=== PATIENT | female | born 1960 | race Caucasian/White ===

== ENCOUNTER 2019-04-28 14:27 | Emergency (ER) | payer BC, SELFPAY ==
--- NOTE | ~2019-04-28 | CT_ITS ---
EXAMINATION: CT lumbar spine wo [facility] EXAM DATE: 04/28/2019 17:41 INDICATION: Acute on chronic low back pain. TECHNIQUE: Spiral CT of the lumbar spine was performed without contrast. Axial, coronal and sagittal images were reviewed. The dose-length product (DLP) for this examination was 777.10 mGy-cm. The e xposure was tailored according to patient size (auto mA exposure control), and iterative reconstructi on (ASIR) was used as additional dose reduction technique. Correlation is made to MR lumbar spine 05/19. FINDINGS: There is moderate to severe disc disease L2-3 and L4-5, mild at L3-4 and L5-S1. The vertebr al bodies are aligned in the AP dimension. There are no osteoblastic or osteolytic lesions identified . Paraspinal soft tissue is unremarkable. There are no acute fractures identified. There is no spondy lolysis. Level by level evaluation: T12-L1: Disc does not extend beyond the endplate margin. Facet arthropathy: Minimal. Neural foraminal stenosis: No stenosis. Central canal stenosis: No stenosis. L1-L2: Disc does not extend beyond the endplate margin. Facet arthropathy: Mild. Neural foraminal stenosis: Mild left. Central canal stenosis: No stenosis. L2-L3: There is a moderate diffuse disc bulge. Facet arthropathy: Mild to moderate. Neural foraminal stenosis: Moderate to severe right, mild left. Central canal stenosis: Mild to moderate. L3-L4: There is a mild to moderate diffuse disc bulge. Facet arthropathy: Mild to moderate. Neural foraminal stenosis: Mild to moderate left, mild right. Central canal stenosis: Mild. L4-L5: There is a moderate diffuse disc bulge. Facet arthropathy: Moderate. Neural foraminal stenosis: Moderate bilateral. Central canal stenosis: Mild to moderate. L5-S1: There is a mild diffuse disc bulge. Facet arthropathy: Moderate. Neural foraminal stenosis: No stenosis. Central canal stenosis: No stenosis. Mild progression in the disc disease L2-3 compared to prior study. IMPRESSION: 1. L2-3 and L4-5 moderate to severe disc disease. 2. No acute lumbar findings. Reviewed, dictated and finalized at location A.
[2019-04-28 14:42] VITALS: BP 124/75; PULSE 82; RESP 20; TEMP 36.4; O2SAT 98
[2019-04-28] MEDS: ACETAMINOPHEN 500 MG TABLET 1000 MG PO (15:34)
--- NOTE | 2019-04-28 16:38 | ED.BACK ---
HPI - Back Pain/Injury General Chief Complaint: Back Pain/Injury Stated Complaint: CHRONIC LBP Time Seen by Provider: 04/28/19 14:58 Source: patient Mode of arrival: wheelchair Limitations: no limitations History of Present Illness HPI Narrative: This is a 58 year old female that presents to the ER for low back pain since yesterday. Reports history of chronic low back pain for which she sees pain management. Reports yesterday she bent over and stood back up and felt something pull in her back. Reports since she has had increasing low back pain. She has not taken anything for pain. Denies saddle anesthesia, bowel/bladder incontinence. Related Data Home Medications Medication Instructions Recorded Confirmed azathioprine 100 mg tablet 100 mg PO DAILY 03/10/19 calcium carbonate 600 mg calcium 600 mg PO DAILY 03/10/19 (1,500 mg) tablet cetirizine 10 mg capsule 10 mg PO DAILY 03/10/19 cholecalciferol (vitamin D3) 125 5,000 unit PO DAILY 03/10/19 mcg (5,000 unit) tablet eluxadoline 100 mg tablet 100 mg PO ONCE tablet 03/10/19 estradiol 1 mg tablet 1 mg PO DAILY 03/10/19 hydrochlorothiazide 25 mg tablet 25 mg PO DAILY 03/10/19 melatonin 10 mg capsule PO DAILY cap 03/10/19 tnrrvhjo-slb-utcgf acid 0.4 1 tablet PO DAILY 03/10/19 mg-lycopene 300 mcg-lutein 250 mcg tablet ondansetron HCl 4 mg tablet 4 mg PO Q8H PRN 03/10/19 oxybutynin chloride 10 mg 10 mg PO DAILY 03/10/19 tablet,extended release 24 hr ranitidine HCl 150 mg capsule 150 mg PO DAILY 03/10/19 simvastatin 10 mg tablet 10 mg PO DAILY 03/10/19 spironolactone 25 mg tablet 25 mg PO BID 03/10/19 Allergies Allergy/AdvReac Type Severity Reaction Status Date / Time pregabalin Allergy Intermediate MEMORY GAPS Verified 03/30/19 11:12 doxycycline Allergy Unknown Pt does Verified 03/30/19 11:12 not remember duloxetine Allergy Unknown catatonic Verified 03/30/19 11:12 Penicillins Allergy Unknown Skin Verified 03/30/19 11:12 Reaction Sulfa (Sulfonamide Allergy Unknown Skin Verified 03/30/19 11:12 Antibiotics) Reaction suvorexant [Belsomra] Allergy Unknown intolerance Verified 03/30/19 11:12 vancomycin Allergy Unknown Facial Verified 03/30/19 11:12 swelling Review of Systems Review of Systems: Narrative: CONSTITUTIONAL: Denies fever MUSCULOSKELETAL: Reports back pain, joint pain, and myalgia. NEUROLOGIC: Denies numbness, or weakness. All systems reviewed & are unremarkable except as noted in HPI and below PMFSH Past Medical History Medical History (Updated 04/28/19 @ 18:24 by Niharika Jaime PA-C) Crohn's disease, unspecified, with other complication Essential (primary) hypertension History of hyperlipidemia Social History Social History (Updated 04/28/19 @ 16:47 by Niharika Jaime PA-C) Smoking status: Never smoker Alcohol intake: current Substance use: never Exam Narrative: Exam Narrative: GENERAL: Well-appearing, well-nourished, and in no acute distress. HEAD: Normocephalic, atraumatic. EYES: EOMI. CHEST: Clear to auscultation. No respiratory distress. No wheezes rales or rhonchi HEART: Regular rate and rhythm. No murmur heard. Normal peripheral pulses. BACK: No midline spinal tenderness. Tender to palpation of lumbar paraspinal musculature. Strength equal in bilateral lower extremities (4/5) EXTREMITIES: Normal range of motion. No edema. SKIN: Warm, dry, no rash. NEURO: No focal deficits. Alert and oriented x3. PSYCH: Normal mood and affect Course Vital Signs Vital signs: Vital Signs Temperature 97.5 F L 04/28/19 14:42 Pulse Rate 82 04/28/19 14:42 Respiratory Rate 04/28/19 14:42 Blood Pressure 124/75 04/28/19 14:42 Pulse Oximetry 98 04/28/19 14:42 Temperature 97.5 F L 04/28/19 14:42 Pulse Rate 82 04/28/19 14:42 Respiratory Rate 20 04/28/19 14:42 Blood Pressure 124/75 04/28/19 14:42 Pulse Oximetry 98 04/28/19 14:42 MDM - Back Pain/Injury MDM Narrative
[2019-04-28] MEDS: ONDANSETRON HCL ODT 4 MG TABLET PO (16:46)
[2019-04-28] MEDS: MORPHINE SULFATE 4 MG/ML INJ IM (16:46)
== END 2019-04-28 19:14 | disposition home or self-care (01) ==
PROVIDERS: Emergency Provider Emergency Medicine; PCP Family Medicine
DX: M51.16 Intervertebral disc disorders with radiculopathy, lumbar region (principal); I10 Essential (primary) hypertension; K50.90 Crohn's disease, unspecified, without complications; E78.5 Hyperlipidemia, unspecified
CPT/HCPCS: 72131; 96372; 99284; A9270; J2270; J3360

== ENCOUNTER 2021-06-30 14:05 | Outpatient (RCR) | payer BC, SELFPAY ==
[2021-06-30 14:56] VITALS: BP 130/62; PULSE 75; RESP 18; TEMP 36.2; O2SAT 100
[2021-06-30 14:58] VITALS: BP 148/69; PULSE 71; TEMP 36.2; O2SAT 99
[2021-06-30] MEDS: FAMOTIDINE 20 MG TABLET PO (15:00)
[2021-06-30] MEDS: ACETAMINOPHEN 325 MG TABLET 650 MG PO (15:00)
[2021-06-30] MEDS: BEBTELOVIMAB 175 MG/2 ML VIAL IV PUSH (15:23)
[2021-06-30 16:12] VITALS: BP 148/62
== END 2021-06-30 16:00 ==
LOC: AMCINF 14:05
PROVIDERS: PCP Physician Assistant; Visit Provider Internal Medicine Hematology & Oncology
DX: U07.1 COVID-19 (principal); D84.9 Immunodeficiency, unspecified
CPT/HCPCS: A9270; M0222; Q0222

== ENCOUNTER → 2021-12-15 14:02 | Outpatient (CLI) | payer BC, SELFPAY ==
--- NOTE | ~2021-12-15 | XR_ITS ---
EXAMINATION: XR chest 2V 12/15/2021 14:21 INDICATION: Cough PROCEDURE: 2 view chest COMPARISON: 04/10/2017 FINDINGS: The lungs are clear. There is lingular atelectasis/scarring, unchanged. The cardiomediastin al silhouette is within normal limits. There are no pleural effusions. There is no pneumothorax shelley pected. IMPRESSION: 1: NO ACUTE CARDIOPULMONARY DISEASE. Reviewed, dictated and finalized at location B.
== END ==
PROVIDERS: PCP Family Medicine; Visit Provider Physician Assistant
DX: R05.9 Cough, unspecified (principal)
CPT/HCPCS: 71046

== ENCOUNTER 2021-12-26 12:33 | Outpatient (CLI) | payer BC, SELFPAY ==
[2021-12-26 18:29] LABS: Basophils Absolute Auto 0.1 K/mm3 (0.0-0.1); Basophils Percent Auto 1.2 % (0.2-1.2); Eosinophils Absolute Auto 0.2 K/mm3 (0-0.3); Eosinophils Percent Auto 1.8 % (0-4.4); Hematocrit 39.2 % (37.0-47.0); Hemoglobin 12.8 g/dL (12.0-15.0); Immature Granulocyte Absolute 0.03 K/mm3 (0.00-0.031); Immature Granulocyte Percent A 0.4 % (0-0.5); Immature Platelet Fraction Pct 7.7 % (0.9-11.2); Lymphocytes Absolute Auto 1.37 K/mm3 (0.9-3.2); Lymphocytes Percent Auto 16.5 % (18.3-44.2); Mean Corpuscular HGB Conc 32.7 g/dl (32-36); Mean Corpuscular Volume 91.8 fl (80-100); Mean Platelet Volume 12.4 fl (7.4-10.4); Monocytes Absolute Auto 0.3 K/mm3 (0.1-0.6); Neutrophils Absolute Auto 6.3 K/mm3 (1.3-6.7); Neutrophils Percent Auto 76.1 % (45.5-73.1); Platelet Count Result 267 k/mm3 (150-375); Red Blood Count 4.27 M/mm3 (4.2-5.4); Red Cell Distribution Width 14.1 % (11.5-14.5); White Blood Count 8.3 K/mm3 (4.5-10.0)
[2021-12-26 18:49] LABS: Anion Gap 16 mmol/L (8-16); Blood Urea Nitrogen 28 mg/dL (7-17); Calcium 9.5 mg/dL (8.4-10.2); Carbon Dioxide 24 mmol/L (22-30); Chloride 98 mmol/L (98-107); Estimated Glomerular Filt Rate 30; Glucose 172 mg/dL (65-110); Potassium 3.3 mmol/L (3.4-5.0); Sodium 138 mmol/L (137-145)
[2021-12-28 12:02] LABS: NIL 0.01 IU/mL; Quantiferon TB Plus, 1T NEGATIVE (NEGATIVE)
== END 2021-12-26 12:34 | disposition home or self-care (01) ==
LOC: ANHGOSHLAB 12:36
PROVIDERS: PCP Family Medicine; Visit Provider Family Medicine
DX: K50.918 Crohn's disease, unspecified, with other complication (principal)
CPT/HCPCS: 36415; 80048; 85025; 85055; 86480

== ENCOUNTER → 2022-02-14 11:07 | Outpatient (CLI) | payer BC, SELFPAY ==
--- NOTE | ~2022-02-14 | XR_ITS ---
EXAMINATION: XR abdomen/kub 1V INDICATION: Constipation TECHNIQUE: Supine views of the abdomen were obtained on 2 radiographs. COMPARISON: 06/07/2016 FINDINGS: There is a normal volume of colonic stool. No dilated loops of bowel are evident. The visua lized lung bases are clear. There is severe lower lumbar spondylosis. Moderate osteoarthritis is note d in the hips. IMPRESSION: 1. Unremarkable abdominal radiographs. Reviewed, dictated and finalized at location B. 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
== END ==
PROVIDERS: PCP Family Medicine
DX: R19.7 Diarrhea, unspecified (principal); K59.00 Constipation, unspecified; K58.0 Irritable bowel syndrome with diarrhea
CPT/HCPCS: 74018

== ENCOUNTER 2022-06-05 16:38 | Emergency (ER) | payer BC, SELFPAY ==
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
[2022-06-05 16:54] VITALS: BP 112/64; PULSE 75; RESP 16; TEMP 36.4; O2SAT 100
--- NOTE | 2022-06-05 19:23 | ED.GENADULT ---
HPI - General Adult General Chief complaint: Wound/Laceration Stated complaint: hand lac Time Seen by Provider: 06/05/22 19:09 History of Present Illness HPI narrative: 61F right handed presented after injury to left hand. Per patient, she was trying to cut a box open with a clean steak knife, when it slipped and it cut her. She has been unable to move her index finger, so presented to the ED for further evaluation. She denied fevers, chills, nausea, vomiting, injury elsewhere. Reports Tdap is up-to-date. Past medical history: See EMR Past surgical history: See EMR Allergies: See EMR Related Data Home Medications Medication Instructions Recorded Confirmed azathioprine 100 mg tablet 100 mg PO DAILY 03/10/19 05/04/22 cetirizine 10 mg capsule (All Day 10 mg PO DAILY 03/10/19 05/04/22 Allergy (cetirizine)) cholecalciferol (vitamin D3) 125 5,000 unit PO DAILY 03/10/19 05/04/22 mcg (5,000 unit) tablet (Vitamin D3) eluxadoline 100 mg tablet (Viberzi) 100 mg PO ONCE 03/10/19 05/04/22 ohnwjdpo-rqy-iuuwe acid 0.4 1 tablet PO DAILY 03/10/19 05/04/22 mg-lycopene 300 mcg-lutein 250 mcg tablet (Centrum Silver) mecobalamin (vitamin B12) 1,000 2,000 mcg PO 4XW 12/15/21 05/04/22 mcg lozenges omega 6-blm-fys-fish oil 1,200 mg 1 cap PO BID 01/26/22 05/04/22 (144 mg-216 mg) capsule (Fish Oil) nortriptyline 25 mg capsule 25 mg PO DAILY 04/03/22 Allergies Allergy/AdvReac Type Severity Reaction Status Date / Time pregabalin Allergy Intermediate MEMORY GAPS Verified 05/04/22 13:31 doxycycline Allergy Unknown Pt does Verified 05/04/22 13:31 not remember duloxetine Allergy Unknown catatonic Verified 05/04/22 13:31 lisinopril Allergy Unknown Diarrhea Verified 05/04/22 13:31 Penicillins Allergy Unknown Skin Verified 05/04/22 13:31 Reaction Sulfa (Sulfonamide Allergy Unknown Skin Verified 05/04/22 13:31 Antibiotics) Reaction suvorexant [Belsomra] Allergy Unknown intolerance Verified 05/04/22 13:31 vancomycin Allergy Unknown Facial Verified 05/04/22 13:31 swelling cefuroxime [From Ceftin] Allergy Diarrhea Verified 05/04/22 13:31 Review of Systems Review of Systems: See HPI [facility] Past Medical History Medical History Crohn's disease, unspecified, with other complication Essential (primary) hypertension History of hyperlipidemia Family History Family History Father Family history of cardiac disorder Family history of arthritis Family history of Parkinson's disease Malignant neoplasm of prostate Family history of hypercholesterolemia Family history of cardiovascular disease Mother Family history of hypercholesterolemia Metastatic lung cancer (metastasis from lung to other site) Grandparent Family history of hypercholesterolemia Depression Family history of Alzheimer's disease Family history of emphysema Sibling Hypertension Social History Social History Smoking status: Never smoker Alcohol intake: current Substance use: never Lack of Transportation: No Lack of Food: Never True Current Housing: I Have Housing Concerned About Future Housing: No Difficulty Paying Gas/Electric Bills: No Difficulty Paying for Meds: No Currently Unemployed: No Living arrangements: with family Gender identity (if verbalized by the patient): Female Spiritual care concerns: No Exam Narrative: APPEARANCE: Alert, calm and cooperative, no acute distress, phonating, sitting comfortably during visit HEAD: atraumatic EYES: Pupils equal round an reactive to light, extra ocular movements intact, no conjunctival injection NOSE: Normal no drainage EXTREMITIES: Left dorsum of hand with 1 cm linear laceration, no active bleeding, no foreign bodies, no step-offs, decreased extension at second finger, flexion preserved, peripheral
[2022-06-05 21:01] VITALS: BP 120/72; PULSE 72; RESP 15; O2SAT 98
== END 2022-06-05 21:02 | disposition home or self-care (01) ==
PROVIDERS: Emergency Provider Emergency Medicine; PCP Family Medicine
DX: S61.211A Laceration without foreign body of left index finger without damage to nail, initial encounter (principal); I10 Essential (primary) hypertension; E78.5 Hyperlipidemia, unspecified; K50.90 Crohn's disease, unspecified, without complications; W26.0XXA Contact with knife, initial encounter
CPT/HCPCS: 29125; 73130; 99282; 99283

== ENCOUNTER 2022-06-27 10:23 | Outpatient (CLI) | payer BC, SELFPAY | END 2022-06-27 10:24 | disposition home or self-care (01) | LOC: ANHLAB 10:25 | PROVIDERS: PCP Family Medicine | DX: K50.80 Crohn's disease of both small and large intestine without complications (principal); Z79.899 Other long term (current) drug therapy | CPT/HCPCS: 36415; 80280; 82397 ==

== ENCOUNTER 2022-08-05 10:34 | Emergency (ER) | payer BC, SELFPAY ==
--- NOTE | ~2022-08-05 | XR_ITS ---
XR chest 2V DATE: 08/05/2022 12:31 INDICATION: Cough TECHNIQUE: PA and lateral views COMPARISON: 12/15/2021 2 view chest FINDINGS: Normal heart size. No hilar or mediastinal enlargement. No pulmonary infiltrate or consolidation, pleural effusion or pulmonary vascular congestion or pneumo thorax is detected. Mild thoracic and lumbar scoliosis. IMPRESSION: No active cardiopulmonary disease Reviewed, dictated and finalized at location A.
[2022-08-05 10:50] VITALS: BP 131/58; PULSE 79; RESP 15; TEMP 36.9; O2SAT 97
[2022-08-05 11:57] VITALS: PULSE 74; RESP 17
[2022-08-05] MEDS: ALBUTEROL SULFATE NEB 2.5 MG/3 ML INH INHALATION (11:57)
[2022-08-05] MEDS: IPRATROPIUM BR 0.02% INH SOLN 0.5 MG/2.5 ML VIAL INHALATION (11:57)
[2022-08-05 12:07] VITALS: PULSE 70; RESP 14
[2022-08-05 12:26] LABS: Basophils Percent Auto 0.5 % (0.2-1.2); Eosinophils Absolute Auto 0.1 K/mm3 (0-0.3); Eosinophils Percent Auto 1.4 % (0-4.4); Hematocrit 36.8 % (37.0-47.0); Hemoglobin 11.7 g/dL (12.0-15.0); Immature Granulocyte Absolute 0.01 K/mm3 (0.00-0.031); Immature Granulocyte Percent A 0.2 % (0-0.5); Lymphocytes Absolute Auto 0.77 K/mm3 (0.9-3.2); Lymphocytes Percent Auto 13.1 % (18.3-44.2); Mean Corpuscular HGB Conc 31.8 g/dl (32-36); Mean Corpuscular Hemoglobin 28.8 pg (26-34); Mean Corpuscular Volume 90.6 fl (80-100); Mean Platelet Volume 10.9 fl (7.4-10.4); Monocytes Absolute Auto 0.6 K/mm3 (0.1-0.6); Monocytes Percent Auto 10.9 % (2.6-8.5); Neutrophils Absolute Auto 4.4 K/mm3 (1.3-6.7); Neutrophils Percent Auto 73.9 % (45.5-73.1); Platelet Count Result 229 k/mm3 (150-375); Red Blood Count 4.06 M/mm3 (4.2-5.4); Red Cell Distribution Width 12.8 % (11.5-14.5); White Blood Count 5.9 K/mm3 (4.5-10.0)
[2022-08-05 12:46] LABS: Alanine Aminotransferase 18 U/L (6-35); Albumin Level 4.3 g/dL (3.5-5.1); Alkaline Phosphatase 78 U/L (38-126); Anion Gap 10 mmol/L (8-16); Aspartate Amino Transferase 29 U/L (14-36); Bilirubin,Total 0.4 mg/dL (0.2-1.3); Blood Urea Nitrogen 16 mg/dL (7-17); Calcium 9.1 mg/dL (8.4-10.2); Carbon Dioxide 22 mmol/L (22-30); Chloride 105 mmol/L (98-107); Estimated CRCL calculation 35 ml/min; Estimated Glomerular Filt Rate 42; Glucose 93 mg/dL (65-110); Potassium 4.1 mmol/L (3.4-5.0); Sodium 137 mmol/L (137-145)
[2022-08-05 13:08] VITALS: BP 126/53; PULSE 79; RESP 20; O2SAT 96
[2022-08-05] MEDS: BELLADONNA ALK/PHENOB ELIX 10 ML, MAG HYDROX/ALUMINUM HYD/SIMETH 30 ML, LIDOCAINE HCL 2... PO (13:25)
--- NOTE | 2022-08-05 14:05 | ED.GENADULT ---
HPI - General Adult General Chief complaint: Upper Respiratory Infection Stated complaint: diff breathing/cough/fever Time Seen by Provider: 08/05/22 10:46 History of Present Illness HPI narrative: Patient is a 61-year-old female who presents ER with sinus congestion. Ongoing over the last week. Associated with postnasal drip and cough. Cough does not have pain in her chest. Has had some subjective fever. Concerned that she needs a Z-Marcelino for sinus infection. She reports usually she has to take 2 to take care of her infection. No exertional chest pain. No abdominal discomfort. She does report chronic esophagitis history of ulceration and is scheduled to have endoscopies. Related Data Home Medications Medication Instructions Recorded Confirmed cetirizine 10 mg capsule (All Day 10 mg PO DAILY 03/10/19 06/29/22 Allergy (cetirizine)) cholecalciferol (vitamin D3) 125 5,000 unit PO DAILY 03/10/19 06/29/22 mcg (5,000 unit) tablet (Vitamin D3) eluxadoline 100 mg tablet (Viberzi) 100 mg PO ONCE 03/10/19 06/29/22 cfifgees-hya-bluqh acid 0.4 1 tablet PO DAILY 03/10/19 06/29/22 mg-lycopene 300 mcg-lutein 250 mcg tablet (Centrum Silver) mecobalamin (vitamin B12) 1,000 2,000 mcg PO 4XW 12/15/21 06/29/22 mcg lozenges omega 2-inp-gmr-fish oil 1,200 mg 1 cap PO BID 01/26/22 06/29/22 (144 mg-216 mg) capsule (Fish Oil) oxybutynin chloride 10 mg 20 mg PO DAILY 06/29/22 06/29/22 tablet,extended release 24 hr Allergies Allergy/AdvReac Type Severity Reaction Status Date / Time pregabalin Allergy Intermediate MEMORY GAPS Verified 06/29/22 10:12 doxycycline Allergy Unknown Pt does Verified 06/29/22 10:12 not remember duloxetine Allergy Unknown catatonic Verified 06/29/22 10:12 lisinopril Allergy Unknown Diarrhea Verified 06/29/22 10:12 Penicillins Allergy Unknown Skin Verified 06/29/22 10:12 Reaction Sulfa (Sulfonamide Allergy Unknown Skin Verified 06/29/22 10:12 Antibiotics) Reaction suvorexant [Belsomra] Allergy Unknown intolerance Verified 06/29/22 10:12 vancomycin Allergy Unknown Facial Verified 06/29/22 10:12 swelling cefuroxime [From Ceftin] Allergy Diarrhea Verified 06/29/22 10:12 Review of Systems Review of Systems: All systems reviewed & are unremarkable except as noted in HPI and below Constitutional: Constitutional: Denies chills, Reports fatigue and Reports fever(s) ENT: Reports nasal congestion and Reports sore throat Cardiovascular: Cardiovascular: Denies chest pain, Denies rapid heart rate and Denies radiating jaw, neck or arm pain Respiratory: Respiratory: Reports cough, Denies dyspnea and Denies wheezing Gastrointestinal: Gastrointestinal: Denies abdominal pain, Denies nausea and Denies vomiting [facility] Past Medical History Medical History (Updated 08/05/22 @ 14:06 by Enrique Higgins MD) Cat bite Cough COVID-19 Crohn's disease, unspecified, with other complication when pre infusion lab reviewed, infusion center needs to be called to give verbal order to proceed with infusion. Essential (primary) hypertension History of hyperlipidemia Nausea Trigger finger, acquired Surgical History Surgical History (Updated 06/13/22 @ 10:59 by Srikanth Waller MA) History of hysterectomy ~2013, OA -Dr. Yovani Kruger Family History Family History Father Family history of cardiac disorder Family history of arthritis Family history of Parkinson's disease Malignant neoplasm of prostate Family history of hypercholesterolemia Family history of cardiovascular disease Mother Family history of hypercholesterolemia Metastatic lung cancer (metastasis from lung to other site) Grandparent Family history of hypercholesterolemia Depression Family history of Alzheimer's disease Family history of emphysema Sibling Hypertension Social History Social History (Reviewed 06/13/22 @ 10:52 by Srikanth Waller
[2022-08-05 14:27] VITALS: BP 146/77; PULSE 100; RESP 18; O2SAT 95
[2022-08-05 14:33] VITALS: BP 148/71; PULSE 104; RESP 20; O2SAT 92
== END 2022-08-05 14:37 | disposition home or self-care (01) ==
PROVIDERS: Emergency Provider Emergency Medicine; PCP Family Medicine
DX: J06.9 Acute upper respiratory infection, unspecified (principal); R05.9 Cough, unspecified; I10 Essential (primary) hypertension; E78.5 Hyperlipidemia, unspecified; K50.90 Crohn's disease, unspecified, without complications
CPT/HCPCS: 36415; 71046; 80053; 85025; 94640; 99283; A9270

== ENCOUNTER → 2022-09-13 14:11 | Outpatient (CLI) | payer BC, SELFPAY ==
--- NOTE | ~2022-09-13 | CT_ITS ---
EXAMINATION: CT sinus wo con DATE: 09/13/2022 14:25 INDICATION: Chronic sinusitis TECHNIQUE: Computed tomography (CT) of the paranasal sinuses was performed without contrast. Iterativ e reconstruction technique was employed. Exam dose: 253.47 mGy-cm total exam DLP. COMPARISON: 09/13/2015 CT sinuses FINDINGS: There is mucosal thickening of the left maxillary, sphenoid and ethmoid sinuses. No signifi cant mucoperiosteal reaction. No significant nasal septal deviation. Mastoids are pneumatized. No dep ressed skull fractures. Right ostiomeatal unit is patent. Left ostiomeatal unit is occluded by soft t issue. IMPRESSION: Moderate sinusitis. Reviewed, dictated and finalized at location A. IMPRESSION: Moderate sinusitis.
== END ==
PROVIDERS: PCP Family Medicine; Visit Provider Family Medicine
DX: J32.9 Chronic sinusitis, unspecified (principal)
CPT/HCPCS: 70486

== ENCOUNTER 2022-12-26 13:19 | Outpatient (CLI) | payer BC, SELFPAY ==
--- NOTE | 2022-12-26 13:32 | ECG_ITS ---
Measurements Intervals [place] Rate: 64 P: 56 TX: 120 QRS: 65 QRSD: 81 T: 56 QT: 397 QTc: 411 Interpretive Statements SINUS RHYTHM BASELINE WANDER- V3 NORMAL ECG NO PREVIOUS ECG AVAILABLE FOR COMPARISON Electronically Signed On 12-26-2022 14:23:28 HR ASSOCIATE by Jose Real D.O.
[2022-12-26 14:04] LABS: Anion Gap 10 mmol/L (8-16); Blood Urea Nitrogen 18 mg/dL (7-17); Calcium 9.4 mg/dL (8.4-10.2); Carbon Dioxide 22 mmol/L (22-30); Chloride 105 mmol/L (98-107); Estimated Glomerular Filt Rate 33; Glucose 86 mg/dL (65-110); Potassium 4.3 mmol/L (3.4-5.0); Sodium 137 mmol/L (137-145)
[2022-12-26 14:08] LABS: Prothrombin Time 13.5 Seconds (11.1-14.7)
[2022-12-26 14:09] LABS: Partial Thromboplastin Time 32.3 SECONDS (22.3-36.8)
== END 2022-12-26 13:20 | disposition home or self-care (01) ==
LOC: ANHSURGERY 13:24
PROVIDERS: Anesthesiology; PCP Family Medicine; Visit Provider Otolaryngology
DX: Z01.812 Encounter for preprocedural laboratory examination (principal); Z01.810 Encounter for preprocedural cardiovascular examination; E11.22 Type 2 diabetes mellitus with diabetic chronic kidney disease; N18.32 Chronic kidney disease, stage 3b
CPT/HCPCS: 36415; 80048; 85610; 85730; 93005

== ENCOUNTER 2022-12-28 02:56 | Day surgery (SDC) | payer BC, SELFPAY ==
[2022-12-25 11:25] VITALS: BMI 24.9
--- NOTE | 2022-12-25 11:49 | PC.NURSE ---
Report to the Outpatient Waiting Room, entrance under the green pavilion located off [facility], at time 6:30 on date 12/28/22. Planned Procedure Time: 8:30. Time changes happen often and if your time is changed the preop area will call you the afternoon before. - You and your visitor will be asked to self-screen and do not enter if you have any COVID symptoms. - A mask is optional within the hospital at this time. Patients may have clear liquids (water, carbonated beverages, clear teas, apple juice) until 3 hours prior to surgery (5:30) with a maximum of 20 ounces. - No food from midnight until time of surgery Take the following medications with a SIP of water the morning of surgery: ALPRAZOLAM, AZITHROMYCIN DO NOT STOP ANY OF YOUR OTHER PRESCRIPTION MEDICATIONS PRIOR TO SURGERY ?EXCEPT THE FOLLOWING Medications to discontinue per physician: VITAMINS/SUPPLEMENTS Date to take last dose: NO MORE UNTIL AFTER SURGERY Please no make-up, nail albanian, hairspray, perfume, deodorant, or body powder the day of surgery. No jewelry (including any body piercings) or valuables the day of surgery, leave them at home. Please take a shower or bath the night before, or the morning of, surgery with an antibacterial soap. Wear comfortable, loose fitting clothing. - Jewelry must be removed prior to entering the operating room. Rings and piercings that are not removed may be cut off. - The hospital will not accept responsibility for valuables. - Please leave all valuables, including medications, at home the day of surgery. If you are going home after surgery, a licensed class a regional drivers must drive you home. - NO public transportation without another adult if you receive anesthesia. - We recommend that an adult stay with you for 24 hours following discharge. - We also recommend that you do not drive, make important decision, drink alcoholic beverages, or take any drugs that were not prescribed by your health care provider for at least 24 hours after your discharge time. Follow any additional instructions given to you from your surgeon. If you or anyone in your household have experienced Covid symptoms in the past week, please notify your surgeon or the nurse liaison at the phone number below for possible testing. Telephone instructions given to PT - CHRISTOPHER LYLE and asked if any additional questions and then verbalized understanding. Patient advised to call surgeon office or pre surgery nurse liaison [phone] if any additional questions.
--- NOTE | 2022-12-27 17:19 | PM.IMHP ---
H&P: HPI History of Present Illness Date/Time: 12/27/22 17:19 Chief Complaint: chronic sinusitis septal deviation Narrative: planned procedure Review of Systems Review of Systems: All systems reviewed & are unremarkable except as noted in HPI and below PMFSH Past Medical History Medical History Cat bite Cough COVID-19 Crohn's disease, unspecified, with other complication when pre infusion lab reviewed, infusion center needs to be called to give verbal order to proceed with infusion. Essential (primary) hypertension History of hyperlipidemia Nausea Trigger finger, acquired Surgical History Surgical History History of hysterectomy ~2013, OA -Dr. Yovani Kruger Family History Family History Father Family history of cardiac disorder Family history of arthritis Family history of Parkinson's disease Malignant neoplasm of prostate Family history of hypercholesterolemia Family history of cardiovascular disease Mother Family history of hypercholesterolemia Metastatic lung cancer (metastasis from lung to other site) Grandparent Family history of hypercholesterolemia Depression Family history of Alzheimer's disease Family history of emphysema Sibling Hypertension Social History Social History Smoking status: Never smoker Alcohol intake: current Alcohol use details: VERY RARE Substance use: never Substance use type: does not use Lack of Transportation: No Lack of Food: Never True Current Housing: I Have Housing Concerned About Future Housing: No Difficulty Paying Gas/Electric Bills: No Difficulty Paying for Meds: No Currently Unemployed: No Education: High School Diploma/GED Living arrangements: with family Gender identity (if verbalized by the patient): Female Spiritual care concerns: No Meds Home Medications and Allergies Home Medications Medication Instructions Recorded Confirmed Type cetirizine 10 mg capsule (All Day 10 mg PO DAILY 03/10/19 12/25/22 History Allergy (cetirizine)) cholecalciferol (vitamin D3) 125 5,000 unit PO DAILY 03/10/19 12/25/22 History mcg (5,000 unit) tablet (Vitamin D3) eluxadoline 100 mg tablet (Viberzi) 100 mg PO ONCE 03/10/19 12/25/22 History xsnvniie-xcv-yvqty acid 0.4 1 tablet PO DAILY 03/10/19 12/25/22 History mg-lycopene 300 mcg-lutein 250 mcg tablet (Centrum Silver) blood-glucose meter (Blood Glucose #1 ea 05/04/21 12/14/22 Rx Monitoring kit) lancets 28 gauge (1st Tier Unilet #100 ea 05/05/21 12/14/22 Rx ComforTouch Lancet) mecobalamin (vitamin B12) 1,000 2,000 mcg PO 4XW 12/15/21 12/25/22 History mcg lozenges omega 7-vhb-uus-fish oil 1,200 mg 1 cap PO BID 01/26/22 12/25/22 History (144 mg-216 mg) capsule (Fish Oil) blood sugar diagnostic (OneTouch #100 strips 01/29/22 12/14/22 Rx Verio test strips) lancets 33 gauge (OneTouch Delica #100 ea 01/29/22 12/14/22 Rx Plus Lancet) ondansetron HCl 4 mg tablet 4 mg PO Q8H PRN Nausea #30 tabs 01/30/22 12/25/22 Rx fenofibrate micronized 134 mg 134 mg PO DAILY #90 caps 05/28/22 12/25/22 Rx capsule simvastatin 10 mg tablet 10 mg PO DAILY #100 tabs 05/28/22 12/25/22 Rx potassium chloride 10 mEq 10 meq PO DAILY #90 tabs 07/16/22 12/25/22 Rx tablet,extended release (Klor-Con) estradiol 1 mg tablet See Rx Instructions .Route 08/28/22 12/25/22 Rx .COMPLEX #90 tabs dapagliflozin propanediol 5 mg 5 mg PO DAILY #30 tabs 09/24/22 12/25/22 Rx tablet (Farxiga) vedolizumab 300 mg intravenous 300 mg IV .every 8 weeks 09/24/22 12/25/22 History solution (Entyvio) oxybutynin chloride 10 mg 20 mg PO DAILY #180 tabs 10/09/22 12/25/22 Rx tablet,extended release 24 hr trazodone 50 mg tablet 50 mg PO QHS #90 tabs 09
[2022-12-28] VITALS (14 sets, daily range): BP systolic 97–135; BP diastolic 52–77; PULSE 80–106; RESP 10–20; TEMP 37.1; O2SAT 92–100; BMI 25.5
--- NOTE | 2022-12-28 07:19 | WPDHPUPDATE1 ---
History and Physical Update Update Date/Time: 12/28/22 07:19 History and Physical has been reviewed, including an updated exam of the patient. There are NO changes in the patient's condition. Risks, benefits, and alternatives have been discussed and questions answered. Patient agrees to proceed with procedure.
[2022-12-28] MEDS: LACTATED RINGERS 1,000 ML 30 ML IV CONT ×2 (07:30→12:00)
[2022-12-28] MEDS: ACETAMINOPHEN 500 MG TABLET 1000 MG PO ×2 (07:35→14:33)
[2022-12-28 07:50] LABS: Glucose Point of Care 79 mg/dl (65-105)
--- NOTE | 2022-12-28 08:14 | WPDANESEPPF ---
Anes - Initial Pre Proc Eval Procedure: Operation Date: 12/28/22 08:30 Proposed Procedures p Endoscopic Septoplasty - Ulices Brown MD s Image Guided Left Frontal Sinusotomy, Left Sphenoidotomy Without Tissue Removal, Left Total Ethmoidectomy, Left Maxillary Antrostomy Without Tissue Removal - Ulices Brown MD Date/Time: 12/28/22 08:14 Surgeon: Ulices Brown MD Pre Op Diagnosis: Chr Sinusitis Patient Data Age: 62 Gender: F Height: 1.63 m Weight: 67.5 kg Allergies Allergy/AdvReac Type Severity Reaction Status Date / Time pregabalin Allergy Intermediate MEMORY GAPS Verified 12/28/22 07:55 doxycycline Allergy Unknown Pt does Verified 12/28/22 07:55 not remember duloxetine Allergy Unknown catatonic Verified 12/28/22 07:55 lisinopril Allergy Unknown Diarrhea Verified 12/28/22 07:55 Penicillins Allergy Unknown Skin Verified 12/28/22 07:55 Reaction Sulfa (Sulfonamide Allergy Unknown Skin Verified 12/28/22 07:55 Antibiotics) Reaction suvorexant [Belsomra] Allergy Unknown intolerance Verified 12/28/22 07:55 vancomycin Allergy Unknown Facial Verified 12/28/22 07:55 swelling cefuroxime [From Ceftin] Allergy Diarrhea Verified 12/28/22 07:55 tizanidine Allergy Hallucinati Verified 12/28/22 07:55 ng Home Medications Medication Instructions Recorded Confirmed Type cetirizine 10 mg capsule (All Day 10 mg PO DAILY 03/10/19 12/28/22 History Allergy (cetirizine)) cholecalciferol (vitamin D3) 125 5,000 unit PO DAILY 03/10/19 12/28/22 History mcg (5,000 unit) tablet (Vitamin D3) eluxadoline 100 mg tablet (Viberzi) 100 mg PO ONCE 03/10/19 12/28/22 History xmsywysa-vnh-acjgf acid 0.4 1 tablet PO DAILY 03/10/19 12/28/22 History mg-lycopene 300 mcg-lutein 250 mcg tablet (Centrum Silver) blood-glucose meter (Blood Glucose #1 ea 05/04/21 12/28/22 Rx Monitoring kit) lancets 28 gauge (1st Tier Unilet #100 ea 05/05/21 12/28/22 Rx ComforTouch Lancet) mecobalamin (vitamin B12) 1,000 2,000 mcg PO 4XW 12/15/21 12/28/22 History mcg lozenges omega 3-lex-twk-fish oil 1,200 mg 1 cap PO BID 01/26/22 12/28/22 History (144 mg-216 mg) capsule (Fish Oil) blood sugar diagnostic (TriumfantTouch #100 strips 01/29/22 12/28/22 Rx Verio test strips) lancets 33 gauge (OneTouch Delica #100 ea 01/29/22 12/28/22 Rx Plus Lancet) ondansetron HCl 4 mg tablet 4 mg PO Q8H PRN Nausea #30 tabs 01/30/22 12/28/22 Rx fenofibrate micronized 134 mg 134 mg PO DAILY #90 caps 05/28/22 12/28/22 Rx capsule simvastatin 10 mg tablet 10 mg PO DAILY #100 tabs 05/28/22 12/28/22 Rx potassium chloride 10 mEq 10 meq PO DAILY #90 tabs 07/16/22 12/28/22 Rx tablet,extended release (Klor-Con) estradiol 1 mg tablet See Rx Instructions .Route 08/28/22 12/28/22 Rx .COMPLEX #90 tabs dapagliflozin propanediol 5 mg 5 mg PO DAILY #30 tabs 09/24/22 12/28/22 Rx tablet (Farxiga) vedolizumab 300 mg intravenous 300 mg IV .every 8 weeks 09/24/22 12/28/22 History solution (Entyvio) oxybutynin chloride 10 mg 20 mg PO DAILY #180 tabs 10/09/22 12/28/22 Rx tablet,extended release 24 hr trazodone 50 mg tablet 50 mg PO QHS #90 tabs 11/06/22 12/28/22 Rx semaglutide 7 mg tablet (Rybelsus) 7 mg PO DAILY #90 tabs 11/07/22 12/28/22 Rx alprazolam 0.5 mg tablet 0.5 mg PO BID PRN anxiety #180 tabs 11/13/22 12/28/22 Rx losartan 25 mg tablet 25 mg PO DAILY #90 tabs 12/03/22 12/28/22 Rx azithromycin 250 mg tablet 250 mg PO DAILY 10 days #10 tabs 12/24/22 12/28/22 Rx Laboratory Tests 12/28/22 07:25 POC Capillary Glucose 79 mg/dl (65-105) Patient hx anesthesia problems: none Family hx anesthesia problems: none Results Review: All pre-operative results and documents have been reviewed as part of the pre-operative evaluation. [facility] Past Medical History Medical History Cat bite Cough COVID-19 Crohn's disease, unspecified, with other complication when p
[2022-12-28] MEDS: MIDAZOLAM HCL (*CRX) 2 MG/2 ML VIAL IV PUSH (08:42)
[2022-12-28] MEDS: SCOPOLAMINE 1.5 MG PATCH TRANSDERM (08:42)
[2022-12-28] MEDS: ceFAZolin 2 GM/D5W 50 ML 2 GM/50 ML BAG IVPB (09:19)
[2022-12-28] MEDS: OXYMETAZOLINE HCL 0.05% NAS 15 ML BTL (*BKC) 1 SPRAY NASAL (09:43)
[2022-12-28] MEDS: LIDO 1%/EPINEPHRINE 1:100,000 50 ML VIAL INFILTRATE (09:44)
[2022-12-28 12:24] LABS: Glucose Point of Care 117 mg/dl (65-105)
--- NOTE | 2022-12-28 12:25 | P.OP_ITS ---
Procedure Note - Detailed Date of Procedure 12/28/22 Pre-op Diagnosis Chr Sinusitis deviation Post-op Diagnosis Same Procedure Performed Left-sided total ethmoidectomy maxillary antrostomy frontal sinusotomy sphenoidotomy, endoscopic assisted septoplasty, turbinate outfracture bilaterally Surgeon Ulices Brown MD Anesthesia General Indications See above Findings Polypoid edema in all the aforementioned sinuses a fairly severe left-sided septal deviation necessitating septoplasty. Description of Procedure Patient identified consent verified in the preoperative holding area. Patient brought to the operating room. Time-out performed. General anesthesia induced endotracheal tube secured. Patient prepped draped position procedure confirmed 2nd time-out performed. Image guidance initiated confirmed. Afrin-soaked pledgets placed for 5 minutes then removed. 0 degree scope utilized nasal passages viewed septal deviation septum was in the way. Total 13 cc 1% lidocaine 1 100,000 parts epinephrine injected in the bilateral nasal passages nasal septum inferior turbinates SUV nasal septum. [place] incision made left side left nasal septal flap elevated 7 [place] suction. Osteotome utilized to cross over the septum no perforations on the right side right nasal septal flap elevated 7 [place] suction. Deviated septum removed combination Patti forceps Jean Paul [place] forceps osteotome. Moderately high septoplasty did not necessitate quilting. [place] incision closed 3 interrupted 5 0 fast gut sutures. Small tear on the left side. Turbinates outfractured. Left middle turbinate medialized. Maxillary antrostomy performed with image guidance double ball tip probe back biter down-biting stopper straight through cut microdebrider per 8. No damage to orbit. Total ethmoidectomy performed with [place] image guidance and microdebrider. No damage to orbit no damage to skull base no damage to septum. Sphenoidotomy performed image guidance [place] sphenoid punch microdebrider. No damage to carotid artery no damage topic nerve. Posterior septal artery was intact. Frontal sinusotomy performed with 70 degree scope image guided instruments [id number] and front to back draft Beatrice Tovar and frontal sinus seeker. Patient tolerated the procedure well blood loss about 50 cc. Nova pack placed on the left side after the wounds were copiously irrigated. Huerta splints placed a left was ensured to be lateral to the middle turbinate. Patient tolerated the procedure well [place] splints were sutured anteriorly with a 3-0 mattressed nylon suture. The patient back to his abdominal patient taken to PACU Estimated Blood Loss -50.0 Drains No Packing Yes (Nova packs) Pathology None sent Complications No immediate complications Condition Stable Disposition PACU [facility] Billing Surgery - Charge Forward: Surgery Billing
[2022-12-28] MEDS: fentaNYL CITRATE INJ (*CRX) 100 MCG/2 ML VIAL 25 MCG IV PUSH ×2 (13:11→13:26)
[2022-12-28] MEDS: MUPIROCIN 2% OINT 22 GM TUBE 1 APPLIC EACH NARE (13:12)
== END 2022-12-28 15:02 | disposition home or self-care (01) ==
PROVIDERS: PCP Family Medicine; Visit Provider Otolaryngology
PROC: (CPT 30520; principal; 2022-12-28 08:30)
PROC: (CPT 31256; 2022-12-28 08:30)
DX: J32.4 Chronic pansinusitis (principal); J33.8 Other polyp of sinus; J34.2 Deviated nasal septum; K50.90 Crohn's disease, unspecified, without complications; E78.5 Hyperlipidemia, unspecified; I10 Essential (primary) hypertension; Z79.84 Long term (current) use of oral hypoglycemic drugs; Z79.620 Long term (current) use of immunosuppressive biologic
CPT/HCPCS: 31256; 31257; 31276; 61782; 30930; 30520; 82948; A9270; J0690; J1100; J1170; J2250; J2405; J2704; J2710; J3010; J7030; J7120

== ENCOUNTER 2023-05-08 11:29 | Outpatient (CLI) | payer BC, SELFPAY ==
[2023-05-08 12:58] LABS: Alanine Aminotransferase 15 U/L (6-35); Albumin Level 4.1 g/dL (3.5-5.1); Alkaline Phosphatase 66 U/L (38-126); Anion Gap 5 mmol/L (8-16); Aspartate Amino Transferase 30 U/L (14-36); Bilirubin,Total 0.5 mg/dL (0.2-1.3); Blood Urea Nitrogen 17 mg/dL (7-17); Calcium 9.2 mg/dL (8.4-10.2); Carbon Dioxide 28 mmol/L (22-30); Chloride 106 mmol/L (98-107); Cholesterol 134 mg/dL (0-200); Estimated Glomerular Filt Rate 45; Glucose 113 mg/dL (65-110); HDL Direct 62 mg/dL; Potassium 3.9 mmol/L (3.4-5.0); Sodium 139 mmol/L (137-145); Triglycerides 126 mg/dL (<150)
[2023-05-08 13:08] LABS: LDL Cholesterol Direct 54 mg/dL
[2023-05-08 13:17] LABS: Creatinine Urine 78.6 mg/dL
[2023-05-08 13:21] LABS: MALB Creatinine Ratio 115.5 mg/g (0-30); Microalbumin Urine Random 90.8 mg/L (0-16.7)
[2023-05-10 14:18] LABS: Hemoglobin A1C 5.7 % (<5.7)
== END 2023-05-08 11:30 | disposition home or self-care (01) ==
LOC: ANHLAB 11:30
PROVIDERS: PCP Family Medicine; Visit Provider Family Medicine
DX: E11.22 Type 2 diabetes mellitus with diabetic chronic kidney disease (principal); N18.32 Chronic kidney disease, stage 3b
CPT/HCPCS: 36415; 36591; 80053; 80061; 82043; 83036; 99202; G0463

== ENCOUNTER 2023-06-19 10:39 | Outpatient (CLI) | payer BC, SELFPAY ==
[2023-06-19 11:15] LABS: Albumin Level 4.5 g/dL (3.5-5.1); Anion Gap 6 mmol/L (4-12); Blood Urea Nitrogen 17 mg/dL (7-17); Calcium 9.4 mg/dL (8.4-10.2); Carbon Dioxide 27 mmol/L (22-30); Chloride 107 mmol/L (98-107); Estimated Glomerular Filt Rate 45; Glucose 100 mg/dL (65-110); Phosphorus 3.9 mg/dL (2.5-4.5); Potassium 3.7 mmol/L (3.4-5.0); Sodium 140 mmol/L (137-145)
== END 2023-06-19 10:40 | disposition home or self-care (01) ==
LOC: ANHLAB 10:41
PROVIDERS: PCP Family Medicine; Visit Provider Internal Medicine Nephrology
DX: N18.32 Chronic kidney disease, stage 3b (principal)
CPT/HCPCS: 36415; 36591; 80069; 99212; G0463

== ENCOUNTER 2023-07-08 14:24 | Outpatient (CLI) | payer BC, SELFPAY ==
--- NOTE | ~2023-07-08 | US_ITS ---
US venous doppler LE RT DATE: 07/08/2023 14:54 INDICATION: Pain, ecchymosis TECHNIQUE: Real-time and color flow imaging and Doppler analysis of the veins of the right lower extr emity COMPARISON: None FINDINGS: The greater saphenous vein is patent. There is spontaneous and phasic flow and normal augme ntation and color flow signal and normal compression of the deep veins of the right lower extremity. IMPRESSION: No evidence of deep venous thrombosis of right lower extremity Reviewed, dictated and finalized at Location [facility]. Reviewed, dictated and finalized at location B.
== END 2023-07-08 14:25 | disposition home or self-care (01) ==
LOC: ANHIMG 14:24
PROVIDERS: PCP Family Medicine; Visit Provider Nurse Practitioner Family
DX: R23.3 Spontaneous ecchymoses (principal)
CPT/HCPCS: 93971

== ENCOUNTER 2023-07-26 09:38 | Outpatient (CLI) | payer BC, SELFPAY ==
--- NOTE | ~2023-07-26 | MR_ITS ---
MR brain/brain stem wo/w con Ordering provider: Cedric Hidalgo MD History: 62 years Female with . G35 - Multiple sclerosis . Comparison: MRI done on March 24, 2010 Technique: MRI brain was performed with and without contrast. FINDINGS: BONES: Normal. CRANIOCERVICAL JUNCTION: normal. PITUITARY: Normal. MAJOR INTRACRANIAL VESSELS: Normal flow void. OPTIC NERVES AND CRANIAL NERVES VII AND VIII COMPLEXES: Grossly normal. BRAIN PARENCHYMA AND CSF SPACES: On spot all T2 and T11 hyperintense signal area is seen in the righ t frontal lobe. Otherwise, no significant white matter changes seen. The brainstem and cerebellum are normal. No acute or chronic intracranial hemorrhage. No extra axial fluid collections. Diffusion kishan ghted and ADC mapping images reveal no recent ischemia. No midline shift or mass effect. No enhancing lesions seen. PARANASAL SINUSES: Minimal ethmoid sinus disease otherwise normal. MASTOIDS: Normal SUPERFICIAL/SURROUNDING SOFT TISSUES: Normal. IMPRESSION: 1. 1 subcortical T2 and FLAIR hyperintense signal area in the right frontal lobe which is most likel y nonspecific. Follow-up advised. 2. No acute brain abnormality seen. Nonenhancing lesion seen. Reviewed, dictated and finalized at location A. IMPRESSION: 1. 1 subcortical T2 and FLAIR hyperintense signal area in the right frontal lo be which is most likely nonspecific. Follow-up advised. 2. No acute brain abnormality seen. Nonenhancing lesion seen.
== END 2023-07-26 09:39 | disposition home or self-care (01) ==
LOC: ANHIMG 09:40
PROVIDERS: PCP Family Medicine; Visit Provider Psychiatry & Neurology Neurology
DX: G35 Multiple sclerosis (principal)
CPT/HCPCS: 70553; 99212; A9577; G0463

== ENCOUNTER 2023-08-06 09:44 | Outpatient (CLI) | payer BC, SELFPAY ==
--- NOTE | ~2023-08-06 | XR_ITS ---
XR hand BI arthritis min 3V Ordering provider: Tiffany Roca MD History: . M18.9 - Osteoarthritis of first carpometacarpal joint, un... . Comparison: June 05, 2022 FINDINGS: BONES: No acute fracture or dislocation. JOINT SPACES: Narrowing of the distal interphalangeal joints with osteoarthritic changes of the first carpometacarpal joint suggestive of osteoarthritis. SOFT TISSUES: Normal. IMPRESSION: No acute osseous abnormality right hand. Osteoarthritic changes of the distal interphalangeal joints and in the first carpometacarpal joint. Reviewed, dictated and finalized at location A. IMPRESSION: No acute osseous abnormality right hand. Osteoarthritic changes of the distal interphalangeal joints and in the first ca rpometacarpal joint.
== END 2023-08-06 09:45 | disposition home or self-care (01) ==
LOC: ANHIMG 09:47
PROVIDERS: PCP Family Medicine; Visit Provider Plastic Surgery
DX: M18.12 Unilateral primary osteoarthritis of first carpometacarpal joint, left hand (principal)
CPT/HCPCS: 73130

== ENCOUNTER 2023-09-04 10:30 | Outpatient (CLI) | payer BC, SELFPAY ==
[2023-09-04 10:56] LABS: Hematocrit 38.1 % (37.0-47.0); Hemoglobin 11.9 g/dL (12.0-15.0); Mean Corpuscular HGB Conc 31.2 g/dl (32-36); Mean Corpuscular Hemoglobin 27.7 pg (26-34); Mean Corpuscular Volume 88.8 fl (80-100); Mean Platelet Volume 11.7 fl (7.4-10.4); Platelet Count Result 200 k/mm3 (150-375); Red Blood Count 4.29 M/mm3 (4.2-5.4); Red Cell Distribution Width 14.3 % (11.5-14.5)
[2023-09-04 11:02] LABS: Albumin Level 2.8 g/dL (3.5-5.1); Anion Gap 8 mmol/L (4-12); Blood Urea Nitrogen 11 mg/dL (7-17); Calcium 6.6 mg/dL (8.4-10.2); Carbon Dioxide 22 mmol/L (22-30); Chloride 112 mmol/L (98-107); Estimated Glomerular Filt Rate > 60; Glucose 66 mg/dL (65-110); Phosphorus 2.7 mg/dL (2.5-4.5); Potassium 2.9 mmol/L (3.4-5.0); Sodium 142 mmol/L (137-145)
[2023-09-04 11:47] LABS: Creatinine Urine 138.5 mg/dL; Total Protein Urine Random 41 mg/dL
== END 2023-09-04 10:31 | disposition home or self-care (01) ==
LOC: ANHLAB 10:31
PROVIDERS: PCP Family Medicine; Visit Provider Internal Medicine Nephrology
DX: N18.32 Chronic kidney disease, stage 3b (principal)
CPT/HCPCS: 36415; 36591; 80069; 82570; 83970; 84156; 85027

== ENCOUNTER 2023-09-13 09:11 | Outpatient (CLI) | payer BC, SELFPAY ==
[2023-09-13 09:49] LABS: Albumin Level 4.1 g/dL (3.5-5.1); Anion Gap 9 mmol/L (4-12); Blood Urea Nitrogen 17 mg/dL (7-17); Carbon Dioxide 28 mmol/L (22-30); Chloride 103 mmol/L (98-107); Estimated Glomerular Filt Rate 41; Glucose 102 mg/dL (65-110); Phosphorus 3.7 mg/dL (2.5-4.5); Sodium 140 mmol/L (137-145)
== END 2023-09-13 09:12 | disposition home or self-care (01) ==
PROVIDERS: PCP Family Medicine; Visit Provider Internal Medicine Nephrology
DX: N18.32 Chronic kidney disease, stage 3b (principal)
CPT/HCPCS: 36415; 36591; 80069

== ENCOUNTER 2023-10-24 11:08 | Outpatient (CLI) | payer BC, SELFPAY ==
[2023-10-24 12:11] LABS: Anion Gap 8 mmol/L (4-12); Blood Urea Nitrogen 17 mg/dL (7-17); Calcium 9.3 mg/dL (8.4-10.2); Carbon Dioxide 28 mmol/L (22-30); Chloride 102 mmol/L (98-107); Estimated Glomerular Filt Rate 41; Glucose 93 mg/dL (65-110); Potassium 3.8 mmol/L (3.4-5.0); Sodium 138 mmol/L (137-145)
[2023-10-24 12:21] LABS: Creatinine Urine 66.6 mg/dL
[2023-10-24 12:23] LABS: Potassium Urine Random 14.1 meq/L
[2023-10-30 12:48] LABS: Osmolality, Urine 427 mOsm/kg (50-1200)
== END 2023-10-24 11:09 | disposition home or self-care (01) ==
LOC: ANHLAB 11:10
PROVIDERS: PCP Family Medicine; Visit Provider Internal Medicine Nephrology
DX: N18.32 Chronic kidney disease, stage 3b (principal); E87.6 Hypokalemia
CPT/HCPCS: 36415; 36591; 80048; 82570; 83935; 84133

== ENCOUNTER 2023-11-21 13:24 | Outpatient (CLI) | payer BC, SELFPAY ==
[2023-11-21 14:15] LABS: INR 1.1; Prothrombin Time 14.1 Seconds (11.1-14.7)
[2023-11-21 14:16] LABS: Partial Thromboplastin Time 39.1 Seconds (22.3-36.8)
== END 2023-11-21 13:25 | disposition home or self-care (01) ==
PROVIDERS: Anesthesiology; PCP Family Medicine; Visit Provider Plastic Surgery
DX: Z01.818 Encounter for other preprocedural examination (principal); N18.32 Chronic kidney disease, stage 3b
CPT/HCPCS: 36415; 85610; 85730

== ENCOUNTER 2023-11-27 01:23 | Day surgery (SDC) | payer BC, SELFPAY ==
[2023-11-20 13:07] VITALS: BMI 20.9
--- NOTE | 2023-11-20 13:16 | PC.NURSE ---
Report to the Outpatient Waiting Room, entrance under the green pavilion located off [facility], at time _0945_ on date _[id number]_. Planned Procedure Time: _1145_.? Time changes happen often and if your time is changed the preop area will call you the afternoon before. - You and your visitor will be asked to self-screen and do not enter if you have any COVID symptoms. Please call surgeon if you need to reschedule. - A mask is optional within the hospital at this time. - No food or drink from midnight until time of surgery and no smoking Take only the following medications with a SIP of water on the morning of surgery: __If needed Acetaminophen or zofran. DO NOT STOP ANY OF YOUR OTHER PRESCRIPTION MEDICATIONS PRIOR TO SURGERY EXCEPT THE FOLLOWING Medications to discontinue per physician ___All vitamins and supplements Date to take last bxvy___[id number] Please no make-up, nail pashto, hairspray, perfume, deodorant, or body powder the day of surgery.? No jewelry (including any body piercings) or valuables the day of surgery, leave them at home.? Please take a shower or bath the night before, or the morning of, surgery with an antibacterial soap.? Wear comfortable, loose fitting clothing.? - Jewelry must be removed prior to entering the operating room.? Rings and piercings that are not removed may be cut off. - The hospital will not accept responsibility for valuables.? - Please leave all valuables, including medications, at home the day of surgery. If you are going home after surgery, a licensed pharmacy delivery driver must drive you home.? - NO public transportation without another adult if you receive anesthesia. - We recommend that an adult stay with you for 24 hours following discharge. - We also recommend that you do not drive, make important decision, drink alcoholic beverages, or take any drugs that were not prescribed by your health care provider for at least 24 hours after your discharge time. Follow any additional instructions given to you from your surgeon. Telephone instructions given to Aida___and asked if any additional questions and then verbalized understanding. Patient advised to call surgeon office or pre surgery nurse liaison [phone] if any additional questions.
[2023-11-27] VITALS (14 sets, daily range): BP systolic 135–171; BP diastolic 53–75; PULSE 58–70; RESP 11–17; TEMP 36.3–36.4; O2SAT 96–100; BMI 21.2
--- NOTE | ~2023-11-27 | XR_ITS ---
INTRAOPERATIVE FLUOROSCOPY: CLINICAL HISTORY: 63 years old Female; LEFT JOINT ARTHROPLASTY PROCEDURE COMMENTS: Limited intraoperative fluoroscopy of the left hand was performed. CUMULATIVE DOSE: 0.6 mGy FLUOROSCOPY TIME: 38 seconds 32 images were acquired. FINDINGS/IMPRESSION: Please refer to operative note for further details. Reviewed, dictated and finalized at location A.
[2023-11-27 10:43] LABS: Glucose Point of Care 97 mg/dl (65-105)
--- NOTE | 2023-11-27 10:48 | WPDANESEPPF ---
Anes - Initial Pre Proc Eval Procedure: Operation Date: 11/27/23 12:45 Proposed Procedures p Left Basal Joint Arthroplasty - Tiffany Roca MD Date/Time: 11/27/23 10:48 Surgeon: Tiffany Roca MD Pre Op Diagnosis: OA left 1st carpometacarpal joint Patient Data Age: 63 Gender: F Height: 1.63 m Weight: 55.5 kg Allergies Allergy/AdvReac Type Severity Reaction Status Date / Time pregabalin Allergy Intermediate MEMORY GAPS Verified 11/27/23 10:49 cefuroxime [From Ceftin] Allergy Mild Diarrhea Verified 11/27/23 10:49 doxycycline Allergy Unknown Pt does Verified 11/27/23 10:49 not remember duloxetine Allergy Unknown catatonic Verified 11/27/23 10:49 lisinopril Allergy Unknown Diarrhea Verified 11/27/23 10:49 Penicillins Allergy Unknown Skin Verified 11/27/23 10:49 Reaction Sulfa (Sulfonamide Allergy Unknown Skin Verified 11/27/23 10:49 Antibiotics) Reaction suvorexant [Belsomra] Allergy Unknown intolerance Verified 11/27/23 10:49 vancomycin Allergy Unknown Facial Verified 11/27/23 10:49 swelling tizanidine Allergy Hallucinati Verified 11/27/23 10:49 ng losartan AdvReac Severe Hypotension Verified 11/27/23 10:49 Home Medications Medication Instructions Recorded Confirmed Type cetirizine 10 mg capsule (All Day 10 mg PO DAILY 03/10/19 11/20/23 History Allergy (cetirizine)) cholecalciferol (vitamin D3) 125 5,000 unit PO DAILY 03/10/19 11/20/23 History mcg (5,000 unit) tablet (Vitamin D3) eluxadoline 100 mg tablet (Viberzi) 100 mg PO DAILY 03/10/19 11/20/23 History blood-glucose meter (Blood Glucose #1 ea 05/04/21 11/20/23 Rx Monitoring kit) lancets 28 gauge (1st Tier Unilet #100 ea 05/05/21 11/20/23 Rx ComforTouch Lancet) omega 9-nna-fsx-fish oil 1,200 mg 1 cap PO BID 01/26/22 11/20/23 History (144 mg-216 mg) capsule (Fish Oil) blood sugar diagnostic (OneTouch #100 strips 01/29/22 11/20/23 Rx Verio test strips) lancets 33 gauge (OneTouch Delica #100 ea 01/29/22 11/20/23 Rx Plus Lancet) ondansetron HCl 4 mg tablet 4 mg PO Q8H PRN Nausea #30 tabs 01/30/22 11/20/23 Rx vedolizumab 300 mg intravenous 300 mg IV .every 8 weeks 09/24/22 11/20/23 History solution (Entyvio) oxybutynin chloride 10 mg 20 mg PO DAILY #180 tabs 10/09/22 11/20/23 Rx tablet,extended release 24 hr mecobalamin (vitamin B12) 1,000 2,000 mcg PO .4 TIMES WEEKLY 03/26/23 11/20/23 History mcg chewable tablet ngdesoip-edv-uyhgb acid 0.4 2 tablet PO DAILY 03/26/23 11/20/23 History mg-lycopene 300 mcg-lutein 250 mcg tablet (Centrum Silver) trazodone 100 mg tablet 100 mg PO QHS #90 tabs 06/06/23 11/20/23 Rx estradiol 1 mg tablet See Rx Instructions .Route 06/27/23 11/20/23 Rx .COMPLEX #90 tabs fenofibrate micronized 134 mg 134 mg PO DAILY #90 caps 08/14/23 11/20/23 Rx capsule biotin 1,000 mcg chewable tablet 5,000 mcg PO .AM 08/19/23 11/20/23 History dapagliflozin propanediol 5 mg 5 mg PO DAILY #30 tabs 09/09/23 11/20/23 Rx tablet (Farxiga) simvastatin 10 mg tablet 10 mg PO DAILY #100 tabs 09/16/23 11/20/23 Rx semaglutide 7 mg tablet (Rybelsus) 7 mg PO DAILY #90 tabs 11/04/23 11/20/23 Rx scopolamine base 1 mg over 3 days 1 patch transdermal Q3D PRN motion 11/05/23 11/20/23 Rx transdermal patch sickness #4 ea finerenone 10 mg tablet (Kerendia) 10 mg PO DAILY #30 tabs 11/06/23 11/20/23 Rx acetaminophen 500 mg tablet 1,000 mg PO HS PRN Pain 11/21/23 History Laboratory Tests 11/27/23 10:40 POC Capillary Glucose 97 mg/dl (65-105) Patient hx anesthesia problems: none Family hx anesthesia problems: none Results Review: All pre-operative results and documents have been reviewed as part of the pre-operative evaluation. [facility] Past Medical History Medical History Bilateral hearing loss Cat bite Chronic headache Cough COVID-19 Crohn's disease, unspecified, with other complication wh
[2023-11-27] MEDS: LACTATED RINGERS 1,000 ML 30 ML IV CONT ×2 (10:50→13:28)
--- NOTE | 2023-11-27 11:01 | P.OP_ITS ---
Procedure Note - Detailed Date of Procedure 11/27/23 Pre-op Diagnosis left basal joint arthritis Post-op Diagnosis Same Procedure Performed left basal joint arthroplasty with mini-tightrope Surgeon Tiffany Roca MD [employer]p Developer bo jerez pa-c Anesthesia General Description of Procedure INFORMED CONSENT: The patient was seen and examined and marked in the pre-op area.? The patient signed the consent form. PROCEDURE IN DETAIL:The patient taken back to OR on the stretcher in supine position. Time out performed with anesthesia, surgeon and staff agreeing on patient's name site and surgery to be performed SCDs were placed on the lower extremities and inflated. A tourniquet was placed on {left} upper extremity and antibiotics given IV After anesthesia administered sedation I injected {6}cc 1%lido with epi and 0.5% marcaine plain at the operative site The?{left upper extremity}?was prepped and draped in sterile fashion the??{left upper extremity} was? exsanguinated with Esmarch bandage and tourniquet inflated to 250mmHg I proceeded with making a longitudinal incision over the left thumb trapezium between the 1st and 3rd extensor compartments through skin and dermis with a 15 blade scalpel. Littler scissors were used to spread down to the joint capsule. The extensor tendons and dorsal branch of the radial sensory nerve were reflected and protected throughout the procedure. I identified the dorsal branch of the radial artery which was also protected at the proximal aspect of the incision throughout the procedure. I proceeded with using 15 blade scalpel elevated capsular flaps and then proceeded with dissection around the trapezium. Mini C-arm was used to verify the position of the trapezium and confirm proper resection. I completed the trapeziectomy using mcglamery elevator and roberto clamp. Multiple views of fluoroscopy were taken noting resection of the trapezium. The FCR appeared intact after resection. I Irrigated with normal saline. I proceeded with making an incision over the proximal aspect of the 2nd metacarpal base on the dorsum of the hand with a 15 blade scalpel. Littler scissors were used to spread through subcutaneous tissue down to periosteum. Periosteal elevator was used to reflect the periosteum on the ulnar aspect. Next using the Arthrex mini C ring guided proceeded with placing the double gauged looped K-wire in a radial to ulnar direction from the base of the thumb metacarpal out of the 2nd metacarpal base. This was verified on multiple views of fluoroscopy. The thumb was maintained in good position. I proceeded with then placing the mini tight rope in standard fashion utilizing the k-wire and initially secured it with the button on the 2nd metacarpal. Live fluoroscopy noted there was no impingement in range of motion there was no subsidence. The button was sewn down in this position. I irrigated with normal saline. I covered the 2nd metacarpal suture and button with periosteum using 3-0 Vicryl suture. The thumb capsule was closed with 3-0 Vicryl suture. Skin was closed with 3-0 Vicryl for dermis and 4-0 Monocryl for subcuticular closure. A dressing of Dermabond followed by 4 x 4, Jan, thumb spica splint and Kevin bandage was then applied after the tourniquet was let down noting that the fingers were warm and well perfused. Complications: None Estimated blood loss: 3 cc Disposition: Patient tolerated the procedure well and will be going home later today Bo Jerez PA-C was essential for positioning, retraction, fluoro, closure and dressing placement [facility] Billing Surgery - Charge Forward: Surgery Billing ([id number] same for bo adding modifier )
--- NOTE | 2023-11-27 11:01 | PM.HPGS ---
History of Present Illness History of Present Illness Chief complaint: OA left 1st carpometacarpal joint Narrative: Patient seen and examined in pre-operative holding area. No interval change in medical history or symptoms. Patient recalls previous discussion of benefits and alternatives to procedure. Continues to desire to proceed with left basal joint artrhoplasty with mini-tightrope . Reviewed procedure, post-op expectations and risks including but not limited to bleeding, infection, injury to tendon/nerve/vessel, decreased hand function, stiffness, RSD, no change or worsening of symptoms. hardware complications, failure of repair. I discussed the possible use of assistants and their participation in the case. Patient stated understanding and signed the consent form wishing to proceed. Review of Systems Review of Systems: All systems reviewed & are unremarkable except as noted in HPI and below PMFSH Past Medical History Medical History Bilateral hearing loss Cat bite Chronic headache Cough COVID-19 Crohn's disease, unspecified, with other complication when pre infusion lab reviewed, infusion center needs to be called to give verbal order to proceed with infusion. Essential (primary) hypertension History of hyperlipidemia Nausea Trigger finger, acquired Surgical History Surgical History History of hysterectomy ~2013, OA -Dr. Yovani Kruger Family History Family History Father Family history of cardiac disorder Family history of arthritis Family history of Parkinson's disease Malignant neoplasm of prostate Family history of hypercholesterolemia Family history of cardiovascular disease Mother Family history of hypercholesterolemia Metastatic lung cancer (metastasis from lung to other site) Grandparent Family history of hypercholesterolemia Depression Family history of Alzheimer's disease Family history of emphysema Sibling Hypertension Social History Social History Social History: Caffeine- Jamin tea/sweet tea Smoking status: Never smoker Alcohol intake: current Alcohol use details: VERY RARE Substance use: never Substance use type: does not use Do You Feel Safe in your Home?: Yes Lack of Transportation: No Lack of Food: Never True Current Housing: I Have Housing Concerned About Future Housing: No Difficulty Paying Gas/Electric Bills: No Difficulty Paying for Meds: No Currently Unemployed: No Education: High School Diploma/GED Living arrangements: with family Gender identity (if verbalized by the patient): Female Spiritual care concerns: No Meds Home Medications and Allergies Home Medications Medication Instructions Recorded Confirmed Type cetirizine 10 mg capsule (All Day 10 mg PO DAILY 03/10/19 11/20/23 History Allergy (cetirizine)) cholecalciferol (vitamin D3) 125 5,000 unit PO DAILY 03/10/19 11/20/23 History mcg (5,000 unit) tablet (Vitamin D3) eluxadoline 100 mg tablet (Viberzi) 100 mg PO DAILY 03/10/19 11/20/23 History blood-glucose meter (Blood Glucose #1 ea 05/04/21 11/20/23 Rx Monitoring kit) lancets 28 gauge (1st Tier Unilet #100 ea 05/05/21 11/20/23 Rx ComforTouch Lancet) omega 9-phi-mfj-fish oil 1,200 mg 1 cap PO BID 01/26/22 11/20/23 History (144 mg-216 mg) capsule (Fish Oil) blood sugar diagnostic (OneTouch #100 strips 01/29/22 11/20/23 Rx Verio test strips) lancets 33 gauge (OneTouch Delica #100 ea 01/29/22 11/20/23 Rx Plus Lancet) ondansetron HCl 4 mg tablet 4 mg PO Q8H PRN Nausea #30 tabs 01/30/22 11/20/23 Rx vedolizumab 300 mg intravenous 300 mg IV .every 8 weeks 09/24/22 11/20/23 History solution (Entyvio) oxybutynin chloride 10 mg 20 mg PO DAILY #180 tabs 10/09/22 11/20/23 Rx tablet,extended
[2023-11-27] MEDS: ceFAZolin 2 GM/D5W 50 ML 2 GM/50 ML BAG IVPB (11:08)
[2023-11-27] MEDS: LIDO 1%/EPINEPHRINE 1:100,000 50 ML VIAL 8 ML INFILTRATE (11:24)
[2023-11-27] MEDS: fentaNYL CITRATE INJ (*CRX) 100 MCG/2 ML VIAL 25 MCG IV PUSH ×7 (13:13→14:35)
[2023-11-27 14:11] LABS: Glucose Point of Care 115 mg/dl (65-105)
[2023-11-27] MEDS: CENTRAL LINE FLUSH 10 ML IV PUSH (15:02)
[2023-11-27] MEDS: HEPARIN SODIUM LOCK FLUSH 500 UNITS/5 ML SYRINGE IV PUSH (15:02)
== END 2023-11-27 15:31 | disposition home or self-care (01) ==
PROVIDERS: PCP Family Medicine; Visit Provider Plastic Surgery
PROC: (CPT 25447; principal; 2023-11-27 12:45)
DX: M18.12 Unilateral primary osteoarthritis of first carpometacarpal joint, left hand (principal); K50.90 Crohn's disease, unspecified, without complications; I10 Essential (primary) hypertension; E78.5 Hyperlipidemia, unspecified; Z79.84 Long term (current) use of oral hypoglycemic drugs; Z79.620 Long term (current) use of immunosuppressive biologic
CPT/HCPCS: 25447; 82948; 88309; 88311; 99199; C1713; J0690; J1100; J2004; J2405; J2704; J3010; J7120

== ENCOUNTER 2023-12-10 12:03 | Outpatient (CLI) | payer BC, SELFPAY ==
--- NOTE | ~2023-12-10 | XR_ITS ---
XR hand LT 2V Ordering provider: Kristy Germain PA-C History: . M19.049 - Primary osteoarthritis, unspecified hand, POST OP . Comparison: August 06, 2023 FINDINGS: BONES: No acute fracture or dislocation. Cast is seen around the left thumb. Postoperative changes se en at the base of the first and second metacarpal bones. Status post trapezium removal. Cystic area s een in the scaphoid. JOINT SPACES: Narrowing of the proximal and distal interphalangeal joints. SOFT TISSUES: Unremarkable. IMPRESSION: Status post removal of the trapezium. Postoperative changes at the base of the first and second no metacarpal bones. Surrounding cast is se en. Polyarticular osteoarthritic changes. Reviewed, dictated and finalized at location A. IMPRESSION: Status post removal of the trapezium. Postoperative changes at the base of the first and second no metacarpal bones. Surrounding cast is seen. Polyarticular osteoarthritic changes.
== END 2023-12-10 12:04 | disposition home or self-care (01) ==
LOC: ANHIMG 12:04
PROVIDERS: PCP Family Medicine; Referring Provider Plastic Surgery; Visit Provider Physician Assistant Surgical
DX: M19.042 Primary osteoarthritis, left hand (principal)
CPT/HCPCS: 73120

== ENCOUNTER 2024-05-11 10:25 | Outpatient (CLI) | payer BC, SELFPAY ==
--- NOTE | 2024-05-11 11:00 | NEURO_ITS ---
Impression: # Complains of left hand numbness. ? # No Carpal Tunnel Syndrome. ? 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 ? # Needle/EMG exam mildly abnormal In left abductor digiti minimi and was dorsal intraosseous Muscles. Nerve Conduction Studies Anti Sensory Summary Table ?Stim Site NR Peak (ms) P-T Amp (?V) Site1 Site2 Delta-P (ms) Dist (cm) Michael (m/s) Left Median Anti Sensory (2-3nd Digit) Wrist ? 2.8 93.7 Wrist 2-3nd Digit 2.8 14.0 50 Wrist ? 2.6 98.0 Wrist 2-3nd Digit 2.8 14.0 50 Left Radial Anti Sensory (Base 1st Digit) Wrist ? 1.8 49.5 Wrist Base 1st Digit 1.8 0.0 Left Ulnar Anti Sensory (5th Digit) Wrist ? 2.4 77.8 Wrist 5th Digit 2.4 14.0 58 Motor Summary Table ?Stim Site NR Onset (ms) O-P Amp (mV) Site1 Site2 Delta-0 (ms) Dist (cm) Michael (m/s) Left Median Motor (Abd Poll Brev) Wrist ? 2.8 5.0 Elbow Wrist 5.4 31.0 57 Elbow ? 8.2 5.9 Left Ulnar Motor (Abd Dig Minimi) Wrist ? 2.3 5.5 A Elbow Wrist 5.0 26.0 52 A Elbow ? 7.3 5.2 B Elbow Wrist 4.0 21.0 53 B Elbow ? 6.3 5.1 F Wave Studies ?NR F-Lat (ms) L-R F-Lat (ms) Left Median (Mrkrs) (Abd Poll Brev) ? 28.71 Left Ulnar (Mrkrs) (Abd Dig Min) ? 27.02 EMG ?Side Muscle Nerve Root Ins Act Fibs Amp Dur Recrt Comment Left 1stDorInt Ulnar C8-T1 Nml Nml Nml >12ms +1 Left Ext Indicis Radial (Post Int) C7-8 Nml Nml Nml Nml Nml Left Ext Digitorum Radial (Post Int) C7-8 Nml Nml Nml Nml Nml Left BrachioRad Radial C5-6 Nml Nml Nml Nml Nml Left PronatorTeres Median C6-7 Nml Nml Nml Nml Nml Left Abd Poll Brev Median C8-T1 Nml Nml Nml Nml Nml Left ABD Dig Min Ulnar C8-T1 Nml Nml Nml >12ms +1 Left FlexPolLong Median (Ant Int) C7-8 Nml Nml Nml Nml Nml Left Abd Poll Long Radial (Post Int) C7-8 Nml Nml Nml Nml Nml MTDD
--- OUTSIDE RECORDS SUMMARY | 2024-05-11 12:10 | XMS_ITS | Patient Health Record ---
Author Organization [facility] Address [address] [place], [place] [address] Support Name Relationship Address Phone CHRISTOPHER KNIGHT Guarantor Unknown REASON FOR REFERRAL No Information MEDICATIONS Medication SIG (Take, Route, Fr equency, Duration) Notes Start Date End Date Status azaTHIOprine 50 mg 1 tab(s) orally TWIC E DAILY once a day 12/23/2006 Active PLAN OF TREATMENT No Information Insurance Providers Payer Name Payer Address Payer Phone Subscriber Number Group Number Insured Name Patient Relationship to Insured Coverage Start Date Coverage End Date [facility] PPO - NR [address] [address] [place] [address] [id number] CHRISTOPHER JASON Self - patient is the insured 6
--- OUTSIDE RECORDS SUMMARY | 2024-05-11 12:10 | XMS_ITS | Encounter Summary ---
Author Organization [facility] Address [address] [place] [address] Phone Care Team Providers Care Applications Support Specialist Name Role Phone Gabbie Wilde MD Primary Care Provider + Sonny Galindo MD Unavailable [phone] Encounter Details Date Type Department Care Team (Late st Contact Info) Description 01/10/2024 Orders Only [facility] Scanning, Provider Social History Tobacco Use Types Packs/Day Years Used Date Smoking Tobacco: Never Smokeless Tobacco: Never Alcohol Use Standard Drinks/Week Comments Yes 0 (1 standard drink = 0.6 oz pure alcohol) 1 glass wine maybe once a month OASIS D0700: Social Isolation Answer Da te Recorded Frequency of experiencing loneliness or isolatio n Never 10/03/2023 AUDIT-C Answer Date Recorded Q1: How often do you have a drink containing alc ohol? Never 12/11/2022 Average Number of Drinks Not on file 023 Frequency of Binge Drinking Not on file 11/19 Personal Safety Answer Date Recorded Have you ever been in or are you currently in a harmful physical or emotional relationship or is someone making you feel afraid or unsafe? 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 Gender Identity Female 10/03/2020 3:00 PM CDT Sexual Orientation Not on file documented as of this encounter Plan of Treatment Not on file documented as of this encounter Procedures Procedure Name Priority Date/Time Associated Diagnosis Comments GI - RESULT 01/10/2024 3:47 PM FOREST FIRE FIGHTER documented in this encounter Results * GI - RESULT (01/10/2024 3:47 PM FOREST FIRE FIGHTER) Anatomical Region Laterality Modality Other us Provider Scanning Final Result documented in this encounter Visit Diagnoses Not on filedocumented in this encounter Additional Health Concerns Infection Onset Date Last Indicated Resolved Time C. difficile Comment:Chronic diarrhea from IBS. Last CDI test 01/01/22 is neg. 04/14/2015 04/14/2015 8:58 AM FOREST FIRE FIGHTER documented as of this encounter Care Teams Applications Support Specialist Relationship Specialty Start Date End Date Gabbie Wilde MD PCP - General Family Medicine 03/27/22 Sonny Galindo MD Nephrology 05/21/22 documented as of this encounter
--- OUTSIDE RECORDS SUMMARY | 2024-05-11 12:10 | XMS_ITS | Encounter Summary ---
Author Organization [facility] Address [address] [place] [address] Care Team Providers Care Vascular Ultrasound Technician Name Role Phone Lois Amato MD Primary Care Provider [phone] Toney Benítez Primary Care Provider + Gabbie Wilde MD Primary Care Provider + Sonny Galindo MD Unavailable Encounter Details Date Type Department Care Team (Late st Contact Info) Description 09/02/2019 Telephone [facility] [address] [place] [address] Valeri Farnsworth MD [address] [facility] [address] [place] [address] Social History Tobacco Use Types Packs/Day Years Used Date Smoking Tobacco: Never Smokeless Tobacco: Never Alcohol Use Standard Drinks/Week Comments Yes 0 (1 standard drink = 0.6 oz pure alcohol) 1 glass wine maybe once a month Comments No Sex and Gender Information Value Date Recorded Sex Assigned at Not on file Legal Sex Female 11: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 difficile Comment:Chronic diarrhea from IBS. Last CDI test 01/01/22 is neg. 04/14/2015 04/14/2015 4 8:58 AM CONSTRUCTION FLAGGER documented as of this encounter Care Teams Vascular Ultrasound Technician Relationship Specialty Start Date End Date Lois Amato MD [address] [place] [address] PCP - General 03/12/12 09/28/21 Toney Benítez PA [address] [place] [address] PCP - General Physician Grades 1 Thru 5 Teacher 09/29/21 03/26/22 Gabbie Wilde MD [address] [place] [address] PCP - General Family Medicine 03/27/22 Sonny Galindo MD [address] [place] [address] Nephrology 05/21/22 documented as of this encounter
--- OUTSIDE RECORDS SUMMARY | 2024-05-11 12:11 | XMS_ITS | Encounter Summary ---
Author Organization [facility] Address [address] [place] [address] Phone Care Team Providers Care Finish Mill Operator Name Role Phone Gabbie Wilde MD Primary Care Provider + Sonny Galindo MD Unavailable [phone] Encounter Details Date Type Department Care Team (Late st Contact Info) Description 05/07/2024 Results Follow-Up [facility] Gastroenterology [address] [facility] 12th [place] [address] [place] [address] James Sandoval MD PhD [address] [place] [address] Social History Tobacco Use Types Packs/Day Years Used Date Smoking Tobacco: Never Smokeless Tobacco: Never Alcohol Use Standard Drinks/Week Comments Yes 0 (1 standard drink = 0.6 oz pure alcohol) 1 glass wine maybe once a month OASIS D0700: Social Isolation Answer Da te Recorded Frequency of experiencing loneliness or isolatio n Never 03/31/2024 AUDIT-C Answer Date Recorded Q1: How often do you have a drink containing alc ohol? Monthly or less 05/01/2024 Q2: How many drinks containi ng alcohol do you have on a typical day when you are drinking? 1 or 2 05/01/2024 Q3: How often do you have si x or more drinks on one occasion? Never 05/01/2024 Personal Safety Answer Date Recorded Have you ever been in or are you currently in a harmful physical or emotional relationship or is someone making you feel afraid or unsafe? 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
--- OUTSIDE RECORDS SUMMARY | 2024-05-11 12:11 | XMS_ITS | Encounter Summary ---
Author Organization [facility] Address [address] [place] [address] Phone Care Team Providers Care Bank Messenger Name Role Phone Toney Benítez Primary Care Provider [phone] Encounter Details Date Type Department Care Team (Late st Contact Info) Description 09/30/2018 [facility] Nephrology and Hypertension [address] [facility], [address] [address] Sonny Galindo MD [address] [facility] [place] [address] Social History Tobacco Use Types Packs/Day Years Used Date Smoking Tobacco: Never Smokeless Tobacco: Never Alcohol Use Standard Drinks/Week Comments Yes 0 (1 standard drink = 0.6 oz pur e alcohol) rare Sex and Gender Information Value Date Recorded Sex Assigned at Not on file Gender Identity Not on file Sexual Orientation Not on file documented as of this encounter Plan of Treatment Not on file documented as of this encounter Visit Diagnoses Not on filedocumented in this encounter Care Teams Bank Messenger Relationship Specialty Start Date End Date Toney Benítez [address] [place] [address] PCP - General 09/20/21 documented as of this encounter
--- OUTSIDE RECORDS SUMMARY | 2024-05-11 12:11 | XMS_ITS | Encounter Summary ---
Author Organization [facility] Address [address] [facility] [address] [place] [address] Phone Care Team Providers Care Cable Engineer Outside Plant Name Role Phone Gabbie Wilde MD Primary Care Provider + Sonny Galindo MD Unavailable [phone] Encounter Details Date Type Department Care Team (Late st Contact Info) Description 04/16/2024 Results Follow-Up [facility] Surgery [address] [facility] [address] [place] [address] Jada Moore NP [address] [facility] [id number] [place] [address] Social History Tobacco Use Types Packs/Day Years [...] drink containing alc ohol? Monthly or less 02/27/2024 Q2: How many drinks containi ng alcohol do you have on a typical day when you are drinking? 1 or 2 02/27/2024 Q3: How often do you have si x or more drinks on one occasion? Never 02/27/2024 Personal Safety Answer Date Recorded Have you ever been in or are you currently in a harmful physical or emotional relationship or is someone making you feel afraid or unsafe? 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
--- OUTSIDE RECORDS SUMMARY | 2024-05-11 12:11 | XMS_ITS | Referral Summary ---
Author Organization [facility] Medical [facility] 2 Address [address] [place] [address] Care Team Providers Care Rice Drier Operator Name Role Phone Gabbie Wilde MD Primary Care Provider + Sonny Galindo MD Unavailable [phone] Encounters Date Type Department Care Team Description 5 Results Follow-Up [facility] Gastroenterolog y [address] [facility] 12th [place] [address] [place] [phone] James Sandoval MD PhD 5 11:30 AM CDT - 5 11:59 PM CDT Hospital Encounter [facility] [address] [place] [address] Discharge Disposition: Discharge to home or self care 5 11:00 AM CDT Home Care Visit [facility] [address] [address] [address] [place] [address] Tea Stone RN SN INFUSION TREATMENT ROOM 5 Orders Only [facility] Surgery [address] [facility] Floor 8 [place] [address] Jada Moore NP Heterogeneously dense tissue of both breasts on mammography (Primary Dx) 5 Telephone [facility] with [facility] [address] [place] [address] Tigre Torres MD 5 Orders Only [facility] with [facility] [address] [place] [address] Tigre Torres MD Persistent headaches (Primary Dx); Abnormal brain MRI 5 8:20 AM CDT Office Visit [facility] with [facility] [address] [place] [address] Tigre Torres MD Trigeminal neuralgia 5 Results Follow-Up [facility] Surgery [address] [place] [address] 8 [place] [phone] Jada Moore NP 5 11:30 AM MATHEMATICIAN RESEARCH - 5 11:59 PM MATHEMATICIAN RESEARCH Hospital Encounter [facility] - Breast Imaging [address] [place] [address] 8 [place] [address] Fibrocystic breast changes o f both breasts Discharge Disposition: Discharge to home or self care 5 11:30 AM MATHEMATICIAN RESEARCH Office Visit [facility] Surgery [address] [place] [address] 8 [place] [phone] Jada Moore NP Fibrocystic breast changes of both breasts (Primary Dx); Encounter for screening mammogram for malignant neoplasm of breast 5 Telephone [facility] with [facility] [address] [place] [address] Sarah Urban PA 5 Orders Only [facility] Surgery [address] [place] [address] 8 [place] [phone] Jada Moore NP Fibrocystic breast changes of both breasts (Primary Dx) 5 Plan of Care Documentation [address] [address] [address] [place] [address] 5 7:30 AM MATHEMATICIAN RESEARCH Home Care Visit [address] [place] [address] Tushar Vidal RN SN NON OASIS RECERTIFICATION 5 Telephone [facility] [address] [place] [address] [place] [phone] Anne-Marie Richardson MA 5 11:09 AM MATHEMATICIAN RESEARCH - 5 11:59 PM MATHEMATICIAN RESEARCH Hospital Encounter [facility] ([facility]) [address] [place] [address] Trigeminal neuralgia Discharge Disposition: Discharge to home or self care 5 Telephone [facility] [address] [place] [address] [place] [phone] Keith Farnsworth MD 5 9:00 AM MATHEMATICIAN RESEARCH Office Visit [facility] [address] [place] [address] [place] [phone] Keith Farnsworth MD Trigeminal neuralgia (Primary Dx) 5 10:10 AM MATHEMATICIAN RESEARCH - 5 11:59 PM MATHEMATICIAN RESEARCH Hospital Encounter [facility] [address] [place] [address] Discharge Disposition: Discharge to home or self care 5 9:30 AM MATHEMATICIAN RESEARCH Home Care Visit [address] [place] [address] Caroline Banerjee RN SN INFUSION TREATMENT ROOM 5 10:45 AM MATHEMATICIAN RESEARCH - 5 11:15 AM MATHEMATICIAN RESEARCH Surgery [facility] [address] [place] [address] Hernandez Burleson MD ESOPHAGOGASTRODUODENOSCOPY ESOPHAGEAL GUIDE WIRE 5 11:04 AM MATHEMATICIAN RESEARCH Anesthesia Event [facility] [address] [address] Demarcus Guerrero MD 5 9:18 AM MATHEMATICIAN RESEARCH - 5 12:31 PM MATHEMATICIAN RESEARCH Hospital Encounter [facility] [address] [address] Hernandez Burleson MD Discharge Disposition: Discharge to home or self care from Last 3 Months Allergies Active Allergy Reactions Criticality Noted Date Comments Cefuroxime Stomach upset High 12/29/2021 Doxycycline Flushing (skin),Diarrhea,Dizziness, Stomach upset Low 12/07/2022 dizziness Duloxetine Fatigue,Hives,Itching Medium 12/07/2008 Lisinopril Nausea only Low 05/11/2022 Losartan Hypotension High 09/25/2023 Penicillins Unknown,Hives,Rash,Itching Medium 12/08/19 09 Prednisone Agitation,Anxiety,Ch ills,F atigue,Flushing (skin),Headache,Other (See comments),Tinnitus Low 03/15/2024 Pregabalin Fatigue Low Sulfa (Sulfonamide Antibiotics) Hives,Rash,Itching Medium 12/07/2008 Suvorexant Unknown 06/18/2023 Tizanidine Hallucinations Medium 09/26/2018 Vancomycin Swelling,Hives,Itching Medium 12/07/2008 Medications cetirizine (ZyrTEC) 10 mg tabletIndications :Allergic Rhinitis daily Active fenofibrate micronized (LOFIBRA) 134 mg capsuleIndication s:hypercholestero lemia daily before breakfast Active multivitamin tabletIndications :Vitamin Deficiency Prevention daily. 12/13/19 10 Active simvastatin (ZOCOR) 10 mg tabletIndications :hyperlipidemia daily Acti ve cholecalciferol (VITAMIN D-3) 5,000 unit capsuleIndication s:Vitamin D Deficiency Take by mouth 10/11/19 17 Active estradioL (ESTRACE) 1 mg tabletIndications :hormone replacement daily 12/17/19 20 Active blood pressure test kit-large kitIndications:hy pertension 02/25/19 21 Active OneTouch Verio test strips stripIndications: Diabetes Mellitus 07/30/19 22 Active cyanocobalamin (Vitamin B-12) 2,000 mcg tabletIndications :Prevention of Vitamin B12 Deficiency 1 tablet (2,000 mcg total) as directed Takes 4 times weekly Active OneTouch Delica Plus Lancet 33 gauge miscIndications:D iabetes Mellitus 07/30/19 22 Active kdjys-4-qpi-epa-d pa-fish oil 1,050-1,200 mg capsuleIndication s:hypertriglyceri demia 1 capsule Active oxybutynin XL (DITROPAN-XL) 10 mg 24 hr tabletIndications :Bladder Hyperactivity 20mg qd 03/15/19 23 Active vedolizumab (ENTYVIO IV)Indications:Cr ohn's Disease Infuse 300 mg into a venous catheter every 8 (eight) weeks Infuse 300mg of Entyvio (Vedolizumab ) in 250mL Normal Saline over at least 30 minutes at a rate of up to 500ml/hr per pump or RFT every 8 weeks. 02/26/19 24 Active semaglutide (Rybelsus) 7 mg tabletIndications :type 2 diabetes mellitus Take 1 tablet (7 mg total) by mouth daily Active sodium chloride 0.9% injectionIndicati ons:line care Infuse 10 mL into a venous catheter as needed for line care Active heparin sod,porcine/0.9 % NaCl (HEPARIN FLUSH IV)Indications:li ne care Infuse 5 mL into a venous catheter as needed (line care ). Indications: line care Active finerenone (Kerendia) 10 mg tabletIndications :chronic kidney disease associated with type 2 diabetes Take 10 mg by mouth daily Active lidocaine-priloca ine (EMLA) creamIndications: Administration of Local Anesthesia Apply a quarter size amount of cream to the port area 45-60 minutes before infusions and labs draws as directed. 30 g 3 06/07/19 24 Active ondansetron ODT (ZOFRAN-ODT) 4 mg disintegrating tabletIndications :Nausea Take 1 tablet (4 mg total) by mouth every 6 (six) hours as needed for nausea or vomiting 20 tablet 5 08/15/19 24 Active dapagliflozin propanediol (FARXIGA) 5 mg tabletIndications :Chronic Kidney Disease Take 1 tablet (5 mg total) by mouth daily Active traZODone (DESYREL) 100 mg tabletIndications :Insomnia Take 1 tablet (100 mg total) by mouth nightly at bedtime 08/31/19 24 Active PreviDent 5000 Dry Mouth 1.1 % paste 11/02/19 24 Active eluxadoline (Viberzi) 100 mg tabletIndications :Diarrhea Predominant Irritable Bowel Syndrome Take 1 tablet (100 mg total) by mouth daily 90 tablet 1 02/07/20 24 Active imipramine (TOFRANIL-PM) 100 mg capsuleIndication s:Trigeminal neuralgia Take 1 capsule (100 mg total) by mouth nightly 30 capsule 3 03/24/19 25 026 Active acetaminophen (Tylenol Extra Strength) 500 mg tabletIndications :Pain every 4 (four) hours as needed 025 Discontinued Active Problems Problem Noted Date Diagnosed Date Trigeminal neuralgia 03/11/2024 Assessment & Plan (03/11/2024 3:13 PM MATHEMATICIAN RESEARCH): She complains of residual pain in the left V2 distribution of the trigeminal nerve. This appears to have been brought on by a sinus infection about a year and a half ago. I am going to obtain a brain MRI with and without contrast with particular attention to the trigeminal nerve root. I am also going to switch her trazodone to amitriptyline. This should, in addition to help her sleep, reduce her discomfort. I will contact her with the MRI results as soon as they are available. I will see her back in a couple months. My total encounter time on 03/11/2024 was 60 minutes which was spent in the activities documented in the note. This includes time spent prior to the visit and after the visit in direct care of the patient. This time does not include time spent in any separately reportable services. 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/2022 Gastroesophageal reflux disease 05/11/2022 Fibrocystic breast changes of both breasts 03/27 DM w/o complication type II 08/15/2021 Mixed hyperlipidemia 08/15/2021 Stage 3b chronic kidney disease 08/15/2021 History of abnormal mammogram 03/22/2021 Breast cancer screening by mammogram 03/16/2020 Nutrition disorder 09/25/2019 High risk medications (not anticoagulants) long- term use 09/26/2018 Irritable bowel syndrome with diarrhea 9 Crohn's disease of both smal l and large intestine without complication 04/15/2018 Overview (04/15/2018): Added automatically from request for surgery [id number] Abnormal mammogram 02/10/2018 Resolved Problems Problem Noted Date Diagnosed Date Resolved Date Crohn's disease of both smal l and large intestine 09/30/2014 09/26/2018 Regional enteritis of small intestine with large intestine 09/30/2014 04/12/2023 Overview (08/05/2022): Added automatically from request for surgery [id number] Immunizations Immunization Administration Dates Next Due Influenza LAIV (Nasal) 10/29/2018 Influenza, Quadrivalent, Rec ombinant, Egg Free, Preservative Free, Intramuscular 10/29/2018 Influenza, Quadrivalent, Spl it, Preservative Free, Intramuscular 11/27/2017 Influenza, Trivalent, IM (MDV) 11/18/2020,2019,10/20/2018 Pfizer SARS-CoV-2 Monovalent Vaccination (12+ Yrs) PURPLE 11/25/2020,05/08/2020,04/17/2020 Pneumococcal Conjugate 7-Valent 08/19/2015 Pneumococcal Conjugate PCV 13 11/18/2016 Tdap 01/07/2018 ZOSTER Recombinant 03/06/2019,01/01/2019 Social History Tobacco Use Types Packs/Day Years Used Date Smoking Tobacco: Never Smokeless Tobacco: Never Tobacco Cessation:Counseling Given: Not Answered Alcohol Use Standard Drinks/Week Comments Yes 0 [...] on file Legal Sex Female 11:00 AM MATHEMATICIAN RESEARCH Gender Identity Female 10/03/2020 3:00 PM CDT Sexual Orientation Not on file Last Filed Vital Signs Vital Sign Reading Time Taken Comments Blood Pressure 130/76 05/05/2024 11:15 AM CDT Pulse 85 05/05/2024 11:15 AM CDT Temperature 37 C (98.6 F) 05/05/2024 11:15 AM CDT Respiratory Rate 16 05/05/2024 11:15 AM CDT Oxygen Saturation 99% 05/05/2024 11:15 AM CDT Inhaled Oxygen Concentration - - Weight 53.5 kg (118 lb) 05/05/2024 11:15 AM CDT Height 162.6 cm (5' 4 ) 05/01/2024 8:10 AM CDT Body Mass Index 20.25 05/01/2024 8:10 AM CDT Plan of Treatment Not on file Medical Devices Implanted Type Area Photo Finish Photographer Device Identifier Shelf Expiration Date Model / Serial / Lot [employer] Xcela Power Port 8fr [id number] - [id number] Implanted:Qty: 1 on 03/05/2023 by Quang Cid MD at [facility] [employer] 10/22/2027 [id number] / / [id number] Procedures Procedure Name Priority Date/Time Associated Diagnosis Comments EGFR Routine 05/05/2024 11:30 AM CDT DIFFERENTIAL AUTO Routine 05/05/2024 11:30 AM CDT CRP (ACUTE PHASE) Routine 05/05/2024 11:30 AM CDT CBC WITH AUTO DIFFERENTIAL Routine 05/05 11:30 AM CDT GLUCOSE, RANDOM (OUTREACH) Routine 05/05 11:30 AM CDT COMPREHENSIVE METABOLIC PANE L WITHOUT GLUCOSE (OUTREACH) Routine 05/05/2024 11:30 AM CDT SCREENING MAMMOGRAM BILATERA L W SHAHZAD Schedule Routine, Read Routine (OP Routine) 04/15/2024 12:09 PM MATHEMATICIAN RESEARCH Fibrocystic breast changes of both breasts MRI BRAIN W WO CONTRAST Schedule Routine, Read Routine (OP Routine) 03/29/2024 12:45 PM MATHEMATICIAN RESEARCH Trigeminal neuralgia ALBUMIN CREATININE RATIO, URINE Routine 03/10/2024 10:10 AM MATHEMATICIAN RESEARCH PROTEIN / CREATININE RATIO, URINE, RANDOM Routine 03/10/2024 10:10 AM MATHEMATICIAN RESEARCH EGFR Routine 03/10/2024 10:10 AM MATHEMATICIAN RESEARCH PHOSPHORUS Routine 03/10/2024 10:10 AM MATHEMATICIAN RESEARCH DIFFERENTIAL AUTO Routine 03/10/2024 10:10 AM MATHEMATICIAN RESEARCH PTH Routine 03/10/2024 10:10 AM MATHEMATICIAN RESEARCH HEMOGLOBIN A1C Routine 03/10/2024 10:10 AM MATHEMATICIAN RESEARCH CBC WITH AUTO DIFFERENTIAL Routine 03/10 10:10 AM MATHEMATICIAN RESEARCH GLUCOSE, RANDOM (OUTREACH) Routine 03/10 10:10 AM MATHEMATICIAN RESEARCH COMPREHENSIVE METABOLIC PANE L WITHOUT GLUCOSE (OUTREACH) Routine 03/10/2024 10:10 AM MATHEMATICIAN RESEARCH POCT GLUCOSE DEVICE Routine 02/27/2024 11:32 AM MATHEMATICIAN RESEARCH ESOPHAGOGASTRODUODENOSCOPY ESOPHAGEAL GUIDE WIRE 02/27/2024 11:04 AM MATHEMATICIAN RESEARCH Esophageal dysphagia EGD 02/27/2024 10:59 AM MATHEMATICIAN RESEARCH COLONOSCOPY 12/11/2022 12:11 PM CDT HEPATITIS C ANTIBODY Routine 11/28/2022 4:12 PM CDT from Last 3 Months or Most Recently Relevant to Health Maintenance Results * Glucose, random (Outreach) (05/05/2024 11:30 AM CDT) Glucose 111 70 - 199 mg/dL Comment: Interpretive Data Fasting glucose >/= 126 mg/dl is diagnostic for diabetes. Fasting is defined as no caloric intake for at least 8 hours. Fasting glucose between 100 mg/dl to 125 mg/dl is diagnostic of prediabetes. In a patient with classic symptoms of hyperglycemia or hyperglycemic crisis, a random glucose >/= 200 mg/dl is diagnostic for diabetes. In the absence of unequivocal hyperglycemia, results should be confirmed by repeat testing. The classification and Diagnosis of Diabetes Diabetes Care 2021; 46: S19-S40. Current interpretive data was last revised 2022. Blood 05/05/2024 11:3 0 AM CDT 05/05/2024 5:16 PM CDT us James Sandoval MD PhD LAB BLOOD ORDERABLES Sylvia l Result [facility] [place] [address] * (ABNORMAL) eGFR (05/05/2024 11:30 AM CDT) eGFR 45(L) >=60 mL/min/1. 73 m2 Comment: Interpretive Data Reference Interval Normal >/= 90 mL/min/1.73m2 Mildly decreased* 60 - 89 mL/min/1.73m2 Mildly to moderately decreased 45 - 59 mL/min/1.73m2 Moderately to severely decreased 30 - 44 mL/min/1.73m2 Severely decreased 15 - 29 mL/min/1.73m2 Kidney Failure < 15 mL/min/1.73m2 *Relative to young adult level Estimated glomerular filtration rate is determined by the 2020 CKD-EPI equation recommended by the National Kidney Foundation (A Unifying Approach to GFR Estimation: Recommendations of the NKF-ASK Task Force on Reassessing the Inclusion of Race in Diagnosing Kidney Disease, JASN 202). The CKD-EPI equation should not be used for patients with unstable renal function and has not been validated in children and those over 70. Current interpretive data was last reviewed 2020. Blood 05/05/2024 11:3 0 AM CDT 05/05/2024 5:31 PM CDT us James Sandoval MD PhD LAB BLOOD ORDERABLES Sylvia brown Result [facility] Department [place] [address] * Differential, auto (05/05/2024 11:30 AM CDT) Pathologist [facility] Neutrophil abs 4.7 1.5 - 6.5 K/cumm Imm gran abs 0.0 0.0 - 0.1 K/cumm [facility] Lymphocyte abs 1.0 0.8 - 3.3 K/cumm [facility] Monocyte abs 0.3 0.2 - 0.8 K/cumm [facility] Eosinophil abs 0.2 0.0 - 0.5 K/cumm [facility] Basophil abs 0.0 0.0 - 0.1 K/cumm [facility] Neutrophil pct 76.9 % [facility] Comment: Interpretive Data Percent cell count reference ranges are not reported, since discordance with absolute values may lead to misinterpretation of CBC data. Current Interpretive Data was last revised on 2017. Imm gran pct 0.2 % [facility] Comment: Interpretive Data Percent cell count reference ranges are not reported, since discordance with absolute values may lead to misinterpretation of CBC data. Current Interpretive Data was last revised on 2017. Lymphocyte pct 15.7 % [facility] Comment: Interpretive Data Percent cell count reference ranges are not reported, since discordance with absolute values may lead to misinterpretation of CBC data. Current Interpretive Data was last revised on 2017. Monocyte pct 4.1 % [facility] Comment: Interpretive Data Percent cell count reference ranges are not reported, since discordance with absolute values may lead to misinterpretation of CBC data. Current Interpretive Data was last revised on 2017. Eosinophil pct 2.6 % [facility] Comment: Interpretive Data Percent cell count reference ranges are not reported, since discordance with absolute values may lead to misinterpretation of CBC data. Current Interpretive Data was last revised on 2017. Basophil pct 0.5 % [facility] Comment: Interpretive Data Percent cell count reference ranges are not reported, since discordance with absolute values may lead to misinterpretation of CBC data. Current Interpretive Data was last revised on 2017. Blood 05/05/2024 11:3 0 AM CDT 05/05/2024 5:16 PM CDT us James Sandoval MD PhD LAB BLOOD ORDERABLES Sylvia l Result [facility] Department [place] [address] * (ABNORMAL) Comprehensive metabolic panel, without glucose (Outreach) (05/05/2024 11:30 AM CDT) Sodium 143 135 - 145 mmol/L Potassium, pl 3.4 3.3 - 4.9 mmol/L [facility] Chloride 100 97 - 110 mmol/L [facility] CO2 30 22 - 32 mmol/L [facility] Anion gap 13 2 - 15 mmol/L [facility] BUN 16 6 - 25 mg/dL [facility] Creatinine 1.32(H) 0.60 - 1.10 mg/dL [facility] Calcium 9.2 8.5 - 10.3 mg/dL [facility] Protein, pl 7.4 6.5 - 8.5 g/dL [facility] Albumin 4.0 3.5 - 5.0 g/dL [facility] Bilirubin, total 0.3 0.1 - 1.2 mg/dL [facility] Alk phos 86 40 - 130 Units/L [facility] AST 22 10 - 45 Units/L [facility] ALT 11 7 - 45 Units/L [facility] Blood 05/05/2024 11:3 0 AM CDT 05/05/2024 5:16 PM CDT James Sandoval MD PhD LAB BLOOD ORDERABLES Sylvia l Result [facility] Department [place] [address] * CBC with auto differential (05/05/2024 11:30 AM CDT) [facility] Signature WBC 6.1 3.8 - 9.9 K/cumm Hgb 12.8 11.9 - 15.5 g/dL [facility] Hct 39.3 35.6 - 45.5 % [facility] Plt 252 150 - 400 K/cumm [facility] MPV 11.8 9.1 - 12.3 fL [facility] RBC 4.58 3.90 - 5.20 M/cumm [facility] MCV 85.8 81.3 - 96.4 fL [facility] MCH 27.9 27.1 - 33.3 pg [facility] MCHC 32.6 32.3 - 35.7 g/dL [facility] RDW CV 13.4 11.1 - 14.9 % [facility] RDW SD 41.7 35.7 - 48.1 fL [facility] NRBC abs 0.00 0.00 - 0.01 K/cumm [facility] Blood 05/05/2024 11:3 0 AM CDT 05/05/2024 5:16 PM CDT James Sandoval MD PhD LAB BLOOD ORDERABLES Sylvia l Result [facility] Department [place] [address] * (ABNORMAL) CRP (acute phase) (05/05/2024 11:30 AM CDT) CRP 27.8(H) <=10.0 mg/L Blood 05/05/2024 11:3 0 AM CDT 05/05/2024 5:16 PM CDT us James Sandoval MD PhD LAB BLOOD ORDERABLES Sylvia l Result [facility] Department [place] [address] * Screening Mammogram Bilateral W Shahzad (04/15/2024 12:09 PM MATHEMATICIAN RESEARCH) Anatomical Region Laterality Modality Breast Bilateral Mammography Narrative 04/16/2024 10:39 AM MATHEMATICIAN RESEARCH Mammogram Technique: Bilateral Digital Breast Tomosynthesis, Bilateral C-view 2D Screening mammogram. Views obtained: bilateral craniocaudal and bilateral mediolateral oblique. Computer Aided Detection was performed. Mammogram Findings: The present examination has been compared to prior imaging studies performed at [facility] on 03/22/2021, 03/27/2022 and 04/09/2023. The breasts are heterogeneously dense, which may obscure small masses. There is no suspicious abnormality in either breast. Impression: There is no mammographic evidence of malignancy. Annual screening mammography is recommended. If supplemental screening is desired, breast MRI would be recommended in this patient with heterogeneously dense breasts. OVERALL FINAL ASSESSMENT: BI-RADS CATEGORY 1: Negative. Procedure Note Cris Mitchell MD - 04/16/2024 Mammogram Technique: Bilateral Digital Breast Tomosynthesis, Bilateral C-view 2D Screening mammogram. Views obtained: bilateral craniocaudal and bilateral mediolateral oblique. Computer Aided Detection was performed. Mammogram Findings: The present examination has been compared to prior imaging studies performed at [facility] on 03/22/2021, 03/27/2022 and 04/09/2023. The breasts are heterogeneously dense, which may obscure small masses. There is no suspicious abnormality in either breast. Impression: There is no mammographic evidence of malignancy. Annual screening mammography is recommended. If supplemental screeningis desired, breast MRI would be recommended in this patient with heterogeneously dense breasts. OVERALL FINAL ASSESSMENT: BI-RADS CATEGORY 1: Negative. us Jada Moore NP IMG MAMMO PROCEDURES Final Result * MRI Brain W WO Contrast (03/29/2024 12:45 PM MATHEMATICIAN RESEARCH) Anatomical Region Laterality Modality Head and Neck N/A Magnetic Resonan ce 03/30/2024 10:4 5 AM MATHEMATICIAN RESEARCH Impressions 03/30/2024 10:47 AM MATHEMATICIAN RESEARCH Vascular loop extending along the inferior margin of the mid cisternal portion of the left trigeminal nerve, of unclear clinical significance. Otherwise, no abnormal signal or enhancement along the visualized course of the trigeminal nerves. Dictated by: Tiesah Moise MD PHD The radiology attending physician has personally reviewed this study, and had reviewed and/or edited this written report and agrees with it. Electronically signed by: Thomas Guidry M.D. Narrative 03/30/2024 10:47 AM MATHEMATICIAN RESEARCH EXAMINATION: Magnetic resonance imaging (MRI) of the brain and brainstem without and with contrast HISTORY: Left trigeminal neuralgia. TECHNIQUE: Multiplanar multi-weighted MRI of the brain and brainstem was performed without and with intravenous contrast using the general brain protocol. Additionally sequences detailing the internal auditory canals and posterior fossa were acquired as a part of the internal auditory canal protocol. Contrast information: 10 mL Gadoterate Meglumine COMPARISON: None Available. FINDINGS: A vascular branch extends along the inferior margin of the mid cisternal portion of the left trigeminal nerve, series 23 image 22. Otherwise, no abnormal signal or enhancement along the visualized course of the trigeminal nerves. The cerebellopontine angles are normal. The VII/VIII nerve complexes appear normal. The upper cervical spinal cord and spine are normal. There is no abnormal contrast enhancement. The scalp and calvarium are normal. The superior sagittal sinus demonstrates normal venous flow. The corpus callosum is normal in shape and signal intensity. The posterior fossa is unremarkable. The pituitary and sella are normal. The brainstem and craniocervical junction are unremarkable. Minimal T2 FLAIR hyperintensities in the periventricular and subcortical white matter may represent sequela of chronic small vessel ischemic disease. Diffusion weighted images reveal no hyperintensities to suggest acute cerebral infarction. The susceptibility weighted sequences reveal no evidence of acute or chronic hemorrhage. The ventricles are normal in size and position without evidence of hydrocephalus. The paranasal sinuses are normal. The visualized portions of the mastoids are unremarkable. The orbits appear normal. Normal flow voids are demonstrated in the carotid arteries and basilar artery. Procedure Note Thomas Guidry MD - 03/30/2024 EXAMINATION: Magnetic resonance imaging (MRI) of the brain and brainstem without and with contrast HISTORY: Left trigeminal neuralgia. TECHNIQUE: Multiplanar multi-weighted MRI of the brain and brainstem was performed without and with intravenous contrast using the general brain protocol. Additionally sequences detailing the internal auditory canals and posterior fossa were acquired as a part of the internal auditory canal protocol. Contrast information: 10 mL Gadoterate Meglumine COMPARISON: None Available. FINDINGS: A vascular branch extends along the inferior margin of the mid cisternal portion of the left trigeminal nerve, series 23 image 22. Otherwise, no abnormal signal or enhancement along the visualized course of the trigeminal nerves. The cerebellopontine angles are normal. The VII/VIII nerve complexes appear normal. The upper cervical spinal cord and spine are normal. There is no abnormal contrast enhancement. The scalp and calvarium are normal. The superior sagittal sinus demonstrates normal venous flow. The corpus callosum is normal in shape and signal intensity. The posterior fossa is unremarkable. The pituitary and sella are normal. The brainstem and craniocervical junction are unremarkable. Minimal T2 FLAIR hyperintensities in the periventricular and subcortical white matter may represent sequela of chronic small vessel ischemic disease. Diffusion weighted images reveal no hyperintensities to suggest acute cerebral infarction. The susceptibility weighted sequences reveal no evidence of acute or chronic hemorrhage. The ventricles are normal in size and position without evidence of hydrocephalus. The paranasal sinuses are normal. The visualized portions of the mastoids are unremarkable. The orbits appear normal. Normal flow voids are demonstrated in the carotid arteries and basilar artery. 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 Otherwise, no abnormal signal or enhancement along the visualized course of the trigeminal nerves. Dictated by: Tiesha Moise MD PHD The radiology attending physician has personally reviewed this study, and had reviewed and/or edited this written report and agrees with it. Electronically signed by: Thomas Guidry M.D. us Keith Farnsworth MD IMG MRI PROCEDURES Final R esult * Glucose, random (Outreach) (03/10/2024 10:10 AM MATHEMATICIAN RESEARCH) Glucose 104 70 - 199 mg/dL Comment: Interpretive Data Fasting glucose >/= 126 mg/dl is diagnostic for diabetes. Fasting is defined as no caloric intake for at least 8 hours. Fasting glucose between 100 mg/dl to 125 mg/dl is diagnostic of prediabetes. In a patient with classic symptoms of hyperglycemia or hyperglycemic crisis, a random glucose >/= 200 mg/dl is diagnostic for diabetes. In the absence of unequivocal hyperglycemia, results should be confirmed by repeat testing. The classification and Diagnosis of Diabetes Diabetes Care 2021; 46: S19-S40. Current interpretive data was last revised 2022. Blood 03/10/2024 10:1 0 AM MATHEMATICIAN RESEARCH 03/10/2024 2:38 PM MATHEMATICIAN RESEARCH us Sonny Galindo MD LAB BLOOD ORDERABLES Final R esult [facility] Department [place] [address] * (ABNORMAL) eGFR (03/10/2024 10:10 AM MATHEMATICIAN RESEARCH) eGFR 46(L) >=60 mL/min/1. 73 m2 Comment: Interpretive Data Reference Interval Normal >/= 90 mL/min/1.73m2 Mildly decreased* 60 - 89 mL/min/1.73m2 Mildly to moderately decreased 45 - 59 mL/min/1.73m2 Moderately to severely decreased 30 - 44 mL/min/1.73m2 Severely decreased 15 - 29 mL/min/1.73m2 Kidney Failure < 15 mL/min/1.73m2 *Relative to young adult level Estimated glomerular filtration rate is determined by the 2020 CKD-EPI equation recommended by the National Kidney Foundation (A Unifying Approach to GFR Estimation: Recommendations of the NKF-ASK Task Force on Reassessing the Inclusion of Race in Diagnosing Kidney Disease, JASN 2020). The CKD-EPI equation should not be used for patients with unstable renal function and has not been validated in children and those over 70. Current interpretive data was last reviewed 2020. Blood 03/10/2024 10:1 0 AM MATHEMATICIAN RESEARCH 03/10/2024 2:57 PM MATHEMATICIAN RESEARCH Sonny Galindo MD LAB BLOOD ORDERABLES Final R esult [facility] Department [place] [address] * Differential, auto (03/10/2024 10:10 AM MATHEMATICIAN RESEARCH) Pathologist [facility] Neutrophil abs 2.4 1.5 - 6.5 K/cumm Imm gran abs 0.0 0.0 - 0.1 K/cumm [facility] Lymphocyte abs 1.5 0.8 - 3.3 K/cumm [facility] Monocyte abs 0.3 0.2 - 0.8 K/cumm [facility] Eosinophil abs 0.1 0.0 - 0.5 K/cumm [facility] Basophil abs 0.0 0.0 - 0.1 K/cumm [facility] Neutrophil pct 56.8 % [facility] Comment: Interpretive Data Percent cell count reference ranges are not reported, since discordance with absolute values may lead to misinterpretation of CBC data. Current Interpretive Data was last revised on 2017. Imm gran pct 0.2 % [facility] Comment: Interpretive Data Percent cell count reference ranges are not reported, since discordance with absolute values may lead to misinterpretation of CBC data. Current Interpretive Data was last revised on 2017. Lymphocyte pct 33.7 % [facility] Comment: Interpretive Data Percent cell count reference ranges are not reported, since discordance with absolute values may lead to misinterpretation of CBC data. Current Interpretive Data was last revised on 2017. Monocyte pct 5.8 % [facility] Comment: Interpretive Data Percent cell count reference ranges are not reported, since discordance with absolute values may lead to misinterpretation of CBC data. Current Interpretive Data was last revised on 2017. Eosinophil pct 2.8 % [facility] Comment: Interpretive Data Percent cell count reference ranges are not reported, since discordance with absolute values may lead to misinterpretation of CBC data. Current Interpretive Data was last revised on 2017. Basophil pct 0.7 % [facility] Comment: Interpretive Data Percent cell count reference ranges are not reported, since discordance with absolute values may lead to misinterpretation of CBC data. Current Interpretive Data was last revised on 2017. Blood 03/10/2024 10:1 0 AM MATHEMATICIAN RESEARCH 03/10/2024 2:38 PM MATHEMATICIAN RESEARCH Sonny Galindo MD LAB BLOOD ORDERABLES Final R esult [facility] Department [place] [address] * (ABNORMAL) Comprehensive metabolic panel, without glucose (Outreach) (03/10/2024 10:10 AM MATHEMATICIAN RESEARCH) Sodium 142 135 - 145 mmol/L Potassium, pl 3.8 3.3 - 4.9 mmol/L [facility] Chloride 104 97 - 110 mmol/L [facility] CO2 29 22 - 32 mmol/L [facility] Anion gap 9 2 - 15 mmol/L [facility] BUN 16 6 - 25 mg/dL [facility] Creatinine 1.31(H) 0.60 - 1.10 mg/dL [facility] Calcium 9.1 8.5 - 10.3 mg/dL [facility] Protein, pl 6.8 6.5 - 8.5 g/dL [facility] Albumin 3.9 3.5 - 5.0 g/dL [facility] Bilirubin, total 0.3 0.1 - 1.2 mg/dL [facility] Alk phos 62 40 - 130 Units/L [facility] AST 17 10 - 45 Units/L [facility] ALT 10 7 - 45 Units/L [facility] Blood 03/10/2024 10:1 0 AM MATHEMATICIAN RESEARCH 03/10/2024 2:38 PM MATHEMATICIAN RESEARCH Sonny Galindo MD LAB BLOOD ORDERABLES Final R esult Performing Organization Address City/[facility]/ZIP Co de Phone Number [facility] Department [place] [address] * (ABNORMAL) CBC with auto differential (03/10/2024 10:10 AM MATHEMATICIAN RESEARCH) [facility] WBC 4.3 3.8 - 9.9 K/cumm Hgb 11.9 11.9 - 15.5 g/dL [facility] Hct 37.6 35.6 - 45.5 % [facility] Plt 192 150 - 400 K/cumm [facility] MPV 12.4(H) 9.1 - 12.3 fL [facility] RBC 4.34 3.90 - 5.20 M/cumm [facility] MCV 86.6 81.3 - 96.4 fL [facility] MCH 27.4 27.1 - 33.3 pg [facility] MCHC 31.6(L) 32.3 - 35.7 g/dL [facility] RDW CV 13.4 11.1 - 14.9 % [facility] RDW SD 42.1 35.7 - 48.1 fL [facility] NRBC abs 0.00 0.00 - 0.01 K/cumm [facility] Blood 03/10/2024 10:1 0 AM MATHEMATICIAN RESEARCH 03/10/2024 2:38 PM MATHEMATICIAN RESEARCH Sonny Galindo MD LAB BLOOD ORDERABLES Final R esult Performing Organization Address City/[facility]/ZIP Co de Phone Number [facility] Department [place] [address] * Protein / creatinine ratio, urine, random (03/10/2024 10:10 AM MATHEMATICIAN RESEARCH) Protein, ur, quant 8.0 mg/dL Comment: Interpretive Data No reference range established. Current interpretive data was last revised 2018. Creatinine Ur 51.5 mg/dL [facility] Comment: Interpretive Data No reference range established. Current interpretive data was last revised 2018. Protein/creatinin e ratio 155.3 0.0 - 180.0 mg/g CR [facility] Urine 03/10/2024 10:1 0 AM MATHEMATICIAN RESEARCH 03/10/2024 3:23 PM MATHEMATICIAN RESEARCH Sonny Galindo MD LAB URINE ORDERABLES Final R esult Performing Organization Address [facility] de Phone Number [facility] [place] [address] * (ABNORMAL) Albumin Creatinine Ratio, Urine (03/10/2024 10:10 AM MATHEMATICIAN RESEARCH) [facility] Albumin Ur 17.5 mg/L Comment: Interpretive Data No reference range established. Current interpretive data was last revised 2018. Creatinine Ur 51.5 mg/dL [facility] Comment: Interpretive Data No reference range established. Current interpretive data was last revised 2018. Albumin Creatinine Ratio, Ur 35(H) 1 - 29 mg/g [facility] Urine 03/10/2024 10:1 0 AM MATHEMATICIAN RESEARCH 03/10/2024 3:25 PM MATHEMATICIAN RESEARCH Sonny Galindo MD LAB URINE ORDERABLES Final R esult Performing Organization Address [facility] de Phone Number [facility] [place] [address] * Phosphorus (03/10/2024 10:10 AM MATHEMATICIAN RESEARCH) Pathologist [facility] Phosphorus, pl 2.6 2.3 - 4.5 mg/dL Blood 03/10/2024 10:1 0 AM MATHEMATICIAN RESEARCH 03/10/2024 2:38 PM MATHEMATICIAN RESEARCH Result [facility] Sonny Galindo MD LAB BLOOD ORDERABLES Final R esult Performing Organization Address [facility] de Phone Number [facility] [place] [address] * PTH (03/10/2024 10:10 AM MATHEMATICIAN RESEARCH) Pathologist [facility] PTH 61 15 - 65 pg/mL Blood 03/10/2024 10:1 0 AM MATHEMATICIAN RESEARCH 03/10/2024 2:39 PM MATHEMATICIAN RESEARCH Result [facility] Sonny Galindo MD LAB BLOOD ORDERABLES Final R [facility] Performing Organization Address [facility] [place] [address] * Hemoglobin A1c (03/10/2024 10:10 AM MATHEMATICIAN RESEARCH) [facility] Hgb A1C 5.3 4.0 - 5.6 % Estimated Average Glucose 105 mg/dL [facility] Comment: The ADA recommends reporting an estimated Average Glucose (eAG) with all Hemoglobin A1c results using the equation derived from a study of 507 normal and diabetic adults. Minority populations were underrepresented and children were not included. (Diabetes Care 2020; 43(S1): S66-S76). The eAG is not equivalent to a fasting glucose. Blood 03/10/2024 10:1 0 AM MATHEMATICIAN RESEARCH 03/10/2024 2:39 PM MATHEMATICIAN RESEARCH Result [facility] Sonny Galindo MD LAB BLOOD ORDERABLES Final R [facility] Performing Organization Address [facility] de Phone Number [facility] [place] [address] * POCT glucose (02/27/2024 11:32 AM MATHEMATICIAN RESEARCH) Pathologist [facility] Glucose, POC 81 70 - 199 mg/dL Comment: Interpretive Data Glucose is assumed to be non-fasting. Fasting Glucose reference ranges are: 0 - 150 years: 70 mg/dL - 99 mg/dL Current interpretive data was last revised on 2013. POC Performer [id number] [facility] POC Device Number [id number] [facility] Blood 02/27/2024 11:3 2 AM MATHEMATICIAN RESEARCH 02/27/2024 11:32 AM MATHEMATICIAN RESEARCH us Hernandez Burleson MD LAB POCT ORDERABLES - DEVICE Final Result [facility] [id number] [facility]. [place] [address] * EGD (02/27/2024 10:59 AM MATHEMATICIAN RESEARCH) Anatomical Region Laterality Modality Other Narrative Procedure Note Hernandez Burleson MD - 02/27/2024 10:59 AM CST ENDOSCOPY LAB Patient Name: Carmen Page Ashlee Procedure Date: 02/27/2024 10:59 AM Date of : 1960 Admit Type: Outpatient Age: 63 Gender: Female Attending MD: Brii Burleson M.D. Room: [facility] ENDOSCOPY ROOM 03 Note Status: Finalized Procedure: Upper GI endoscopy Indications: Dysphagia, dysphonia, Manometry with normal motor function but brief pressurization with viscousswallows Providers: Brii Burleson M.D. Referring MD: James Sandoval MD, PHD, Gabbie Wilde M.D. Medicines: Monitored Anesthesia Care Complications: No immediate complications. Estimated Blood Loss: Estimated blood loss was minimal. Procedure: Pre-Anesthesia Assessment: - Immediately prior to administration ofmedications, the patient was re-assessed for adequacy to receive sedatives. After obtaining informed consent, the endoscope was passed under direct vision. Throughout theprocedure, the patient's blood pressure, pulse, and oxygen saturations were monitored continuously. The [id number] was introduced through the mouth,and advanced to the second part of duodenum. The upperGI endoscopy was accomplished without difficulty. The patient tolerated the procedure well. Findings: The examined esophagus was normal. An endo FLIP catheter was placed.The distensibility index was 3.0, the narrowest lumen diameter at the EGJ was 16 mm, and the intraballoon pressure was 62 mmHg with 60 mL volumetric distension. At 70 mL distension, diameter was 19 mm. Rare anterograde sustained contractions were seen, which is a reactive pattern that might associate with esophageal hypersensitivity. Inview of dysphagia localized to the retrosternum, a guidewire was placedand the scope was withdrawn. Empiric dilation was performed with a Savary dilator with moderate resistance at 60 Fr in the proximalesophagus. A small amount of food (residue) was found in the gastric body. The stomach was otherwise normal. The examined duodenum was normal. Impression: - Normal esophagus. FLIP shows no motor orstructural obstruction, and a reactive pattern. Empirically dilated. - A small amount of food (residue) in thestomach. - Otherwise normal stomach. - Normal examined duodenum. Recommendation: - Observe patient's clinical course followingtoday's procedure with dilation. It is quite possible that some of her esophageal symptoms are related to increased visceral perception. Consider use of neuromodulators, particularly SSRIs or buspirone.Also consider cognitive therapy if symptoms persist. Electronically signed by Brii Burleson MD Brii Burleson M.D. 02/27/2024 11:28:47 AM Number of Addenda: 0 Note Initiated On: 02/27/2024 10:59 AM us Hernandez Burleson MD ENDOSCOPY PROCEDURES Final Result * COLONOSCOPY (12/11/2022 12:11 PM CDT) Anatomical Region Laterality Modality Other Narrative Procedure Note James Sandoval MD PhD - 12/11/2022 12:11 PM CDT ENDOSCOPY LAB [facility] Procedure Date: 12/11/2022 12:11PM Date of : 1960 Admit Type: Outpatient Age: 62 Gender: Female Attending MD: James Sandoval MD,PHD Room: [facility] ENDOSCOPY ROOM 05 Note Status: Finalized Procedure: Colonoscopy Indications: High risk colon cancer surveillance: Crohn'scolitis of 8 (or more) years duration with one-third (ormore) of the colon involved, Last colonoscopy: December2019 Providers: James Sandoval MD, PHD Referring MD: Gabbie Wilde M.D. Medicines: Monitored Anesthesia Care Complications: No immediate complications. Estimated Blood Loss: Estimated blood loss: none. Procedure: Pre-Anesthesia Assessment: - Immediately prior to administration ofmedications, the patient was re-assessed for adequacy to receive sedatives. The benefits, risks and alternatives of theprocedure and sedation were discussed and informed consentwas obtained. All questions were answered. Please referto the signed informed consent document in the medical record. The scope was passed under direct vision.The [id number] was introduced through the anusand advanced to the terminal ileum. The colonoscopy was performed without difficulty. The patient tolerated the procedure well. The quality of the bowel preparation was excellent. The quality of the bowel preparation was evaluated using the BBPS (BostonBowel Preparation Scale) with scores of: Right Colon = 3, Transverse Colon = 3 and Left Colon = 3 (entiremucosa seen well with no residual staining, smallfragments of stool or opaque liquid). The total BBPS score equals 9. The bowel preparation used was SUTAB via split dose instruction. Bowel prep was administered using a split dose. Findings: The perianal and digital rectal examinations were normal. The terminal ileum appeared normal. Normal mucosa was found in the entire colon. Biopsies were taken witha cold forceps for histology. Scattered small and large-mouthed diverticula were found fromtransverse colon to sigmoid colon. The exam was otherwise without abnormality on direct and retroflexion views. Impression: - The examined portion of the ileum was normal. - Normal mucosa in the entire colon. Biopsied. - Diverticulosis from transverse colon to sigmoid colon. - The examination was otherwise normal on directand retroflexion views. Recommendation: - Await pathology results. - Continue present medications. - High fiber diet. - Return to GI clinic as previously scheduled. Attending Participation: I personally performed the entire procedure. Electronically signed by James Sandoval MD. James Sandoval MD, PHD 12/11/2022 12:35:08 PM Number of Addenda: 0 Note Initiated On: 12/11/2022 12:11 PM us James Sandoval MD PhD ENDOSCOPY PROCEDURES Sylvia l Result * Hepatitis C antibody Blood (11/28/2022 4:12 PM CDT) Hep C Ab Nonreactive Nonreactive Comment: Interpretive Data Nonreactive: Antibodies to HCV not detected. Does NOT exclude the possibility of recent exposure to HCV. Equivocal: Equivocal for HCV antibodies. Supplemental molecular testing will be automatically performed to determine infection status in accordance with current CDC screening recommendations. Reactive: Positive for HCV antibodies. This may represent current or past HCV infection. Supplemental molecular testing will be automatically performed to determine current infection status in accordance with current CDC screening recommendations. Interpretive data was last revised on 2019. Blood 11/28/2022 4:12 PM CDT 11/28/2022 4:12 PM CDT us Chelsi Cervantes MD LAB MICROBIOLOGY - GENERAL ORDER REJI Final Result [facility] [address] Department [place] [address] from Last 3 Months or Most Recently Relevant to Health Maintenance Insurance [facility] FEDERAL MEDICARE [facility] MEDICARE [facility] FEDERAL Advance Directives For more information, please contact: [phone] * Full Code (Latest Code Status on File) Date Activated Date Inactivated Comments 02/27/2024 10:08 AM 02/27/2024 4:31 PM * Full Code Date Activated Date Inactivated Comments 03/05/2023 9:10 AM 03/06/2023 4:39 AM * Full Code Date Activated Date Inactivated Comments 12/11/2022 11:19 AM 12/11/2022 5:17 PM * Full Code Date Activated Date Inactivated Comments 01/05/2020 7:24 AM 01/05/2020 2:31 PM * Full Code Date Activated Date Inactivated Comments 05/27/2018 9:50 AM 05/27/2018 4:39 PM Care Teams Rice Drier Operator Relationship Specialty Start Date End Date Gabbie Wilde MD PCP - General Family Medicine 03/27/22 Sonny Galindo MD Nephrology 05/21/22
--- OUTSIDE RECORDS SUMMARY | 2024-05-11 12:11 | XMS_ITS | Encounter Summary ---
Author Organization [facility] Address [address] [place] [address] Phone Care Team Providers Care Automobile Racer Name Role Phone Gabbie Wilde MD Primary Care Provider + Sonny Galindo MD Unavailable [phone] Encounter Details Date Type Department Care Team (Late st Contact Info) Description 02/27/2023 Orders Only [facility] Scanning, Provider Social History Tobacco Use Types Packs/Day Years Used Date Smoking Tobacco: Never Smokeless Tobacco: Never Alcohol Use Standard Drinks/Week Comments Yes 0 (1 standard drink = 0.6 oz pure alcohol) 1 glass wine maybe once a month AUDIT-C Answer Date Recorded Q1: How often do you have a drink containing alc ohol? Never 12/11/2022 Average Number of Drinks Not on file 023 Frequency of Binge Drinking Not on file 11/19 Personal Safety Answer Date Recorded Getting School Help Needed Denies 02/05 Comments No Sex and Gender Information Value Date Recorded Sex Assigned at Not on file Legal Sex Female 11:00 AM [facility] [employer] Gender Identity Female 10/03/2020 3:00 PM CDT Sexual Orientation Not on file documented as of this encounter Plan of Treatment Not on file documented as of this encounter Procedures Procedure Name Priority Date/Time Associated Diagnosis Comments SCAN - LABS 02/27/2023 documented in this encounter Results * SCAN - LABS (02/27/2023) us Provider Scanning Final Result documented in this encounter Visit Diagnoses Not on filedocumented in this encounter Additional Health Concerns Infection Onset Date Last Indicated Resolved Time C. difficile Comment:Chronic diarrhea from IBS. Last CDI test 01/01/22 is neg. 04/14/2015 04/14/2015 4 8:58 AM [facility] documented as of this encounter Care Teams Automobile Racer Relationship Specialty Start Date End Date Gabbie Wilde MD PCP - General Family Medicine 03/27/22 Sonny Galindo MD Nephrology 05/21/22 documented as of this encounter
--- OUTSIDE RECORDS SUMMARY | 2024-05-11 12:11 | XMS_ITS | Clinical Summary ---
Author Organization [facility] 2 Address [address] [place] [address] Care Team Providers Care Dope Sprayer Name Role Phone Gabbie Wilde MD Primary Care Provider + Sonny Galindo MD Unavailable Allergies Active Allergy Reactions Criticality Noted Date [...] gauge miscIndications:D iabetes Mellitus 07/30/19 22 Active [id number] pa-fish oil 1,050-1,200 mg capsuleIndication s:hypertriglyceri demia [...] 03/11/2024 Assessment & Plan (03/11/2024 3:13 PM INVASIVE CARDIOVASCULAR TECHNOLOGIST): She complains of residual pain in the [...] (04/15/2018): Added automatically from request for surgery [id number] Abnormal mammogram 02/10/2018 Resolved Problems Problem Noted Date Diagnosed Date Resolved Date Crohn's disease of both smal l and large intestine 09/30/2014 09/26/2018 Regional enteritis of small intestine with large intestine 09/30/2014 04/12/2023 Overview (08/05/2022): Added automatically from request for surgery [id number] Encounters Date Type Department Care Team Description 5 Results Follow-Up [facility] Gastroenterolog y [address] [facility] 12th [place] [address] [place] [address] James Sandoval MD PhD 5 11:30 AM CDT - 5 11:59 PM CDT Hospital Encounter [facility] [address] [place] [address] Discharge Disposition: Discharge to home or self care 5 11:00 AM CDT Home Care Visit [address] [place] [address] [address] [place] [address] Tea Stone RN SN INFUSION TREATMENT ROOM 5 8:20 AM CDT Office Visit [facility] with [facility] [address] [place] [address] Tigre Torres MD Trigeminal neuralgia 5 Orders Only [facility] Surgery [address] [place] [address] 8 [place] [phone] Jada Moore NP Heterogeneously dense tissue of both breasts on mammography (Primary Dx) 5 Telephone [facility] with [facility] [address] [place] [address] Tigre Torres MD 5 Orders Only [facility] with [facility] [address] [place] [address] Tigre Torres MD Persistent headaches (Primary Dx); Abnormal brain MRI 5 Results Follow-Up [facility] Surgery [address] [place] [phone] Jada Moore NP 5 11:30 AM INVASIVE CARDIOVASCULAR TECHNOLOGIST - 5 11:59 PM INVASIVE CARDIOVASCULAR TECHNOLOGIST Hospital Encounter [facility] - Breast Imaging [address] [place] [address] Floor 8 [place] [address] Fibrocystic breast changes o f both breasts Discharge Disposition: Discharge to home or self care 5 11:30 AM INVASIVE CARDIOVASCULAR TECHNOLOGIST Office Visit [facility] Surgery [address] [place] [phone] Jada Moore NP Fibrocystic breast changes of both breasts (Primary Dx); Encounter for screening mammogram for malignant neoplasm of breast 5 Telephone [facility] with [facility] [address] [place] [address] Sarah Urban PA 5 Orders Only [facility] Surgery [address] [facility] Floor 8 [place] [phone] Jada Moore NP Fibrocystic breast changes of both breasts (Primary Dx) 5 7:30 AM INVASIVE CARDIOVASCULAR TECHNOLOGIST Home Care Visit [address] [place] [address] Tushar Vidal RN SN NON OASIS RECERTIFICATION 5 Plan of Care Documentation [address] [place] [address] 5 Telephone [facility] [address] [facility] [address] [place] [phone] Anne-Marie Richardson MA 5 11:09 AM INVASIVE CARDIOVASCULAR TECHNOLOGIST - 5 11:59 PM INVASIVE CARDIOVASCULAR TECHNOLOGIST Hospital Encounter [facility] [address] [place] [phone] Trigeminal neuralgia Discharge Disposition: Discharge to home or self care 5 Telephone [facility] [address] [place] [address] [place] [phone] Keith Farnsworth MD 5 9:00 AM INVASIVE CARDIOVASCULAR TECHNOLOGIST Office Visit [facility] [address] [place] [address] [place] [phone] Keith Farnsworth MD Trigeminal neuralgia (Primary Dx) 5 10:10 AM INVASIVE CARDIOVASCULAR TECHNOLOGIST - 5 11:59 PM INVASIVE CARDIOVASCULAR TECHNOLOGIST Hospital Encounter [facility] [address] [place] [address] Discharge Disposition: Discharge to home or self care 5 9:30 AM INVASIVE CARDIOVASCULAR TECHNOLOGIST Home Care Visit [address] [place] [phone] Caroline Banerjee RN SN INFUSION TREATMENT ROOM 5 11:04 AM INVASIVE CARDIOVASCULAR TECHNOLOGIST Anesthesia Event [facility] [address] [place] [address] Demarcus Guerrero MD 5 10:45 AM INVASIVE CARDIOVASCULAR TECHNOLOGIST - 5 11:15 AM INVASIVE CARDIOVASCULAR TECHNOLOGIST Surgery [facility] [address] [place], [place] [address] Hernandez Burleson MD ESOPHAGOGASTRODUODENOSCOPY ESOPHAGEAL GUIDE WIRE 5 9:18 AM INVASIVE CARDIOVASCULAR TECHNOLOGIST - 5 12:31 PM INVASIVE CARDIOVASCULAR TECHNOLOGIST Hospital Encounter [facility] [address] [place], [place] [address] Hernandez Burleson MD Discharge Disposition: Discharge to home or self care from Last 3 Months Immunizations Immunization Administration Dates Next Due Influenza LAIV (Nasal) 10/29/2018 Influenza, Quadrivalent, Rec ombinant, Egg Free, Preservative Free, Intramuscular 10/29/2018 Influenza, Quadrivalent, Spl it, Preservative Free, Intramuscular 11/27/2017 Influenza, Trivalent, IM (MDV) 11/18/2020,2019,10/20/2018 Pfizer SARS-CoV-2 Monovalent Vaccination (12+ Yrs) PURPLE 11/25/2020,05/08/2020,04/17/2020 Pneumococcal Conjugate 7-Valent 08/19/2015 Pneumococcal Conjugate PCV 13 11/18/2016 Tdap 01/07/2018 ZOSTER Recombinant 03/06/2019,01/01/2019 Surgical History Surgery Date Site/Laterality Comments OTHER SURGICAL HISTORY 02/18/1979 - 02/18/1980 bladder opening enlarged OTHER SURGICAL HISTORY 02/19/1980 - 02/17/1981 tumor removed - right breast OTHER SURGICAL HISTORY scar revision OTHER SURGICAL HISTORY right thumb joint rebuilt OTHER SURGICAL HISTORY nerve surgery OTHER SURGICAL HISTORY ulnar nerve release KNEE ARTHROPLASTY Knee replacement BLADDER SURGERY Bladder Surgery - (Added by TW Conv) KS EXC CYST/ABERRANT BREAST TISSUE OPEN 1/> LESION Breast Surgery Lumpectomy - (Added by TW Conv) KS NEUROPLASTY &/TRANSPOS MEDIAN NRV CARPAL TUNNE Neuroplasty Decompression Median Nerve At Carpal Tunnel - (Added by TW Conv) ANAL FISSURECTOMY Anal Fissurectomy - (Added by TW Conv) KNEE SURGERY Knee Surgery - (Added by TW Conv) KS NEURP MAJOR PRPH NRV ARM/LEG OPN OTH/THN SPEC Neuroplasty Ulnar Nerve - (Added by TW Conv) CENTRAL VENOUS CATHETER INSERTION Central IV Line Type Port-A-Cath - (Added by TW Conv) SPINAL CORD STIMULATOR IMPLANT Spinal Surgery Neurostimulator Implants - (Added by TW Conv) KS TOTAL ABDOMINAL HYSTERECT W/WO RMVL TUBE OVARY Hysterectomy - (Added by TW Conv) COLONOSCOPY POLYPECTOMY PORT PLACEMENT CHEST >5 YEARS 03/05/2023 N/A THUMB SURGERY Left CATARACT EXTRACTION W/ INTRAOCULAR LENS IMPLANT, BILATERAL UPPER GASTROINTESTINAL ENDOSCOPY CATARACT EXTRACTION 02/18/2023 - 02/18/2024 HAND ARTHROPLASTY Left Medical History Medical History Date Comments Hx Other Medical inflammatory maryellen int disease Hx Other Medical CRPS Hypothyroidism hypothyroidism Hx Other Medical Crohns disease Anemia Anemia Hyperlipidemia Hyperlipidemia Irritable bowel syndrome Irritab le bowel disease Personal history of other di seases of the musculoskeletal system and connective tissue History of arthritis - (Adde d by TW Conv) Personal history of other sp ecified conditions History of fatigue - (Added by TW Conv) Anorexia Poor appetite - (Added by TW Conv) Presence of spectacles and contact lenses Wears glasses - (Added by TW Conv) Nasal congestion Nose congestion - (Added by TW Conv) Jaw pain Jaw pain - (Adde d by TW Conv) Acute pharyngitis Sore throat - (Added by TW Conv) Personal history of other di seases of the circulatory system History of hypertension - (A dded by TW Conv) Personal history of other sp ecified conditions History of shortness of moe th - (Added by TW Conv) Personal history of other sp ecified conditions History of abdominal pain - (Added by TW Conv) Personal history of other in fectious and parasitic diseases History of sexually transmit delroy disease - (Added by TW Conv) Personal history of other sp ecified conditions History of headache - (Added by TW Conv) Personal history of other me ntal and behavioral disorders History of depression - (Add ed by TW Conv) Hypertension Chronic kidney disease GERD (gastroesophageal reflux disease) Arthritis Avascular necrosis (HCC) 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 Vertigo due to BP issues Diabetes mellitus (HCC) pre diab etic PONV (postoperative nausea and vomiting) Chronic diarrhea Crohn's disease (HCC) Type 2 diabetes mellitus (HCC) Cancer (HCC) Dysphagia Depression Port-A-Cath in place Family History Medical History Relation Name Comments Hypertension Brother Cancer Father Prostate cancer Father Breast cancer Father's Sister Cancer Mother Hypertension Mother Lung cancer Mother's Brother Relation Name Status Comments Brother Alive Father Father's Sister Mother Alive Mother's Brother Social History Tobacco Use Types Packs/Day Years [...] on file Legal Sex Female 11:00 AM INVASIVE CARDIOVASCULAR TECHNOLOGIST Gender Identity Female 10/03/2020 3:00 PM CDT Sexual Orientation Not on file Obstetrics History Last Filed Vital Signs Vital Sign Reading [...] 05/01/2024 8:10 AM CDT Plan of Treatment Health Maintenance Due Date Last Done Comments Depression Screening 1959 Dilated Eye Exam 1959 Foot Exam 1959 Lipid Panel 1959 Regular Well Visit/Exam 18-64 08/17/1977 Pneumococcal vaccine <65 (2 of 2 - PPSV23) 01/13/2017 11/18/2016, 08/19/2015 Covid-19 Vaccine (4 - 2023-2 5 season) 2023 11/25/2020, 05/08/2020, 04/17/2020 Influenza Vaccine (#1) 2023 , 11/19/2019, 10/29/2018, Additional history exists Hemoglobin A1C 09/07/2024 03/10/2024, 11/20, 08/15/2021 Albumin Creatinine Ratio, Urine 03/10/2025 Breast Cancer Screening-Mammogram 04/15/2025 04/15/2024, 04/09/2023, 03/27/2022, Additional history exists eGFR 05/05/2025 05/05/2024, 02/19, 11/20/2023, Additional history exists DTaP/Tdap/Td Vaccine (2 - Td or Tdap) 01/08/2028 01/07/2018 Colon Cancer Screening-Colonoscopy 12/11/2032 12/11/2022, 01/05/2020, 05/27/2018, Additional history exists Zoster Vaccine Completed 03/06/2019, 01/01/2019 Hepatitis B Screening Completed 11/28/2022 Hepatitis C Screening Completed 11/28/2022 Colon Cancer Screening-CT Colonography Discontinued 12/11/2022, 01/05/2020, 05/27/2018, Additional history exists Colon Cancer Screening-DNA Stool Discontinued 12/11/2022, 01/05/2020, 05/27/2018, Additional history exists Colon Cancer Screening-FIT Discontinued 12/11, 01/05/2020, 05/27/2018, Additional history exists Colon Cancer Screening-Sigmoidoscopy Discontinued 12/11/2022, 01/05/2020, 05/27/2018, Additional history exists Medical Devices Implanted Type Area Lye Machine Operator Device Identifier Shelf Expiration Date Model / Serial / Lot [employer] Xcela Power Port 8fr [id number] - [id number] Implanted:Qty: 1 on 03/05/2023 by Quang Cid MD at [facility] [employer] 10/22/2027 [id number] / / [id number] Procedures Procedure Name Priority Date/Time Associated Diagnosis [...] Read Routine (OP Routine) 04/15/2024 12:09 PM INVASIVE CARDIOVASCULAR TECHNOLOGIST Fibrocystic breast changes of both breasts MRI BRAIN W WO CONTRAST Schedule Routine, Read Routine (OP Routine) 03/29/2024 12:45 PM INVASIVE CARDIOVASCULAR TECHNOLOGIST Trigeminal neuralgia ALBUMIN CREATININE RATIO, URINE Routine 03/10/2024 10:10 AM INVASIVE CARDIOVASCULAR TECHNOLOGIST PROTEIN / CREATININE RATIO, URINE, RANDOM Routine 03/10/2024 10:10 AM INVASIVE CARDIOVASCULAR TECHNOLOGIST EGFR Routine 03/10/2024 10:10 AM INVASIVE CARDIOVASCULAR TECHNOLOGIST PHOSPHORUS Routine 03/10/2024 10:10 AM INVASIVE CARDIOVASCULAR TECHNOLOGIST DIFFERENTIAL AUTO Routine 03/10/2024 10:10 AM INVASIVE CARDIOVASCULAR TECHNOLOGIST PTH Routine 03/10/2024 10:10 AM INVASIVE CARDIOVASCULAR TECHNOLOGIST HEMOGLOBIN A1C Routine 03/10/2024 10:10 AM INVASIVE CARDIOVASCULAR TECHNOLOGIST CBC WITH AUTO DIFFERENTIAL Routine 03/10 10:10 AM INVASIVE CARDIOVASCULAR TECHNOLOGIST GLUCOSE, RANDOM (OUTREACH) Routine 03/10 10:10 AM INVASIVE CARDIOVASCULAR TECHNOLOGIST COMPREHENSIVE METABOLIC PANE L WITHOUT GLUCOSE (OUTREACH) Routine 03/10/2024 10:10 AM INVASIVE CARDIOVASCULAR TECHNOLOGIST POCT GLUCOSE DEVICE Routine 02/27/2024 11:32 AM INVASIVE CARDIOVASCULAR TECHNOLOGIST ESOPHAGOGASTRODUODENOSCOPY ESOPHAGEAL GUIDE WIRE 02/27/2024 11:04 AM INVASIVE CARDIOVASCULAR TECHNOLOGIST Esophageal dysphagia EGD 02/27/2024 10:59 AM INVASIVE CARDIOVASCULAR TECHNOLOGIST COLONOSCOPY 12/11/2022 12:11 PM CDT HEPATITIS C [...] classification and Diagnosis of Diabetes Diabetes Care 202; 46: S19-S40. Current interpretive data was last revised 2022. Blood 05/05/2024 11:3 0 AM CDT 05/05/2024 5:16 PM CDT James Sandoval MD PhD LAB BLOOD ORDERABLES Sylvia l Result Performing Organization Address City/[facility]/ZIP Co de Phone Number [facility] Department [place] [address] * (ABNORMAL) eGFR (05/05/2024 11:30 AM CDT) [...] 0 AM CDT 05/05/2024 5:31 PM CDT James Sadnoval MD PhD LAB BLOOD ORDERABLES Sylvia l Result Performing Organization Address City/[facility]/ZIP Co de Phone Number [facility] Department [place] [address] * Differential, auto (05/05/2024 11:30 AM CDT) Pathologist [facility] Neutrophil abs 4.7 1.5 - 6.5 K/cumm Imm gran abs 0.0 0.0 - 0.1 K/cumm [facility] Lymphocyte abs 1.0 0.8 - 3.3 K/cumm [facility] Monocyte abs 0.3 0.2 - 0.8 K/cumm [facility] Eosinophil abs 0.2 0.0 - 0.5 K/cumm [facility] Basophil abs 0.0 0.0 - 0.1 K/cumm [facility] Neutrophil pct 76.9 % [facility] Comment: Interpretive Data Percent cell count reference ranges are not reported, since discordance with absolute values may lead to misinterpretation of CBC data. Current Interpretive Data was last revised on 2017. Imm gran pct 0.2 % [facility] Comment: Interpretive Data Percent cell count reference ranges are not reported, since discordance with absolute values may lead to misinterpretation of CBC data. Current Interpretive Data was last revised on 2017. Lymphocyte pct 15.7 % [facility] Comment: Interpretive Data Percent cell count reference ranges are not reported, since discordance with absolute values may lead to misinterpretation of CBC data. Current Interpretive Data was last revised on 2017. Monocyte pct 4.1 % [facility] Comment: Interpretive Data Percent cell count reference ranges are not reported, since discordance with absolute values may lead to misinterpretation of CBC data. Current Interpretive Data was last revised on 2017. Eosinophil pct 2.6 % [facility] Comment: Interpretive Data Percent cell count reference ranges are not reported, since discordance with absolute values may lead to misinterpretation of CBC data. Current Interpretive Data was last revised on 2017. Basophil pct 0.5 % [facility] Comment: Interpretive Data Percent cell count reference ranges are not reported, since discordance with absolute values may lead to misinterpretation of CBC data. Current Interpretive Data was last revised on 2017. Blood 05/05/2024 11:3 0 AM CDT 05/05/2024 5:16 PM CDT us James Sandoval MD PhD LAB BLOOD ORDERABLES Sylvia brown Result [facility] [place] [address] * (ABNORMAL) Comprehensive metabolic panel, without glucose (Outreach) (05/05/2024 11:30 AM CDT) [facility] Sodium 143 135 - 145 mmol/L Potassium, pl 3.4 3.3 - 4.9 mmol/L [facility] Chloride 100 97 - 110 mmol/L [facility] CO2 30 22 - 32 mmol/L [facility] Anion gap 13 2 - 15 mmol/L [facility] BUN 16 6 - 25 mg/dL [facility] Creatinine 1.32(H) 0.60 - 1.10 mg/dL [facility] Calcium 9.2 8.5 - 10.3 mg/dL [facility] Protein, pl 7.4 6.5 - 8.5 g/dL [facility] Albumin 4.0 3.5 - 5.0 g/dL [facility] Bilirubin, total 0.3 0.1 - 1.2 mg/dL [facility] Alk phos 86 40 - 130 Units/L [facility] AST 22 10 - 45 Units/L [facility] ALT 11 7 - 45 Units/L [facility] Blood 05/05/2024 11:3 0 AM CDT 05/05/2024 5:16 PM CDT us James Sandoval MD PhD LAB BLOOD ORDERABLES Sylvia l Result [facility] [place] [address] * CBC with auto differential (05/05/2024 11:30 AM CDT) [facility] WBC 6.1 3.8 - 9.9 K/cumm Hgb 12.8 11.9 - 15.5 g/dL [facility] Hct 39.3 35.6 - 45.5 % [facility] Plt 252 150 - 400 K/cumm [facility] MPV 11.8 9.1 - 12.3 fL [facility] RBC 4.58 3.90 - 5.20 M/cumm [facility] MCV 85.8 81.3 - 96.4 fL [facility] MCH 27.9 27.1 - 33.3 pg [facility] MCHC 32.6 32.3 - 35.7 g/dL [facility] RDW CV 13.4 11.1 - 14.9 % [facility] RDW SD 41.7 35.7 - 48.1 fL [facility] NRBC abs 0.00 0.00 - 0.01 K/cumm [facility] Blood 05/05/2024 11:3 0 AM CDT 05/05/2024 5:16 PM CDT James Sandoval MD PhD LAB BLOOD ORDERABLES Sylvia l Result Performing Organization Address City/[facility] Co de Phone Number [facility] [place] [address] * (ABNORMAL) CRP (acute phase) (05/05/2024 11:30 AM CDT) CRP 27.8(H) <=10.0 mg/L Blood 05/05/2024 11:3 0 AM CDT 05/05/2024 5:16 PM CDT James Sandoval MD PhD LAB BLOOD ORDERABLES Sylvia l Result Performing Organization Address City/[facility] Co de Phone Number [facility] [place] [address] * Screening Mammogram Bilateral W Shahzad (04/15/2024 12:09 PM INVASIVE CARDIOVASCULAR TECHNOLOGIST) Anatomical Region Laterality Modality Breast Bilateral Mammography Narrative 04/16/2024 10:39 AM INVASIVE CARDIOVASCULAR TECHNOLOGIST Mammogram Technique: Bilateral Digital Breast Tomosynthesis, Bilateral C-view 2D Screening mammogram. Views obtained: bilateral craniocaudal and bilateral mediolateral oblique. Computer Aided Detection was performed. Mammogram Findings: The present examination has been compared to prior imaging studies performed at [facility] on 03/22/2021, 03/27/2022 and 04/09/2023. [...] compared to prior imaging studies performed at [facility] on 03/22/2021, 03/27/2022 and 04/09/2023. The breasts are heterogeneously dense, which may obscure small masses. There is no suspicious abnormality in either breast. Impression: There is no mammographic evidence of malignancy. Annual screening mammography is recommended. If supplemental screeningis desired, breast MRI would be recommended in this patient with heterogeneously dense breasts. OVERALL FINAL ASSESSMENT: BI-RADS CATEGORY 1: Negative. Jada Moore NP IMG MAMMO PROCEDURES Final Result * MRI Brain W WO Contrast (03/29/2024 12:45 PM INVASIVE CARDIOVASCULAR TECHNOLOGIST) Anatomical Region Laterality Modality Head and Neck N/A Magnetic Resonan ce 03/30/2024 10:4 5 AM INVASIVE CARDIOVASCULAR TECHNOLOGIST Impressions 03/30/2024 10:47 AM INVASIVE CARDIOVASCULAR TECHNOLOGIST Vascular loop extending along the inferior margin [...] Thomas Guidry M.D. Narrative 03/30/2024 10:47 AM INVASIVE CARDIOVASCULAR TECHNOLOGIST EXAMINATION: Magnetic resonance imaging (MRI) of the [...] it. Electronically signed by: Thomas Guidry M.D. Keith Farnsworth MD [facility] MRI PROCEDURES Final R esult * Glucose, random (Outreach) (03/10/2024 10:10 AM INVASIVE CARDIOVASCULAR TECHNOLOGIST) Glucose 104 70 - 199 mg/dL Comment: [...] revised 2022. Blood 03/10/2024 10:1 0 AM INVASIVE CARDIOVASCULAR TECHNOLOGIST 03/10/2024 2:38 PM INVASIVE CARDIOVASCULAR TECHNOLOGIST Sonny Galindo MD LAB BLOOD ORDERABLES [facility] [place] [address] * (ABNORMAL) eGFR (03/10/2024 10:10 AM INVASIVE CARDIOVASCULAR TECHNOLOGIST) Pathologist [facility] eGFR 46(L) >=60 mL/min/1. 73 m2 Comment: [...] reviewed 2020. Blood 03/10/2024 10:1 0 AM INVASIVE CARDIOVASCULAR TECHNOLOGIST 03/10/2024 2:57 PM INVASIVE CARDIOVASCULAR TECHNOLOGIST Sonny Galindo MD LAB BLOOD ORDERABLES Final R esult [facility] [place] [address] * Differential, auto (03/10/2024 10:10 AM INVASIVE CARDIOVASCULAR TECHNOLOGIST) Pathologist [facility] Neutrophil abs 2.4 1.5 - 6.5 K/cumm Imm gran abs 0.0 0.0 - 0.1 K/cumm [facility] Lymphocyte abs 1.5 0.8 - 3.3 K/cumm [facility] Monocyte abs 0.3 0.2 - 0.8 K/cumm [facility] Eosinophil abs 0.1 0.0 - 0.5 K/cumm [facility] Basophil abs 0.0 0.0 - 0.1 K/cumm [facility] Neutrophil pct 56.8 % [facility] Comment: Interpretive Data Percent cell count reference ranges are not reported, since discordance with absolute values may lead to misinterpretation of CBC data. Current Interpretive Data was last revised on 2017. Imm gran pct 0.2 % [facility] Comment: Interpretive Data Percent cell count reference ranges are not reported, since discordance with absolute values may lead to misinterpretation of CBC data. Current Interpretive Data was last revised on 2017. Lymphocyte pct 33.7 % [facility] Comment: Interpretive Data Percent cell count reference ranges are not reported, since discordance with absolute values may lead to misinterpretation of CBC data. Current Interpretive Data was last revised on 2017. Monocyte pct 5.8 % [facility] Comment: Interpretive Data Percent cell count reference ranges are not reported, since discordance with absolute values may lead to misinterpretation of CBC data. Current Interpretive Data was last revised on 2017. Eosinophil pct 2.8 % [facility] Comment: Interpretive Data Percent cell count reference ranges are not reported, since discordance with absolute values may lead to misinterpretation of CBC data. Current Interpretive Data was last revised on 2017. Basophil pct 0.7 % [facility] Comment: Interpretive Data Percent cell count reference ranges are not reported, since discordance with absolute values may lead to misinterpretation of CBC data. Current Interpretive Data was last revised on 2017. Blood 03/10/2024 10:1 0 AM INVASIVE CARDIOVASCULAR TECHNOLOGIST 03/10/2024 2:38 PM INVASIVE CARDIOVASCULAR TECHNOLOGIST us Sonny Galindo MD LAB BLOOD ORDERABLES Final R esult [facility] [place] [address] * (ABNORMAL) Comprehensive metabolic panel, without glucose (Outreach) (03/10/2024 10:10 AM INVASIVE CARDIOVASCULAR TECHNOLOGIST) [facility] Sodium 142 135 - 145 mmol/L Potassium, pl 3.8 3.3 - 4.9 mmol/L [facility] Chloride 104 97 - 110 mmol/L [facility] CO2 29 22 - 32 mmol/L [facility] Anion gap 9 2 - 15 mmol/L [facility] BUN 16 6 - 25 mg/dL [facility] Creatinine 1.31(H) 0.60 - 1.10 mg/dL [facility] Calcium 9.1 8.5 - 10.3 mg/dL [facility] Protein, pl 6.8 6.5 - 8.5 g/dL [facility] Albumin 3.9 3.5 - 5.0 g/dL [facility] Bilirubin, total 0.3 0.1 - 1.2 mg/dL [facility] Alk phos 62 40 - 130 Units/L [facility] AST 17 10 - 45 Units/L [facility] ALT 10 7 - 45 Units/L [facility] Blood 03/10/2024 10:1 0 AM INVASIVE CARDIOVASCULAR TECHNOLOGIST 03/10/2024 2:38 PM INVASIVE CARDIOVASCULAR TECHNOLOGIST Sonny Galindo MD LAB BLOOD ORDERABLES Final R esult [facility] Department [place] [address] * (ABNORMAL) CBC with auto differential (03/10/2024 10:10 AM INVASIVE CARDIOVASCULAR TECHNOLOGIST) [facility] WBC 4.3 3.8 - 9.9 K/cumm Hgb 11.9 11.9 - 15.5 g/dL [facility] Hct 37.6 35.6 - 45.5 % [facility] Plt 192 150 - 400 K/cumm [facility] MPV 12.4(H) 9.1 - 12.3 fL [facility] RBC 4.34 3.90 - 5.20 M/cumm [facility] MCV 86.6 81.3 - 96.4 fL [facility] MCH 27.4 27.1 - 33.3 pg [facility] MCHC 31.6(L) 32.3 - 35.7 g/dL [facility] RDW CV 13.4 11.1 - 14.9 % [facility] RDW SD 42.1 35.7 - 48.1 fL [facility] NRBC abs 0.00 0.00 - 0.01 K/cumm [facility] Blood 03/10/2024 10:1 0 AM INVASIVE CARDIOVASCULAR TECHNOLOGIST 03/10/2024 2:38 PM INVASIVE CARDIOVASCULAR TECHNOLOGIST Sonny Galindo MD LAB BLOOD ORDERABLES Final [facility] Performing Organization Address [facility] Co de Phone Number [facility] Department [place] [address] * Protein / creatinine ratio, urine, random (03/10/2024 10:10 AM INVASIVE CARDIOVASCULAR TECHNOLOGIST) Protein, ur, quant 8.0 mg/dL Comment: Interpretive Data No reference range established. Current interpretive data was last revised 2018. Creatinine Ur 51.5 mg/dL [facility] Comment: Interpretive Data No reference range established. Current interpretive data was last revised 2018. Protein/creatinin e ratio 155.3 0.0 - 180.0 mg/g CR [facility] Urine 03/10/2024 10:1 0 AM INVASIVE CARDIOVASCULAR TECHNOLOGIST 03/10/2024 3:23 PM INVASIVE CARDIOVASCULAR TECHNOLOGIST Sonny Galindo MD LAB URINE ORDERABLES Final [facility] Performing Organization Address City/[facility] Co de Phone Number [facility] [place] [address] * (ABNORMAL) Albumin Creatinine Ratio, Urine (03/10/2024 10:10 AM INVASIVE CARDIOVASCULAR TECHNOLOGIST) Albumin Ur 17.5 mg/L Comment: Interpretive Data No reference range established. Current interpretive data was last revised 2018. Creatinine Ur 51.5 mg/dL [facility] Comment: Interpretive Data No reference range established. Current interpretive data was last revised 2018. Albumin Creatinine Ratio, Ur 35(H) 1 - 29 mg/g [facility] Urine 03/10/2024 10:1 0 AM INVASIVE CARDIOVASCULAR TECHNOLOGIST 03/10/2024 3:25 PM INVASIVE CARDIOVASCULAR TECHNOLOGIST Sonny Galindo MD LAB URINE ORDERABLES Final [facility] Performing Organization Address [facility] de Phone Number [facility] [place] [address] * Phosphorus (03/10/2024 10:10 AM INVASIVE CARDIOVASCULAR TECHNOLOGIST) Pathologist [facility] Phosphorus, pl 2.6 2.3 - 4.5 mg/dL Blood 03/10/2024 10:1 0 AM INVASIVE CARDIOVASCULAR TECHNOLOGIST 03/10/2024 2:38 PM INVASIVE CARDIOVASCULAR TECHNOLOGIST Sonny Galindo MD LAB BLOOD ORDERABLES Final [facility] Performing Organization Address [facility] de Phone Number [facility] [place] [address] * PTH (03/10/2024 10:10 AM INVASIVE CARDIOVASCULAR TECHNOLOGIST) Pathologist [facility] PTH 61 15 - 65 pg/mL Blood 03/10/2024 10:1 0 AM INVASIVE CARDIOVASCULAR TECHNOLOGIST 03/10/2024 2:39 PM INVASIVE CARDIOVASCULAR TECHNOLOGIST Sonny Galindo MD LAB BLOOD ORDERABLES Final R esult Performing Organization Address [facility] [place] [address] * Hemoglobin A1c (03/10/2024 10:10 AM INVASIVE CARDIOVASCULAR TECHNOLOGIST) Hgb A1C 5.3 4.0 - 5.6 % Estimated Average Glucose 105 mg/dL [facility] Comment: The ADA recommends reporting an estimated Average Glucose (eAG) with all Hemoglobin A1c results using the equation derived from a study of 507 normal and diabetic adults. Minority populations were underrepresented and children were not included. (Diabetes Care 2020; 43(S1): S66-S76). The eAG is not equivalent to a fasting glucose. Blood 03/10/2024 10:1 0 AM INVASIVE CARDIOVASCULAR TECHNOLOGIST 03/10/2024 2:39 PM INVASIVE CARDIOVASCULAR TECHNOLOGIST us Sonny Galindo MD LAB BLOOD ORDERABLES Final R esult Performing Organization Address City/[facility] Co de Phone Number [facility] Department [place] [address] * POCT glucose (02/27/2024 11:32 AM INVASIVE CARDIOVASCULAR TECHNOLOGIST) [facility] Glucose, POC 81 70 - 199 mg/dL Comment: Interpretive Data Glucose is assumed to be non-fasting. Fasting Glucose reference ranges are: 0 - 150 years: 70 mg/dL - 99 mg/dL Current interpretive data was last revised on 2013. POC Performer [id number] [facility] POC Device Number [id number] [facility] Blood 02/27/2024 11:3 2 AM INVASIVE CARDIOVASCULAR TECHNOLOGIST 02/27/2024 11:32 AM INVASIVE CARDIOVASCULAR TECHNOLOGIST us Hernandez Burleson MD LAB POCT ORDERABLES - DEVICE Final Result Performing Organization Address [facility] Co de Phone Number [facility] [address] [facility] Department [place] [address] * EGD (02/27/2024 10:59 AM INVASIVE CARDIOVASCULAR TECHNOLOGIST) Anatomical Region Laterality Modality Other Narrative Procedure Note Hernandez Burleson MD - 02/27/2024 10:59 AM CST ENDOSCOPY LAB Patient Name: Carmen Rosado Procedure Date: 02/27/2024 10:59 AM Date of : 1960 Admit Type: Outpatient Age: 63 Gender: Female Attending MD: Brii Burleson M.D. Room: [facility] ENDOSCOPY ROOM 03 Note Status: Finalized Procedure: [...] and oxygen saturations were monitored continuously. The [id number] was introduced through the mouth,and advanced to [...] 0 Note Initiated On: 02/27/2024 10:59 AM Hernandez Burleson MD ENDOSCOPY PROCEDURES Final Result * COLONOSCOPY (12/11/2022 12:11 PM CDT) Anatomical Region Laterality Modality Other Narrative Procedure Note James Sandoval MD PhD - 12/11/2022 12:11 PM CDT ENDOSCOPY LAB Patient Name: Carmen Rosado Procedure Date: 12/11/2022 12:11PM Date of : 1960 Admit Type: Outpatient Age: 62 Gender: Female Attending MD: James Sandoval MD,PHD Room: [facility] ENDOSCOPY ROOM 05 Note Status: Finalized Procedure: [...] The scope was passed under direct vision.The [id number] was introduced through the anusand advanced to [...] 0 Note Initiated On: 12/11/2022 12:11 PM James Sandoval MD PhD ENDOSCOPY PROCEDURES Sylvia [...] 4:12 PM CDT 11/28/2022 4:12 PM CDT Chelsi Cervantes MD LAB MICROBIOLOGY - GENERAL ORDER REJI Final Result [facility] [address] [place] Department [place] [address] from Last 3 Months or Most Recently Relevant to Health Maintenance Insurance [facility] [address] [facility] MEDICARE [facility] FEDERAL Advance Directives For more information, please contact: [phone] * Full Code (Latest Code Status on [...] 9:50 AM 05/27/2018 4:39 PM Care Teams Dope Sprayer Relationship Specialty Start Date End Date Gabbie Wilde MD PCP - General Family Medicine 03/27/22 Sonny Galindo MD Nephrology 05/21/22
--- OUTSIDE RECORDS SUMMARY | 2024-05-11 12:11 | XMS_ITS | Patient Health Record ---
Author Organization [facility] Address [address] [place], [place] [address] Care Team Providers Care Numerical Tool Programmer Name Role Phone LOC CREWS MD Primary Care Provider Aydin Gallegos, Enrique Unavailable REASON FOR REFERRAL No Information MEDICATIONS Medication SIG (Take, Route, Frequency, Duration) Notes Start Date End Date Status Humira 40 mg/0.8 mL 0.8 mL subcutaneousl y every 2 weeks for 30 day(s) 02/19/2024 02/19/2024 Active Lutera 1 tab(s) orally once a day for 28 day(s) 02/19/2024 02/19/2024 Active atenolol 50 mg 1 tab(s) orally once a day for 30 day(s) 02/19/2024 02/19/2024 Active hydrochlorothiazide-tri amterene 25 mg-37.5 mg 1 tab(s) orally once a day for 30 day(s) 02/19/2024 02/19/2024 Active zolpidem 10 mg 1 tab(s) orally once a day (at bedtime) for 30 day(s) 02/19/2024 02/19/2024 Activ e atropine-diphenoxylate orally 1-2 daily( prn) for 3 day(s) 02/19/2024 02/19/2024 Active Asacol 400 mg 3 tab(s) orally bid for 30 day(s) 02/19/2024 02/19/2024 Active SOCIAL HISTORY Sex Assigned At : Social History Observation Description Sex Assigned At Unknown PROBLEMS Problem Type ICD Code Onset Dates Problem Status W/U Status Risk SNOMED Code Notes Problem Osteoarthrosis (715.09) Active confirmed Osteoarthrosis (289101371) Problem Crohn's disease (555.9) Active confirmed Crohn's disease (24597484) PLAN OF TREATMENT No Information Insurance Providers Payer Name Payer Address Payer Phone Subscriber Number Group Number Insured Name Patient Relationship to Insured Coverage Start Date Coverage End Date [facility] PPO - NR [address] [address] [place] [address] [id number] ESVIN LYLE Spouse - patient is the spouse of the insured 8 MEDICAL (GENERAL) HISTORY Medical History History ICD Code Bruises easily Changes in moles Migraine and tension headaches Blurred vision Ringing in ears Sinus problems Dizziness Anemia HBP Mitral valve prolapse IBS, bowel changes
--- OUTSIDE RECORDS SUMMARY | 2024-05-11 12:11 | XMS_ITS | Clinical Summary ---
Author Organization [facility] Address [address] [place] [address] Phone Care Team Providers Care Sweat Box Attendant Name Role Phone Toney Benítez Primary Care Provider [phone] Allergies Active Allergy Reactions Criticality Noted Date Comments Duloxetine Hcl Other (see comments) 09/24/2018 Other: zombie Penicillins Hives,Itching,Rash,U nknown Medium 12/07/2008 Pregabalin Low 09/24/2018 Other reaction(s): Fatigue Sulfa Antibiotics Rash Medium 09/24/2018 Tizanidine Medium 09/26/2018 Other reaction(s): Hallucinations Vancomycin Hives,Itching,Other (see comments),Swelling Medium 12/07/2008 Other: red face Medications Medication Sig Dispensed Refills Start Date End Date Status ondansetron (ZOFRAN) 4 MG tablet 1 tablet (4 mg) orally every 12 hours as needed 0 10/10/2016 Active Multiple Vitamin (MULTIVITAMIN) capsule 09/02/2011 Active ferrous sulfate 325 (65 Fe) MG tablet 1 bid 0 09/28/2015 Active oxybutynin XL (DITROPAN-XL) 10 MG 24 hr tablet 1 tablet (10 mg) orally daily 0 10/10/2016 Active calcium carbonate-vitamin D (OSCAL 500/200 D-3) 500-200 MG-UNIT per tablet bid 09/02/2011 Active fenofibrate micronized (LOFIBRA) 134 MG capsule 09/29/2014 Active azaTHIOprine (IMURAN) 50 MG tablet 09/02/2011 Active estradiol (ESTRACE) 1 MG tablet 04/14/2014 Active Cholecalciferol (VITAMIN D3) 5000 units capsule 1 capsule (5,000 units) orally daily 0 10/10/2016 Active Eluxadoline (VIBERZI) 100 MG tablet 1 daily 0 03/26/2018 Active fluticasone (FLONASE ALLERGY RELIEF) 50 MCG/ACT nasal spray 1 spray (50 mcg) intranasally daily in each nostril 0 10/10/2016 Active Melatonin ER 10 MG tablet controlled-release 1 nightly 0 10/10/2016 Active ALPRAZolam (XANAX) 0.5 MG tablet 07/21/2018 Active cetirizine (ZyrTEC) 10 MG tablet daily. Active diphenoxylate-atro pine (LOMOTIL) 2.5-0.025 MG per tablet Take 1 tablet by mouth Active estradiol (VAGIFEM) 10 MCG tablet vaginal tablet Insert into the vagina Active cyanocobalamin (VITAMIN B-12) 1000 MCG tablet Take 2,000 mcg by mouth 1 (one) time each day Active escitalopram (LEXAPRO) 10 MG tablet 09/03/2019 Active hydroCHLOROthiazid e (HYDRODIURIL) 25 MG tablet TAKE 1 TABLET BY MOUTH EVERY DAY 90 tablet 3 07/05/2021 Active simvastatin (ZOCOR) 10 MG tablet TAKE 1 TABLET BY MOUTH EVERY NIGHT 90 tablet 3 07/10/2021 Active gabapentin (NEURONTIN) 600 MG tablet 5 pills spread through the day 07/11/2021 Active [place]-3 Fatty Acids (Fish Oil) 1200 MG capsule delayed-release Take by mouth bid Ac tive lisinopril (PRINIVIL) 10 MG tablet Take 1 tablet (10 mg total) by mouth 1 (one) time each day 30 tablet 11 11/14/2021 Active Active Problems Problem Noted Date Diagnosed Date Crohn's disease without complication 03/27/2017 Irritable bowel syndrome with diarrhea 8 Hyperlipidemia 03/27/2017 Gastro-esophageal reflux disease without esophag itis 03/27/2017 Regional enteritis of small intestine with large intestine 09/30/2014 Overview (09/24/2018): Added automatically from request for surgery [id number] Stage 3b chronic kidney disease 08/15/2011 Hypertensive chronic kidney disease with stage 1 through stage 4 chronic kidney disease, or unspecified chronic kidney disease 08/15/2011 Immunizations Name Administration Dates Next Due Influenza TIV (IM) 11/18/2020,11/19/2019, 019 Influenza, Injectable, Quadr ivalent, Preservative Free 11/27/2017 Influenza, Quadrivalent 10/29/2018 Pfizer Sars-cov-2 Vaccination 11/25/2020, 021,04/17/2020 Pneumococcal Conjugate 08/19/2015 Pneumococcal Conjugate 13-Valent 11/18/2016 Tdap 01/07/2018 Zoster Recombinant 03/06/2019,01/01/2019 Family History Medical History Relation Comments Kidney disease Neg Hx Social History Tobacco Use Types Packs/Day Years Used Date Smoking Tobacco: Never Smokeless Tobacco: Never Alcohol Use Standard Drinks/Week Comments Yes 0 (1 standard drink = 0.6 oz pur e alcohol) rare Sex and Gender Information Value Date Recorded Sex Assigned at Not on file Gender Identity Not on file Sexual Orientation Not on file Last Filed Vital Signs Vital Sign Reading Time Taken Comments Blood Pressure 118/68 09/20/2021 10:28 AM CDT Pulse 60 09/20/2021 10:28 AM CDT Temperature 35.8 C (96.5 F) 09/20/2021 10:28 AM CDT Respiratory Rate - - Oxygen Saturation - - Inhaled Oxygen Concentration - - Weight 74.8 kg (165 lb) 09/20/2021 10:28 AM CDT Height 162.6 cm (5' 4 ) 09/20/2021 10:28 AM CDT Body Mass Index 28.32 09/20/2021 10:28 AM CDT Plan of Treatment Health Maintenance Due Date Last Done Comments Pneumococcal PPSV23 Highest Risk Adult (2 of 3 - PPSV23) 01/13/2017 11/18/2016 COVID-19 Vaccine (4 - 2023-2 5 season) 2023 11/25/2020, 05/08/2020, 04/17/2020 Influenza Vaccine (#1) 2023 , 11/19/2019, 10/20/2018, Additional history exists Care Teams Sweat Box Attendant Relationship Specialty Start Date End Date Toney Benítez [address] [place] [address] PCP - General 09/20/21
--- OUTSIDE RECORDS SUMMARY | 2024-05-11 12:11 | XMS_ITS | Patient Health Record ---
Author Organization [facility] Address [address] [facility] [address] [place] [address] Care Team Providers Care Miter Cutter Name Role Phone Chelsi Cervantes Unavailable [phone] Reason For Referral No Information Medications Medication SIG (Take, Route, Frequency, Duration) Notes Start Date End Date Status Entyvio 300 mg infuse 300 mg over 30 minute(s) by intravenous route every 8 weeks Intravenous 1.08996896260373L- 02 Active Multi-Vitamin take 1 tablet by oral route once Oral 1 Active Simvastatin 10 MG take 1 tablet (10 mg) by oral route once daily in the evening Oral 1 Active Estradiol 1 MG take 1 tablet (1 mg) by oral route once daily Oral 1 Active Ondansetron 4 MG prn Oral Act shaunna Viberzi 100 mg take 1 tablet (100 mg) by oral route every other day Oral 2 Active oxybutynin er 20 mg take 1 tablet in the morning - *Reorder from [employer] for eRx and Interaction Alerts* Active Cetirizine HCl 10 MG take 1 tablet (10 mg) by oral route once daily Oral 1 Active Peppermint Oil 50 mg take 1 capsule by oral route once ORAL 1 *Pick strength-form from [employer] for eRX* Active Farxiga 5 MG take 1 tablet (5 mg) by oral route once daily in the morning Oral 1 Active Potassium Chloride ER 10 MEQ take 1 tablet (10 meq) by oral route once daily with food Oral 1 Active ALPRAZolam 0.5 MG take 1 tablet 2 times a day Oral Active Vitamin B12 2000 mcg 4 times a week - *Pick strength-form from [employer] for eRX* Active Losartan Potassium 25 MG take 1 tablet (25 mg) by oral route once daily Oral 1 Active Rybelsus 7 mg take 1 tablet (7 mg) by oral route once daily in the morning 30 min before any food, drink or medication with no more than 4 oz plain water oral 1 Active Cholecalciferol 1.25 MG (47180 UT) take 1 tablet by oral route once Oral 1 Active traZODone HCl 50 MG take 1 tablet (50 mg) by oral route once daily at bedtime Oral 1 Active Biotin 1,000 mcg chew 1 tablet by oral route once Oral 1 *Pick strength-form from [employer] for eRX* Active Fenofibrate 134 mg take 1 tablet in the evening oral *Pick strength-form from [employer] for eRX* Active Fish Oil Burp-Less 1200 MG take 1 capsule by oral route twice Oral 2 Active Plan Of Treatment No Information Insurance Providers Payer Name Payer Address Payer Phone Subscriber Number Group Number Insured Name Patient Relationship to Insured Coverage Start Date Coverage End Date [place] [address] [place] [address] [id number] Carmen Mortensen Self - patient is the insured Medical (General) History Surgical History Surgery Date(Month/Year) Hysterectomy; 2022-11-22 Arthroplasty of carpometacarpal (CMC) maryellen int of hand; 2022-11-28 sympathectomy; 2022-11-28
--- OUTSIDE RECORDS SUMMARY | 2024-05-11 12:11 | XMS_ITS | Encounter Summary ---
Author Organization [facility] Address [address] [place] [address] Phone Care Team Providers Care Principal System Software Engineer Name Role Phone Gabbie Wilde MD Primary Care Provider + Sonny Galindo MD Unavailable [phone] Encounter Details Date Type Department Care Team (Late st Contact Info) Description 06/27/2022 Orders Only [facility] Scanning, Provider Social History Tobacco Use Types Packs/Day Years Used Date Smoking Tobacco: Never Smokeless Tobacco: Never Alcohol Use Standard Drinks/Week Comments Yes 0 (1 standard drink = 0.6 oz pure alcohol) 1 glass wine maybe once a month AUDIT-C Answer Date Recorded Q1: How often do you have a drink containing alc ohol? Monthly or less 03/22/2021 Average Number of Drinks Not on file 022 Frequency of Binge Drinking Not on file 03/2021 Comments No Sex and Gender Information Value Date Recorded Sex Assigned at Not on file Legal Sex Female 11:00 AM LIFE UNDERWRITER Gender Identity Female 10/03/2020 3:00 PM CDT Sexual Orientation Not on file documented as of this encounter Plan of Treatment Not on file documented as of this encounter Procedures Procedure Name Priority Date/Time Associated Diagnosis Comments SCAN - LABS 06/27/2022 documented in this encounter Results * SCAN - LABS (06/27/2022) us Provider Scanning Final Result documented in this encounter Visit Diagnoses Not on filedocumented in this encounter Additional Health Concerns Infection Onset Date Last Indicated Resolved Time C. difficile Comment:Chronic diarrhea from IBS. Last CDI test 01/01/22 is neg. 04/14/2015 04/14/2015 4 8:58 AM LIFE UNDERWRITER documented as of this encounter Care Teams Principal System Software Engineer Relationship Specialty Start Date End Date Gabbie Wilde MD PCP - General Family Medicine 03/27/22 Sonny Galindo MD Nephrology 05/21/22 documented as of this encounter
--- OUTSIDE RECORDS SUMMARY | 2024-05-11 12:11 | XMS_ITS ---
Author Organization [facility]a Address [address] [facility] [address] [place] [address] Care Team Providers Care Photogrammetry Airplane Pilot Name Role Phone Billy Chelsi Meryl [phone] REASON FOR VISIT yd/lab results/flc Encounters Encounter Location Date Provider Diagnosis [facility] [address] [facility] [address] [place] [address] 12/12/2022 Chelsi Scheafer Plan Of Treatment No Information Progress Notes * Timothy MORTENSENaDOB: (63 yo F)Acc No.[id number]:12/12/2022 Patient: Carmen GLEZ Provider: Hernan SCHAEFER MD :1960 A ge:62 Y S ex:Female Date:12/12/2022 Address:[address] [place], [place] [id number] Subjective: * Chief Complaints: * 1 . Yd/lab results/flc. * Medical History: Objective: * Vitals: Assessment: Plan: * Treatment: * Billing Information: * Visit Code: * Procedure Codes: * Electronic signature of Chelsi Schaefer MD on 05/11/2024 at 12:11 PM CDT Sign off status: Pending * Provider: Hernan SCHAEFER MD Date: 1 Generated for Diana ngo/Lonnie/eTgillessmitting on: 0 05/11/2024 12:11 PM CDT
--- OUTSIDE RECORDS SUMMARY | 2024-05-11 12:12 | XMS_ITS ---
Author Organization [facility] Address [address] [facility] [address] [place] [address] Care Team Providers Care Escalator Service Mechanic Name Role Phone Chelsi Cervantes Unavailable [phone] zzzzMigration, zzzzProvider Unavailable Unav ailable REASON FOR VISIT EMR-Mickey Encounters Encounter Location Date Provider Diagnosis [facility] [address] [facility] [address] [place] [address] 12/08/2022 zzzzProvider zzzzMigration Plan Of Treatment No Information Progress Notes * Allie MORTENSENB: (63 yo F)Acc No.[id number]:12/08/2022 Patient: Lois RODRIGUEZ Carmen LYLE :1960 A ge:62 Y S ex:Female Address:[address] [place] [address], [address] Subjective: * Chief Complaints: * E MR-Mickey * Medical History: * Surgical History: * Hospitalization/Major Diagno stic Procedure: * Medications: Objective: * Vitals: * Physical Examination: Assessment: Plan: * Treatment: * Procedure Codes: * true * Date: Generated for Printi ng/Faxing/eTransmitting on: 0 05/11/2024 12:11 PM CDT
--- OUTSIDE RECORDS SUMMARY | 2024-05-11 12:12 | XMS_ITS ---
Author Organization [facility] Address [address] [place] [address] Care Team Providers Care Compliance Engineer Name Role Phone Chelsi Cevrantes Unavailable [phone] zzzzMigration, zzzzProvider Unavailable Unav ailable Allergies Allergen (clinical drug ingredient) Drug/Non Drug Allergy documented on EMR Reaction Allergy Type Onset Date Status cefuroxime Cefuroxime Axetil Unknown Drug Allergy 11/23/19 23 Active lisinopril Lisinopril Unknown Drug Allergy 11/22/2022 Acti ve pregabalin Lyrica Unknown Drug Allergy 11/22/2022 Activ e doxycycline Doxycycline Unknown Drug Allergy 11/22/2022 Ac tive Substance with penicillin structure and antibacterial mechanism of action (substance) Penicillins Unknown Drug Allergy 11/22/2022 Active Substance with sulfonamide structure and antibacterial mechanism of action (substance) Sulfa Antibiotics Unknown Drug Allergy 11/22/2022 Active vancomycin Vancomycin Unknown Drug Allergy 11/22/2022 Acti ve REASON FOR VISIT EMR-Mickey Medications Medication SIG (Take, Route, Frequency, Duration) Notes Start Date End Date Status Estradiol 1 MG take 1 tablet (1 mg) by oral route once daily Oral 1 Active Ondansetron 4 MG prn Oral Act shaunna Viberzi 100 mg take 1 tablet (100 mg) by oral route every other day Oral 2 Active oxybutynin er 20 mg take 1 tablet in the morning - *Reorder from [facility] for eRx and Interaction Alerts* Active Fenofibrate 134 mg take 1 tablet in the evening oral *[facility]* Active Entyvio 300 mg infuse 300 mg over 30 minute(s) by intravenous route every 8 weeks Intravenous [id number] Active Potassium Chloride ER 10 MEQ take 1 tablet (10 meq) by oral route once daily with food Oral 1 Active Cetirizine HCl 10 MG take 1 tablet (10 mg) by oral route once daily Oral 1 Active Fish Oil Burp-Less 1200 MG take 1 capsule by oral route twice Oral 2 Active Peppermint Oil 50 mg take 1 capsule by oral route once ORAL 1 *Pick strength-form from [employer] for eRX* Active Farxiga 5 MG take 1 tablet (5 mg) by oral route once daily in the morning Oral 1 Active Losartan Potassium 25 MG take 1 tablet (25 mg) by oral route once daily Oral 1 Active Multi-Vitamin take 1 tablet by oral route once Oral 1 Active Simvastatin 10 MG take 1 tablet (10 mg) by oral route once daily in the evening Oral 1 Active Rybelsus 7 mg take 1 tablet (7 mg) by oral route once daily in the morning 30 min before any food, drink or medication with no more than 4 oz plain water oral 1 Active ALPRAZolam 0.5 MG take 1 tablet 2 times a day Oral Active Vitamin B12 2000 mcg 4 times a week - *Pick strength-form from [employer] for eRX* Active Cholecalciferol 1.25 MG (30780 UT) take 1 tablet by oral route once Oral 1 Active traZODone HCl 50 MG take 1 tablet (50 mg) by oral route once daily at bedtime Oral 1 Active Biotin 1,000 mcg chew 1 tablet by oral route once Oral 1 *Pick strength-form from [employer] for eRX* Active Encounters Encounter Location Date Provider Diagnosis [facility] [address] [place] [address] 12/09/2022 zzzzProvider zzzzMigration Plan Of Treatment No Information Progress Notes * Allie MORTENSENB: (63 yo F)Acc No.[id number]:12/09/2022 Patient: Lois RODRIGUEZ Carmen LYLE :1960 A ge:62 Y S ex:Female Address:[address] [place], [place] [address] Subjective: * Chief Complaints: * E MR-Mickey * Medical History: * Surgical History: H ysterectomy; [id number]; [id number] of carpometacarpal (CMC) joint of hand; 2022-11-28 * Hospitalization/Major Diagno stic Procedure: * Family History: M igrated Family History: Arthritis , Heart Disease , Parkinson's Disease, Primary , Prostate Cancer . * Social History: M igrated Social History: M igrated Social History: :: 2 Children , Exercise :: Does not exercise regularly , Marital Status :: , Substance Use :: Alcohol-Does not give any significant history , Substance Use :: Tobacco :: Never. * Medications: T akingoxybutynin er 20 mg take 1 tablet in the morning - , Notes to Pharmacist: *[facility]*Fish Oil Burp-Less 1200 MG Capsule take 1 capsule by oral route twice Oral 2 Biotin 1,000 mcg Tablet Chewable chew 1 tablet by oral route once Oral 1 , Notes to Pharmacist: *Pick strength- form from [facility] for eRX*traZODone HCl 50 MG Tablet take 1 tablet (50 mg) by oral route once daily at bedtime Oral 1 Estradiol 1 MG Tablet take 1 tablet (1 mg) by oral route once daily Oral 1 Cholecalciferol 1.25 MG (73665 UT) Tablet take 1 tablet by oral route once Oral 1 Potassium Chloride ER 10 MEQ Tablet Extended Release take 1 tablet (10 meq) by oral route once daily with food Oral 1 ALPRAZolam 0.5 MG Tablet take 1 tablet 2 times a day Oral Cetirizine HCl 10 MG Tablet take 1 tablet (10 mg) by oral route once daily Oral 1 Peppermint Oil 50 mg CAPSULE,DELAYED RELEASE (ENTERIC COATED) take 1 capsule by oral route once ORAL 1 , Notes to Pharmacist: *Pick strength- form from [facility] for eRX*Ondansetron 4 MG Tablet Disintegrating prn Oral Entyvio 300 mg Solution Reconstituted infuse 300 mg over 30 minute(s) by intravenous route every 8 weeks Intravenous [id number] Vitamin B12 2000 mcg 4 times a week - , Notes to Pharmacist: *Pick strength-form from [facility] for eRX*Multi-Vitamin Tablet take 1 tablet by oral route once Oral 1 Viberzi 100 mg Tablet take 1 tablet (100 mg) by oral route every other day Oral 2 Fenofibrate 134 mg take 1 tablet in the evening oral , Notes to Pharmacist: *Pick strength-form from [facility] for eRX*Losartan Potassium 25 MG Tablet take 1 tablet (25 mg) by oral route once daily Oral 1 Farxiga 5 MG Tablet take 1 tablet (5 mg) by oral route once daily in the morning Oral 1 Simvastatin 10 MG Tablet take 1 tablet (10 mg) by oral route once daily in the evening Oral 1 Rybelsus 7 mg tablet take 1 tablet (7 mg) by oral route once daily in the morning 30 min before any food, drink or medication with no more than 4 oz plain water oral 1 Taking oxybutynin er 20 mg take 1 tablet in the morning - , Notes to Pharmacist: *Reorder from [facility] for eRx and Interaction Alerts*Taking Fish Oil Burp-Less 1200 MG Capsule take 1 capsule by oral route twice Oral 2 Taking Biotin 1,000 mcg Tablet Chewable chew 1 tablet by oral route once Oral 1 , Notes to Pharmacist: *Pick strength-form from [facility] for eRX*Taking traZODone HCl 50 MG Tablet take 1 tablet (50 mg) by oral route once daily at bedtime Oral 1 Taking Estradiol 1 MG Tablet take 1 tablet (1 mg) by oral route once daily Oral 1 Taking Cholecalciferol 1.25 MG (94912 UT) Tablet take 1 tablet by oral route once Oral 1 Taking Potassium Chloride ER 10 MEQ Tablet Extended Release take 1 tablet (10 meq) by oral route once daily with food Oral 1 Taking ALPRAZolam 0.5 MG Tablet take 1 tablet 2 times a day Oral Taking Cetirizine HCl 10 MG Tablet take 1 tablet (10 mg) by oral route once daily Oral 1 Taking Peppermint Oil 50 mg CAPSULE,DELAYED RELEASE (ENTERIC COATED) take 1 capsule by oral route once ORAL 1 , Notes to Pharmacist: *Pick strength-form from [facility] for eRX*Taking Ondansetron 4 MG Tablet Disintegrating prn Oral Taking Entyvio 300 mg Solution Reconstituted infuse 300 mg over 30 minute(s) by intravenous route every 8 weeks Intravenous [id number] Taking Vitamin B12 2000 mcg 4 times a week - , Notes to Pharmacist: *Pick strength-form from [facility] for eRX*Taking Multi- Vitamin Tablet take 1 tablet by oral route once Oral 1 Taking Viberzi 100 mg Tablet take 1 tablet (100 mg) by oral route every other day Oral 2 Taking Fenofibrate 134 mg take 1 tablet in the evening oral , Notes to Pharmacist: *Pick strength-form from [facility] for eRX*Taking Losartan Potassium 25 MG Tablet take 1 tablet (25 mg) by oral route once daily Oral 1 Taking Farxiga 5 MG Tablet take 1 tablet (5 mg) by oral route once daily in the morning Oral 1 Taking Simvastatin 10 MG Tablet take 1 tablet (10 mg) by oral route once daily in the evening Oral 1 Taking Rybelsus 7 mg tablet take 1 tablet (7 mg) by oral route once daily in the morning 30 min before any food, drink or medication with no more than 4 oz plain water oral 1 * Allergies: C efuroxime Axetil: Allergy - Onset Date 11/22/2022Lisinopril: Allergy - Onset Date 11/22/2022Lyrica: Allergy - Onset Date 11/22/2022oxycycline: Allergy - Onset Date 11/22/2022enicillins: Allergy - Onset Date 11/22/2022Sulfa Antibiotics: Allergy - Onset Date 11/22/2022Vancomycin: Allergy - Onset Date 11/22/2022 Objective: * Vitals: * Physical Examination: Assessment: Plan: * Treatment: * Procedure Codes: * true * Date: Generated for Diana Castillo/Felton on: 0 05/11/2024 12:11 PM CDT
== END 2024-05-11 10:26 | disposition home or self-care (01) ==
LOC: ANHNEURO 10:27
PROVIDERS: PCP Family Medicine; Visit Provider Physician Assistant Surgical
DX: G56.22 Lesion of ulnar nerve, left upper limb (principal); R94.131 Abnormal electromyogram [EMG]
CPT/HCPCS: 95886; 95909

== ENCOUNTER 2024-06-18 12:27 | Outpatient (CLI) | payer BC, SELFPAY ==
[2024-06-20 03:48] LABS: Rubella IgG Antibody 9.01 Index
== END 2024-06-18 12:28 | disposition home or self-care (01) ==
PROVIDERS: Student in an Organized Health Care Education/Training Program; PCP Family Medicine; Visit Provider Family Medicine
DX: Z01.84 Encounter for antibody response examination (principal); R20.0 Anesthesia of skin; R20.2 Paresthesia of skin
CPT/HCPCS: 36415; 36591; 82607; 86735; 86762; 86765; 99212; G0463

== ENCOUNTER 2024-08-26 08:00 | Outpatient (CLI) | payer BC, MEDICARE, SELFPAY ==
--- OUTSIDE RECORDS SUMMARY | 2024-08-26 08:08 | XMS_ITS | Encounter Summary ---
Author Organization [facility] Healthcare Address [address] [place] [address] Care Team Providers Care Inventory Associate And Driver Name Role Phone Gabbie Wilde MD Primary Care Provider + Sonny Galindo MD Unavailable James Sandoval MD PhD Unavailable [phone] Caroline Banerjee RN Unavailable Unavailable Wyatt Thayer [facility] Unavailable Unavaila ble Encounter Details Date Type Department Care Team (Latest Contact Info) Description 08/25/2024 11:40 AM CDT - 08/25/2024 11:59 PM CDT Hospital Encounter [address] [address] Discharge Disposition: Discharge to home or self care Social History Tobacco Use Types Packs/Day Years [...] on file 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 Infuse with non-filtered tubing via pole mounted pump over at least 30 minutes at up to 500mL/hr. START INFUSION WITHIN 4 HOURS OF MIXING 1000 mL 08/20/2024 11:15 AM CDT 5 02/26/19 26 acetaminophen (TYLENOL) 325 mg tabletIndications:C rohn's disease of both small and large intestine without complication (HCC) Take 2 tablets (650 mg total) by mouth every 8 (eight) weeks Pre-medication for vedolizumab (Entyvio) 8 tablet 5 02/26/19 26 blood pressure test kit-large kitIndications:hype rtension 1 cetirizine (ZyrTEC) 10 mg tabletIndications:A llergic Rhinitis daily cholecalciferol (VITAMIN D-3) 5,000 unit capsuleIndications: Vitamin D Deficiency Take by mouth 7 cyanocobalamin (Vitamin B-12) 2,000 mcg tabletIndications:P revention of Vitamin B12 Deficiency 1 tablet (2,000 mcg total) as directed Takes 4 times weekly dapagliflozin propanediol (FARXIGA) 5 mg tabletIndications:C hronic Kidney Disease Take 1 tablet (5 mg total) by mouth daily diphenhydrAMINE (BENADRYL) 25 mg capsuleIndications: Crohn's disease of both small and large intestine without complication (HCC) Take 1 tablet/capsule (25 mg total) by mouth every 8 (eight) weeks Pre-medication for vedolizumab (Entyvio) 6 tablet/capsul e 5 02/26/19 26 eluxadoline (Viberzi) 100 mg tabletIndications:D iarrhea Predominant Irritable Bowel Syndrome Take 1 tablet (100 mg total) by mouth daily 90 tablet 1 5 estradioL (ESTRACE) 1 mg tabletIndications:h ormone replacement daily 0 fenofibrate micronized (LOFIBRA) 134 mg capsuleIndications: hypercholesterolemi a daily before breakfast finerenone (Kerendia) 10 mg tabletIndications:c hronic kidney disease associated with type 2 diabetes Take 10 mg by mouth daily heparin sod,porcine/0.9 % NaCl (HEPARIN FLUSH IV)Indications:line care Infuse 5 mL into a venous catheter as needed (line care ). Indications: line care imipramine (TOFRANIL-PM) 100 mg capsuleIndications: Trigeminal neuralgia TAKE 1 CAPSULE(100 MG) BY MOUTH EVERY NIGHT 30 capsule 2 5 lidocaine-prilocain e (EMLA) creamIndications:Ad ministration of Local Anesthesia Apply a quarter size amount of cream to the port area 45-60 minutes before infusions and labs draws as directed. 30 g 3 4 multivitamin tabletIndications:V itamin Deficiency Prevention daily. 0 [id number]-[id number] -fish oil 1,050-1,200 mg capsuleIndications: hypertriglyceridemi a 1 capsule ondansetron ODT (ZOFRAN-ODT) 4 mg disintegrating tabletIndications:N ausea Take 1 tablet (4 mg total) by mouth every 6 (six) hours as needed for nausea or vomiting 20 tablet 5 4 OneTouch Delica Plus Lancet 33 gauge miscIndications:Vivian betes Mellitus 2 OneTouch Verio test strips stripIndications:Di abetes Mellitus 2 oxybutynin XL (DITROPAN-XL) 10 mg 24 hr tabletIndications:B ladder Hyperactivity Take 3 tablets (30 mg total) by mouth daily Changed to 30mg q day 3 PreviDent 5000 Dry Mouth 1.1 % paste 4 rimegepant (Nurtec ODT) tablet,disintegrati ng Take 1 tablet (75 mg total) by mouth once as needed (Take 1 tablet once with onset of acute headache pain. No more than 1 dose in 24 hours. 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 Swirl gently for 15 seconds; do not shake. Allow solution to stand for up to 20 minutes. Withdraw 5 mL of reconstituted solution from vial & add to 250 mL NS bag. 1 each 3 08/20/2024 11:15 AM CDT 5 02/26/19 26 documented as of this encounter Discharge Disposition Disposition Code Departure Means Destination Discharge to home or self care documented in this encounter Plan of Treatment Pending Results Name Type Priority Associated Diagnoses Date /Time T-SPOT.TB Blood Microbiology Routine 025 11:40 AM CDT Scheduled Orders Name Type Priority Associated Diagnoses Orde r Schedule T-SPOT.TB Microbiology Routine Once for 1 O ccurrences starting 08/25/2024 until 08/25/2024 documented as of this encounter Procedures Procedure Name Priority Date/Time Associated Diagnosis Comments GLUCOSE, RANDOM (OUTREACH) Routine 08/25/2024 11:40 AM CDT EGFR Routine 08/25/2024 11:40 AM CDT DIFFERENTIAL AUTO Routine 08/25/2024 11: 40 AM CDT COMPREHENSIVE METABOLIC PANEL WITHOUT GLUCOSE (OUTREACH) Routine 08/25/2024 11:40 AM CDT CBC WITH AUTO DIFFERENTIAL Routine 08/25/2024 11:40 AM CDT HEPATITIS B SURFACE ANTIGEN Routine 08/25/2024 11:40 AM CDT CRP (ACUTE PHASE) Routine 08/25/2024 11: 40 AM CDT documented in this encounter Results * (ABNORMAL) eGFR (08/25/2024 11:40 AM CDT) eGFR 39(L) >=60 mL/min/1. 73 m2 Comment: Interpretive Data [...] interpretive data was last reviewed 2020. Blood 08/25/2024 11:4 0 AM CDT 08/25/2024 3:13 PM CDT us James Sandoval MD PhD LAB BLOOD ORDERABLES Sylvia brown Result [facility] [place] [address] * Differential, auto (08/25/2024 11:40 AM CDT) Neutrophil abs 5.29 1.50 - 6.50 K/cumm Imm gran abs 0.02 0.00 - 0.10 K/cumm [facility] Lymphocyte abs 1.26 0.80 - 3.30 K/cumm [facility] Monocyte abs 0.35 0.20 - 0.80 K/cumm [facility] Eosinophil abs 0.11 0.00 - 0.50 K/cumm [facility] Basophil abs 0.03 0.00 - 0.10 K/cumm [facility] Neutrophil pct 74.9 % [facility] Comment: Interpretive Data Percent cell count reference ranges are not reported, since discordance with absolute values may lead to misinterpretation of CBC data. Current Interpretive Data was last revised on 2017. Imm gran pct 0.3 % [facility] Comment: Interpretive Data Percent cell count reference ranges are not reported, since discordance with absolute values may lead to misinterpretation of CBC data. Current Interpretive Data was last revised on 2017. Lymphocyte pct 17.8 % [facility] Comment: Interpretive Data Percent cell count reference ranges are not reported, since discordance with absolute values may lead to misinterpretation of CBC data. Current Interpretive Data was last revised on 2017. Monocyte pct 5.0 % [facility] Comment: Interpretive Data Percent cell count reference ranges are not reported, since discordance with absolute values may lead to misinterpretation of CBC data. Current Interpretive Data was last revised on 2017. Eosinophil pct 1.6 % [facility] Comment: Interpretive Data Percent cell count reference ranges are not reported, since discordance with absolute values may lead to misinterpretation of CBC data. Current Interpretive Data was last revised on 2017. Basophil pct 0.4 % [facility] Comment: Interpretive Data Percent cell count reference ranges are not reported, since discordance with absolute values may lead to misinterpretation of CBC data. Current Interpretive Data was last revised on 2017. Blood 08/25/2024 11:4 0 AM CDT 08/25/2024 2:52 PM CDT Result [facility] James Sandoval MD PhD LAB BLOOD ORDERABLES Sylvia l Result Performing Organization Address [facility] Co de Phone Number [facility] [email or web address] [address] * CRP (acute phase) (08/25/2024 11:40 AM CDT) Pathologist [facility] CRP 8.8 <=10.0 mg/L Blood 08/25/2024 11:4 0 AM CDT 08/25/2024 2:52 PM CDT James Sandoval MD PhD LAB BLOOD ORDERABLES Sylvia l Result Performing Organization Address [facility] de Phone Number [facility] [email or web address] [address] * Hepatitis B Surface Antigen Blood (08/25/2024 11:40 AM CDT) Pathologist [facility] HepBsAg Nonreactive Nonreactive Blood 08/25/2024 11:4 0 AM CDT 08/25/2024 2:52 PM CDT Result [facility] James Sandoval MD PhD LAB MICROBIOLOGY - GENERA L ORDERABLES Final Result Performing Organization Address [facility] de Phone Number [facility] [email or web address] [address] * (ABNORMAL) CBC with auto differential (08/25/2024 11:40 AM CDT) Pathologist [facility] WBC 7.06 3.80 - 9.90 K/cumm Hgb 12.3 11.9 - 15.5 g/dL [facility] Hct 38.8 35.6 - 45.5 % [facility] Plt 225 150 - 400 K/cumm [facility] MPV 11.7 9.1 - 12.3 fL [facility] RBC 4.50 3.90 - 5.20 M/cumm [facility] MCV 86.2 81.3 - 96.4 fL [facility] MCH 27.3 27.1 - 33.3 pg [facility] MCHC 31.7(L) 32.3 - 35.7 g/dL [facility] RDW CV 14.6 11.1 - 14.9 % [facility] RDW SD 45.6 35.7 - 48.1 fL [facility] NRBC abs 0.00 0.00 - 0.01 K/cumm [facility] Blood 08/25/2024 11:4 0 AM CDT 08/25/2024 2:52 PM CDT James Sandoval MD PhD LAB BLOOD ORDERABLES Sylvia l Result [facility] Department [place] [address] * Glucose, random (Outreach) (08/25/2024 11:40 AM CDT) [facility] Signature Glucose 112 70 - 199 mg/dL Comment: Interpretive Data [...] interpretive data was last revised 2022. Blood 08/25/2024 11:4 0 AM CDT 08/25/2024 2:52 PM CDT James Sandoval MD PhD LAB BLOOD ORDERABLES Sylvia l Result Performing Organization Address [facility] de Phone Number [facility] Department [place] [address] * (ABNORMAL) Comprehensive metabolic panel, without glucose (Outreach) (08/25/2024 11:40 AM CDT) Sodium 140 135 - 145 mmol/L Potassium, pl 4.0 3.3 - 4.9 mmol/L [facility] Chloride 101 97 - 110 mmol/L [facility] CO2 29 22 - 32 mmol/L [facility] Anion gap 10 2 - 15 mmol/L [facility] BUN 22 6 - 25 mg/dL [facility] Creatinine 1.47(H) 0.60 - 1.10 mg/dL [facility] Calcium 9.1 8.5 - 10.3 mg/dL [facility] Protein, pl 7.6 6.5 - 8.5 g/dL [facility] Albumin 4.1 3.5 - 5.0 g/dL [facility] Bilirubin, total 0.2 0.1 - 1.2 mg/dL [facility] Alk phos 68 40 - 130 Units/L [facility] AST 19 10 - 45 Units/L [facility] ALT 10 7 - 45 Units/L [facility] Blood 08/25/2024 11:4 0 AM CDT 08/25/2024 2:52 PM CDT James Sandoval MD PhD LAB BLOOD ORDERABLES Sylvia l Result Performing Organization Address [facility] Co de Phone Number [facility] Department [place] [address] documented in this encounter Visit Diagnoses Not on filedocumented in this encounter Care Teams Inventory Associate And Driver Relationship Specialty Start Date End Date Gabbie Wilde MD PCP - General Family Medicine 03/27/22 James Sandoval MD PhD [address] DIV IM GASTROENTEROLOGY, [address] [address] PCP - Home Infusion Attending Gastroenterology 07/12/24 Sonny Galindo MD Nephrology 05/21/22 Caroline Banerjee, RN Home Infusion Nursing 07/21/24 Wyatt Thayer, [facility] Pharmacist Pharmacy 08/02/24 documented as of this encounter
--- OUTSIDE RECORDS SUMMARY | 2024-08-26 08:08 | XMS_ITS | Encounter Summary ---
Author Organization [facility] Healthcare Address [address] [place] [address] Care Team Providers Care Medicine Aide Name Role Phone Lois Amato MD Primary Care Provider [phone] Toney Benítez Primary Care Provider + Gabbie Wilde MD Primary Care Provider + Sonny Galindo MD Unavailable [phone] James Sandoval MD PhD Unavailable [phone] Caroline Banerjee RN Unavailable Unavailable Wyatt Thayer [facility] Unavailable Unavaila ble Encounter Details Date Type Department Care Team (Late st Contact Info) Description 09/02/2019 Telephone [facility] [address] [place] [address] Valeri Farnsworth MD [address] [facility] [address] [place] [address] Social History Tobacco Use Types Packs/Day Years Used Date Smoking Tobacco: Never Smokeless Tobacco: Never Alcohol Use Standard Drinks/Week Comments Yes 0 (1 standard drink = 0.6 oz pure alcohol) 1 glass wine maybe once a month Comments No Sex and Gender Information Value Date Recorded Sex Assigned at Not on file Legal Sex Female 11:00 AM CARPET INSPECTOR FINISHED Gender Identity Female 10/03/2020 3:00 PM CDT Sexual Orientation Not on file documented as of this encounter Plan of Treatment Not on file documented as of this encounter Visit Diagnoses Not on filedocumented in this encounter Additional Health Concerns Infection Onset Date Last Indicated Resolved Time C. difficile Comment:Chronic diarrhea from IBS. Last CDI test 01/01/22 is neg. 04/14/2015 04/14/2015 4 8:58 AM CARPET INSPECTOR FINISHED documented as of this encounter Care Teams Medicine Aide Relationship Specialty Start Date End Date Lois Amato MD [address] [place] [address] PCP - General 03/12/12 09/28/21 Toney Benítez PA [address] [place] [address] PCP - General Physician Optical Instrument Inspector 09/29/21 03/26/22 Gabbie iWlde MD [address] [place] [address] PCP - General Family Medicine 03/27/22 James Sandoval MD PhD [address] [facility], [address] [address] PCP - Home Infusion Attending Gastroenterology 07/12/24 Sonny Galindo MD [address] [place] [address] Nephrology 05/21/22 Caroline Banerjee, MARIA A Home Infusion Nursing 07/21/24 Wyatt Thayer, [facility] Pharmacist Pharmacy 08/02/24 documented as of this encounter
--- OUTSIDE RECORDS SUMMARY | 2024-08-26 08:08 | XMS_ITS | Encounter Summary ---
Author Organization [facility] Address [address] [place] [address] Phone Care Team Providers Care Bookstore Clerk Name Role Phone Gabbie Wilde MD Primary Care Provider + Sonny Galindo MD Unavailable [phone] James Sandoval MD PhD Unavailable [phone] Caroline Banerjee RN Unavailable Unavailable Wyatt Thayer [facility] Unavailable Unavaila ble Encounter Details Date Type Department Care Team (Late st Contact Info) Description 01/10/2024 Orders Only [facility] Scanning, Provider Social History Tobacco Use [...] on file Legal Sex Female 11:00 AM IP COUNSEL Gender Identity Female 10/03/2020 3:00 PM CDT Sexual Orientation Not on file documented as of this encounter Plan of Treatment Not on file documented as of this encounter Procedures Procedure Name Priority Date/Time Associated Diagnosis Comments GI - RESULT 01/10/2024 3:47 PM IP COUNSEL documented in this encounter Results * GI - RESULT (01/10/2024 3:47 PM IP COUNSEL) Anatomical Region Laterality Modality Other us Provider Scanning Final Result documented in this encounter Visit Diagnoses Not on filedocumented in this encounter Additional Health Concerns Infection Onset Date Last Indicated Resolved Time C. difficile Comment:Chronic diarrhea from IBS. Last CDI test 01/01/22 is neg. 04/14/2015 04/14/2015 8:58 AM IP COUNSEL documented as of this encounter Care Teams Bookstore Clerk Relationship Specialty Start Date End Date Gabbie Wilde MD PCP - General Family Medicine 03/27/22 James Sandoval MD PhD [address] [facility] GASTROENTEROLOGY, [address] [address] PCP - Home Infusion Attending Gastroenterology 07/12/24 Sonny Galindo MD Nephrology 05/21/22 Caroline Banerjee, MARIA A Home Infusion Nursing 07/21/24 Wyatt Thayer, [facility] Pharmacist Pharmacy 08/02/24 documented as of this encounter
--- OUTSIDE RECORDS SUMMARY | 2024-08-26 08:08 | XMS_ITS | Patient Health Record ---
Author Organization [facility] Address [address] [place], [place] [id number] Support Name Relationship Address Phone CHRISTOPHER KNIGHT [...] Insured Coverage Start Date Coverage End Date [facility] PPO - NR [address] [address] [place] [address] [id number] CHRISTOPHER JASON Self - patient is the insured 6
--- OUTSIDE RECORDS SUMMARY | 2024-08-26 08:08 | XMS_ITS | Encounter Summary ---
Author Organization [facility] Healthcare Address [address] [place] [address] Care Team Providers Care Bisque Cleaner Name Role Phone Gabbie Wilde MD Primary Care Provider + Sonny Galindo MD Unavailable [phone] James Sandoval MD PhD Unavailable [phone] Caroline Banerjee RN Unavailable Unavailable Wyatt Thayer [facility] Unavailable Unavaila ble Encounter Details Date Type Department Care Team (Late st Contact Info) Description 08/25/2024 11:00 AM CDT Home Infusion [facility] Home Infusion Therapy [address] [place] [address] Caroline Banerjee, MARIA A Social History Tobacco Use Types Packs/Day Years [...] on file Legal Sex Female 11:00 AM RECEPTIONIST CLERK Gender Identity Female 10/03/2020 3:00 PM CDT Sexual Orientation Not on file documented as of this encounter Last Filed Vital Signs Vital Sign Reading Time Taken Comments Blood Pressure 114/57 08/25/2024 12:45 PM CDT Pulse 70 08/25/2024 12:45 PM CDT Temperature 36.5 C (97.7 F) 08/25/2024 12:45 PM CDT Respiratory Rate 16 08/25/2024 12:45 PM CDT Oxygen Saturation 100% 08/25/2024 12:45 PM CDT Inhaled Oxygen Concentration - - Weight 54.4 kg (120 lb) 08/25/2024 11:09 AM CDT Height 162.6 cm (5' 4) 08/25/2024 11:09 AM CDT Body Mass Index 20.6 08/25/2024 11:09 AM CDT documented in this encounter Miscellaneous Notes * Home Infusion - Nursing - Caroline Banerjee RN - 08/25/2024 12:34 PM CDT Patient seen for Entyvio infusion. Denies any illness since last infusion.Pt has a Port to R chest.Accessed with 20g x 0.75 jaime needle x 1 attempt. Tolerated well. Good blood return. Flushed with NS without any resistance noted. Labs collected. Dressing applied. No pre meds given. Entyvio infusion administrated without any reaction noted. Port flushed with NS and heparin after infusion complete.and d/c' ed afterwards. Band-Aid applied. Next infusion schedule. Left ambulatory per self. No complaints voiced. * Plan of Care - Caroline Banerjee RN - 08/25/2024 12:31 PM CDT Problem: IV Therapy Management, Education, and Maintenance Description: IV Management, education, and maintenance for IV therapy. Goal: Safely perform IV administration and a class lineman Description: Patient will be able to verbalize the importance of safe administration of IV medication throughout the episode of care. Outcome: Ongoing Problem: Specialty Medication - General Description: Skilled Nurse to provide safe assessment of patient prior to use of general specialty medication Goal: Safe specialty drug handling Description: Patient will verbalize understanding of safe administration of specialty drugs by end of episode of care. Outcome: Ongoing Problem: Patient Care Goal: Patient and/or caregiver, prescriber and [facility] staff collaborate to create the plan of care Outcome: Ongoing Goal: Therapy will be administered safely and will appropriately manage adverse effects throughout therapy Outcome: Ongoing Goal: Patient and/or caregiver is knowledgable of disease process, administration and management ofordered therapy Outcome: Ongoing Goal: Patient and/or caregiver will demonstrate/verbalize safe administration, storage, maintenance, and disposal of soutions, supplies, and equipment Outcome: Ongoing Goal: Patient and/or caregiver report changes in medications to [facility] clinicians or prescriber Outcome: Ongoing Goal: Patient and/or caregiver report new or worsening symptoms and/or medication side effects to [facility] clinicians or prescriber Outcome: Ongoing Goal: Patient and/or caregiver will adhere to plan of care Outcome: Ongoing Problem: Labs Goal: CBC w/ diff Outcome: Ongoing Goal: CMP Outcome: Ongoing Goal: CRP Outcome: Ongoing Problem: Annual Labs Goal: T-SPOT.TB Outcome: Ongoing documented in this encounter Plan of Treatment Not on file documented as of this encounter Visit Diagnoses Not on filedocumented in this encounter Care Teams Bisque Cleaner Relationship Specialty Start Date End Date Gabbie Wilde MD PCP - General Family Medicine 03/27/22 James Sandoval MD PhD [address] [facility] GASTR[facility]OLOGY, [address] [address] PCP - Home Infusion Attending Gastroenterology 07/12/24 Sonny Galindo MD Nephrology 05/21/22 Caroline Banerjee, MARIA A Home Infusion Nursing 07/21/24 Wyatt Thayer [facility] Pharmacist Pharmacy 08/02/24 documented as of this encounter
--- OUTSIDE RECORDS SUMMARY | 2024-08-26 08:09 | XMS_ITS | Encounter Summary ---
Author Organization [facility] Healthcare Address [address] [place] [address] Care Team Providers Care Rug Hooker Hand Name Role Phone Gabbie Wilde MD Primary Care Provider + Sonny Galindo MD Unavailable James Sandoval MD PhD Unavailable [phone] Caroline Banerjee RN Unavailable Unavailable Wyatt Thayer [facility] Unavailable Unavaila ble Encounter Details Date Type Department Care Team (Late st Contact Info) Description 08/12/2024 Home Infusion [facility] Home Infusion Therapy [address] [place] [address] Cadence [place]en[place]ro Crohn's disease of both small and large intestine without complication (HCC) (Primary Dx) Social History Tobacco Use Types Packs/Day Years [...] on file Legal Sex Female 11:00 AM DISTRICT ASSOCIATE JUDGE Gender Identity Female 10/03/2020 3:00 PM CDT Sexual Orientation Not on file documented as of this encounter Ordered Prescriptions Prescription Sig Dispense Quantity Refills Last Filled Start Date End Date sodium chloride 0.9% flush syringeIndication s:Crohn's disease of both small and large intestine without complication (HCC) Infuse 10 mL IV as needed for line care 11264 mL 02/28/2024 02/26/19 26 diphenhydrAMINE (BENADRYL) 25 mg capsuleIndication s:Crohn's disease of both small and large intestine without complication (HCC) Take 1 tablet/capsule (25 mg total) by mouth every 8 (eight) weeks Pre-medication for vedolizumab (Entyvio) 6 tablet/capsul e 02/28/2024 02/26/19 26 acetaminophen (TYLENOL) 325 mg tabletIndications :Crohn's disease of both small and large intestine without complication (HCC) Take 2 tablets (650 mg total) by mouth every 8 (eight) weeks Pre-medication for vedolizumab (Entyvio) 8 tablet 02/28/2024 02/26/19 26 0.9 % sodium chloride (sodium chloride 0.9%) 0.9% infusionIndicatio ns:Crohn's disease of both small and large intestine without complication (HCC) Infuse 250 mL IV as directed Add Vedolizumab 5mL (300mg) to 250mL NS bag. Infuse with non-filtered tubing via pole mounted pump over at least 30 minutes at up to 500mL/hr. START INFUSION WITHIN 4 HOURS OF MIXING 1000 mL 08/20/2024 11:15 AM CDT 02/28/2024 02/26/19 26 vedolizumab (ENTYVIO) 300 mg recon solnIndications:C rohn's disease of both small and large [...] 1 each 3 08/20/2024 11:15 AM CDT 02/28/2024 02/26/19 documented in this encounter Plan of Treatment Not on file documented as of this encounter Visit Diagnoses Diagnosis Crohn's disease of both small and large intestine without complication (HCC)- Primary documented in this encounter Discontinued Medications Medication Sig Discontinue Reason Start Date End Da te vedolizumab (ENTYVIO IV)Indications:Crohn's Disease Infuse 300 mg into a venous catheter every 8 (eight) weeks Infuse 300mg of Entyvio (Vedolizumab) in 250mL Normal Saline over at least 30 minutes at a rate of up to 500ml/hr per pump or RFT every 8 weeks. Duplicate order 02/26/2023 08/13/2024 sodium chloride 0.9% injectionIndications:[facility] Infuse 10 mL IV as needed for line care Duplicate order 08/13/2024 documented as of this encounter Care Teams Rug Hooker Hand Relationship Specialty Start Date End Date Gabbie Wilde MD PCP - General Family Medicine 03/27/22 James Sandoval MD PhD [address] [facility], [address] [address] PCP - Home Infusion Attending Gastroenterology 07/12/24 Sonny Galindo MD Nephrology 05/21/22 Caroline Banerjee, MARIA A Home Infusion Nursing 07/21/24 Wyatt Thayer, [facility] Pharmacist Pharmacy 08/02/24 documented as of this encounter
--- OUTSIDE RECORDS SUMMARY | 2024-08-26 08:09 | XMS_ITS | Patient Health Record ---
Author Organization [facility] [facility] Address [address] [place], [place] [address] Care Team Providers Care Production Control Manager Name Role Phone LOC CREWS MD Primary Care Provider Aydin Gallegos, Enrique Unavailable REASON FOR REFERRAL No Information MEDICATIONS Medication SIG (Take, Route, Frequency, Duration) Notes Start Date End Date Status Humira 40 mg/0.8 mL 0.8 mL subcutaneousl y every 2 weeks for 30 day(s) 02/19/2024 02/19/2024 Active Lutera (28 Day) 1 tab(s) orally once a day for [...] bid for 30 day(s) 02/19/2024 02/19/2024 Active PROBLEMS Problem Type ICD Code Onset Dates Problem Status W/U Status Risk SNOMED Code Notes Problem Osteoarthrosis (715.09) Active confirmed Osteoarthrosis (455871493) Problem Crohn's disease (555.9) Active confirmed PLAN OF TREATMENT No Information Insurance Providers Payer Name Payer Address Payer Phone Subscriber Number Group Number Insured Name Patient Relationship to Insured Coverage Start Date Coverage End Date [facility] P[facility] - NR [address] [address] [place] [address] [id number] ESVIN LYLE Spouse - patient is the spouse of the insured 8 MEDICAL (GENERAL) HISTORY Medical History History ICD Code Bruises easily Changes in moles Migraine and tension headaches Blurred vision Ringing in ears Sinus problems Dizziness Anemia HBP Mitral valve prolapse IBS, bowel changes
--- OUTSIDE RECORDS SUMMARY | 2024-08-26 08:09 | XMS_ITS | Encounter Summary ---
Author Organization [facility] Address [address] [place] [address] Phone Care Team Providers Care Head Field Hockey Coach Name Role Phone Gabbie Wilde MD Primary Care Provider + Sonny Galindo MD Unavailable [phone] James Sandoval MD PhD Unavailable [phone] Caroline Banerjee RN Unavailable Unavailable Wyatt Thayer [facility] Unavailable Unavaila ble Encounter Details Date Type Department Care Team (Late st Contact Info) Description 02/27/2023 Orders Only [facility] Scanning, Provider Social History Tobacco Use [...] on file Legal Sex Female 11:00 AM ORACLE DATABASE DEVELOPER Gender Identity Female 10/03/2020 3:00 PM CDT [...] 01/01/22 is neg. 04/14/2015 04/14/2015 8:58 AM ORACLE DATABASE DEVELOPER documented as of this encounter Care Teams Head Field Hockey Coach Relationship Specialty Start Date End Date Gabbie Wilde MD PCP - General Family Medicine 03/27/22 James Sandoval MD PhD [address] [facility], [address] [address] PCP - Home Infusion Attending Gastroenterology 07/12/24 Sonny Galindo MD Nephrology 05/21/22 Caroline Banereje, MARIA A Home Infusion Nursing 07/21/24 Wyatt Thayer, [facility] Pharmacist Pharmacy 08/02/24 documented as of this encounter
--- OUTSIDE RECORDS SUMMARY | 2024-08-26 08:09 | XMS_ITS | Encounter Summary ---
Author Organization [facility] Address [address] [place] [address] Phone Care Team Providers Care Lamp Cleaner Street Light Name Role Phone Gabbie Wilde MD Primary Care Provider + Sonny Galindo MD Unavailable [phone] James Sandoval MD PhD Unavailable [phone] Caroline Banerjee RN Unavailable Unavailable Wyatt Thayer [facility] Unavailable Unavaila ble Encounter Details Date Type Department Care Team (Late st Contact Info) Description 06/27/2022 Orders Only [facility] Scanning, Provider Social [...] on file Legal Sex Female 11:00 AM FLANGING OPERATOR Gender Identity Female 10/03/2020 3:00 PM CDT [...] 01/01/22 is neg. 04/14/2015 04/14/2015 8:58 AM FLANGING OPERATOR documented as of this encounter Care Teams Lamp Cleaner Street Light Relationship Specialty Start Date End Date Gabbie Wilde MD PCP - General Family Medicine 03/27/22 James Sandoval MD PhD [address] [facility], [address] [address] PCP - Home Infusion Attending Gastroenterology 07/12/24 Sonny Galindo MD Nephrology 05/21/22 Caroline Banerjee, MARIA A Home Infusion Nursing 07/21/24 Wyatt Thayer, [facility] Pharmacist Pharmacy 08/02/24 documented as of this encounter
--- OUTSIDE RECORDS SUMMARY | 2024-08-26 08:09 | XMS_ITS | Clinical Summary ---
Author Organization [facility] Address [address] [place] [address] Phone Care Team Providers Care Hoisting Pile Driving Engineer Name Role Phone Toney Benítez Primary Care Provider [phone] Allergies Active Allergy Reactions Criticality Noted Date Comments Duloxetine Hcl Other (see comments) 09/24/2018 Other: zombie Penicillins Hives,Itching,Rash,U nknown Medium 12/07/2008 Pregabalin Low 09/24/2018 Other reaction(s): Fatigue Sulfa Antibiotics Rash Medium 09/24/2018 Tizanidine Medium 09/26/2018 Other reaction(s): Hallucinations Vancomycin Hives,Itching,Other (see comments),Swelling Medium 12/07/2008 Other: red face Medications ondansetron (ZOFRAN) 4 MG tablet 1 tablet (4 mg) orally every 12 hours as needed 0 7 Active Multiple Vitamin (MULTIVITAMIN) capsule 2 Active ferrous sulfate 325 (65 Fe) MG tablet 1 bid 0 6 Active oxybutynin XL (DITROPAN-XL) 10 MG 24 hr tablet 1 tablet (10 mg) orally daily 0 7 Active calcium carbonate-vitam in D (OSCAL 500/200 D-3) 500-200 MG-UNIT per tablet bid 2 Active fenofibrate micronized (LOFIBRA) 134 MG capsule 5 Active azaTHIOprine (IMURAN) 50 MG tablet 2 Active estradiol (ESTRACE) 1 MG tablet 5 Active Cholecalciferol (VITAMIN D3) 5000 units capsule 1 capsule (5,000 units) orally daily 0 7 Active Eluxadoline (VIBERZI) 100 MG tablet 1 daily 0 9 Active fluticasone (FLONASE ALLERGY RELIEF) 50 MCG/ACT nasal spray 1 spray (50 mcg) intranasally daily in each nostril 0 7 Active Melatonin ER 10 MG tablet controlled-rele ase 1 nightly 0 7 Active ALPRAZolam (XANAX) 0.5 MG tablet 9 Active cetirizine (ZyrTEC) 10 MG tablet daily. Active diphenoxylate-a tropine (LOMOTIL) 2.5-0.025 MG per tablet Take 1 tablet by mouth Active estradiol (VAGIFEM) 10 MCG tablet vaginal tablet Insert into the vagina Active cyanocobalamin (VITAMIN B-12) 1000 MCG tablet Take 2,000 mcg by mouth 1 (one) time each day Active escitalopram (LEXAPRO) 10 MG tablet 0 Active hydroCHLOROthia zide (HYDRODIURIL) 25 MG tablet TAKE 1 TABLET BY MOUTH EVERY DAY 90 tablet 3 2 Active simvastatin (ZOCOR) 10 MG tablet TAKE 1 TABLET BY MOUTH EVERY NIGHT 90 tablet 3 2 Active gabapentin (NEURONTIN) 600 MG tablet 5 pills spread through the day 2 Active [place]-3 Fatty Acids (Fish Oil) 1200 MG capsule delayed-release Take by mouth bid Active lisinopril (PRINIVIL) 10 MG tablet Take 1 tablet (10 mg total) by mouth 1 (one) time each day 30 tablet 11 2 Active Active Problems Problem Noted Date Diagnosed Date Crohn's disease without complication 03/27/2017 Irritable bowel syndrome with diarrhea 8 Hyperlipidemia 03/27/2017 Gastro-esophageal reflux disease without esophag itis 03/27/2017 Regional enteritis of small intestine with large intestine 09/30/2014 Overview (09/24/2018): Added automatically from request for surgery [id number] Stage 3b chronic kidney disease 08/15/2011 Hypertensive chronic kidney disease with stage 1 through stage 4 chronic kidney disease, or unspecified chronic kidney disease 08/15/2011 Immunizations Immunization Administration Dates Next Due Influenza TIV (IM) [...] = 0.6 oz pur e alcohol) rare Comments Unknown Sex and Gender Information Value Date Recorded Sex Assigned at Not on file Legal Sex Female 8:54 AM [facility] Gender Identity Not on file Sexual Orientation [...] 10:28 AM CDT Height 162.6 cm (5' 4) 09/20/2021 10:28 AM CDT Body Mass Index 28.32 09/20/2021 10:28 AM CDT Plan of Treatment Health Maintenance Due Date Last Done Comments Pneumococcal PPSV23/PCV13 65 + Years / Low and Medium Risk (2 of 3 - PCV20 or PCV21) 11/18/2017 11/18/2016 COVID-19 Vaccine (4 - 2023-2 5 season) 2023 11/25/2020, 05/08/2020, 04/17/2020 Influenza Vaccine (#1) 2024 , 11/19/2019, 10/20/2018, Additional history exists Insurance [facility] Care Teams Hoisting Pile Driving Engineer Relationship Specialty Start Date End Date Toney Benítez [address] [place] [address] PCP - General 09/20/21
--- OUTSIDE RECORDS SUMMARY | 2024-08-26 08:09 | XMS_ITS | Encounter Summary ---
Author Organization [facility] Address [address] [place] [address] Phone Care Team Providers Care Floor Coverings Salesperson Name Role Phone Toney Benítez Primary Care Provider [phone] Encounter Details Date Type Department Care Team (Late st Contact Info) Description 09/30/2018 [facility] Nephrology and Hypertension [address] [facility], [address] [address] Sonny Galindo MD [address] [facility], [address] [place] [address] Social History Tobacco Use Types Packs/Day Years Used Date Smoking Tobacco: Never Smokeless Tobacco: Never Alcohol Use Standard Drinks/Week Comments Yes 0 (1 standard drink = 0.6 oz pur e alcohol) rare Comments Unknown Sex and Gender Information Value Date Recorded Sex Assigned at Not on file Legal Sex Female 8:54 AM [facility] Gender Identity Not on file Sexual Orientation Not on file documented as of this encounter Plan of Treatment Not on file documented as of this encounter Visit Diagnoses Not on filedocumented in this encounter Care Teams Floor Coverings Salesperson Relationship Specialty Start Date End Date Toney Benítez [address] [place] [address] PCP - General 09/20/21 documented as of this encounter
--- OUTSIDE RECORDS SUMMARY | 2024-08-26 08:09 | XMS_ITS | Clinical Summary ---
Author Organization [facility] [address] [place] [address] Care Team Providers Care Lumber Sorter Machine Name Role Phone Gabbie Wilde MD Primary Care Provider + Sonny Galindo MD Unavailable [phone] James Sandoval MD PhD Unavailable [phone] Caroline Banerjee RN Unavailable Unavailable Wyatt Thayer [facility] Unavailable Unavaila ble Allergies Active Allergy Reactions Criticality Noted Date [...] gauge miscIndications:D iabetes Mellitus 07/30/19 22 Active hvopa-0-igy-epa-d pa-fish oil 1,050-1,200 mg capsuleIndication s:hypertriglyceri demia 1 capsule Active oxybutynin XL (DITROPAN-XL) 10 mg 24 hr tabletIndications :Bladder Hyperactivity Take 3 tablets (30 mg total) by mouth daily Changed to 30mg q day 03/15/19 23 Active semaglutide (Rybelsus) 7 mg tabletIndications :type 2 diabetes mellitus Take 1 tablet (7 mg total) by mouth daily Active heparin sod,porcine/0.9 % NaCl (HEPARIN FLUSH [...] (5 mg total) by mouth daily Active PreviDent 5000 Dry Mouth 1.1 % paste 11/02/19 24 Active rimegepant (Nurtec ODT) tablet,disintegra ting Take 1 tablet (75 mg total) by mouth once as needed (Take 1 tablet once with onset of acute headache pain. No more than 1 dose in 24 hours. No more than 18 per month.) 8 tablet 3 07/03/19 25 026 Active traZODone (DESYREL) 100 mg tablet Take 1 tablet (100 mg total) by mouth nightly Active imipramine (TOFRANIL-PM) 100 mg capsuleIndication s:Trigeminal neuralgia TAKE 1 CAPSULE(100 MG) BY MOUTH EVERY NIGHT 30 capsule 2 07/18/19 25 Active vedolizumab (ENTYVIO) 300 mg recon solnIndications:C rohn's [...] 250 mL NS bag. 1 each 3 5 11:15 AM CDT 02/27/19 25 026 Active 0.9 % sodium chloride (sodium chloride 0.9%) 0.9% infusionIndicatio ns:Crohn's disease of both small and large intestine without complication (HCC) Infuse 250 mL IV as directed Add Vedolizumab 5mL (300mg) to 250mL NS bag. Infuse with non-filtered tubing via pole mounted pump over at least 30 minutes at up to 500mL/hr. START INFUSION WITHIN 4 HOURS OF MIXING 1000 mL 5 11:15 AM CDT 02/27/19 25 026 Active acetaminophen (TYLENOL) 325 mg tabletIndications :Crohn's disease of both small and large intestine without complication (HCC) Take 2 tablets (650 mg total) by mouth every 8 (eight) weeks Pre-medication for vedolizumab (Entyvio) 8 tablet 02/27/19 25 026 Active diphenhydrAMINE (BENADRYL) 25 mg capsuleIndication s:Crohn's disease of both small and large intestine without complication (HCC) Take 1 tablet/capsule (25 mg total) by mouth every 8 (eight) weeks Pre-medication for vedolizumab (Entyvio) 6 tablet/caps ule 02/27/19 25 026 Active sodium chloride 0.9% flush syringeIndication s:Crohn's disease of both small and large intestine without complication (HCC) Infuse 10 mL IV as needed for line care [id number] mL 02/27/19 25 026 Active eluxadoline (Viberzi) 100 mg tabletIndications :Diarrhea Predominant Irritable Bowel Syndrome Take 1 tablet (100 mg total) by mouth daily 90 tablet 1 08/18/19 25 Active vedolizumab (ENTYVIO IV)Indications:Cr ohn's Disease Infuse 300 mg into a venous catheter every 8 (eight) weeks Infuse 300mg of Entyvio (Vedolizumab) in 250mL Normal Saline over at least 30 minutes at a rate of up to 500ml/hr per pump or RFT every 8 weeks. 02/26/19 24 025 Discontin ued(Dupli tyra order) sodium chloride 0.9% injectionIndicati ons:line care Infuse 10 mL IV as needed for line care 025 Discontin ued(Dupli tyra order) eluxadoline (Viberzi) 100 mg tabletIndications :Diarrhea Predominant Irritable Bowel Syndrome Take 1 tablet (100 mg total) by mouth daily 90 tablet 1 02/07/20 24 025 Discontin ued(Reord er) Active Problems Problem Noted Date Diagnosed Date Intractable migraine without aura and without status migrainosus 07/01/2024 Assessment & Plan (07/01/2024 4:19 PM CDT): Carmen complains of headaches 1-2 times per week associated with increased facial pressure and throbbing head pain located in the bifrontal and vertex regions. Headaches and increased facial pain is triggered by stress and associated tinnitus. The patient is sleeping quality has worsened since discontinued trazodone. She is tolerating Imipramine 100 mg which can be used as preventive. She needs to schedule audiology evaluation. She has previously been evaluated by ENT. Preventative treatment: Imipramine 100 mg, She has failed Cymbalta, lyrica, and gabapentin due to side effects. Plan: Headache diary Start Nurtec 75 mg ODT for acute headache pain Continue Imipramine 100 mg nightly Encouraged to eat well-balanced diet and stay physically Stay adequately hydrated Follow up in 6 months Atypical facial pain 07/01/2024 Assessment & Plan (07/01/2024 4:39 PM CDT): Carmen has a history of COVID infection preceded by left facial pressure complicated by sinusitis and treated with multiple antibiotics and stents with ENT and symptoms partially improved. She has chronic daily facial pressure at the V2 distribution describes as a mild 2/10 intensity but persistent. Additionally she has increased facial pain accompanied by headaches 1 to 2 times a week. She is tolerating imipramine 100 mg and getting some relief. MRI of brain on 05/23/2024 demonstrated no acute or significant intracranial abnormalities in minimal hyperintensity in the periventricular and subcortical white matter nonspecific effect related to age. Paranasal sinuses were normal. There was no abnormal signal or enhancement along the trigeminal nerve. Cervical spine MRI indicated mild degenerative changes. She has failed amitriptyline,Cymbalta, Lyrica and gabapentin due to side effects. Differentials include migraine with sinus/facial pain features, central sensitization/ chronic post viral pain syndrome, less likely trigeminal neuralgia or intracranial process. Risk factors autoimmune Plan: Continue Imipramine 100 mg nightly Monitor symptoms Follow up in 6 months Weight loss 06/05/2024 Anxiety and depression 06/05/2024 Esophageal dysphagia 12/19/2023 Social anxiety disorder 04/24/2023 [...] (04/15/2018): Added automatically from request for surgery [id number] Abnormal mammogram 02/10/2018 Resolved Problems Problem Noted Date Diagnosed Date Resolved Date Trigeminal neuralgia 03/11/2024 025 Assessment & Plan (03/11/2024 3:13 PM MANAGEMENT PLANNER): She complains of residual pain in the [...] time spent in any separately reportable services. Crohn's disease of both smal l and large intestine 09/30/2014 09/26/2018 Regional enteritis of small intestine with large intestine 09/30/2014 04/12/2023 Overview (08/05/2022): Added automatically from request for surgery [id number] Encounters Date Type Department Care Team Description 08/25/2024 11:40 AM CDT - 08/25/2024 11:59 PM CDT Hospital Encounter [facility] [address] [place] [address] Discharge Disposition: Discharge to home or self care 08/25/2024 11:00 AM CDT Home Infusion [facility] Home Infusion Therapy [address] [place] [address] Caroline Banerjee, MARIA A 08/17/2024 Orders Only [facility] Gastroenterology [address] [place] [address] [address] [place] [address] [place] [address] Angelique Cabral, Elizabeth 08/17/2024 Orders Only [facility] Gastroenterology [address] [place] [address] 12th [place] [address] [place] [address] Michelle Gutierrez, MARIA A Crohn's disease of both small and large intestine without complication (HCC) (Primary Dx); High risk medications (not anticoagulants) long-term use; Routine health maintenance 08/12/2024 Home Infusion [facility] Home Infusion Therapy [address] [place] [address] Cadence Montenegro Crohn's disease of both small and large intestine without complication (HCC) (Primary Dx) 07/25/2024 Home Care Visit [facility] - [address] [place] [address] Miladys Mcneil RN SN DISCIPLINE DISCHARGE 07/09/2024 Home Infusion [facility] Home Infusion Therapy [address] [place] [address] Miladys Londono RN 07/08/2024 11:20 AM CDT Office Visit [facility] Rheumatology [address] [place] [address] 5th [place] [address] [place] [address] Billie Noyola MD Crohn's disease of both small and large intestine without complication (HCC) (Primary Dx); Sicca, unspecified type 07/03/2024 [facility]phone [facility] [address] [facility] [place] [address] Anne-Marie Richardson MA 07/02/2024 Telephone [facility] ENT [address] [address] 11th [place] [address] [place] [phone] Deepika Arthur CMA 07/01/2024 1:30 PM CDT Office Visit [facility] [address] [place] [phone] Radha Tompkins NP Atypical facial pain (Primary Dx); Intractable migraine without aura and without status migrainosus 06/30/2024 11:00 AM CDT Home Care Visit [address] [place] [address] Caroline Banerjee RN SN INFUSION TREATMENT ROOM 06/05/2024 10:45 AM CDT Office Visit [facility] Gastroenterology [address] [facility] 12th [place] [address] [place] [id number] James Sandoval MD PhD Crohn's disease of both small and large intestine without complication (HCC) (Primary Dx); Irritable bowel syndrome with diarrhea; Esophageal dysphagia; Weight loss; Anxiety and depression from Last 3 Months Immunizations Immunization Administration [...] Bladder Surgery - (Added by TW Conv) AK EXC CYST/ABERRANT BREAST TISSUE OPEN / LESION Breast Surgery Lumpectomy - (Added by TW Conv) AK NEUROPLASTY &/TRANSPOS MEDIAN NRV CARPAL TUNNE Neuroplasty Decompression Median Nerve At Carpal Tunnel - (Added by TW Conv) ANAL FISSURECTOMY Anal Fissurectomy - (Added by TW Conv) KNEE SURGERY Knee Surgery - (Added by TW Conv) AK NEURP MAJOR PRPH NRV ARM/LEG OPN OTH/THN SPEC Neuroplasty Ulnar Nerve - (Added by TW Conv) CENTRAL VENOUS CATHETER INSERTION Central IV Line Type Port-A-Cath - (Added by TW Conv) SPINAL CORD STIMULATOR IMPLANT Spinal Surgery Neurostimulator Implants - (Added by TW Conv) AK TOTAL ABDOMINAL HYSTERECT W/WO RMVL TUBE OVARY Hysterectomy - (Added by TW Conv) COLONOSCOPY POLYPECTOMY PORT PLACEMENT CHEST >5 YEARS 03/05/2023 N/A THUMB SURGERY Left CATARACT EXTRACTION W/ INTRAOCULAR LENS IMPLANT, BILATERAL UPPER GASTROINTESTINAL ENDOSCOPY CATARACT EXTRACTION 02/18/2023 - 02/18/2024 HAND ARTHROPLASTY Left SINUS SURGERY 2022 LASIK ?? HYSTERECTOMY 2014 CARPAL TUNNEL RELEASE 1992 Medical History Medical History Date Comments Hx [...] by TW Conv) Presence of spectacles and c ontact lenses Wears glasses - (Added by TW [...] Conv) Hypertension Chronic kidney disease GERD (gastroesophageal reflu x disease) Arthritis Avascular necrosis (HCC) 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 Vertigo due to BP issues Diabetes mellitus (HCC) pre diab etic PONV (postoperative nausea a nd vomiting) Chronic diarrhea Crohn's disease (HCC) Type 2 diabetes mellitus (HCC) Cancer (HCC) Dysphagia Depression Port-A-Cath in place Osteoarthritis Sinusitis 2022 Plantar fasciitis Trigger finger Cataract 2017 Pneumonia 1995 Fatigue 2006 Allergic rhinitis Tinnitus HL (hearing loss) Recurrent upper respiratory infection (URI) Menstrual problem 1970 Low back pain 2008 Frozen shoulder Anxiety Autoimmune disease Crohns and CKD Heart murmur 1985 Migraines 1992 Sleep difficulties Family History Medical History Relation Name Comments Hypertension Brother Lev Page Hypertension Daughter Genesis Arroyo Arthritis Father Freeman Page Cancer Father Freeman Page Hearing loss Father Freeman Page Hyperlipidemia Father Freeman Page Memory loss Father Freeman Page Prostate cancer Father Freeman Page Snoring Father Freeman Page Alcohol abuse Father's Brother Ki Page Breast cancer Father's Sister 1 Jesica Slover Cancer Father's Sister 1 Jesica Slover Vision loss Father's Sister 1 Jesica Slover Vision loss Father's Sister 2 Bianka Rojas COPD Maternal Grandfather Tato Helmich Alzheimer's disease Maternal Grandmother Durga Burtonmi ch Memory loss Maternal Grandmother Durga Isha Arthritis Mother Dotgracy Page Cancer Mother Dotgracy Page Hypertension Mother Dotgracy Page Alcohol abuse Mother's Brother Eduardo Helmich Lung cancer Mother's Brother Eduardo Helmich Alcohol abuse Paternal Grandfather Jaylan Page Mental illness Paternal Grandmother Jocy Page Relation Name Status Comments Brother Lev Page Alive Daughter Genesis Arroyo Alive Father Freeman Page Father's Brother Ki Page Alive Father's Sister 1 Jesica Slover Father's Sister 2 Bianka Rojas Alive Maternal Grandfather Tato Helmich Alive Maternal Grandmother Durga Vieira Alive Mother Rahel Page Mother's Brother Eduardo Vieira Paternal Grandfather Jaylan Page Alive Paternal Grandmother Jocy Page Alive Social History Tobacco Use Types Packs/Day Years [...] on file Legal Sex Female 11:00 AM MANAGEMENT PLANNER Gender Identity Female 10/03/2020 3:00 PM CDT [...] Mass Index 20.6 08/25/2024 11:09 AM CDT Plan of Treatment Health Maintenance Due Date Last Done Comments Depression Screening 1959 Dilated Eye Exam 1959 Foot Exam 1959 Lipid Panel 1959 Pneumococcal vaccine 65+ (2 of 2 - PPSV23) 01/13/2017 11/18/2016, 08/19/2015 Osteoporosis Screening-Bone Density Scan 06/19/2017 06/20/2015 Covid-19 Vaccine (4 - 2023-2 5 season) 2023 11/25/2020, 05/08/2020, 04/17/2020 Well Visit 65+ 08/17/2024 Hemoglobin A1C 09/07/2024 03/10/2024, 11/20, 08/15/2021 Influenza Vaccine (#1) 2024 , 11/19/2019, 10/29/2018, Additional history exists Fall Risk Assessment 02/26/2025 02/27/2024 Albumin Creatinine Ratio, Urine 03/10/2025 Breast Cancer Screening-Mammogram 04/15/2025 04/15/2024, 04/09/2023, 03/27/2022, Additional history exists eGFR 08/25/2025 08/25/2024, 04/18, 03/10/2024, Additional history exists DTaP/Tdap/Td Vaccine (2 - Td or Tdap) 01/08/2028 01/07/2018 Colon Cancer Screening-Colonoscopy 12/11/2032 12/11/2022, 01/05/2020, 05/27/2018, Additional history exists Zoster Vaccine Completed 03/06/2019, 01/01/2019 Hepatitis C Screening Completed 11/28/2022 Colon Cancer Screening-CT Colonography Discontinued 12/11/2022, 01/05/2020, 05/27/2018, Additional history exists Colon Cancer Screening-DNA Stool Discontinued 12/11/2022, 01/05/2020, 05/27/2018, Additional history exists Colon Cancer Screening-FIT Discontinued 12/11, 01/05/2020, 05/27/2018, Additional history exists Colon Cancer Screening-Sigmoidoscopy Discontinued 12/11/2022, 01/05/2020, 05/27/2018, Additional history exists Hepatitis B Screening Completed 08/25/2024 Medical Devices Implanted Type Area Shear Grinder Operator Device Identifier Shelf Expiration Date Model / Serial / Lot [employer] Xcela Power Port 8fr [id number] - [id number] Implanted:Qty: 1 on 03/05/2023 by Quang Cid MD at [facility] [employer] 10/22/2027 [id number] / / [id number] Procedures Procedure Name Priority Date/Time Associated Diagnosis Comments EGFR Routine 08/25/2024 11:40 AM CDT DIFFERENTIAL AUTO Routine 08/25/2024 11: 40 AM CDT CRP (ACUTE PHASE) Routine 08/25/2024 11: 40 AM CDT CBC WITH AUTO DIFFERENTIAL Routine 08/25/2024 11:40 AM CDT GLUCOSE, RANDOM (OUTREACH) Routine 08/25/2024 11:40 AM CDT COMPREHENSIVE METABOLIC PANEL WITHOUT GLUCOSE (OUTREACH) Routine 08/25/2024 11:40 AM CDT HEPATITIS B SURFACE ANTIGEN Routine 08/25/2024 11:40 AM CDT SCREENING MAMMOGRAM BILATERAL W SHAHZAD Schedule Routine, Read Routine (OP Routine) 04/15/2024 12:09 PM MANAGEMENT PLANNER Fibrocystic breast changes of both breasts HEMOGLOBIN A1C Routine 03/10/2024 10:10 AM MANAGEMENT PLANNER ALBUMIN CREATININE RATIO, URINE Routine 03/10/2024 10:10 AM MANAGEMENT PLANNER COLONOSCOPY 12/11/2022 12:11 PM CDT HEPATITIS C ANTIBODY Routine 11/28/2022 4:12 PM CDT BONE MINERAL DENSITY 06/20/2015 from Last 3 Months or Most Recently Relevant to Health Maintenance Results * Glucose, random (Outreach) (08/25/2024 11:40 AM CDT) Glucose 112 70 - 199 mg/dL Comment: [...] 0 AM CDT 08/25/2024 2:52 PM CDT us James Sandoval MD PhD LAB BLOOD ORDERABLES Sylvia l Result [facility] Department [place] [address] * (ABNORMAL) eGFR (08/25/2024 11:40 AM CDT) [...] PhD LAB BLOOD ORDERABLES Sylvia brown Result [facility] Department [place] [address] * Differential, auto (08/25/2024 11:40 AM CDT) Neutrophil abs 5.29 1.50 - 6.50 K/cumm Imm gran abs 0.02 0.00 - 0.10 K/cumm [facility] Lymphocyte abs 1.26 0.80 - 3.30 K/cumm [facility] Monocyte abs 0.35 0.20 - 0.80 K/cumm [facility] Eosinophil abs 0.11 0.00 - 0.50 K/cumm [facility] Basophil abs 0.03 0.00 - 0.10 K/cumm [facility] Neutrophil pct 74.9 % [facility] Comment: Interpretive Data Percent cell count reference ranges are not reported, since discordance with absolute values may lead to misinterpretation of CBC data. Current Interpretive Data was last revised on 2017. Imm gran pct 0.3 % [facility] Comment: Interpretive Data Percent cell count reference ranges are not reported, since discordance with absolute values may lead to misinterpretation of CBC data. Current Interpretive Data was last revised on 2017. Lymphocyte pct 17.8 % [facility] Comment: Interpretive Data Percent cell count reference ranges are not reported, since discordance with absolute values may lead to misinterpretation of CBC data. Current Interpretive Data was last revised on 2017. Monocyte pct 5.0 % [facility] Comment: Interpretive Data Percent cell count reference ranges are not reported, since discordance with absolute values may lead to misinterpretation of CBC data. Current Interpretive Data was last revised on 2017. Eosinophil pct 1.6 % [facility] Comment: Interpretive Data Percent cell count reference ranges are not reported, since discordance with absolute values may lead to misinterpretation of CBC data. Current Interpretive Data was last revised on 2017. Basophil pct 0.4 % [facility] Comment: Interpretive Data Percent cell count reference ranges are not reported, since discordance with absolute values may lead to misinterpretation of CBC data. Current Interpretive Data was last revised on 2017. Blood 08/25/2024 11:4 0 AM CDT 08/25/2024 2:52 PM CDT James Sandoval MD PhD LAB BLOOD ORDERABLES Sylvia l Result Performing Organization Address [facility] Co de Phone Number [facility] Department [place] [address] * (ABNORMAL) Comprehensive metabolic panel, without glucose (Outreach) (08/25/2024 11:40 AM CDT) Sodium 140 135 - 145 mmol/L Potassium, pl 4.0 3.3 - 4.9 mmol/L [facility] Chloride 101 97 - 110 mmol/L [facility] CO2 29 22 - 32 mmol/L [facility] Anion gap 10 2 - 15 mmol/L [facility] BUN 22 6 - 25 mg/dL [facility] Creatinine 1.47(H) 0.60 - 1.10 mg/dL [facility] Calcium 9.1 8.5 - 10.3 mg/dL [facility] Protein, pl 7.6 6.5 - 8.5 g/dL [facility] Albumin 4.1 3.5 - 5.0 g/dL [facility] Bilirubin, total 0.2 0.1 - 1.2 mg/dL [facility] Alk phos 68 40 - 130 Units/L [facility] AST 19 10 - 45 Units/L [facility] ALT 10 7 - 45 Units/L [facility] Blood 08/25/2024 11:4 0 AM CDT 08/25/2024 2:52 PM CDT James Sandoval MD PhD LAB BLOOD ORDERABLES Sylvia l Result Performing Organization Address [facility]/ZIP Co de Phone Number [facility] Department [place] [address] * (ABNORMAL) CBC with auto differential (08/25/2024 11:40 AM CDT) [facility] WBC 7.06 3.80 - 9.90 K/cumm Hgb 12.3 11.9 - 15.5 g/dL [facility] Hct 38.8 35.6 - 45.5 % [facility] Plt 225 150 - 400 K/cumm [facility] MPV 11.7 9.1 - 12.3 fL [facility] RBC 4.50 3.90 - 5.20 M/cumm [facility] MCV 86.2 81.3 - 96.4 fL [facility] MCH 27.3 27.1 - 33.3 pg [facility] MCHC 31.7(L) 32.3 - 35.7 g/dL [facility] RDW CV 14.6 11.1 - 14.9 % [facility] RDW SD 45.6 35.7 - 48.1 fL [facility] NRBC abs 0.00 0.00 - 0.01 K/cumm [facility] Blood 08/25/2024 11:4 0 AM CDT 08/25/2024 2:52 PM CDT James Sandoval MD PhD LAB BLOOD ORDERABLES Sylvia l Result Performing Organization Address City/[facility]/ZIP Co de Phone Number [facility] Department [place] [address] * Hepatitis B Surface Antigen Blood (08/25/2024 11:40 AM CDT) [facility] HepBsAg Nonreactive Nonreactive Blood 08/25/2024 11:4 0 AM CDT 08/25/2024 2:52 PM CDT James Sandoval MD PhD LAB MICROBIOLOGY - GENERA L ORDERABLES Final Result Performing Organization Address City/[facility]/ZIP Co de Phone Number [facility] Department [place] [address] * CRP (acute phase) (08/25/2024 11:40 AM CDT) CRP 8.8 <=10.0 mg/L Blood 08/25/2024 11:4 0 AM CDT 08/25/2024 2:52 PM CDT us James Sandoval MD PhD LAB BLOOD ORDERABLES Sylvia brown Result [facility] Department [place] [address] * Screening Mammogram Bilateral W Shahzad (04/15/2024 12:09 PM MANAGEMENT PLANNER) Anatomical Region Laterality Modality Breast Bilateral Mammography Narrative 04/16/2024 10:39 AM MANAGEMENT PLANNER Mammogram Technique: Bilateral Digital Breast Tomosynthesis, Bilateral C-view 2D Screening mammogram. Views obtained: bilateral craniocaudal and bilateral mediolateral oblique. Computer Aided Detection was performed. Mammogram Findings: The present examination has been compared to prior imaging studies performed at [facility] on 03/22/2021, 03/27/2022 and 04/09/2023. The breasts [...] compared to prior imaging studies performed at [facility] on 03/22/2021, 03/27/2022 and 04/09/2023. The breasts [...] NP IMG MAMMO PROCEDURES Final Result * (ABNORMAL) Albumin Creatinine Ratio, Urine (03/10/2024 10:10 AM MANAGEMENT PLANNER) Albumin Ur 17.5 mg/L Comment: Interpretive Data No reference range established. Current interpretive data was last revised 2018. Creatinine Ur 51.5 mg/dL [facility] Comment: Interpretive Data No reference range established. Current interpretive data was last revised 2018. Albumin Creatinine Ratio, Ur 35(H) 1 - 29 mg/g [facility] Urine 03/10/2024 10:1 0 AM MANAGEMENT PLANNER 03/10/2024 3:25 PM MANAGEMENT PLANNER us Sonny Galindo MD LAB URINE ORDERABLES Final R esult [facility] Department [place] [address] * Hemoglobin A1c (03/10/2024 10:10 AM MANAGEMENT PLANNER) Hgb A1C 5.3 4.0 - 5.6 % Estimated Average Glucose 105 mg/dL [facility] Comment: The ADA recommends reporting an estimated Average Glucose (eAG) with all Hemoglobin A1c results using the equation derived from a study of 507 normal and diabetic adults. Minority populations were underrepresented and children were not included. (Diabetes Care 2020; 43(S1): S66-S76). The eAG is not equivalent to a fasting glucose. Blood 03/10/2024 10:1 0 AM MANAGEMENT PLANNER 03/10/2024 2:39 PM MANAGEMENT PLANNER us Sonny Galindo MD LAB BLOOD ORDERABLES Final R esult [facility] Department of Laboratories [place], [place] [id number] * COLONOSCOPY (12/11/2022 12:11 PM CDT) Anatomical Region Laterality Modality Other Narrative Procedure Note James Sandoval MD PhD - 12/11/2022 12:11 PM CDT ENDOSCOPY LAB Patient Name: Carmen Page Ashlee Procedure Date: 12/11/2022 12:11PM Date of : 1960 Admit Type: Outpatient Age: 62 Gender: Female Attending MD: James Sandoval MD,PHD Room: [facility] ENDOSCOPY ROOM 05 Note Status: Finalized [...] The scope was passed under direct vision.The [id number] was introduced through the anusand advanced to [...] - GENERAL ORDER REJI Final Result [facility] [address] Department [place] [address] * BONE MINERAL DENSITY (06/20/2015) Anatomical Region Laterality Modality Radiographic Suzette ging Narrative 06/20/2015 Ordered by an unspecified provider. Historical Provider IMG DXA PROCEDURES Final Result from Last 3 Months or Most Recently Relevant to [place] [address] [facility] FEDERAL MEDICARE FORMERLY [facility] [place] [address] [facility] ENTYVIO CONNECT [employer] ASSIST MEDICAL MEDICARE Advance Directives For more information, please contact: [phone] * Full Code (Latest Code Status on [...] 9:50 AM 05/27/2018 4:39 PM Care Teams Lumber Sorter Machine Relationship Specialty Start Date End Date Gabbie Wilde MD PCP - General Family Medicine 03/27/22 James Sandoval MD PhD [address] [facility] GASTR[address]ENTEROLOG[address] [address] PCP - Home Infusion Attending Gastroenterology 07/12/24 Sonny Galindo MD Nephrology 05/21/22 Caroline Banerjee, MARIA A Home Infusion Nursing 07/21/24 Wyatt Thayer, [facility] Pharmacist Pharmacy 08/02/24
--- OUTSIDE RECORDS SUMMARY | 2024-08-26 08:09 | XMS_ITS | Referral Summary ---
Author Organization [facility] Medical [facility] 2 Address [address] [place] [address] Care Team Providers Care Golf Club Weigher Name Role Phone Gabbie Wilde MD Primary Care Provider + Sonny Galindo MD Unavailable [phone] James Sandoval MD PhD Unavailable Caroline Banerjee RN Unavailable Unavailable Wyatt Thayer [facility] Unavailable Unavaila ble Encounters Date Type Department Care Team Description 08/25/2024 11:40 AM CDT - 08/25/2024 11:59 PM CDT Hospital Encounter [address] [address] Discharge Disposition: Discharge to home or self care 08/25/2024 11:00 AM CDT Home Infusion [facility] Home Infusion Therapy [address] [place] [address] Caroline Banerjee, MARIA A 08/17/2024 Orders Only [facility] Gastroenterology [address] [place] [address] Advanced Medicine 12th [place] [address] [place] [address] Angelique Cabral CPhT 08/17/2024 Orders Only [facility] Gastroenterology [address] [place] [address] Advanced Medicine 12th Floor [address] [place] [phone] Michelle Gutierrez, MARIA A Crohn's disease of both small and large intestine without complication (HCC) (Primary Dx); High risk medications (not anticoagulants) long-term use; Routine health maintenance 08/12/2024 Home Infusion [facility] Home Infusion Therapy [address] [place] [address] Cadence Montenegro Crohn's disease of both small and large intestine without complication (HCC) (Primary Dx) 07/25/2024 Home Care Visit [address] [place] [address] Miladys Mcneil RN SN DISCIPLINE DISCHARGE 07/09/2024 Home Infusion [facility] Home Infusion Therapy [address] [place] [address] Miladys Londono RN 07/08/2024 11:20 AM CDT Office Visit [facility] Rheumatology [address] [facility] Advanced Medicine 5th Floor [address] [place] [phone] Billie Noyola MD Crohn's disease of both small and large intestine without complication (HCC) (Primary Dx); Sicca, unspecified type 07/03/2024 [facility] [address] [place] [address] [place] [phone] Anne-Marie Richardson MA 07/02/2024 Telephone [place] [facility] ([facility] ENT [address] [facility] 11th Floor [address] [place] [phone] Deepika Arthur CMA 07/01/2024 1:30 PM CDT Office Visit [facility] [address] [facility] [address] [place] [phone] Radha Tompkins NP Atypical facial pain (Primary Dx); Intractable migraine without aura and without status migrainosus 06/30/2024 11:00 AM CDT Home Care Visit [address] [place] [address] Caroline Banerjee, MARIA A SN INFUSION TREATMENT ROOM 06/05/2024 10:45 AM CDT Office Visit [facility] Gastroenterology [address] [facility] 12th [place] [address] [place] [phone] James Sandoval MD PhD Crohn's disease of both small and large intestine without complication (HCC) (Primary Dx); Irritable bowel syndrome with diarrhea; Esophageal dysphagia; Weight loss; Anxiety and depression from Last 3 Months Allergies Active Allergy [...] gauge miscIndications:D iabetes Mellitus 07/30/19 22 Active kgbpe-6-oby-epa-d pa-fish oil 1,050-1,200 mg capsuleIndication s:hypertriglyceri demia [...] each 3 5 11:15 AM CDT 02/27/19 026 Active 0.9 % sodium chloride (sodium [...] mL IV as needed for line care 96122 mL 01/12/07 24 026 Active eluxadoline (Viberzi) 100 mg tabletIndications [...] pump or RFT every 8 weeks. 02/26/19 025 Discontin ued(Dupli tyra order) sodium chloride 0.9% injectionIndicati ons:line care Infuse 10 mL IV as needed for line care 025 Discontin ued(Dupli tyra order) eluxadoline (Viberzi) 100 mg tabletIndications :Diarrhea Predominant Irritable Bowel Syndrome Take 1 tablet (100 mg total) by mouth daily 90 tablet 1 02/07/20 025 Discontin ued(Reord er) Active Problems Problem [...] (04/15/2018): Added automatically from request for surgery [id number] Abnormal mammogram 02/10/2018 Resolved Problems Problem Noted Date Diagnosed Date Resolved Date Trigeminal neuralgia 03/11/2024 025 Assessment & Plan (03/11/2024 3:13 PM LEAD BUSINESS ANALYST): She complains of residual pain in the [...] (08/05/2022): Added automatically from request for surgery [id number] Immunizations Immunization Administration Dates Next Due Influenza [...] on file Legal Sex Female 11:00 AM LEAD BUSINESS ANALYST Gender Identity Female 10/03/2020 3:00 PM CDT [...] 08/25/2024 11:09 AM CDT Plan of Treatment Not on file Medical Devices Implanted Type Area Spinal Surgeon Device Identifier Shelf Expiration Date Model / Serial / Lot [employer] Xcela Power Port 8fr [id number] - [id number] Implanted:Qty: 1 on 03/05/2023 by Quang Cid MD at [facility] [employer] 10/22/2027 [id number] / / [id number] Procedures Procedure Name Priority Date/Time Associated Diagnosis [...] Read Routine (OP Routine) 04/15/2024 12:09 PM LEAD BUSINESS ANALYST Fibrocystic breast changes of both breasts HEMOGLOBIN A1C Routine 03/10/2024 10:10 AM LEAD BUSINESS ANALYST ALBUMIN CREATININE RATIO, URINE Routine 03/10/2024 10:10 AM LEAD BUSINESS ANALYST COLONOSCOPY 12/11/2022 12:11 PM CDT HEPATITIS C [...] Sylvia l Result Performing Organization Address [facility] Co de Phone Number [facility] Department [place] [address] * (ABNORMAL) eGFR (08/25/2024 11:40 AM CDT) [...] 0 AM CDT 08/25/2024 3:13 PM CDT James Sandoval MD PhD LAB BLOOD ORDERABLES Sylvia l Result Performing Organization Address City/[facility]/ZIP Co de Phone Number [facility] [place] [address] * Differential, auto (08/25/2024 11:40 AM CDT) Neutrophil abs 5.29 1.50 - 6.50 K/cumm Imm gran abs 0.02 0.00 - 0.10 K/cumm [facility] Lymphocyte abs 1.26 0.80 - 3.30 K/cumm [facility] Monocyte abs 0.35 0.20 - 0.80 K/cumm [facility] Eosinophil abs 0.11 0.00 - 0.50 K/cumm [facility] Basophil abs 0.03 0.00 - 0.10 K/cumm [facility] Neutrophil pct 74.9 % [facility] Comment: Interpretive Data Percent cell count reference ranges are not reported, since discordance with absolute values may lead to misinterpretation of CBC data. Current Interpretive Data was last revised on 2017. Imm gran pct 0.3 % [facility] Comment: Interpretive Data Percent cell count reference ranges are not reported, since discordance with absolute values may lead to misinterpretation of CBC data. Current Interpretive Data was last revised on 2017. Lymphocyte pct 17.8 % [facility] Comment: Interpretive Data Percent cell count reference ranges are not reported, since discordance with absolute values may lead to misinterpretation of CBC data. Current Interpretive Data was last revised on 2017. Monocyte pct 5.0 % [facility] Comment: Interpretive Data Percent cell count reference ranges are not reported, since discordance with absolute values may lead to misinterpretation of CBC data. Current Interpretive Data was last revised on 2017. Eosinophil pct 1.6 % [facility] Comment: Interpretive Data Percent cell count reference ranges are not reported, since discordance with absolute values may lead to misinterpretation of CBC data. Current Interpretive Data was last revised on 2017. Basophil pct 0.4 % [facility] Comment: Interpretive Data Percent cell count reference ranges are not reported, since discordance with absolute values may lead to misinterpretation of CBC data. Current Interpretive Data was last revised on 2017. Blood 08/25/2024 11:4 0 AM CDT 08/25/2024 2:52 PM CDT James Sandoval MD PhD LAB BLOOD ORDERABLES Sylvia l Result Performing Organization Address [facility] Co de Phone Number [facility] [place] [address] * (ABNORMAL) Comprehensive metabolic panel, without glucose (Outreach) (08/25/2024 11:40 AM CDT) Sodium 140 135 - 145 mmol/L Potassium, pl 4.0 3.3 - 4.9 mmol/L [facility] Chloride 101 97 - 110 mmol/L [facility] CO2 29 22 - 32 mmol/L [facility] Anion gap 10 2 - 15 mmol/L [facility] BUN 22 6 - 25 mg/dL [facility] Creatinine 1.47(H) 0.60 - 1.10 mg/dL [facility] Calcium 9.1 8.5 - 10.3 mg/dL [facility] Protein, pl 7.6 6.5 - 8.5 g/dL [facility] Albumin 4.1 3.5 - 5.0 g/dL [facility] Bilirubin, total 0.2 0.1 - 1.2 mg/dL [facility] Alk phos 68 40 - 130 Units/L [facility] AST 19 10 - 45 Units/L [facility] ALT 10 7 - 45 Units/L [facility] Blood 08/25/2024 11:4 0 AM CDT 08/25/2024 2:52 PM CDT James Sandoval MD PhD LAB BLOOD ORDERABLES Sylvia l Result Performing Organization Address City/[facility]/ZIP Co de Phone Number [facility] Department [place] [address] * (ABNORMAL) CBC with auto differential (08/25/2024 11:40 AM CDT) WBC 7.06 3.80 - 9.90 K/cumm Hgb 12.3 11.9 - 15.5 g/dL [facility] Hct 38.8 35.6 - 45.5 % [facility] Plt 225 150 - 400 K/cumm [facility] MPV 11.7 9.1 - 12.3 fL [facility] RBC 4.50 3.90 - 5.20 M/cumm [facility] MCV 86.2 81.3 - 96.4 fL [facility] MCH 27.3 27.1 - 33.3 pg [facility] MCHC 31.7(L) 32.3 - 35.7 g/dL [facility] RDW CV 14.6 11.1 - 14.9 % [facility] RDW SD 45.6 35.7 - 48.1 fL [facility] NRBC abs 0.00 0.00 - 0.01 K/cumm [facility] Blood 08/25/2024 11:4 0 AM CDT 08/25/2024 2:52 PM CDT us James Sandoval MD PhD LAB BLOOD ORDERABLES Sylvia l Result Performing Organization Address City/[facility] Co de Phone Number [facility] [place] [place] [address] * Hepatitis B Surface Antigen Blood (08/25/2024 11:40 AM CDT) Pathologist [facility] HepBsAg Nonreactive Nonreactive Blood 08/25/2024 11:4 0 AM CDT 08/25/2024 2:52 PM CDT James Sandoval MD PhD LAB MICROBIOLOGY - GENERA L ORDERABLES Final Result [facility] [place] [address] * CRP (acute phase) (08/25/2024 11:40 AM CDT) Pathologist [facility] CRP 8.8 <=10.0 mg/L Blood 08/25/2024 11:4 0 AM CDT 08/25/2024 2:52 PM CDT us James Sandoval MD PhD LAB BLOOD ORDERABLES Sylvia stephanie Result [facility] [place] [address] * Screening Mammogram Bilateral W Shahzad (04/15/2024 12:09 PM LEAD BUSINESS ANALYST) Anatomical Region Laterality Modality Breast Bilateral Mammography Narrative 04/16/2024 10:39 AM LEAD BUSINESS ANALYST Mammogram Technique: Bilateral Digital Breast Tomosynthesis, Bilateral C-view 2D Screening mammogram. Views obtained: bilateral craniocaudal and bilateral mediolateral oblique. Computer Aided Detection was performed. Mammogram Findings: The present examination has been compared to prior imaging studies performed at [facility] on 03/22/2021, 03/27/2022 and 04/09/2023. [...] compared to prior imaging studies performed at [facility] on 03/22/2021, 03/27/2022 and 04/09/2023. [...] Albumin Creatinine Ratio, Urine (03/10/2024 10:10 AM LEAD BUSINESS ANALYST) [facility] Albumin Ur 17.5 mg/L Comment: Interpretive Data No reference range established. Current interpretive data was last revised 2018. Creatinine Ur 51.5 mg/dL [facility] Comment: Interpretive Data No reference range established. Current interpretive data was last revised 2018. Albumin Creatinine Ratio, Ur 35(H) 1 - 29 mg/g [facility] Urine 03/10/2024 10:1 0 AM LEAD BUSINESS ANALYST 03/10/2024 3:25 PM LEAD BUSINESS ANALYST Sonny Galindo MD LAB URINE ORDERABLES Final R esult Performing Organization Address [facility] de Phone Number [facility] [email or web address] [address] * Hemoglobin A1c (03/10/2024 10:10 AM LEAD BUSINESS ANALYST) Pathologist [facility] Hgb A1C 5.3 4.0 - 5.6 % Estimated Average Glucose 105 mg/dL [facility] Comment: The ADA recommends reporting an estimated Average Glucose (eAG) with all Hemoglobin A1c results using the equation derived from a study of 507 normal and diabetic adults. Minority populations were underrepresented and children were not included. (Diabetes Care 2020; 43(S1): S66-S76). The eAG is not equivalent to a fasting glucose. Blood 03/10/2024 10:1 0 AM LEAD BUSINESS ANALYST 03/10/2024 2:39 PM LEAD BUSINESS ANALYST Result [facility] Sonny Galindo MD LAB BLOOD ORDERABLES Final R esult Performing Organization Address [facility] de Phone Number [facility] [place] [place] [address] * COLONOSCOPY (12/11/2022 12:11 PM CDT) Anatomical Region Laterality Modality Other Narrative Procedure Note James Sandoval MD PhD - 12/11/2022 12:11 PM CDT ENDOSCOPY LAB Patient Name: Carmen Rosado Procedure Date: 12/11/2022 12:11PM Date of : 1960 Admit Type: Outpatient Age: 62 Gender: Female Attending MD: James Sandoval MD,PHD Room: [facility] END[facility]COPY [facility]OM 05 Note Status: Finalized [...] The scope was passed under direct vision.The [id number] was introduced through the anusand advanced to [...] - GENERAL ORDER REJI Final Result [facility] [address] Department [place] [address] * BONE MINERAL DENSITY (06/20/2015) Anatomical Region Laterality Modality Radiographic Suzette ging Narrative 06/20/2015 Ordered by an unspecified provider. us Historical Provider MD JOY DXA PROCEDURES Final Result from Last 3 Months or Most Recently Relevant to [place] [address] [facility] FEDERAL MEDICARE [facility] ENTYVIO CONNECT COP[employer] ASSIST MEDICAL MEDICARE [facility] Address: [address] [address] [place] [address] Advance Directives For more information, please contact: [phone] * Full Code (Latest Code Status on [...] 9:50 AM 05/27/2018 4:39 PM Care Teams Golf Club Weigher Relationship Specialty Start Date End Date Gabbie Wilde MD PCP - General Family Medicine 03/27/22 James Sandoval MD PhD [address] [facility] GASTROENTEROLOGY[address] [address] PCP - Home Infusion Attending Gastroenterology 07/12/24 Sonny Galindo MD Nephrology 05/21/22 Caroline Banerjee, MARIA A Home Infusion Nursing 07/21/24 Wyatt Thayer, [facility] Pharmacist Pharmacy 08/02/24
--- OUTSIDE RECORDS SUMMARY | 2024-08-26 08:09 | XMS_ITS | Patient Health Record ---
Author Organization [facility] Address [address] [facility] [address] [place] [address] Care Team Providers Care Paver Name Role Phone Chelsi Cervantes Unavailable [phone] Reason For Referral No Information Medications Medication SIG (Take, Route, Frequency, Duration) Notes Start Date End Date Status Entyvio 300 mg infuse 300 mg over 30 minute(s) by intravenous route every 8 weeks Intravenous 1.79100716038346H- 02 Active Multi-Vitamin take 1 tablet by [...] tablet in the morning - *Reorder from Zinio for eRx and Interaction Alerts* Active Cetirizine HCl 10 MG take 1 tablet (10 mg) by oral route once daily Oral 1 Active Peppermint Oil 50 mg take 1 capsule by oral route once ORAL 1 *Pick strength-form from Zinio for eRX* Active Farxiga 5 MG take [...] times a week - *Pick strength-form from Zinio for eRX* Active Losartan Potassium 25 MG take 1 tablet (25 mg) by oral route once daily Oral 1 Active Rybelsus 7 mg take 1 tablet (7 mg) by oral route once daily in the morning 30 min before any food, drink or medication with no more than 4 oz plain water oral 1 Active Cholecalciferol 1.25 MG (96519 UT) take 1 tablet by oral route once Oral 1 Active traZODone HCl 50 MG take 1 tablet (50 mg) by oral route once daily at bedtime Oral 1 Active Biotin 1,000 mcg chew 1 tablet by oral route once Oral 1 *Pick strength-form from [employer] for eRX* Active Fenofibrate 134 mg take 1 tablet in the evening oral *Pick strength-form from Evrispan for eRX* Active Fish Oil Burp-Less 1200 MG take 1 capsule by oral route twice Oral 2 Active Plan Of Treatment No Information Insurance Providers Payer Name Payer Address Payer Phone Subscriber Number Group Number Insured Name Patient Relationship to Insured Coverage Start Date Coverage End Date [place] [address] [place] [address] [id number] Carmen Mortensen Self - patient is the insured Medical (General) History Surgical History Surgery Date(Month/Year) Hysterectomy; 2022-11-22 Arthroplasty of carpometacarpal (CMC) maryellen int of hand; 2022-11-28 sympathectomy; 2022-11-28
--- OUTSIDE RECORDS SUMMARY | 2024-08-26 08:09 | XMS_ITS ---
Author Organization [facility] Medical [facility] 2 Address [address] [place] [address] Care Team Providers Care Batch And Furnace Operator Name Role Phone Gabbie Wilde MD Primary Care Provider + Sonny Galindo MD Unavailable [phone] James Sandoval MD PhD Unavailable [phone] Caroline Banerjee RN Unavailable Unavailable Wyatt Thayer [facility] Unavailable Unavaila ble [facility] The[facility]ies - ENTYVIO 300 mg IV EVERY 8 WEEKS Status:Enrolled (Active) Start date:06/26/2024 Enrollment date:06/26/2024 Linked medications:vedolizumab (Active) Related program episode:Home Infusion (Active) Overview Cutover complete Case Team Name Relationship Phone Caroline Banerjee RN Home Infusion Nursing Wyatt Thayer [facility](Responsible Staff) Pharma cist Continued Care and Services Coordination This section includes services coordinated for [facility] Specialty Therapies - ENTYVIO 300 mg IV EVERY 8WEEKS. Home Medical Care Name Services Phone [facility] Home Infusion Therapy Home Infusion and Inje ction
--- OUTSIDE RECORDS SUMMARY | 2024-08-26 08:09 | XMS_ITS ---
Author Organization [facility] Medical [facility] 2 Address [address] [place] [address] Care Team Providers Care Training Development Director Name Role Phone Gabbie Wilde MD Primary Care Provider + Sonny Galindo MD Unavailable [phone] James Sandoval MD PhD Unavailable [phone] Caroline Banerjee RN Unavailable Unavailable Wyatt Thayer [facility] Unavailable Unavaila ble Home Infusion Status:Enrolled (Active) Start date:06/26/2024 Enrollment date:06/26/2024 Related service episodes:[facility] Specialty Therapies - ENTYVIO 300 mg IV EVERY 8 WEEKS (Active) Overview Cutover complete. Alicia Torres, MARIA A 07/12/2024 1:09 PM Case Team Name Relationship Phone Caroline Banerjee RN(Responsible Staff) Home Infu fabricio Nursing Continued Care and Services Coordination
[2024-08-26 08:31] LABS: Anion Gap 7 mmol/L (4-12); Blood Urea Nitrogen 22 mg/dL (7-17); Calcium 9.1 mg/dL (8.4-10.2); Carbon Dioxide 28 mmol/L (22-30); Chloride 103 mmol/L (98-107); Estimated Glomerular Filt Rate 40; Glucose 87 mg/dL (65-110); Potassium 4.2 mmol/L (3.4-5.0); Sodium 138 mmol/L (137-145)
[2024-08-26 08:56] LABS: INR 1.1; Prothrombin Time 13.8 Seconds (11.1-14.7)
[2024-08-26 09:17] LABS: Partial Thromboplastin Time > 200.0 Seconds (22.3-36.8)
== END 2024-08-26 08:01 | disposition home or self-care (01) ==
LOC: ANHSURGERY 08:05
PROVIDERS: Anesthesiology; PCP Family Medicine; Visit Provider Plastic Surgery
DX: E11.22 Type 2 diabetes mellitus with diabetic chronic kidney disease (principal); Z01.818 Encounter for other preprocedural examination
CPT/HCPCS: 36415; 36591; 80048; 85610; 85730; 99212; G0463

== ENCOUNTER 2024-08-28 14:57 | Outpatient (CLI) | payer BC, MEDICARE, SELFPAY ==
--- OUTSIDE RECORDS SUMMARY | 2024-08-28 15:00 | XMS_ITS | Referral Summary ---
Author Organization [facility] Medical [facility] 2 Address [address] [place] [address] Care Team Providers Care Pecan Picker Name Role Phone Gabbie Wilde MD Primary Care Provider + Sonny Galindo MD Unavailable James Sandoval MD PhD Unavailable Caroline Banerjee RN Unavailable Unavailable Wyatt Thayer [facility] Unavailable Unavaila ble Encounters Date Type Department Care Team Description 08/25/2024 11:40 AM CDT - 08/25/2024 11:59 PM CDT Hospital Encounter [address] [address] Discharge Disposition: Discharge to home or self care 08/25/2024 11:00 AM CDT Home Infusion [facility] Home Infusion Therapy [address] [place] [address] Caroline Banerjee, MARIA A 08/17/2024 Orders Only [facility] Gastroenterology [address] [place] [address] Advanced Medicine 12th [place] [address] [place] [address] Angelique Cabral CPhT 08/17/2024 Orders Only [facility] Gastroenterology [address] [place] [address] Advanced Medicine 12th Floor [address] [place] [id number] Michelle Gutierrez, MARIA A Crohn's disease of both small and large intestine without complication (HCC) (Primary Dx); High risk medications (not anticoagulants) long-term use; Routine health maintenance 08/12/2024 Home Infusion [facility] Home Infusion Therapy [address] [place] [address] Cadence Montenegro Crohn's disease of both small and large intestine without complication (HCC) (Primary Dx) 07/25/2024 Home Care Visit [address] [place] [address] Miladys Mcneil RN SN DISCIPLINE DISCHARGE 07/09/2024 Home Infusion [facility] Home Infusion Therapy [address] [place] [address] Miladys Londono RN 07/08/2024 11:20 AM CDT Office Visit [facility] Rheumatology [address] [facility] Advanced Medicine 5th Floor [address] [place] [id number] Billie Noyola MD Crohn's disease of both small and large intestine without complication (HCC) (Primary Dx); Sicca, unspecified type 07/03/2024 [facility] [address] [place] [address] [place] [phone] Anne-Marie Richardson MA 07/02/2024 Telephone [place] [facility] ([facility] ENT [address] [facility] 11th Floor [address] [place] [id number] Deepika Arthur CMA 07/01/2024 1:30 PM CDT Office Visit [facility] [address] [facility] [address] [place] [phone] Radha Tompkins NP Atypical facial pain (Primary Dx); Intractable migraine without aura and without status migrainosus 06/30/2024 11:00 AM CDT Home Care Visit [address] [place] [address] Caroline Banerjee, MARIA A SN INFUSION TREATMENT ROOM 06/05/2024 10:45 AM CDT Office Visit [facility] Gastroenterology [address] [facility] 12th [place] [address] [place] [phone] James Sandoval MD PhD Crohn's disease of [...] gauge miscIndications:D iabetes Mellitus 07/30/19 22 Active gccsv-1-bcd-epa-d pa-fish oil 1,050-1,200 mg capsuleIndication s:hypertriglyceri demia [...] mL IV as needed for line care 26210 mL 01/12/07 24 026 Active eluxadoline (Viberzi) [...] (04/15/2018): Added automatically from request for surgery [id number] Abnormal mammogram 02/10/2018 Resolved Problems Problem Noted Date Diagnosed Date Resolved Date Trigeminal neuralgia 03/11/2024 025 Assessment & Plan (03/11/2024 3:13 PM METAL FURNITURE ASSEMBLER): She complains of residual pain in the [...] (08/05/2022): Added automatically from request for surgery [id number] Immunizations Immunization Administration Dates Next Due Influenza [...] on file Legal Sex Female 11:00 AM METAL FURNITURE ASSEMBLER Gender Identity Female 10/03/2020 3:00 PM CDT [...] on file Medical Devices Implanted Type Area Lyft Driver Device Identifier Shelf Expiration Date Model / Serial / Lot [employer] Xcela Power Port 8fr [id number] - [id number] Implanted:Qty: 1 on 03/05/2023 by Quang Cid MD at [facility] [employer] 10/22/2027 [id number] / / [id number] Procedures Procedure Name Priority Date/Time Associated Diagnosis Comments EGFR Routine 08/25/2024 11:40 AM CDT DIFFERENTIAL AUTO Routine 08/25/2024 11: 40 AM CDT CRP (ACUTE PHASE) Routine 08/25/2024 11: 40 AM CDT CBC WITH AUTO DIFFERENTIAL Routine 08/25/2024 11:40 AM CDT GLUCOSE, RANDOM (OUTREACH) Routine 08/25/2024 11:40 AM CDT COMPREHENSIVE METABOLIC PANEL WITHOUT GLUCOSE (OUTREACH) Routine 08/25/2024 11:40 AM CDT T-SPOT.TB Routine 08/25/2024 11:40 AM CDT HEPATITIS B SURFACE ANTIGEN Routine 08/25/2024 11:40 AM CDT SCAN - LABS 08/12/2024 12:00 AM CDT SCREENING MAMMOGRAM BILATERAL W SHAHZAD Schedule Routine, Read Routine (OP Routine) 04/15/2024 12:09 PM METAL FURNITURE ASSEMBLER Fibrocystic breast changes of both breasts HEMOGLOBIN A1C Routine 03/10/2024 10:10 AM METAL FURNITURE ASSEMBLER ALBUMIN CREATININE RATIO, URINE Routine 03/10/2024 10:10 AM METAL FURNITURE ASSEMBLER COLONOSCOPY 12/11/2022 12:11 PM CDT HEPATITIS C ANTIBODY Routine 11/28/2022 4:12 PM CDT BONE MINERAL DENSITY 06/20/2015 from Last 3 Months or Most Recently Relevant to Health Maintenance Results * T-SPOT.TB Blood (08/25/2024 11:40 AM CDT) T-SPOT.TB Negative SeeBelow Comment: Normal Value: Negative A negative test result does not exclude the possibility of exposure to or infection with Mycobacterium tuberculosis (M. tuberculosis). Patients with recent exposure to TB infected individuals exhibiting a negative T-SPOT.TB result should be considered for retesting within 6 weeks or if other relevant clinical symptoms indicate. Results from T-SPOT.TB testing must be used in conjunction with each individual's epidemiological history, current medical status, and results of other diagnostic evaluations. The T-SPOT.TB test is qualitative and results are reported as positive, borderline or negative, given that the test controls perform as expected. In line with the Centers for Disease Control and Prevention's 2010 recommendation to report quantitative measurements alongside the qualitative result, the laboratory provides spot counts for informational purposes only. The T-SPOT.TB test should not be interpreted as a quantitative test. T-SPOT.TB Panel A Spot Count 1 [facility] T-SPOT.TB Panel B Spot Count 0 [facility] T-SPOT.TB Negative Control Passed [facility] T-SPOT.TB Positive Control Passed [facility] Comment: Test Performed at: [facility] [employer] [address] [place] [phone] MIRA RUIZ,PHD Blood 08/25/2024 11:4 0 AM CDT 08/25/2024 5:29 PM CDT James Sandoval MD PhD LAB MICROBIOLOGY - GENERA L ORDERABLES Final Result [facility] Department [place] [address] * Glucose, random (Outreach) (08/25/2024 11:40 AM CDT) [facility] Glucose 112 70 - 199 mg/dL Comment: [...] ORDERABLES Sylvia l Result Performing Organization Address City/[facility] Co de Phone Number [facility] Department [place] [address] * (ABNORMAL) eGFR (08/25/2024 11:40 AM CDT) [...] ORDERABLES Sylvia l Result Performing Organization Address City/[facility]/ZIP Co de Phone Number [facility] Department [place] [address] * Differential, auto (08/25/2024 11:40 AM CDT) Neutrophil abs 5.29 1.50 - 6.50 K/cumm Imm gran abs 0.02 0.00 - 0.10 K/cumm [facility] Lymphocyte abs 1.26 0.80 - 3.30 K/cumm [facility] Monocyte abs 0.35 0.20 - 0.80 K/cumm [facility] Eosinophil abs 0.11 0.00 - 0.50 K/cumm [facility] Basophil abs 0.03 0.00 - 0.10 K/cumm [facility] Neutrophil pct 74.9 % [facility] Comment: Interpretive Data Percent cell count reference ranges are not reported, since discordance with absolute values may lead to misinterpretation of CBC data. Current Interpretive Data was last revised on 2017. Imm gran pct 0.3 % [facility] Comment: Interpretive Data Percent cell count reference ranges are not reported, since discordance with absolute values may lead to misinterpretation of CBC data. Current Interpretive Data was last revised on 2017. Lymphocyte pct 17.8 % [facility] Comment: Interpretive Data Percent cell count reference ranges are not reported, since discordance with absolute values may lead to misinterpretation of CBC data. Current Interpretive Data was last revised on 2017. Monocyte pct 5.0 % [facility] Comment: Interpretive Data Percent cell count reference ranges are not reported, since discordance with absolute values may lead to misinterpretation of CBC data. Current Interpretive Data was last revised on 2017. Eosinophil pct 1.6 % [facility] Comment: Interpretive Data Percent cell count reference ranges are not reported, since discordance with absolute values may lead to misinterpretation of CBC data. Current Interpretive Data was last revised on 2017. Basophil pct 0.4 % [facility] Comment: Interpretive Data Percent cell count reference ranges are not reported, since discordance with absolute values may lead to misinterpretation of CBC data. Current Interpretive Data was last revised on 2017. Blood 08/25/2024 11:4 0 AM CDT 08/25/2024 2:52 PM CDT James Sandoval MD PhD LAB BLOOD ORDERABLES Sylvia l Result Performing Organization Address [facility] Co de Phone Number [facility] Department [place] [address] * (ABNORMAL) Comprehensive metabolic panel, without glucose (Outreach) (08/25/2024 11:40 AM CDT) Pathologist [facility] Sodium 140 135 - 145 mmol/L Potassium, pl 4.0 3.3 - 4.9 mmol/L [facility] Chloride 101 97 - 110 mmol/L [facility] CO2 29 22 - 32 mmol/L [facility] Anion gap 10 2 - 15 mmol/L [facility] BUN 22 6 - 25 mg/dL [facility] Creatinine 1.47(H) 0.60 - 1.10 mg/dL [facility] Calcium 9.1 8.5 - 10.3 mg/dL [facility] Protein, pl 7.6 6.5 - 8.5 g/dL [facility] Albumin 4.1 3.5 - 5.0 g/dL [facility] Bilirubin, total 0.2 0.1 - 1.2 mg/dL [facility] Alk phos 68 40 - 130 Units/L [facility] AST 19 10 - 45 Units/L [facility] ALT 10 7 - 45 Units/L [facility] Blood 08/25/2024 11:4 0 AM CDT 08/25/2024 2:52 PM CDT James Sandoval MD PhD LAB BLOOD ORDERABLES Sylvia l Result Performing Organization Address [facility]/ZIP Co de Phone Number [facility] Department [place] [address] * (ABNORMAL) CBC with auto differential (08/25/2024 11:40 AM CDT) Pathologist [facility] WBC 7.06 3.80 - 9.90 K/cumm Hgb 12.3 11.9 - 15.5 g/dL [facility] Hct 38.8 35.6 - 45.5 % [facility] Plt 225 150 - 400 K/cumm [facility] MPV 11.7 9.1 - 12.3 fL [facility] RBC 4.50 3.90 - 5.20 M/cumm [facility] MCV 86.2 81.3 - 96.4 fL [facility] MCH 27.3 27.1 - 33.3 pg [facility] MCHC 31.7(L) 32.3 - 35.7 g/dL [facility] RDW CV 14.6 11.1 - 14.9 % [facility] RDW SD 45.6 35.7 - 48.1 fL [facility] NRBC abs 0.00 0.00 - 0.01 K/cumm [facility] Blood 08/25/2024 11:4 0 AM CDT 08/25/2024 2:52 PM CDT James Sandoval MD PhD LAB BLOOD ORDERABLES Sylvia l Result Performing Organization Address City/[facility]/ZIP Co de Phone Number [facility] Department [place] [address] * Hepatitis B Surface Antigen Blood (08/25/2024 11:40 AM CDT) Pathologist [facility] HepBsAg Nonreactive Nonreactive Blood 08/25/2024 11:4 0 AM CDT 08/25/2024 2:52 PM CDT James Sandoval MD PhD LAB MICROBIOLOGY - GENERA L ORDERABLES Final Result [facility] Department [place] [address] * CRP (acute phase) (08/25/2024 11:40 AM CDT) CRP 8.8 <=10.0 mg/L Blood 08/25/2024 11:4 0 AM CDT 08/25/2024 2:52 PM CDT James Sandoval MD PhD LAB BLOOD ORDERABLES Sylvia brown Result [facility] Department [place] [address] * SCAN - LABS (08/12/2024 12:00 AM CDT) us Provider Scanning Edited Result - Final * Screening Mammogram Bilateral W Shahzad (04/15/2024 12:09 PM METAL FURNITURE ASSEMBLER) Anatomical Region Laterality Modality Breast Bilateral Mammography Narrative 04/16/2024 10:39 AM METAL FURNITURE ASSEMBLER Mammogram Technique: Bilateral Digital Breast Tomosynthesis, Bilateral C-view 2D Screening mammogram. Views obtained: bilateral craniocaudal and bilateral mediolateral oblique. Computer Aided Detection was performed. Mammogram Findings: The present examination has been compared to prior imaging studies performed at [facility] on 03/22/2021, 03/27/2022 and 04/09/2023. [...] compared to prior imaging studies performed at [facility] on 03/22/2021, 03/27/2022 and 04/09/2023. [...] Albumin Creatinine Ratio, Urine (03/10/2024 10:10 AM METAL FURNITURE ASSEMBLER) [facility] Albumin Ur 17.5 mg/L Comment: Interpretive Data No reference range established. Current interpretive data was last revised 2018. Creatinine Ur 51.5 mg/dL [facility] Comment: Interpretive Data No reference range established. Current interpretive data was last revised 2018. Albumin Creatinine Ratio, Ur 35(H) 1 - 29 mg/g [facility] Urine 03/10/2024 10:1 0 AM METAL FURNITURE ASSEMBLER 03/10/2024 3:25 PM METAL FURNITURE ASSEMBLER Sonny Galindo MD LAB URINE ORDERABLES Final R esult Performing Organization Address [facility] de Phone Number [facility] [place] [address] * Hemoglobin A1c (03/10/2024 10:10 AM METAL FURNITURE ASSEMBLER) [facility] Hgb A1C 5.3 4.0 - 5.6 % Estimated Average Glucose 105 mg/dL [facility] Comment: The ADA recommends reporting an estimated Average Glucose (eAG) with all Hemoglobin A1c results using the equation derived from a study of 507 normal and diabetic adults. Minority populations were underrepresented and children were not included. (Diabetes Care 2020; 43(S1): S66-S76). The eAG is not equivalent to a fasting glucose. Blood 03/10/2024 10:1 0 AM METAL FURNITURE ASSEMBLER 03/10/2024 2:39 PM METAL FURNITURE ASSEMBLER Result [facility] Sonny Galindo MD LAB BLOOD ORDERABLES Final R esult Performing Organization Address City/[facility] Co de Phone Number [facility] [place] [place] [address] * COLONOSCOPY (12/11/2022 12:11 PM CDT) Anatomical Region Laterality Modality Other Narrative Procedure Note James Sandoval MD PhD - 12/11/2022 12:11 PM CDT ENDOSCOPY LAB Patient Name: Carmen Rosado Procedure Date: 12/11/2022 12:11PM Date of : 1960 Admit Type: Outpatient Age: 62 Gender: Female Attending MD: James Sandoval MD,PHD Room: [facility] ENDOSCOPY ROOM 05 Note Status: Finalized [...] The scope was passed under direct vision.The [id number] was introduced through the anusand advanced to [...] the entire procedure. Electronically signed by James aSndoval MD. James Sandoval MD, PHD 12/11/2022 12:35:08 [...] MICROBIOLOGY - GENERAL ORDER REJI Final Result [facility] [address] Department [place] [address] * BONE MINERAL DENSITY (06/20/2015) Anatomical Region Laterality Modality Radiographic Suzette ging Narrative 06/20/2015 Ordered by an unspecified provider. us Historical Provider MD JOY DXA PROCEDURES Final Result from Last 3 Months or Most Recently Relevant to [place] [address] [facility] FEDERAL MEDICARE [facility] [employer] MEDICAL MEDICARE Advance Directives For more information, please contact: [phone] * Full Code (Latest Code Status on [...] 9:50 AM 05/27/2018 4:39 PM Care Teams Pecan Picker Relationship Specialty Start Date End Date Gabbie Wilde MD PCP - General Family Medicine 03/27/22 James Sandoval MD PhD [address] [facility] GASTROENTEROLOGY, [address] [address] PCP - Home Infusion Attending Gastroenterology 07/12/24 Sonny Galindo MD Nephrology 05/21/22 Caroline Banerjee, MARIA A Home Infusion Nursing 07/21/24 Wyatt Thayer, [facility] Pharmacist Pharmacy 08/02/24
--- OUTSIDE RECORDS SUMMARY | 2024-08-28 15:00 | XMS_ITS | Patient Health Record ---
Author Organization [employer] Address [address] [place], [place] [address] Support Name Relationship Address Phone CHRISTOPHER KNIGHT Guarantor Unknown [phone] REASON FOR REFERRAL No Information MEDICATIONS Medication SIG (Take, Route, Fr equency, Duration) Notes Start Date End Date Status azaTHIOprine 50 mg 1 tab(s) orally TWIC E DAILY once a day 12/23/2006 Active PLAN OF TREATMENT No Information Insurance Providers Payer Name Payer Address Payer Phone Subscriber Number Group Number Insured Name Patient Relationship to Insured Coverage Start Date Coverage End Date [facility] P[facility] - NR [address] [address] [place] [address] [id number] CHRISTOPHER JASON Self - patient is the insured 6
--- OUTSIDE RECORDS SUMMARY | 2024-08-28 15:00 | XMS_ITS | Encounter Summary ---
Author Organization [facility] Healthcare Address [address] [place] [address] Care Team Providers Care Bedspread Cutter Hand Name Role Phone Lois Amato MD Primary Care Provider [phone] Toney Benítez Primary Care Provider + Gabbie Wilde MD Primary Care Provider + Sonny Galindo MD Unavailable [phone] James Sandoval MD PhD Unavailable [phone] Caroline Banerjee RN Unavailable Unavailable Wyatt Thayer [facility] Unavailable Unavaila ble Encounter Details Date Type Department Care Team (Late st Contact Info) Description 09/02/2019 Telephone [facility] [address] [place] [address] Valeri Farnsworth MD [address] [facility] [address] [place] [address] Social History Tobacco Use Types Packs/Day Years Used Date Smoking Tobacco: Never Smokeless Tobacco: Never Alcohol Use Standard Drinks/Week Comments Yes 0 (1 standard drink = 0.6 oz pure alcohol) 1 glass wine maybe once a month Comments No Sex and Gender Information Value Date Recorded Sex Assigned at Not on file Legal Sex Female 11:00 AM SUBSTITUTE CROSSING GUARD Gender Identity Female 10/03/2020 3:00 PM CDT Sexual Orientation Not on file documented as of this encounter Plan of Treatment Not on file documented as of this encounter Visit Diagnoses Not on filedocumented in this encounter Additional Health Concerns Infection Onset Date Last Indicated Resolved Time C. difficile Comment:Chronic diarrhea from IBS. Last CDI test 01/01/22 is neg. 04/14/2015 04/14/2015 4 8:58 AM SUBSTITUTE CROSSING GUARD documented as of this encounter Care Teams Bedspread Cutter Hand Relationship Specialty Start Date End Date Lois Amato MD [address] [place] [address] PCP - General 03/12/12 09/28/21 Toney Benítez PA [address] [place] [address] PCP - General Physician Carpet Yarn Winder Operator 09/29/21 03/26/22 Gabbie Wilde MD [address] [place] [address] PCP - General Family Medicine 03/27/22 James Sandoval MD PhD [facility] [facility], [address] [address] PCP - Home Infusion Attending Gastroenterology 07/12/24 Sonny Galindo MD [address] [place] [address] Nephrology 05/21/22 Caroline Banerjee, MARIA A Home Infusion Nursing 07/21/24 Wyatt Thayer, [facility] Pharmacist Pharmacy 08/02/24 documented as of this encounter
--- OUTSIDE RECORDS SUMMARY | 2024-08-28 15:00 | XMS_ITS | Encounter Summary ---
Author Organization [facility] Address [address] [place] [address] Phone Care Team Providers Care Special Duty Nurse Name Role Phone Gabbie Wilde MD Primary Care Provider + Sonny Galindo MD Unavailable [phone] James Sandoval MD PhD Unavailable [phone] Caroline Banerjee RN Unavailable Unavailable Wyatt Thayer [facility] Unavailable Unavaila ble Encounter Details [...] on file Legal Sex Female 11:00 AM BRIEF WRITER Gender Identity Female 10/03/2020 3:00 PM CDT [...] 01/01/22 is neg. 04/14/2015 04/14/2015 8:58 AM BRIEF WRITER documented as of this encounter Care Teams Special Duty Nurse Relationship Specialty Start Date End Date Gabbie Wilde MD PCP - General Family Medicine 03/27/22 James Sandoval MD PhD [address] [facility] GASTR[facility], [address] [address] PCP - Home Infusion Attending Gastroenterology 07/12/24 Sonny Galindo MD Nephrology 05/21/22 Caroline Banerjee, MARIA A Home Infusion Nursing 07/21/24 Wyatt Thayer, [facility] Pharmacist Pharmacy 08/02/24 documented as of this encounter
--- OUTSIDE RECORDS SUMMARY | 2024-08-28 15:00 | XMS_ITS | Clinical Summary ---
Author Organization [facility] 2 Address [address] [facility] [place] [address] Care Team Providers Care Access Manager Name Role Phone Gabbie Wilde MD Primary Care Provider + Sonny Galindo MD Unavailable [phone] James Sandoval MD PhD Unavailable [phone] Caroline Banerjee RN Unavailable Unavailable Wyatt Thayer [facility] Unavailable Unavaila ble Allergies Active Allergy Reactions [...] gauge miscIndications:D iabetes Mellitus 07/30/19 22 Active febpr-9-ung-epa-d pa-fish oil 1,050-1,200 mg capsuleIndication s:hypertriglyceri demia [...] mL IV as needed for line care 00523 mL 02/27/19 25 026 Active eluxadoline (Viberzi) [...] (04/15/2018): Added automatically from request for surgery [id number] Abnormal mammogram 02/10/2018 Resolved Problems Problem Noted Date Diagnosed Date Resolved Date Trigeminal neuralgia 03/11/2024 025 Assessment & Plan (03/11/2024 3:13 PM DIRECTOR POST): She complains of residual pain in the [...] (08/05/2022): Added automatically from request for surgery [id number] Encounters Date Type Department Care Team Description 08/25/2024 11:40 AM CDT - 08/25/2024 11:59 PM CDT Hospital Encounter [facility] [address] [place] [address] Discharge Disposition: Discharge to home or self care 08/25/2024 11:00 AM CDT Home Infusion [facility] Home Infusion Therapy [address] [place] [address] Caroline Banerjee, MARIA A 08/17/2024 Orders Only [facility] Gastroenterology [address] [place] [address] 12th [place] [address] [place] [address] Angelique Cabral, Elizabeth 08/17/2024 Orders Only [facility] [address] [place] [address] 12th [place] [address] [place] [address] Michelle Gutierrez, MARIA A Crohn's disease of both small and large intestine without complication (HCC) (Primary Dx); High risk medications (not anticoagulants) long-term use; Routine health maintenance 08/12/2024 Home Infusion [facility] Home Infusion Therapy [address] [place] [address] Cadence Montenegro Crohn's disease of both small and large intestine without complication (HCC) (Primary Dx) 07/25/2024 Home Care Visit [facility] - [address] [place] [address] Miladys Mcneil RN SN DISCIPLINE DISCHARGE 07/09/2024 Home Infusion [facility] Home Infusion Therapy [address] [place] [address] Miladys Londono RN 07/08/2024 11:20 AM CDT Office Visit [facility] Rheumatology [address] [place] [address] 5th [place] [address] [place] [address] Billie Noyola MD Crohn's disease of both small and large intestine without complication (HCC) (Primary Dx); Sicca, unspecified type 07/03/2024 [facility] [address] [place] [address] Anne-Marie Richardson MA 07/02/2024 Telephone [facility] ([facility] - [facility] ENT [address] [facility] 11th [place] [address] [place] [address] Deepika Arthur CMA 07/01/2024 1:30 PM CDT Office Visit [facility] [address] [place] [address] Radha Tompkins NP Atypical facial pain (Primary Dx); Intractable migraine without aura and without status migrainosus 06/30/2024 11:00 AM CDT Home Care Visit [address] [place] [address] Caroline Banerjee RN SN INFUSION TREATMENT ROOM 06/05/2024 10:45 AM CDT Office Visit [facility] [address] [facility] 12th [place] [address] [place] [address] James Sandoval MD PhD Crohn's disease of [...] Bladder Surgery - (Added by TW Conv) HI EXC CYST/ABERRANT BREAST TISSUE OPEN / LESION Breast Surgery Lumpectomy - (Added by TW Conv) HI NEUROPLASTY &/TRANSPOS MEDIAN NRV CARPAL TUNNE Neuroplasty Decompression Median Nerve At Carpal Tunnel - (Added by TW Conv) ANAL FISSURECTOMY Anal Fissurectomy - (Added by TW Conv) KNEE SURGERY Knee Surgery - (Added by TW Conv) HI NEURP MAJOR PRPH NRV ARM/LEG OPN OTH/THN SPEC Neuroplasty Ulnar Nerve - (Added by TW Conv) CENTRAL VENOUS CATHETER INSERTION Central IV Line Type Port-A-Cath - (Added by TW Conv) SPINAL CORD STIMULATOR IMPLANT Spinal Surgery Neurostimulator Implants - (Added by TW Conv) HI TOTAL ABDOMINAL HYSTERECT W/WO RMVL TUBE OVARY [...] on file Legal Sex Female 11:00 AM DIRECTOR POST Gender Identity Female 10/03/2020 3:00 PM CDT [...] Completed 08/25/2024 Medical Devices Implanted Type Area Pinball Machine Repairer Device Identifier Shelf Expiration Date Model / Serial / Lot [employer] Xcela Power Port 8fr [id number] - [id number] Implanted:Qty: 1 on 03/05/2023 by Quang Cid MD at [facility] [employer] 10/22/2027 [id number] / / [id number] Procedures Procedure Name Priority Date/Time Associated Diagnosis [...] Read Routine (OP Routine) 04/15/2024 12:09 PM DIRECTOR POST Fibrocystic breast changes of both breasts HEMOGLOBIN A1C Routine 03/10/2024 10:10 AM DIRECTOR POST ALBUMIN CREATININE RATIO, URINE Routine 03/10/2024 10:10 AM DIRECTOR POST COLONOSCOPY 12/11/2022 12:11 PM CDT HEPATITIS C [...] test. T-SPOT.TB Panel A Spot Count 1 [facility] T-SPOT.TB Panel B Spot Count 0 [facility] T-SPOT.TB Negative Control Passed [facility] T-SPOT.TB Positive Control Passed [facility] Comment: Test Performed at: [facility], [employer] [address] [place] [phone] MIRA RUIZ,PHD Blood 08/25/2024 11:4 0 AM CDT 08/25/2024 5:29 PM CDT James Sandoval MD PhD LAB MICROBIOLOGY - GENERA L ORDERABLES Final Result [facility] [place] [address] * Glucose, random (Outreach) (08/25/2024 11:40 AM CDT) Pathologist [facility] Glucose 112 70 - 199 mg/dL Comment: [...] ORDERABLES Sylvia l Result Performing Organization Address City/State/[facility] Co de Phone Number MAXIME SWAN [facility] [place] [address] * (ABNORMAL) eGFR (08/25/2024 11:40 AM CDT) [...] ORDERABLES Sylvia l Result Performing Organization Address City/State/[facility] Co de Phone Number MAXIME DAVILA [facility] [place] [address] * Differential, auto (08/25/2024 11:40 AM CDT) Neutrophil abs 5.29 1.50 - 6.50 K/cumm Imm gran abs 0.02 0.00 - 0.10 K/cumm [facility] Lymphocyte abs 1.26 0.80 - 3.30 K/cumm [facility] Monocyte abs 0.35 0.20 - 0.80 K/cumm [facility] Eosinophil abs 0.11 0.00 - 0.50 K/cumm [facility] Basophil abs 0.03 0.00 - 0.10 K/cumm BANNERNER [facility] Neutrophil pct 74.9 % [facility] Comment: Interpretive Data Percent cell count reference ranges are not reported, since discordance with absolute values may lead to misinterpretation of CBC data. Current Interpretive Data was last revised on 2017. Imm gran pct 0.3 % [facility] Comment: Interpretive Data Percent cell count reference ranges are not reported, since discordance with absolute values may lead to misinterpretation of CBC data. Current Interpretive Data was last revised on 2017. Lymphocyte pct 17.8 % [facility] Comment: Interpretive Data Percent cell count reference ranges are not reported, since discordance with absolute values may lead to misinterpretation of CBC data. Current Interpretive Data was last revised on 2017. Monocyte pct 5.0 % [facility] Comment: Interpretive Data Percent cell count reference ranges are not reported, since discordance with absolute values may lead to misinterpretation of CBC data. Current Interpretive Data was last revised on 2017. Eosinophil pct 1.6 % [facility] Comment: Interpretive Data Percent cell count reference ranges are not reported, since discordance with absolute values may lead to misinterpretation of CBC data. Current Interpretive Data was last revised on 2017. Basophil pct 0.4 % [facility] Comment: Interpretive Data Percent cell count reference ranges are not reported, since discordance with absolute values may lead to misinterpretation of CBC data. Current Interpretive Data was last revised on 2017. Blood 08/25/2024 11:4 0 AM CDT 08/25/2024 2:52 PM CDT James Sandoval MD PhD LAB BLOOD ORDERABLES Sylvia l Result Performing Organization Address [facility]/ZIP Co de Phone Number [facility] Department [place] [address] * (ABNORMAL) Comprehensive metabolic panel, without glucose (Outreach) (08/25/2024 11:40 AM CDT) Pathologist [facility] Sodium 140 135 - 145 mmol/L Potassium, pl 4.0 3.3 - 4.9 mmol/L [facility] Chloride 101 97 - 110 mmol/L [facility] CO2 29 22 - 32 mmol/L [facility] Anion gap 10 2 - 15 mmol/L [facility] BUN 22 6 - 25 mg/dL [facility] Creatinine 1.47(H) 0.60 - 1.10 mg/dL [facility] Calcium 9.1 8.5 - 10.3 mg/dL [facility] Protein, pl 7.6 6.5 - 8.5 g/dL [facility] Albumin 4.1 3.5 - 5.0 g/dL [facility] Bilirubin, total 0.2 0.1 - 1.2 mg/dL [facility] Alk phos 68 40 - 130 Units/L [facility] AST 19 10 - 45 Units/L [facility] ALT 10 7 - 45 Units/L [facility] Blood 08/25/2024 11:4 0 AM CDT 08/25/2024 2:52 PM CDT James Sandoval MD PhD LAB BLOOD ORDERABLES Sylvia l Result Performing Organization Address City/[facility]/ZIP Co de Phone Number [facility] Department [place] [address] * (ABNORMAL) CBC with auto differential (08/25/2024 11:40 AM CDT) Pathologist [facility] WBC 7.06 3.80 - 9.90 K/cumm Hgb 12.3 11.9 - 15.5 g/dL [facility] Hct 38.8 35.6 - 45.5 % [facility] Plt 225 150 - 400 K/cumm [facility] MPV 11.7 9.1 - 12.3 fL [facility] RBC 4.50 3.90 - 5.20 M/cumm [facility] MCV 86.2 81.3 - 96.4 fL [facility] MCH 27.3 27.1 - 33.3 pg [facility] MCHC 31.7(L) 32.3 - 35.7 g/dL [facility] RDW CV 14.6 11.1 - 14.9 % [facility] RDW SD 45.6 35.7 - 48.1 fL [facility] NRBC abs 0.00 0.00 - 0.01 K/cumm [facility] Blood 08/25/2024 11:4 0 AM CDT 08/25/2024 2:52 PM CDT James Sandoval MD PhD LAB BLOOD ORDERABLES Sylvia l Result Performing Organization Address City/[facility] Co de Phone Number [facility] Department [place] [address] * Hepatitis B Surface Antigen Blood (08/25/2024 11:40 AM CDT) [facility] HepBsAg Nonreactive Nonreactive Blood 08/25/2024 11:4 0 AM CDT 08/25/2024 2:52 PM CDT James Sandoval MD PhD LAB MICROBIOLOGY - GENERA L ORDERABLES Final Result Performing Organization Address [facility] Co de Phone Number [facility] [place] [address] * CRP (acute phase) (08/25/2024 11:40 AM CDT) CRP 8.8 <=10.0 mg/L Blood 08/25/2024 11:4 0 AM CDT 08/25/2024 2:52 PM CDT James Sandoval MD PhD LAB BLOOD ORDERABLES Sylvia l Result MAXIME [facility] [place] [address] * SCAN - LABS (08/12/2024 12:00 AM CDT) us Provider Scanning Edited Result - Final * Screening Mammogram Bilateral W Shahzad (04/15/2024 12:09 PM DIRECTOR POST) Anatomical Region Laterality Modality Breast Bilateral Mammography Narrative 04/16/2024 10:39 AM DIRECTOR POST Mammogram Technique: Bilateral Digital Breast Tomosynthesis, Bilateral C-view 2D Screening mammogram. Views obtained: bilateral craniocaudal and bilateral mediolateral oblique. Computer Aided Detection was performed. Mammogram Findings: The present examination has been compared to prior imaging studies performed at [facility] on 03/22/2021, 03/27/2022 and 04/09/2023. The [...] compared to prior imaging studies performed at [facility] on 03/22/2021, 03/27/2022 and 04/09/2023. The [...] Albumin Creatinine Ratio, Urine (03/10/2024 10:10 AM DIRECTOR POST) Albumin Ur 17.5 mg/L Comment: Interpretive Data No reference range established. Current interpretive data was last revised 2018. Creatinine Ur 51.5 mg/dL [facility] Comment: Interpretive Data No reference range established. Current interpretive data was last revised 2018. Albumin Creatinine Ratio, Ur 35(H) 1 - 29 mg/g [facility] Urine 03/10/2024 10:1 0 AM DIRECTOR POST 03/10/2024 3:25 PM DIRECTOR POST Result [facility] Sonny Galindo MD LAB URINE ORDERABLES Final R esult [facility] [place] [address] * Hemoglobin A1c (03/10/2024 10:10 AM DIRECTOR POST) Hgb A1C 5.3 4.0 - 5.6 % Estimated Average Glucose 105 mg/dL [facility] Comment: The ADA recommends reporting an estimated Average Glucose (eAG) with all Hemoglobin A1c results using the equation derived from a study of 507 normal and diabetic adults. Minority populations were underrepresented and children were not included. (Diabetes Care 2020; 43(S1): S66-S76). The eAG is not equivalent to a fasting glucose. Blood 03/10/2024 10:1 0 AM DIRECTOR POST 03/10/2024 2:39 PM DIRECTOR POST us Sonny Galindo MD LAB BLOOD ORDERABLES Final R esult MAXIME [facility] Department of Laboratories [place], [place] [id number] * COLONOSCOPY (12/11/2022 12:11 PM CDT) Anatomical Region Laterality Modality Other Narrative Procedure Note James Sandoval MD PhD - 12/11/2022 12:11 PM CDT ENDOSCOPY LAB Patient Name: Carmen Page Ashlee Procedure Date: 12/11/2022 12:11PM Date of : 1960 Admit Type: Outpatient Age: 62 Gender: Female Attending MD: James Sandoval MD,PHD Room: [facility] ENDOSCOPY ROOM 05 Note Status: Finalized [...] The scope was passed under direct vision.The [id number] was introduced through the anusand advanced to [...] - GENERAL ORDER REJI Final Result MAXIME [facility] [address] [place] [address] * BONE MINERAL DENSITY (06/20/2015) Anatomical Region Laterality Modality Radiographic Suzette ging Narrative 06/20/2015 Ordered by an unspecified provider. Historical Provider IMG DXA PROCEDURES Final Result from Last 3 Months or Most Recently Relevant to Health [place] [address] [facility] FEDERAL MEDICARE FORMERLY [facility] [place] [address] [facility] ENTY[facility]IO [facility] COPAY ASSIST MEDICAL MEDICARE Advance Directives For more information, please contact: [phone] * Full Code (Latest Code Status on [...] 9:50 AM 05/27/2018 4:39 PM Care Teams Access Manager Relationship Specialty Start Date End Date Gabbie Wilde MD PCP - General Family Medicine 03/27/22 James Sandoval MD PhD [address] [facility], [address] [address] PCP - Home Infusion Attending Gastroenterology 07/12/24 Sonny Galindo MD Nephrology 05/21/22 Caroline Banerjee, MARIA A Home Infusion Nursing 07/21/24 Wyatt Thayre, [facility] Pharmacist Pharmacy 08/02/24
--- OUTSIDE RECORDS SUMMARY | 2024-08-28 15:00 | XMS_ITS | Encounter Summary ---
Author Organization [facility] Address [address] [place] [address] Phone Care Team Providers Care Marine Diesel Technician Name Role Phone Gabbie Wilde MD Primary Care Provider + Sonny Galindo MD Unavailable James Sandoval MD PhD Unavailable [phone] Caroline Banerjee RN Unavailable Unavailable Wyatt Thayer [facility] Unavailable Unavaila ble Encounter Details Date [...] on file Legal Sex Female 11:00 AM FABRIC PATTERN GRADER Gender Identity Female 10/03/2020 3:00 PM CDT Sexual Orientation Not on file documented as of this encounter Plan of Treatment Not on file documented as of this encounter Procedures Procedure Name Priority Date/Time Associated Diagnosis Comments GI - RESULT 01/10/2024 3:47 PM FABRIC PATTERN GRADER documented in this encounter Results * GI - RESULT (01/10/2024 3:47 PM FABRIC PATTERN GRADER) Anatomical Region Laterality Modality Other us Provider Scanning Final Result documented in this encounter Visit Diagnoses Not on filedocumented in this encounter Additional Health Concerns Infection Onset Date Last Indicated Resolved Time C. difficile Comment:Chronic diarrhea from IBS. Last CDI test 01/01/22 is neg. 04/14/2015 04/14/2015 8:58 AM FABRIC PATTERN GRADER documented as of this encounter Care Teams Marine Diesel Technician Relationship Specialty Start Date End Date Gabbie Wilde MD PCP - General Family Medicine 03/27/22 James Sandoval MD PhD [address] [facility], [address] [address] PCP - Home Infusion Attending Gastroenterology 07/12/24 Sonny Galindo MD Nephrology 05/21/22 Caroline Banerjee, MARIA A Home Infusion Nursing 07/21/24 Wytat Thayer, [facility] Pharmacist Pharmacy 08/02/24 documented as of this encounter
--- OUTSIDE RECORDS SUMMARY | 2024-08-28 15:01 | XMS_ITS | Encounter Summary ---
Author Organization [facility] Address [address] [place] [address] Phone Care Team Providers Care Skein Mercerizing Machine Operator Name Role Phone Gabbie Wilde MD Primary Care Provider + Sonny Galindo MD Unavailable [phone] James Sandoval MD PhD Unavailable [phone] Caroline Banerjee RN Unavailable Unavailable Wyatt Thayer [...] on file Legal Sex Female 11:00 AM ABAP DEVELOPER Gender Identity Female 10/03/2020 3:00 PM [...] 01/01/22 is neg. 04/14/2015 04/14/2015 8:58 AM ABAP DEVELOPER documented as of this encounter Care Teams Skein Mercerizing Machine Operator Relationship Specialty Start Date End Date Gabbie Wilde MD PCP - General Family Medicine 03/27/22 James Sandoval MD PhD [address] [facility], [address] [address] PCP - Home Infusion Attending Gastroenterology 07/12/24 Sonny Galindo MD Nephrology 05/21/22 Caroline Banerjee, MARIA A Home Infusion Nursing 07/21/24 Wyatt Thayer, [facility] Pharmacist Pharmacy 08/02/24 documented as of this encounter
--- OUTSIDE RECORDS SUMMARY | 2024-08-28 15:01 | XMS_ITS ---
Author Organization [facility] Medical [facility] 2 Address [address] [facility] [place] [address] Care Team Providers Care Floor Installer Name Role Phone Gabbie Wilde MD Primary Care Provider + Sonny Galindo MD Unavailable [phone] James Sandoval MD PhD Unavailable [phone] Caroline Banerjee RN Unavailable Unavailable Wyatt Thayer [facility] Unavailable Unavaila ble Home Infusion Status:Enrolled (Active) Start date:06/26/2024 Enrollment date:06/26/2024 Related service episodes:[facility] Specialty [facility]rap[facility] - ENTYVIO 300 mg IV EVERY 8 WEEKS (Active) Overview Cutover complete. Alicia Torres, MARIA A 07/12/2024 1:09 PM Case Team Name Relationship Phone Caroline Banerjee RN(Responsible Staff) Home Infu fabricio Nursing Continued Care and Services Coordination
--- OUTSIDE RECORDS SUMMARY | 2024-08-28 15:01 | XMS_ITS | Patient Health Record ---
Author Organization [facility] Address [address] [place], [place] [id number] Care Team Providers Care Casing Tester Name Role Phone LOC CREWS MD Primary [...] Notes Problem Osteoarthrosis (715.09) Active confirmed Osteoarthrosis (958091897) Problem Crohn's disease (555.9) Active confirmed PLAN OF TREATMENT No Information Insurance Providers Payer Name Payer Address Payer Phone Subscriber Number Group Number Insured Name Patient Relationship to Insured Coverage Start Date Coverage End Date [facility] PPO - NR [address] [address] [place] [address] [id number] ESVIN LYLE Spouse - patient is the spouse of the insured 8 MEDICAL (GENERAL) HISTORY Medical History History ICD Code Bruises easily Changes in moles Migraine and tension headaches Blurred vision Ringing in ears Sinus problems Dizziness Anemia HBP Mitral valve prolapse IBS, bowel changes
--- OUTSIDE RECORDS SUMMARY | 2024-08-28 15:01 | XMS_ITS | Encounter Summary ---
Author Organization [facility] Address [address] [place] [address] Phone Care Team Providers Care Industrial Education Teacher Name Role Phone Toney Benítez Primary Care Provider [phone] Encounter Details Date Type Department Care Team (Late st Contact Info) Description 09/30/2018 [facility] Nephrology and Hypertension [address] [facility], [address] [address] Sonny Galindo MD [address] [facility] [place] [address] Social History Tobacco Use Types Packs/Day Years Used Date Smoking Tobacco: Never Smokeless Tobacco: Never Alcohol Use Standard Drinks/Week Comments Yes 0 (1 standard drink = 0.6 oz pur e alcohol) rare Comments Unknown Sex and Gender Information Value Date Recorded Sex Assigned at Not on file Legal Sex Female 8:54 AM [facility] Gender Identity Not on file Sexual Orientation Not on file documented as of this encounter Plan of Treatment Not on file documented as of this encounter Visit Diagnoses Not on filedocumented in this encounter Care Teams Industrial Education Teacher Relationship Specialty Start Date End Date Toney Benítez [address] [place] [address] PCP - General 09/20/21 documented as of this encounter
--- OUTSIDE RECORDS SUMMARY | 2024-08-28 15:01 | XMS_ITS | Encounter Summary ---
Author Organization [facility] Address [address] [place] [address] Care Team Providers Care Rn Labor And Delivery Name Role Phone Gabbie Wilde MD Primary Care Provider + Sonny Galindo MD Unavailable [phone] James Sandoval MD PhD Unavailable [phone] Caroline Banerjee RN Unavailable Unavailable Wyatt Thayer [facility] Unavailable Unavaila ble Encounter Details Date Type Department Care Team (Late st Contact Info) Description 08/12/2024 Home Infusion [facility] Home Infusion Therapy [address] [place] [address] Cadence Montenegro Crohn's disease of both small [...] on file Legal Sex Female 11:00 AM PORTFOLIO SPECIALIST Gender Identity Female 10/03/2020 3:00 PM CDT Sexual Orientation Not on file documented as of this encounter Ordered Prescriptions Prescription Sig Dispense Quantity Refills Last Filled Start Date End Date sodium chloride 0.9% flush syringeIndication s:Crohn's disease of both small and large intestine without complication (HCC) Infuse 10 mL IV as needed for line care 48978 mL 02/28/2024 02/26/19 26 diphenhydrAMINE (BENADRYL) 25 [...] Date/Time Associated Diagnosis Comments SCAN - LABS 08/12/2024 12:00 AM CDT documented in this encounter Results * SCAN - LABS (08/12/2024 12:00 AM CDT) us Provider Scanning Edited Result - Final documented in this encounter Visit Diagnoses Diagnosis Crohn's disease [...] Duplicate order 02/26/2023 08/13/2024 sodium chloride 0.9% injectionIndications:[facility] Infuse 10 mL IV as needed for line care Duplicate order 08/13/2024 documented as of this encounter Care Teams Rn Labor And Delivery Relationship Specialty Start Date End Date Gabbie Wilde MD PCP - General Family Medicine 03/27/22 James Sandoval MD PhD [address] [facility], [address] [address] PCP - Home Infusion Attending Gastroenterology 07/12/24 Sonny Galindo MD Nephrology 05/21/22 Caroline Banerjee, MARIA A Home Infusion Nursing 07/21/24 Wyatt Thayer [facility] Pharmacist Pharmacy 08/02/24 documented as of this encounter
--- OUTSIDE RECORDS SUMMARY | 2024-08-28 15:01 | XMS_ITS | Clinical Summary ---
Author Organization [facility] chacko Address [address] [place] [address] Phone Care Team Providers Care Warehouse Checker Name Role Phone Toney Benítez Primary Care Provider [phone] Allergies Active Allergy Reactions Criticality Noted Date [...] pills spread through the day 2 Active Hillister-3 Fatty Acids (Fish Oil) 1200 MG capsule [...] (09/24/2018): Added automatically from request for surgery [id number] Stage 3b chronic kidney disease 08/15/2011 Hypertensive [...] on file Legal Sex Female 8:54 AM [facility] Gender Identity Not on file Sexual Orientation [...] , 11/19/2019, 10/20/2018, Additional history exists Insurance [facility] Care Teams Warehouse Checker Relationship Specialty Start Date End Date Toney Benítez [address] [place] [address] PCP - General 09/20/21
--- OUTSIDE RECORDS SUMMARY | 2024-08-28 15:01 | XMS_ITS ---
Author Organization [facility] 2 Address [address] [place] [address] Care Team Providers Care Cloth Printer Helper Name Role Phone Gabbie Wilde MD Primary Care Provider + Sonny Galindo MD Unavailable [phone] James Sandoval MD PhD Unavailable [phone] Caroline Banerjee RN Unavailable Unavailable Wyatt Thayer [facility] Unavailable Unavaila ble [facility] Special[facility] Therapies - ENTYVIO 300 mg IV EVERY 8 WEEKS Status:Enrolled (Active) Start date:06/26/2024 Enrollment date:06/26/2024 Linked medications:vedolizumab (Active) Related program episode:Home Infusion (Active) Overview Cutover complete Case Team Name Relationship Phone Caroline Banerjee RN Home Infusion Nursing Wyatt Thayer [facility](Responsible Staff) Pharma cist Continued Care and Services Coordination This section includes services coordinated for [facility] Specialty Therapies - ENTYVIO 300 mg IV EVERY 8WEEKS. Home Medical Care Name Services Phone [facility] Home Infusion Therapy Home Infusion and Inje ction
--- OUTSIDE RECORDS SUMMARY | 2024-08-28 15:01 | XMS_ITS | Patient Health Record ---
Author Organization [facility] Address [address] [facility] [place] [address] Care Team Providers Care Ice Cream Freezer Helper Name Role Phone Chelsi Cervantes Unavailable [phone] Reason For Referral No Information Medications Medication SIG (Take, Route, Frequency, Duration) Notes Start Date End Date Status Entyvio 300 mg infuse 300 mg over 30 minute(s) by intravenous route every 8 weeks Intravenous [id number] 02 Active Multi-Vitamin take 1 tablet by [...] tablet in the morning - *Reorder from Sigmascreening for eRx and Interaction Alerts* Active Cetirizine HCl 10 MG take 1 tablet (10 mg) by oral route once daily Oral 1 Active Peppermint Oil 50 mg take 1 capsule by oral route once ORAL 1 *Pick strength-form from Sigmascreening for eRX* Active Farxiga 5 MG take [...] times a week - *Pick strength-form from [employer]mascreening for eRX* Active Losartan Potassium 25 MG take 1 tablet (25 mg) by oral route once daily Oral 1 Active Rybelsus 7 mg take 1 tablet (7 mg) by oral route once daily in the morning 30 min before any food, drink or medication with no more than 4 oz plain water oral 1 Active Cholecalciferol 1.25 MG (31719 UT) take 1 tablet by oral route once Oral 1 Active traZODone HCl 50 MG take 1 tablet (50 mg) by oral route once daily at bedtime Oral 1 Active Biotin 1,000 mcg chew 1 tablet by oral route once Oral 1 *Pick strength-form from [employer] for eRX* Active Fenofibrate 134 mg take 1 tablet in the evening oral *Pick strength-form from [employer] for eRX* Active Fish Oil Burp-Less 1200 MG take 1 capsule by oral route twice Oral 2 Active Plan Of Treatment No Information Insurance Providers Payer Name Payer Address Payer Phone Subscriber Number Group Number Insured Name Patient Relationship to Insured Coverage Start Date Coverage End Date BCBS OF [place] [address] [place] [address] [id number] Carmen Mortensen Self - patient is the insured Medical (General) History Surgical History Surgery Date(Month/Year) Hysterectomy; 2022-11-22 Arthroplasty of carpometacarpal (CMC) maryellen int of hand; 2022-11-28 sympathectomy; 2022-11-28
[2024-08-28 16:19] LABS: Hematocrit 37.2 % (37.0-47.0); Hemoglobin 11.8 g/dL (12.0-15.0); Mean Corpuscular HGB Conc 31.7 g/dl (32-36); Mean Corpuscular Hemoglobin 27.3 pg (26-34); Mean Corpuscular Volume 86.1 fl (80-100); Platelet Count Result 239 k/mm3 (150-375); Red Blood Count 4.32 M/mm3 (4.2-5.4); White Blood Count 6.5 K/mm3 (4.5-10.0)
[2024-08-28 16:57] LABS: INR 1.0; Partial Thromboplastin Time 28.3 Seconds (22.3-36.8); Prothrombin Time 13.1 Seconds (11.1-14.7)
== END 2024-08-28 14:58 | disposition home or self-care (01) ==
PROVIDERS: Anesthesiology; PCP Family Medicine; Visit Provider Family Medicine
DX: G56.00 Carpal tunnel syndrome, unspecified upper limb (principal); Z01.818 Encounter for other preprocedural examination; R79.1 Abnormal coagulation profile
CPT/HCPCS: 36415; 85027; 85610; 85730

== ENCOUNTER 2024-08-31 13:28 | Outpatient (CLI) | payer BC, MEDICARE, SELFPAY ==
--- NOTE | ~2024-08-31 | DEXA_ITS ---
Bone Density Report Name: CHRISTOPHER LOPEZ Age: 64 Sex: Female Ethnicity: White Date of : 1960 Indication: postmenopausal; screening for osteoporosis; height loss; inflammatory bowel disease; hysterectomy; Referring Provider: FRANCISCO DGUAN Study: Bone densitometry was performed. Exam Date: August 31, 2024 Accession number: [id number] Bone Density: Region BMD T-score Z-score Classification AP Spine(L1, L2, L3) 1.127 1.0 2.7 Normal Femoral Neck (Left) 0.752 -0.9 0.6 Normal Total Hip (Left) 0.896 -0.4 0.8 Normal Femoral Neck (Right) 0.720 -1.2 0.3 Osteopenia Total Hip (Right) 0.860 -0.7 0.6 Normal Total Hip Mean 0.878 -0.6 0.7 Normal World Health Organization criteria for BMD impression classify patients as: Normal (T-score at or above -1.0), Osteopenia (T-score between -1.0 and -2.5), or Osteoporosis (T-score at or below -2.5). 10-year Fracture Risk(1): Major Osteoporotic Fracture 7.7% Hip Fracture 0.7% Reported Risk Factors: [place] (), Neck BMD=0.720, BMI=22.1 (1) FRAX(R) Version 3.08. Fracture probability calculated for an untreated patient. Fracture probability may be lower if the patient has received treatment. Previous Exams: -- Region Exam Age BMD T-score BMD Change BMD Change Date g/cm2 vs Baseline vs Previous -- AP Spine (L1-L3) 08/31/2024 64 1.127 1.0 13.2%# 13.2%# 09/20/2011 51 0.996 -0.2 Total Hip(Left) 08/31/2024 64 0.896 -0.4 -1.3%# -1.3%# 09/20/2011 51 0.908 -0.3 Total Hip(Right) 08/31/2024 64 0.860 -0.7 -2.1%# -2.1%# 09/20/2011 51 0.879 -0.5 -- *Denotes significance at 95% confidence level, LSC for AP Spine = 0.022 g/cm2, LSC for Total Hip = 0.027 g/cm2 # Denotes dissimilar scan types or analysis methods Clinical Information Provided by Patient: Has used the following medications: HRT (i.e. estrogen/hormone therapy), Protelos (i.e. strontium ranelate), Prolia (i.e. denosumab), Vitamin D Has the following medical conditions: Inflammatory bowel diseases, Hysterectomy Patient maximum height was 64.5 Menopause Age: 49 No regular weight bearing exercise Drinks caffeinated beverages Onset of menses at age 9 Number of children 2 Impression: The patient has low bone mass, based on the Right Femoral Neck T-score. The patient has an estimated ten-year risk of hip fracture of 0.7% and an estimated ten-year risk of major fracture of 7.7%, based on the WHO FRAX algorithm. Unable to evaluate interval change due to the use of different scan modes. Discussion: BONE DENSITY IS LOW AT ONE OR MORE SKELETAL SITES. This patient's lowest T-score is low at one or more skeletal sites. It meets the World Health Organization's (WHO) criteria for ?low bone mass? (T-score between -1.0 and -2.5). The patient's 10-year risk of fracture as calculated by FRAX is less than the threshold where pharmacological therapy is recommended by the National Osteoporosis Foundation (NOF). However, all treatment decisions require clinical judgment and consideration of individual patient factors, including patient preferences, comorbidities, previous drug use, risk factors not captured in the FRAX model (e.g., frailty, falls, vitamin D deficiency, increased bone turnover, interval significant decline in bone density) and possible under or overestimation of fracture risk by FRAX. The patient should follow a healthful lifestyle (good nutrition with adequate calcium and vitamin D, and appropriate weight-bearing exercise). Follow-Up: Consider repeating this study in 2 to 3 years to reassess this patient's status, or sooner if there is some new clinical indication. Reported by: DONALDO on 08/31/2024 1:43:00 PM. Reviewed, dictated and finalized at location A.
== END 2024-08-31 13:29 | disposition home or self-care (01) ==
LOC: MICIMG 13:29
PROVIDERS: PCP Family Medicine; Visit Provider Family Medicine
DX: M85.851 Other specified disorders of bone density and structure, right thigh (principal); Z78.0 Asymptomatic menopausal state
CPT/HCPCS: 77080

== ENCOUNTER 2024-09-02 02:03 | Day surgery (SDC) | payer BC, MEDICARE, SELFPAY ==
[2024-08-20 14:41] VITALS: BMI 20.9
--- NOTE | 2024-08-20 14:43 | PC.NURSE ---
Report to the Outpatient Waiting Room, entrance under the green pavilion located off [address], at time _0600_ on date _[id number]_. Planned Procedure Time: _0730_.? Time changes happen often and if your time is changed the preop area will call you the afternoon before. - You and your visitor will be asked to self-screen and do not enter if you have any COVID symptoms. Please call surgeon if you need to reschedule. - A mask is optional within the hospital at this time. - No food or drink from midnight until time of surgery and no smoking, or chewing tobacco (or any form of nicotine). No chewing gum, candy or mints. Take only the following medications with a SIP of water on the morning of surgery: ___None____ DO NOT STOP ANY OF YOUR OTHER PRESCRIPTION MEDICATIONS PRIOR TO SURGERY EXCEPT THE FOLLOWING Hold all vitamins and supplements for 3 days per anesthesiologist. Medications to discontinue per physician Date to take last dose Please no make-up, nail qatari, hairspray, perfume, deodorant, or body powder the day of surgery.? No jewelry (including any body piercings) or valuables the day of surgery, leave them at home.? Please take a shower or bath the night before, or the morning of, surgery with an antibacterial soap.? Wear comfortable, loose fitting clothing.? - Jewelry must be removed prior to entering the operating room.? Rings and piercings that are not removed may be cut off. - The hospital will not accept responsibility for valuables.? - Please leave all valuables, including medications, at home the day of surgery. If you are going home after surgery, a licensed feeder driver must drive you home.? - NO public transportation without another adult if you receive anesthesia. - We recommend that an adult stay with you for 24 hours following discharge. - We also recommend that you do not drive, make important decision, drink alcoholic beverages, or take any drugs that were not prescribed by your health care provider for at least 24 hours after your discharge time. Follow any additional instructions given to you from your surgeon. Telephone instructions given to __Carmen___and asked if any additional questions and then verbalized understanding. Wiliam Nina from vascular access is aware of date and time to access port. Patient advised to call surgeon office or pre surgery nurse liaison [phone] if any additional questions.
--- OUTSIDE RECORDS SUMMARY | 2024-09-02 02:09 | XMS_ITS | Encounter Summary ---
Author Organization [facility] Address [address] [place] [address] Phone Care Team Providers Care Dredge Deckhand Name Role Phone Gabbie Wilde MD Primary Care Provider + Sonny Galindo MD Unavailable [phone] James Sandoval MD PhD Unavailable [phone] Caroline Banerjee RN Unavailable Unavailable Wyatt Thayer [facility] Unavailable Unavaila ble Reason for Visit * Reason Onset Date Comments Prior Auth 08/31/2024 Viberzi 100MG ta blets Encounter Details Date Type Department Care Team (Late st Contact Info) Description 08/31/2024 Telephone [facility] Scheduling [address] [place] [address] James Sandoval MD PhD [address] [place] [address] Prior Auth (Viberzi 100MG tablets) Social History Tobacco Use Types Packs/Day Years [...] on file 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 Gender Identity Female 10/03/2020 3:00 PM CDT Sexual Orientation Not on file documented as of this encounter Miscellaneous Notes * Telephone Encounter - Garcia Quinones RMA - 08/31/2024 1:09 PM CDT Campbell:[id number] PBM: Luisa Drug:Viberzi 100MG tablets Status: Approved Pa Valid: 08/02/24 to 09/01/25 documented in this encounter Plan of Treatment Not on file documented as of this encounter Visit Diagnoses Not on filedocumented in this encounter Care Teams Dredge Deckhand Relationship Specialty Start Date End Date Gabbie Wilde MD PCP - General Family Medicine 03/27/22 James Sandoval MD PhD [address] [facility] [place] [place] [facility], [address] [address] PCP - Home Infusion Attending Gastroenterology 07/12/24 Sonny Galindo MD Nephrology 05/21/22 Caroline Banerjee, MARIA A Home Infusion Nursing 07/21/24 Wyatt Thayer [facility] Pharmacist Pharmacy 08/02/24 documented as of this encounter
--- OUTSIDE RECORDS SUMMARY | 2024-09-02 02:09 | XMS_ITS | Encounter Summary ---
Author Organization [facility] Address [address] [place] [address] Care Team Providers Care Document Reviewer Name Role Phone Lois Amato MD Primary Care Provider [phone] Toney Benítez Primary Care Provider + Gabbie Wilde MD Primary Care Provider + Sonny Galindo MD Unavailable [phone] James Sandoval MD PhD Unavailable [phone] Caroline Banerjee RN Unavailable Unavailable Wyatt Thayer [facility] Unavailable Unavaila ble Encounter Details Date Type Department Care Team (Late st Contact Info) Description 09/02/2019 Telephone [facility] [address] [place] [address] Valeri Farnsworth MD [address] [facility] [address] [place] [address] Social History Tobacco Use Types Packs/Day Years Used Date Smoking Tobacco: Never Smokeless Tobacco: Never Alcohol Use Standard Drinks/Week Comments Yes 0 (1 standard drink = 0.6 oz pure alcohol) 1 glass wine maybe once a month Comments No Sex and Gender Information Value Date Recorded Sex Assigned at Not on file 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 difficile Comment:Chronic diarrhea from IBS. Last CDI test 01/01/22 is neg. 04/14/2015 04/14/2015 4 8:58 AM TOOL AND DIE SUPERVISOR documented as of this encounter Care Teams Document Reviewer Relationship Specialty Start Date End Date Lois Amato MD [address] [place] [address] PCP - General 03/12/12 09/28/21 Toney Benítez PA [address] [place] [address] PCP - General Physician Checkering Machine Operator 09/29/21 03/26/22 Gabbie Wilde MD [address] [place] [address] PCP - General Family Medicine 03/27/22 James Sandoval MD PhD [address] [facility], [address] [address] PCP - Home Infusion Attending Gastroenterology 07/12/24 Sonny Galindo MD [address] [place] [address] Nephrology 05/21/22 Caroline Banerjee, MARIA A Home Infusion Nursing 07/21/24 Wyatt Thayer, [facility] Pharmacist Pharmacy 08/02/24 documented as of this encounter
--- OUTSIDE RECORDS SUMMARY | 2024-09-02 02:09 | XMS_ITS | Encounter Summary ---
Author Organization [facility] Address [address] [place] [address] Phone Care Team Providers Care Recordist Name Role Phone Gabbie Wilde MD Primary Care Provider + Sonny Galindo MD Unavailable [phone] James Sandoval MD PhD Unavailable [phone] Caroline Banerjee RN Unavailable Unavailable Wyatt Thayer [facility] Unavailable Unavaila ble Encounter Details Date Type Department Care Team (Latest Contact Info) Description 08/29/2024 Results Follow-Up [facility] Gastroenterology [address] [facility] [address] [place] [address] James Sandoval MD PhD [address] [place], [place] [id number] Comprehensive metabolic panel, without glucose (Outreach), Glucose, random (Outreach), CBC with auto differential, Additional followed-up results: 5 Social History Tobacco Use Types Packs/Day Years [...] on file Legal Sex Female 11:00 AM PHARMACIST CRITICAL CARE Gender Identity Female 10/03/2020 3:00 PM CDT Sexual Orientation Not on file documented as of this encounter Plan of Treatment Not on file documented as of this encounter Visit Diagnoses Not on filedocumented in this encounter Care Teams Recordist Relationship Specialty Start Date End Date Gabbie Wilde MD PCP - General Family Medicine 03/27/22 James Sandoval MD PhD [address] [facility] [address] PCP - Home Infusion Attending Gastroenterology 07/12/24 Sonny Galindo MD Nephrology 05/21/22 Caroline Banerjee, MARIA A Home Infusion Nursing 07/21/24 Wyatt Thayer, [facility] Pharmacist Pharmacy 08/02/24 documented as of this encounter
--- OUTSIDE RECORDS SUMMARY | 2024-09-02 02:09 | XMS_ITS | Encounter Summary ---
Author Organization 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 Gender Identity Female 10/03/2020 3:00 PM CDT Sexual Orientation Not on file documented as of this encounter Plan of Treatment Not on file documented as of this encounter Procedures Procedure Name Priority Date/Time Associated Diagnosis Comments GI - RESULT 01/10/2024 3:47 PM INSERT CUTTER documented in this encounter Results * GI - RESULT (01/10/2024 3:47 PM INSERT CUTTER) Anatomical Region Laterality Modality Other us Provider Scanning Final Result documented in this encounter Visit Diagnoses Not on filedocumented in this encounter Additional Health Concerns Infection Onset Date Last Indicated Resolved Time C. difficile Comment:Chronic diarrhea from IBS. Last CDI test 01/01/22 is neg. 04/14/2015 04/14/2015 8:58 AM INSERT CUTTER documented as of this encounter Care Teams Soybean Grower Relationship Specialty Start Date End Date Gabbie Wilde MD PCP - General Family Medicine 03/27/22 James Sandoval MD PhD [address] [facility], [address] [address] PCP - Home Infusion Attending Gastroenterology 07/12/24 Sonny Galindo MD Nephrology 05/21/22 Caroline Banerjee, MARIA A Home Infusion Nursing 07/21/24 Wyatt Thayer, [facility] Pharmacist Pharmacy 08/02/24 documented as of this encounter
--- OUTSIDE RECORDS SUMMARY | 2024-09-02 02:09 | XMS_ITS | Patient Health Record ---
Author Organization [facility] Address [address] [place], [place] [address] Support Name Relationship Address Phone CHRISTOPHER KNIGHT [...] Insured Coverage Start Date Coverage End Date [facility] PPO - NR [address] [address] [place] [id number] CHRISTOPHER JASON Self - patient is the insured 6
--- OUTSIDE RECORDS SUMMARY | 2024-09-02 02:10 | XMS_ITS | Referral Summary ---
Author Organization [facility] Medical [facility]ly [facility] 2 Address [address] [place] [address] Care Team Providers Care Papeterie Table Assembler Name Role Phone Gabbie Wilde MD Primary Care Provider + Sonny Galindo MD Unavailable [phone] James Sandoval MD PhD Unavailable [phone] Caroline Banerjee RN Unavailable Unavailable Wyatt Thayer [facility] Unavailable Unavaila ble Encounters Date Type Department Care Team Description 08/31/2024 Telephone [facility] Scheduling [address] [place] [address] James Sandoval MD PhD Prior Auth (Viberzi 100MG tablets) 08/29/2024 Results Follow-Up [facility] Gastroenterology [address] [facility] [address] [place] [address] James Sandoval MD PhD Comprehensive metabolic panel, without glucose (Outreach), Glucose, random (Outreach), CBC with auto differential, Additional followed-up results: 5 08/25/2024 11:40 AM CDT - 08/25/2024 11:59 PM CDT Hospital Encounter [address] [address] Discharge Disposition: Discharge to home or self care 08/17/2024 Orders Only [facility] Gastroenterology [address] [facility] 12th [place] [address] [place] [address] Angelique Cabral, [facility] 08/17/2024 Orders Only [facility] Gastroenterology [address] [facility] [address] [place] [address] [place] [address] Michelle Gutierrez, MARIA A Crohn's disease of both small and large intestine without complication (HCC) (Primary Dx); High risk medications (not anticoagulants) long-term use; Routine health maintenance 08/12/2024 Home Infusion [facility] Home Infusion Therapy [address] [place] [address] Cadence Montenegro Crohn's disease of both small and large intestine without complication (HCC) (Primary Dx) 07/25/2024 Home Care Visit [facility] [address] [address] [address] [place] [id number] Miladys Mcneil RN SN DISCIPLINE DISCHARGE 07/09/2024 Home Infusion [facility] Home Infusion Therapy [address] [place] [address] Miladys Londono RN 07/08/2024 11:20 AM CDT Office Visit [facility] Rheumatology [address] [facility] [address] 5th [place] [address] [place] [id number] Billie Noyola MD Crohn's disease of both small and large intestine without complication (HCC) (Primary Dx); Sicca, unspecified type 07/03/2024 [facility]phone [facility] [address] [facility] [address] [place] [phone] Anne-Marie Richardson MA 07/02/[address] [facility] [address] [facility] [address] [place] [address] [place] [phone] Deepika Arthur CMA 07/01/2024 1:30 PM CDT Office [facility] [address] [facility] [address] [place] [phone] Radha Tompkins NP Atypical facial pain (Primary Dx); Intractable migraine without aura and without status migrainosus 06/30/2024 11:00 AM CDT Home Care Visit [address] [place] [address] Caroline Banerjee RN SN INFUSION TREATMENT ROOM 06/05/2024 10:45 AM CDT Office Visit [facility] Gastroenterology [address] [facility] [address] [place] [address] [place] [address] James Sandoval MD PhD Crohn's disease of [...] gauge miscIndications:D iabetes Mellitus 07/30/19 22 Active qospi-5-mhf-epa-d pa-fish oil 1,050-1,200 mg capsuleIndication s:hypertriglyceri demia 1 capsule Active oxybutynin XL (DITROPAN-XL) 10 mg 24 hr tabletIndications :Bladder Hyperactivity Take 3 tablets (30 mg total) by mouth daily Changed to 30mg q day 03/15/19 23 Active semaglutide (Rybelsus) 7 mg tabletIndications :type 2 diabetes mellitus Take 1 tablet (7 mg total) by mouth daily Active heparin sod,porcine/0.9 % NaCl (HEPARIN FLUSH IV)Indications:[facility] Infuse 5 mL into a venous catheter [...] 18 per month.) 8 tablet 3 07/03/19 026 Active traZODone (DESYREL) 100 mg tablet [...] mL IV as needed for line care 94137 mL 02/27/19 25 026 Active eluxadoline (Viberzi) [...] (04/15/2018): Added automatically from request for surgery [id number] Abnormal mammogram 02/10/2018 Resolved Problems Problem Noted Date Diagnosed Date Resolved Date Trigeminal neuralgia 03/11/2024 025 Assessment & Plan (03/11/2024 3:13 PM HEAD SULFIDE OPERATOR): She complains of residual pain in the [...] (08/05/2022): Added automatically from request for surgery [id number] Immunizations Immunization Administration Dates Next Due Influenza [...] on file Legal Sex Female 11:00 AM HEAD SULFIDE OPERATOR Gender Identity Female 10/03/2020 3:00 PM [...] on file Medical Devices Implanted Type Area Transfer Machine Operator Device Identifier Shelf Expiration Date Model / Serial / Lot [employer] Xcela Power Port 8fr [id number] - [id number] Implanted:Qty: 1 on 03/05/2023 by Quang Cid MD at [facility] [employer] 10/22/2027 [id number] / / [id number] Procedures Procedure Name Priority Date/Time Associated Diagnosis [...] Read Routine (OP Routine) 04/15/2024 12:09 PM HEAD SULFIDE OPERATOR Fibrocystic breast changes of both breasts HEMOGLOBIN A1C Routine 03/10/2024 10:10 AM HEAD SULFIDE OPERATOR ALBUMIN CREATININE RATIO, URINE Routine 03/10/2024 10:10 AM HEAD SULFIDE OPERATOR COLONOSCOPY 12/11/2022 12:11 PM CDT HEPATITIS C [...] test. T-SPOT.TB Panel A Spot Count 1 [facility] T-SPOT.TB Panel B Spot Count 0 [facility] T-SPOT.TB Negative Control Passed [facility] T-SPOT.TB Positive Control Passed [facility] Comment: Test Performed at: [facility], [facility] [address] [place] [phone] MIRA RUIZ,PHD Blood 08/25/2024 11:4 0 AM CDT 08/25/2024 5:29 PM CDT us James Sandoval MD PhD LAB MICROBIOLOGY - GENERA L ORDERABLES Final Result [facility] Department [place] [address] * Glucose, random (Outreach) (08/25/2024 11:40 AM [...] LAB BLOOD ORDERABLES Sylvia l Result [facility] [place] [address] * (ABNORMAL) eGFR (08/25/2024 11:40 AM CDT) Pathologist [facility] eGFR 39(L) >=60 mL/min/1. 73 m2 Comment: [...] LAB BLOOD ORDERABLES Sylvia brown Result [facility] [place] [address] * Differential, auto (08/25/2024 11:40 AM CDT) Neutrophil abs 5.29 1.50 - 6.50 K/cumm Imm gran abs 0.02 0.00 - 0.10 K/cumm [facility] Lymphocyte abs 1.26 0.80 - 3.30 K/cumm [facility] Monocyte abs 0.35 0.20 - 0.80 K/cumm [facility] Eosinophil abs 0.11 0.00 - 0.50 K/cumm [facility] Basophil abs 0.03 0.00 - 0.10 K/cumm [facility] Neutrophil pct 74.9 % [facility] Comment: Interpretive Data Percent cell count reference ranges are not reported, since discordance with absolute values may lead to misinterpretation of CBC data. Current Interpretive Data was last revised on 2017. Imm gran pct 0.3 % [facility] Comment: Interpretive Data Percent cell count reference ranges are not reported, since discordance with absolute values may lead to misinterpretation of CBC data. Current Interpretive Data was last revised on 2017. Lymphocyte pct 17.8 % [facility] Comment: Interpretive Data Percent cell count reference ranges are not reported, since discordance with absolute values may lead to misinterpretation of CBC data. Current Interpretive Data was last revised on 2017. Monocyte pct 5.0 % [facility] Comment: Interpretive Data Percent cell count reference ranges are not reported, since discordance with absolute values may lead to misinterpretation of CBC data. Current Interpretive Data was last revised on 2017. Eosinophil pct 1.6 % [facility] Comment: Interpretive Data Percent cell count reference ranges are not reported, since discordance with absolute values may lead to misinterpretation of CBC data. Current Interpretive Data was last revised on 2017. Basophil pct 0.4 % [facility] Comment: Interpretive Data Percent cell count reference ranges are not reported, since discordance with absolute values may lead to misinterpretation of CBC data. Current Interpretive Data was last revised on 2017. Blood 08/25/2024 11:4 0 AM CDT 08/25/2024 2:52 PM CDT James Sandoval MD PhD LAB BLOOD ORDERABLES Sylvia l Result Performing Organization Address City/[facility]/ZIP Co de Phone Number [facility] [place] [address] * (ABNORMAL) Comprehensive metabolic panel, without glucose (Outreach) (08/25/2024 11:40 AM CDT) Pathologist [facility] Sodium 140 135 - 145 mmol/L Potassium, pl 4.0 3.3 - 4.9 mmol/L [facility] Chloride 101 97 - 110 mmol/L [facility] CO2 29 22 - 32 mmol/L [facility] Anion gap 10 2 - 15 mmol/L [facility] BUN 22 6 - 25 mg/dL [facility] Creatinine 1.47(H) 0.60 - 1.10 mg/dL [facility] Calcium 9.1 8.5 - 10.3 mg/dL [facility] Protein, pl 7.6 6.5 - 8.5 g/dL [facility] Albumin 4.1 3.5 - 5.0 g/dL [facility] Bilirubin, total 0.2 0.1 - 1.2 mg/dL [facility] Alk phos 68 40 - 130 Units/L [facility] AST 19 10 - 45 Units/L [facility] ALT 10 7 - 45 Units/L [facility] Blood 08/25/2024 11:4 0 AM CDT 08/25/2024 2:52 PM CDT James Sandoval MD PhD LAB BLOOD ORDERABLES Sylvia l Result Performing Organization Address City/[facility]/ZIP Co de Phone Number [facility] Department [place] [address] * (ABNORMAL) CBC with auto differential (08/25/2024 11:40 AM CDT) [facility] WBC 7.06 3.80 - 9.90 K/cumm Hgb 12.3 11.9 - 15.5 g/dL [facility] Hct 38.8 35.6 - 45.5 % [facility] Plt 225 150 - 400 K/cumm [facility] MPV 11.7 9.1 - 12.3 fL [facility] RBC 4.50 3.90 - 5.20 M/cumm [facility] MCV 86.2 81.3 - 96.4 fL [facility] MCH 27.3 27.1 - 33.3 pg [facility] MCHC 31.7(L) 32.3 - 35.7 g/dL [facility] RDW CV 14.6 11.1 - 14.9 % [facility] RDW SD 45.6 35.7 - 48.1 fL [facility] NRBC abs 0.00 0.00 - 0.01 K/cumm [facility] Blood 08/25/2024 11:4 0 AM CDT 08/25/2024 2:52 PM CDT James Sandoval MD PhD LAB BLOOD ORDERABLES Sylvia l Result Performing Organization Address City/[facility]/ZIP Co de Phone Number [facility] [place] [address] * Hepatitis B Surface Antigen Blood (08/25/2024 11:40 AM CDT) [facility] HepBsAg Nonreactive Nonreactive Blood 08/25/2024 11:4 0 AM CDT 08/25/2024 2:52 PM CDT James Sandoval MD PhD LAB MICROBIOLOGY - GENERA L ORDERABLES Final Result Performing Organization Address City/[facility]/ZIP Co de Phone Number [facility] [place] [address] * CRP (acute phase) (08/25/2024 11:40 AM CDT) CRP 8.8 <=10.0 mg/L Blood 08/25/2024 11:4 0 AM CDT 08/25/2024 2:52 PM CDT James Sandoval MD PhD LAB BLOOD ORDERABLES Sylvia l Result [facility] [place] [address] * SCAN - LABS (08/12/2024 12:00 AM CDT) us Provider Scanning Edited Result - Final * Screening Mammogram Bilateral W Shahzad (04/15/2024 12:09 PM HEAD SULFIDE OPERATOR) Anatomical Region Laterality Modality Breast Bilateral Mammography Narrative 04/16/2024 10:39 AM HEAD SULFIDE OPERATOR Mammogram Technique: Bilateral Digital Breast Tomosynthesis, Bilateral C-view 2D Screening mammogram. Views obtained: bilateral craniocaudal and bilateral mediolateral oblique. Computer Aided Detection was performed. Mammogram Findings: The present examination has been compared to prior imaging studies performed at [facility] on 03/22/2021, 03/27/2022 and 04/09/2023. The breasts [...] compared to prior imaging studies performed at [facility] on 03/22/2021, 03/27/2022 and 04/09/2023. The breasts [...] Albumin Creatinine Ratio, Urine (03/10/2024 10:10 AM HEAD SULFIDE OPERATOR) Pathologist [facility] Albumin Ur 17.5 mg/L Comment: Interpretive Data No reference range established. Current interpretive data was last revised 2018. Creatinine Ur 51.5 mg/dL [facility] Comment: Interpretive Data No reference range established. Current interpretive data was last revised 2018. Albumin Creatinine Ratio, Ur 35(H) 1 - 29 mg/g [facility] Urine 03/10/2024 10:1 0 AM HEAD SULFIDE OPERATOR 03/10/2024 3:25 PM HEAD SULFIDE OPERATOR Sonny Galindo MD LAB URINE ORDERABLES Final R esult [facility] [place] [address] * Hemoglobin A1c (03/10/2024 10:10 AM HEAD SULFIDE OPERATOR) Hgb A1C 5.3 4.0 - 5.6 % Estimated Average Glucose 105 mg/dL [facility] Comment: The ADA recommends reporting an estimated Average Glucose (eAG) with all Hemoglobin A1c results using the equation derived from a study of 507 normal and diabetic adults. Minority populations were underrepresented and children were not included. (Diabetes Care 2020; 43(S1): S66-S76). The eAG is not equivalent to a fasting glucose. Blood 03/10/2024 10:1 0 AM HEAD SULFIDE OPERATOR 03/10/2024 2:39 PM HEAD SULFIDE OPERATOR us Sonny Galindo MD LAB BLOOD ORDERABLES Final R esult [facility] [place] [address] * COLONOSCOPY (12/11/2022 12:11 PM CDT) Anatomical Region Laterality Modality Other Narrative Procedure Note James Sandoval MD PhD - 12/11/2022 12:11 PM CDT ENDOSCOPY LAB Patient Name: Carmen Rosado Procedure Date: 12/11/2022 12:11PM Date of : 1960 Admit Type: Outpatient Age: 62 Gender: Female Attending MD: James Sandoval MD,PHD Room: [facility] ENDOSCOPY ROOM 05 Note Status: Finalized [...] The scope was passed under direct vision.The [id number] was introduced through the anusand advanced to [...] - GENERAL ORDER REJI Final Result [facility] [address] Department [place] [address] * BONE MINERAL DENSITY (06/20/2015) Anatomical Region Laterality Modality Radiographic Suzette ging Narrative 06/20/2015 Ordered by an unspecified provider. Historical Provider IMG DXA PROCEDURES Final Result from Last 3 Months or Most Recently Relevant to Health Maintenance Insurance [facility] [place] [address] [facility] [place] [address] [facility] ENTYVIO CONNECT COPAY ASSIST MEDICAL MEDICARE Advance Directives For more information, please contact: [phone] * Full Code (Latest Code Status on [...] 9:50 AM 05/27/2018 4:39 PM Care Teams Papeterie Table Assembler Relationship Specialty Start Date End Date Gabbie Wilde MD PCP - General Family Medicine 03/27/22 James Sandoval MD PhD [address] [facility] GASTROENTEROLOGY, [address] [address] PCP - Home Infusion Attending Gastroenterology 07/12/24 Sonny Galindo MD Nephrology 05/21/22 Caroline Banerjee, MARIA A Home Infusion Nursing 07/21/24 Wyatt Thayer, [facility] Pharmacist Pharmacy 08/02/24
--- OUTSIDE RECORDS SUMMARY | 2024-09-02 02:10 | XMS_ITS | Encounter Summary ---
Author Organization [facility] Address [address] [place] [address] Phone Care Team Providers Care Dump Motorman Name Role Phone Gabbie Wilde MD Primary Care Provider + Sonny Galindo MD Unavailable [phone] James Sandoval MD PhD Unavailable [phone] Caroline Banerjee RN Unavailable Unavailable Wyatt Thayer [facility] Unavailable Unavaila ble Encounter Details [...] on file Legal Sex Female 11:00 AM RESIDENTIAL MONITOR Gender Identity Female 10/03/2020 3:00 PM CDT [...] 01/01/22 is neg. 04/14/2015 04/14/2015 8:58 AM RESIDENTIAL MONITOR documented as of this encounter Care Teams Dump Motorman Relationship Specialty Start Date End Date Gabbie Wilde MD PCP - General Family Medicine 03/27/22 James Sandoval MD PhD [address] [facility] GASTROENTEROLOGY, [address] [address] PCP - Home Infusion Attending Gastroenterology 07/12/24 Sonny Galindo MD Nephrology 05/21/22 Caroline Banerjee, MARIA A Home Infusion Nursing 07/21/24 Wyatt Thayer, [facility] Pharmacist Pharmacy 08/02/24 documented as of this encounter
--- OUTSIDE RECORDS SUMMARY | 2024-09-02 02:10 | XMS_ITS ---
Author Organization [facility] Medical [facility] 2 Address [address] [facility] [place] [address] Care Team Providers Care R Programmer Name Role Phone Gabbie Wilde MD Primary Care Provider + Sonny Galindo MD Unavailable [phone] James Sandoval MD PhD Unavailable [phone] Caroline Banerjee RN Unavailable Unavailable Wyatt Thayer [facility] Unavailable Unavaila ble [facility] Specialty Therapies - ENTYVIO 300 mg IV EVERY 8 WEEKS Status:Enrolled (Active) Start date:06/26/2024 Enrollment date:06/26/2024 Linked medications:vedolizumab (Active) Related program episode:Home Infusion (Active) Overview Cutover complete Case Team Name Relationship Phone Caroline Banerjee RN Home Infusion Nursing Wyatt Thayer [facility](Responsible Staff) Pharma cist Continued Care and Services Coordination This section includes services coordinated for [facility] Specialty Therapies - ENTYVIO 300 mg IV EVERY 8WEEKS. Home Medical Care Name Services Phone [facility] Home Infusion Therapy Home Infusion and Inje ction
--- OUTSIDE RECORDS SUMMARY | 2024-09-02 02:10 | XMS_ITS ---
Author Organization [facility] Medical [facility] 2 Address [address] [facility] [place] [address] Care Team Providers Care Transcribing Operator Head Name Role Phone Gabbie Wilde MD Primary Care Provider + Sonny Galindo MD Unavailable [phone] James Sandoavl MD PhD Unavailable [phone] Caroline Banerjee RN Unavailable Unavailable Wyatt Thayer [facility] Unavailable Unavaila ble Home Infusion Status:Enrolled (Active) Start date:06/26/2024 Enrollment date:06/26/2024 Related service episodes:[facility] Specialty Therapies - ENTYVIO 300 mg IV EVERY 8 WEEKS (Active) Overview Cutover complete. Alicia Torres, MARIA A 07/12/2024 1:09 PM Case Team Name Relationship Phone Caroline Banerjee RN(Responsible Staff) Home Infu fabricio Nursing Continued Care and Services Coordination
--- OUTSIDE RECORDS SUMMARY | 2024-09-02 02:10 | XMS_ITS | Encounter Summary ---
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 04/14/2015 04/14/2015 8:58 AM ASBESTOS TEXTILE SUPERVISOR documented as of this encounter Care Teams Hollow Core Door Frame Assembler Relationship Specialty Start Date End Date Gabbie Wilde MD PCP - General Family Medicine 03/27/22 James Sandoval MD PhD [address] [facility] GASTROENTEROLOGY, [address] [address] PCP - Home Infusion Attending Gastroenterology 07/12/24 Sonny Galindo MD Nephrology 05/21/22 Caroline Banerjee, MARIA A Home Infusion Nursing 07/21/24 Wyatt Thayer, [facility] Pharmacist Pharmacy 08/02/24 documented as of this encounter
--- OUTSIDE RECORDS SUMMARY | 2024-09-02 02:10 | XMS_ITS | Clinical Summary ---
Author Organization [facility] Address [address] [facility] [place] [address] Care Team Providers Care Train Operator Name Role Phone Gabbei Wilde MD Primary Care Provider + Sonny Galindo MD Unavailable [phone] James Sandoval MD PhD Unavailable [phone] Caroline Banerjee RN Unavailable Unavailable Wyatt Thayer [facility] Unavailable Unavaila ble Allergies Active Allergy Reactions [...] gauge miscIndications:D iabetes Mellitus 07/30/19 22 Active knabg-9-lvz-epa-d pa-fish oil 1,050-1,200 mg capsuleIndication s:hypertriglyceri demia [...] mL IV as needed for line care 09423 mL 02/27/19 25 026 Active eluxadoline (Viberzi) [...] (04/15/2018): Added automatically from request for surgery [id number] Abnormal mammogram 02/10/2018 Resolved Problems Problem Noted Date Diagnosed Date Resolved Date Trigeminal neuralgia 03/11/2024 025 Assessment & Plan (03/11/2024 3:13 PM HR CONSULTANT): She complains of residual pain in the [...] (08/05/2022): Added automatically from request for surgery [id number] Encounters Date Type Department Care Team Description 08/31/2024 Telephone [facility] Scheduling [address] [place] [address] James Sandoval MD PhD Prior Auth (Viberzi 100MG tablets) 08/29/2024 Results Follow-Up [facility] Gastroenterology [address] [facility] [address] [place] [address] James Sandoval MD PhD Comprehensive metabolic panel, without glucose (Outreach), Glucose, random (Outreach), CBC with auto differential, Additional followed-up results: 5 08/25/2024 11:40 AM CDT - 08/25/2024 11:59 PM CDT Hospital Encounter [facility] [address] [place] [address] Discharge Disposition: Discharge to home or self care 08/17/2024 Orders Only [facility] Gastroenterology [address] [facility] 12th [place] [address] Angelique Cabral vp transportation 08/17/2024 Orders Only [facility] Gastroenterology [address] [facility] 12th [place] [address] Michelle Gutierrez RN Crohn's disease of both small and large intestine without complication (HCC) (Primary Dx); High risk medications (not anticoagulants) long-term use; Routine health maintenance 08/12/[address] [facility] Home Infusion Therapy [address] [place] [address] Cadence Montenegro Crohn's disease of both small and large intestine without complication (HCC) (Primary Dx) 07/25/2024 Home Care Visit [facility] [place] [address] [address] [place] [address] Miladys Mcneil RN SN DISCIPLINE DISCHARGE 07/09/[address] [facility] Home Infusion Therapy [address] [place] [address] Miladys Londono RN 07/08/2024 11:20 AM CDT Office Visit [facility] Rheumatology [address] [facility] 5th Floor [address] [place] [phone] Billie Noyola MD Crohn's disease of both small and large intestine without complication (HCC) (Primary Dx); Sicca, unspecified type 07/03/2024 [facility] [address] [facility] [address] [place] [address] Anne-Marie Richardson MA 07/02/2024 Telephone [facility] - [facility] ENT [address] [facility] 11th [place] [address] Deepika Arthur CMA 07/01/2024 1:30 PM CDT Office Visit [facility] [address] [facility] [address] [place] [address] Radha Tompkins NP Atypical facial pain (Primary Dx); Intractable migraine without aura and without status migrainosus 06/30/2024 11:00 AM CDT Home Care Visit [address] [place] [id number] Caroline Banerjee RN SN INFUSION TREATMENT ROOM 06/05/2024 10:45 AM CDT Office Visit [facility] Gastroenterology [address] [facility] 12th [place] [address] James Sandoval MD PhD Crohn's disease of [...] Intramuscular 11/27/2017 Influenza, Trivalent, IM (MDV) 11/18/2020,2019,10/20/2018 [employer] SARS-CoV-2 Monovalent Vaccination (12+ Yrs) PURPLE 11/25/2020,05/08/2020,04/17/2020 [...] Bladder Surgery - (Added by TW Conv) UT EXC CYST/ABERRANT BREAST TISSUE OPEN LESION Breast Surgery Lumpectomy - (Added by TW Conv) UT NEUROPLASTY &/TRANSPOS MEDIAN NRV CARPAL TUNNE Neuroplasty Decompression Median Nerve At Carpal Tunnel - (Added by TW Conv) ANAL FISSURECTOMY Anal Fissurectomy - (Added by TW Conv) KNEE SURGERY Knee Surgery - (Added by TW Conv) UT NEURP MAJOR PRPH NRV ARM/LEG OPN OTH/THN SPEC Neuroplasty Ulnar Nerve - (Added by TW Conv) CENTRAL VENOUS CATHETER INSERTION Central IV Line Type Port-A-Cath - (Added by TW Conv) SPINAL CORD STIMULATOR IMPLANT Spinal Surgery Neurostimulator Implants - (Added by TW Conv) UT TOTAL ABDOMINAL HYSTERECT W/WO RMVL TUBE OVARY [...] Sinusitis 2022 Plantar fasciitis Trigger finger Cataract 2018 Pneumonia 1995 Fatigue 2007 Allergic rhinitis Tinnitus HL (hearing loss) Recurrent upper respiratory infection (URI) Menstrual problem 1970 Low back pain 2008 Frozen shoulder Anxiety Autoimmune disease Crohns and CKD Heart murmur 1986 Migraines 1992 Sleep difficulties Family History Medical [...] Slover Vision loss Father's Sister 2 Bianka Bob COPD Maternal Grandfather Tato Isha Alzheimer's disease Maternal Grandmother Durga Avina ch Memory loss Maternal Grandmother Durga [place]ale Arthritis Mother Rahel Page Cancer Mother Rahel Page Hypertension Mother Rahel Page Alcohol abuse Mother's Brother Eduardo Vieira Lung cancer Mother's Brother Eduardo Vieira Alcohol abuse Paternal Grandfather Jaylan Page Mental illness Paternal Grandmother Jocy Page Relation Name Status Comments Brother Lev Page Alive Daughter Genesis Arroyo Alive Father Freeman Page Father's Brother Ki Page Alive Father's Sister 1 Jesica Gottlieb Father's Sister 2 Bianka Rojas Alive Maternal Grandfather Tato Vieira Alive Maternal Grandmother Durga Vieira Alive Mother [...] on file Legal Sex Female 11:00 AM HR CONSULTANT Gender Identity Female 10/03/2020 3:00 PM [...] Completed 08/25/2024 Medical Devices Implanted Type Area Gang Punch Operator Device Identifier Shelf Expiration Date Model / Serial / Lot [employer] Xcela Power Port 8fr [id number] - [id number] Implanted:Qty: 1 on 03/05/2023 by Quang Cid MD at [facility] [employer] 10/22/2027 [id number] / / [id number] Procedures Procedure Name Priority Date/Time Associated Diagnosis [...] Read Routine (OP Routine) 04/15/2024 12:09 PM HR CONSULTANT Fibrocystic breast changes of both breasts HEMOGLOBIN A1C Routine 03/10/2024 10:10 AM HR CONSULTANT ALBUMIN CREATININE RATIO, URINE Routine 03/10/2024 10:10 AM HR CONSULTANT COLONOSCOPY 12/11/2022 12:11 PM CDT HEPATITIS C ANTIBODY Routine 11/28/2022 4:12 PM CDT BONE MINERAL DENSITY 06/20/2015 from Last 3 Months or Most Recently Relevant to Health Maintenance Results * T-SPOT.TB Blood (08/25/2024 11:40 AM CDT) [facility] T-SPOT.TB Negative SeeBelow Comment: Normal Value: Negative [...] T-SPOT.TB Panel A Spot Count 1 [facility] T-SPOT.TB Panel B Spot Count 0 [facility] T-SPOT.TB Negative Control Passed [facility] T-SPOT.TB Positive Control Passed [facility] Comment: Test Performed at: [facility], [place] [address] MIRA RUIZ,PHD Blood 08/25/2024 11:4 0 AM CDT 08/25/2024 5:29 PM CDT us James Sandoval MD PhD LAB MICROBIOLOGY - GENERA L ORDERABLES Final Result [facility] [address] [facility] Department [place] [address] * Glucose, random (Outreach) (08/25/2024 11:40 AM [...] PhD LAB BLOOD ORDERABLES Sylvia l Result [facility] [address] [facility] [place] [address] * (ABNORMAL) eGFR (08/25/2024 11:40 AM CDT) [...] PhD LAB BLOOD ORDERABLES Sylvia brown Result [facility] [address] [facility] [place] [address] * Differential, auto (08/25/2024 11:40 AM CDT) Neutrophil abs 5.29 1.50 - 6.50 K/cumm Imm gran abs 0.02 0.00 - 0.10 K/cumm [facility] Lymphocyte abs 1.26 0.80 - 3.30 K/cumm [facility] Monocyte abs 0.35 0.20 - 0.80 K/cumm [facility] Eosinophil abs 0.11 0.00 - 0.50 K/cumm [facility] Basophil abs 0.03 0.00 - 0.10 K/cumm [facility] Neutrophil pct 74.9 % [facility] Comment: Interpretive Data Percent cell count reference ranges are not reported, since discordance with absolute values may lead to misinterpretation of CBC data. Current Interpretive Data was last revised on 2017. Imm gran pct 0.3 % [facility] Comment: Interpretive Data Percent cell count reference ranges are not reported, since discordance with absolute values may lead to misinterpretation of CBC data. Current Interpretive Data was last revised on 2017. Lymphocyte pct 17.8 % [facility] Comment: Interpretive Data Percent cell count reference ranges are not reported, since discordance with absolute values may lead to misinterpretation of CBC data. Current Interpretive Data was last revised on 2017. Monocyte pct 5.0 % [facility] Comment: Interpretive Data Percent cell count reference ranges are not reported, since discordance with absolute values may lead to misinterpretation of CBC data. Current Interpretive Data was last revised on 2017. Eosinophil pct 1.6 % [facility] Comment: Interpretive Data Percent cell count reference ranges are not reported, since discordance with absolute values may lead to misinterpretation of CBC data. Current Interpretive Data was last revised on 2017. Basophil pct 0.4 % [facility] Comment: Interpretive Data Percent cell count reference ranges are not reported, since discordance with absolute values may lead to misinterpretation of CBC data. Current Interpretive Data was last revised on 2017. Blood 08/25/2024 11:4 0 AM CDT 08/25/2024 2:52 PM CDT James Sandoval MD PhD LAB BLOOD ORDERABLES Sylvia brown Result [facility] [address] [facility] [place] [address] * (ABNORMAL) Comprehensive metabolic panel, without glucose (Outreach) (08/25/2024 11:40 AM CDT) Sodium 140 135 - 145 mmol/L Potassium, pl 4.0 3.3 - 4.9 mmol/L [facility] Chloride 101 97 - 110 mmol/L [facility] CO2 29 22 - 32 mmol/L [facility] Anion gap 10 2 - 15 mmol/L [facility] BUN 22 6 - 25 mg/dL [facility] Creatinine 1.47(H) 0.60 - 1.10 mg/dL [facility] Calcium 9.1 8.5 - 10.3 mg/dL [facility] Protein, pl 7.6 6.5 - 8.5 g/dL [facility] Albumin 4.1 3.5 - 5.0 g/dL [facility] Bilirubin, total 0.2 0.1 - 1.2 mg/dL [facility] Alk phos 68 40 - 130 Units/L [facility] AST 19 10 - 45 Units/L [facility] ALT 10 7 - 45 Units/L [facility] Blood 08/25/2024 11:4 0 AM CDT 08/25/2024 2:52 PM CDT James Sandoval MD PhD LAB BLOOD ORDERABLES Sylvia l Result Performing Organization Address [facility] Co de Phone Number [facility] [employer] [place] [address] * (ABNORMAL) CBC with auto differential (08/25/2024 11:40 AM CDT) Pathologist [facility] WBC 7.06 3.80 - 9.90 K/cumm Hgb 12.3 11.9 - 15.5 g/dL [facility] Hct 38.8 35.6 - 45.5 % [facility] Plt 225 150 - 400 K/cumm [facility] MPV 11.7 9.1 - 12.3 fL [facility] RBC 4.50 3.90 - 5.20 M/cumm [facility] MCV 86.2 81.3 - 96.4 fL [facility] MCH 27.3 27.1 - 33.3 pg [facility] MCHC 31.7(L) 32.3 - 35.7 g/dL [facility] RDW CV 14.6 11.1 - 14.9 % [facility] RDW SD 45.6 35.7 - 48.1 fL [facility] NRBC abs 0.00 0.00 - 0.01 K/cumm [facility] Blood 08/25/2024 11:4 0 AM CDT 08/25/2024 2:52 PM CDT James Sandoval MD PhD LAB BLOOD ORDERABLES Sylvia l Result Performing Organization Address [facility]/ZIP Co de Phone Number [facility] Department of [employer] [place] [address] * Hepatitis B Surface Antigen Blood (08/25/2024 11:40 AM CDT) Pathologist [facility] HepBsAg Nonreactive Nonreactive Blood 08/25/2024 11:4 0 AM CDT 08/25/2024 2:52 PM CDT us James Sandoval MD PhD LAB MICROBIOLOGY - GENERA L ORDERABLES Final Result [facility] Department [place] [address] * CRP (acute phase) (08/25/2024 11:40 AM CDT) CRP 8.8 <=10.0 mg/L Blood 08/25/2024 11:4 0 AM CDT 08/25/2024 2:52 PM CDT James Sandoval MD PhD LAB BLOOD ORDERABLES Sylvia l Result Performing Organization Address [facility] Co de Phone Number [facility] [place] [address] * SCAN - LABS (08/12/2024 12:00 AM CDT) Provider Scanning Edited Result - Final * Screening Mammogram Bilateral W Shahzad (04/15/2024 12:09 PM HR CONSULTANT) Anatomical Region Laterality Modality Breast Bilateral Mammography Narrative 04/16/2024 10:39 AM HR CONSULTANT Mammogram Technique: Bilateral Digital Breast Tomosynthesis, Bilateral C-view 2D Screening mammogram. Views obtained: bilateral craniocaudal and bilateral mediolateral oblique. Computer Aided Detection was performed. Mammogram Findings: The present examination has been compared to prior imaging studies performed at [facility] on 03/22/2021, 03/27/2022 and 04/09/2023. [...] compared to prior imaging studies performed at [facility] on 03/22/2021, 03/27/2022 and 04/09/2023. [...] Albumin Creatinine Ratio, Urine (03/10/2024 10:10 AM HR CONSULTANT) Pathologist [facility] Albumin Ur 17.5 mg/L Comment: Interpretive Data No reference range established. Current interpretive data was last revised 2018. Creatinine Ur 51.5 mg/dL [facility] Comment: Interpretive Data No reference range established. Current interpretive data was last revised 2018. Albumin Creatinine Ratio, Ur 35(H) 1 - 29 mg/g [facility] Urine 03/10/2024 10:1 0 AM HR CONSULTANT 03/10/2024 3:25 PM HR CONSULTANT Sonny Galindo MD LAB URINE ORDERABLES Final R esult [facility] [place] [address] * Hemoglobin A1c (03/10/2024 10:10 AM HR CONSULTANT) Pathologist [facility] Hgb A1C 5.3 4.0 - 5.6 % Estimated Average Glucose 105 mg/dL [facility] Comment: The ADA recommends reporting an estimated Average Glucose (eAG) with all Hemoglobin A1c results using the equation derived from a study of 507 normal and diabetic adults. Minority populations were underrepresented and children were not included. (Diabetes Care 2020; 43(S1): S66-S76). The eAG is not equivalent to a fasting glucose. Blood 03/10/2024 10:1 0 AM HR CONSULTANT 03/10/2024 2:39 PM HR CONSULTANT us Sonny Galindo MD LAB BLOOD ORDERABLES Final R esult Performing Organization Address City/State/[facility] Co de Phone Number [facility] [place] [address] * COLONOSCOPY (12/11/2022 12:11 PM CDT) Anatomical [...] The scope was passed under direct vision.The [id number] was introduced through the anusand advanced to [...] GENERAL ORDER REJI Final Result [facility] [address] [place] [address] * BONE MINERAL DENSITY (06/20/2015) Anatomical Region Laterality Modality Radiographic Suzette ging Narrative 06/20/2015 Ordered by an unspecified provider. Chrissy Provider IMG DXA PROCEDURES Final Result from Last 3 Months or Most Recently Relevant to [place] [address] BCBS FEDERAL MEDICARE [facility] [place] [address] [facility] Advance Directives For more information, please contact: [phone] * Full Code (Latest Code Status on [...] 9:50 AM 05/27/2018 4:39 PM Care Teams Train Operator Relationship Specialty Start Date End Date Gabbie Wilde MD PCP - General Family Medicine 03/27/22 James Sandoval MD PhD [address] [facility], [address] [address] PCP - Home Infusion Attending Gastroenterology 07/12/24 Sonny Galindo MD Nephrology 05/21/22 Caroline Banerjee, MARIA A Home Infusion Nursing 07/21/24 Wyatt Thayer, [facility] Pharmacist Pharmacy 08/02/24
--- OUTSIDE RECORDS SUMMARY | 2024-09-02 02:10 | XMS_ITS | Clinical Summary ---
Author Organization [facility] Address [address] [place] [address] Phone Care Team Providers Care Landscape Crew Leader Name Role Phone Toney Benítez Primary Care Provider [phone] Allergies Active Allergy Reactions Criticality Noted Date [...] pills spread through the day 2 Active Leona-3 Fatty Acids (Fish Oil) 1200 MG capsule [...] (09/24/2018): Added automatically from request for surgery [id number] Stage 3b chronic kidney disease 08/15/2011 Hypertensive [...] on file Legal Sex Female 8:54 AM [facility] Gender Identity Not on file Sexual [...] , 11/19/2019, 10/20/2018, Additional history exists Insurance [facility] Care Teams Landscape Crew Leader Relationship Specialty Start Date End Date Toney Benítez [address] [place] [address] PCP - General 09/20/21
--- OUTSIDE RECORDS SUMMARY | 2024-09-02 02:10 | XMS_ITS | Patient Health Record ---
Author Organization [facility] Address [address] [place], [place] [address] Care Team Providers Care Pizzamaker Name Role Phone MARS LEGGETT, [place] Primary Care Provider Aydin Gallegos, Enrique Unavailable [...] Notes Problem Osteoarthrosis (715.09) Active confirmed Osteoarthrosis (684661870) Problem Crohn's disease (555.9) Active confirmed PLAN OF TREATMENT No Information Insurance Providers Payer Name Payer Address Payer Phone Subscriber Number Group Number Insured Name Patient Relationship to Insured Coverage Start Date Coverage End Date [employer] PPO - NR [address] [address] [place] [address] [id number] ESVIN LYLE Spouse - patient is the spouse of the insured 8 MEDICAL (GENERAL) HISTORY Medical History History ICD Code Bruises easily Changes in moles Migraine and tension headaches Blurred vision Ringing in ears Sinus problems Dizziness Anemia HBP Mitral valve prolapse IBS, bowel changes
--- OUTSIDE RECORDS SUMMARY | 2024-09-02 02:10 | XMS_ITS | Encounter Summary ---
Author Organization [facility] Address [address] [place] [address] Phone Care Team Providers Care Construction Equipment Mechanic Name Role Phone Toney Benítez Primary Care Provider [phone] Encounter Details Date Type Department Care Team (Late st Contact Info) Description 09/30/2018 [facility] Nephrology and Hypertension [address] [facility], [address] [address] Sonny Galindo MD [address] [facility], [address] [place] [address] Social History Tobacco Use Types Packs/Day Years Used Date Smoking Tobacco: Never Smokeless Tobacco: Never Alcohol Use Standard Drinks/Week Comments Yes 0 (1 standard drink = 0.6 oz pur e alcohol) rare Comments Unknown Sex and Gender Information Value Date Recorded Sex Assigned at Not on file Legal Sex Female 8:54 AM MST Gender Identity Not on file Sexual Orientation Not on file documented as of this encounter Plan of Treatment Not on file documented as of this encounter Visit Diagnoses Not on filedocumented in this encounter Care Teams Construction Equipment Mechanic Relationship Specialty Start Date End Date Toney Benítez [address] [place] [address] PCP - General 09/20/21 documented as of this encounter
--- OUTSIDE RECORDS SUMMARY | 2024-09-02 02:10 | XMS_ITS | Patient Health Record ---
Author Organization [facility] Address [address] [facility] [address] [place] [address] Care Team Providers Care Cancer Program Director Name Role Phone Chelsi Cervantes Unavailable [phone] Reason For Referral No Information Medications Medication SIG (Take, Route, Frequency, Duration) Notes Start Date End Date Status Entyvio 300 mg infuse 300 mg over 30 minute(s) by intravenous route every 8 weeks Intravenous [id number]- 02 Active Multi-Vitamin take 1 tablet by [...] tablet in the morning - *Reorder from [employer] for eRx and Interaction Alerts* Active Cetirizine HCl 10 MG take 1 tablet (10 mg) by oral route once daily Oral 1 Active Peppermint Oil 50 mg take 1 capsule by oral route once ORAL 1 *Pick strength-form from [employer] for eRX* Active Farxiga 5 MG take [...] times a week - *Pick strength-form from [employer] for eRX* Active Losartan Potassium 25 MG take 1 tablet (25 mg) by oral route once daily Oral 1 Active Rybelsus 7 mg take 1 tablet (7 mg) by oral route once daily in the morning 30 min before any food, drink or medication with no more than 4 oz plain water oral 1 Active Cholecalciferol 1.25 MG (39158 UT) take 1 tablet by oral route once Oral 1 Active traZODone HCl 50 MG take 1 tablet (50 mg) by oral route once daily at bedtime Oral 1 Active Biotin 1,000 mcg chew 1 tablet by oral route once Oral 1 *Pick strength-form from [employer] for eRX* Active Fenofibrate 134 mg take 1 tablet in the evening oral *Pick strength-form from [employer] for eRX* Active Fish Oil Burp-Less 1200 MG take 1 capsule by oral route twice Oral 2 Active Plan Of Treatment No Information Insurance Providers Payer Name Payer Address Payer Phone Subscriber Number Group Number Insured Name Patient Relationship to Insured Coverage Start Date Coverage End Date [place] [address] [place] [address] [id number] Carmen Mortensen Self - patient is the insured Medical (General) History Surgical History Surgery Date(Month/Year) Hysterectomy; 2022-11-22 Arthroplasty of carpometacarpal (CMC) maryellen int of hand; 2022-11-28 sympathectomy; 2022-11-28
[2024-09-02 06:23] VITALS: BP 131/74; PULSE 79; RESP 18; TEMP 37.1; O2SAT 100
[2024-09-02] MEDS: ACETAMINOPHEN 500 MG TABLET 1000 MG PO (06:28)
--- NOTE | 2024-09-02 06:32 | WPDHPUPDATE1 ---
History and Physical Update Update Date/Time: 09/02/24 06:32 Patient seen and examined in pre-operative holding area. No interval change in medical history or symptoms. Patient recalls previous discussion of benefits and alternatives to procedure. Continues to desire to proceed with left endoscopic possible open carpal tunnel release revision and left cubital tunnel release. Reviewed procedure, post-op expectations and risks including but not limited to bleeding, infection, injury to tendon/nerve/vessel, decreased hand function, stiffness, RSD, no change or worsening of symptoms. I discussed the possible use of assistants and their participation in the case. Patient stated understanding and signed the consent form wishing to proceed.
--- NOTE | 2024-09-02 06:33 | P.OP_ITS ---
Procedure Note - Detailed Date of Procedure 09/02/24 Pre-op Diagnosis left carpal and cubital tunnel syndrome Post-op Diagnosis Same Procedure Performed left ectr and CuTR Surgeon Tiffany Roca MD [employer] Tender bo jerez pa-c Anesthesia MAC Description of Procedure INFORMED CONSENT: The patient was seen and examined and marked in the pre-op area.? The patient signed the consent form. PROCEDURE IN DETAIL:The patient taken back to OR on the stretcher in supine position. Time out performed with anesthesia, surgeon and staff agreeing on patient's name site and surgery to be performed SCDs were placed on the lower extremities and inflated. A tourniquet was placed on {left} upper extremity and antibiotics given IV After anesthesia administered sedation I injected {10}cc 1%lido with epi and 0.5% marcaine plain at the operative sites The?{left upper extremity}?was prepped and draped in sterile fashion the??{left upper extremity} was? exsanguinated with Esmarch bandage and tourniquet inflated to 250mmHg I made a transverse incision in the {left} volar distal wrist crease through skin and dermis with 15 blade scalpel.? Littler scissors spread down to antebrachial fascia. A small incision was made in antebrachial fascia allowing access to Carpal tunnel. I proceeded with sequential dilation staying in line with the ring finger and hugging the hook of the hamate.? I then used the synovial elevator to free any adhesions from the underside of the transverse carpal ligament. Next I was able to insert the Microaire endoscopic carpal tunnel device and was able to visualize the nerve on the radial aspect of the compartment with visible vaso nervorum noted and did not appear constricted or adherent to the underside of the residual ligament. With direct visualization of transversetransverse fibers on the monitor I proceeded with segmental retrograde release of the residual ligament and scar tissue in its entirety.?There appeared to be adequate space within the carpal tunnel to accomodate the camera after release. I irrigated with normal saline and closed with 4-0 monocryl for dermis and subcuticular closure. I next proceeded with making a longitudinal incision between two heads for flexor carpi ulnaris at end of {left} cubital tunnel with 15 blade scalpel.? Littler scissors were used to spread down to FCU fascia.? An incision was made in FCU fascia and ulnar nerve identified exiting cubital tunnel.? I proceeded with complete retrograde release of the cubital tunnel including 7cm proximal for the intermuscular septum.? The nerve appeared fatty and atrophic with a clear area of constriction band near medial epicondyle.? There was no sublu xation on full elbow range of motion. ? I irrigated with normal saline and closure with 3-0 vicryl and 4-0 monocryl. The incisions were covered with Dermabond then 4x4s, tim, and a posterior elbow and volar wrist splint for patient safety, security and comfort and secured with prasanna bandages after the tourniquet was let down noting the hand was warm and well perfused.? Patient awaken from anesthesia and transferred to recovery in stable condition Complications - none EBL- 1cc Disposition - home in stable condition Bo Jerez pa-c was essential for positioning, retraction, closure and dres sing placement [facility] Billing Surgery - Charge Forward: Surgery Billing ([id number] same for bo adding )
[2024-09-02] MEDS: LIDOCAINE/PRILOCAINE CREAM 2.5-2.5% TUBE 1 EACH TOPICAL (06:43)
[2024-09-02] MEDS: LACTATED RINGERS 1,000 ML 30 ML IV CONT (07:19)
--- NOTE | 2024-09-02 07:20 | P.PNAN_ITS ---
Anes - Initial Pre Proc Eval Procedure: Operation Date: 09/02/24 07:30 Proposed Procedures p Revision Left Endoscopic Carpal Tunnel Release, Possible Open, Left Cubital Tunnel Release, - Tiffany Roca MD Date/Time: 09/02/24 07:20 Surgeon: Tiffany Roca MD Pre Op Diagnosis: left carpal and cubital tunnel syndrome Patient Data Age: 64 Gender: F Height: 1.63 m Weight: 55.8 kg Last Vital Signs Temp 98.8 F 09/02/24 06:23 Pulse 79 09/02/24 06:23 Resp 18 09/02/24 06:23 BP 131/74 09/02/24 06:23 Pulse Ox 100 09/02/24 06:23 O2 Del Method Room Air 09/02/24 06:23 Allergies Allergy/AdvReac Type Severity Reaction Status Date / Time pregabalin Allergy Intermediate MEMORY GAPS Verified 09/02/24 06:08 cefuroxime (From Ceftin) Allergy Mild Diarrhea Verified 09/02/24 06:08 doxycycline Allergy Unknown Pt does Verified 09/02/24 06:08 not remember duloxetine Allergy Unknown catatonic Verified 09/02/24 06:08 lisinopril Allergy Unknown Diarrhea Verified 09/02/24 06:08 Penicillins Allergy Unknown Skin Verified 09/02/24 06:08 Reaction Sulfa (Sulfonamide Allergy Unknown Skin Verified 09/02/24 06:08 Antibiotics) Reaction suvorexant (Belsomra) Allergy Unknown intolerance Verified 09/02/24 06:08 vancomycin Allergy Unknown Facial Verified 09/02/24 06:08 swelling tizanidine Allergy Hallucinati Verified 09/02/24 06:08 ng losartan AdvReac Severe Hypotension Verified 09/02/24 06:08 prednisone AdvReac Severe Shakiness Verified 09/02/24 06:08 Home Medications ?Medication ?Instructions ?Recorded ?Confirmed ?Type cetirizine 10 mg capsule (All Day 10 mg PO DAILY 03/10/19 09/02/24 History Allergy (cetirizine)) cholecalciferol (vitamin D3) 125 5,000 unit PO DAILY 03/10/19 09/02/24 History mcg (5,000 unit) tablet (Vitamin D3) eluxadoline 100 mg tablet (Viberzi) 100 mg PO DAILY 03/10/19 09/02/24 History blood-glucose meter (Blood Glucose #1 ea 05/04/21 08/20/24 Rx Monitoring kit) lancets 28 gauge (1st Tier Unilet #100 ea 05/05/21 08/20/24 Rx ComforTouch Lancet) omega 6-kjq-cth-fish oil 1,200 mg 1 cap PO BID 01/26/22 09/02/24 History (144 mg-216 mg) capsule (Fish Oil) blood sugar diagnostic (OneTouch #100 strips 01/29/22 08/20/24 Rx Verio test strips) lancets 33 gauge (OneTouch Delica #100 ea 01/29/22 08/20/24 Rx Plus Lancet) vedolizumab 300 mg intravenous 300 mg IV .every 8 weeks 09/24/22 08/20/24 History solution (Entyvio) mecobalamin (vitamin B12) 1,000 2,000 mcg PO .4 TIMES WEEKLY 03/26/23 09/02/24 History mcg chewable tablet qibysuwi-tlk-ugokg acid 0.4 2 tablet PO DAILY 03/26/23 09/02/24 History mg-lycopene 300 mcg-lutein 250 mcg tablet (Centrum Silver) semaglutide 7 mg tablet (Rybelsus) 7 mg PO DAILY #90 tabs 11/04/23 09/02/24 Rx lidocaine-prilocaine 2.5 %-2.5 % 2.5 g topical .other 12/04/23 09/02/24 History topical cream ondansetron 4 mg disintegrating 4 mg PO Q6H PRN nausea and vomiting 12/04/23 09/02/24 History tablet trazodone 100 mg tablet 100 mg PO QHS #90 tabs 03/11/24 09/02/24 Rx fenofibrate micronized 134 mg 134 mg PO DAILY #90 caps 05/06/24 09/02/24 Rx capsule estradiol 1 mg tablet See Rx Instructions .Route 06/22/24 09/02/24 Rx .COMPLEX #90 tabs oxybutynin chloride 10 mg See Rx Instructions .Route 06/24/24 09/02/24 Rx tablet,extended release 24 hr .COMPLEX #270 tabs scopolamine base 1 mg over 3 days 1 patch transdermal Q3D PRN motion 07/14/24 09/02/24 Rx transdermal patch sickness #4 ea dapagliflozin propanediol 5 mg 5 mg PO DAILY #30 tabs 07/20/24 09/02/24 Rx tablet (Farxiga) finerenone 10 mg tablet (Kerendia) See Rx Instructions .Route 07/31/24 09/02/24 Rx .COMPLEX #30 tabs imipramine pamoate 100 mg capsule 100 mg PO HS 08/10/24 09/02/24 History rimegepant 75 mg disintegrating 75 mg PO DAILY PRN migraine 08/10/24 09/02/24 History tablet (Nurtec ODT) headache simvastatin 10 mg tablet See Rx Instructions .Route 09/01/24 09/02/24 Rx .COMPLEX #100 tabs Laboratory Tests 09/02/24 07:04 POC Capillary Glucose 88 mg/dl (65-105) Patient hx anesthesia problems: post op nausea/vomiting Family hx anesthesia problems: none Results Review: All pre-operative results and documents have been reviewed as part of the pre- operative evaluation. [facility] Past Medical History Medical History Bilateral hearing loss Chronic headache Cough Nausea Trigger finger, acquired COVID-19 Cat bite History of hyperlipidemia Crohn's disease, unspecified, with other complication when pre infusion lab reviewed, infusion center needs to be called to give verbal order to proceed with infusion. Essential (primary) hypertension Surgical History Surgical History H/O cataract removal with insertion of prosthetic lens left eye 11/25/23 right eye 12/02/23 History of hysterectomy ~2013, OA -Dr. Yovani Kruger Family History Family History Father Family history of cardiac disorder Family history of arthritis Family history of Parkinson's disease Malignant neoplasm of prostate Family history of hypercholesterolemia Family history of cardiovascular disease Mother Family history of hypercholesterolemia Metastatic lung cancer (metastasis from lung to other site) Grandparent Family history of hypercholesterolemia Depression Family history of Alzheimer's disease Family history of emphysema Sibling Hypertension Social History Social History Social History: Caffeine- Jamin tea/sweet tea Smoking status: Never smoker Alcohol intake: current Alcohol use details: VERY RARE Substance use: never Substance use type: does not use Do You Feel Safe in your Home?: Yes Lack of Transportation: No Lack of Food: Never True Current Housing: I Have Housing Concerned About Future Housing: No Difficulty Paying Gas/Electric Bills: No Difficulty Paying for Meds: No Currently Unemployed: No Education: High School Diploma/GED Living arrangements: with family Gender identity (if verbalized by the patient): Female Spiritual care concerns: No Anes - Eval Final PreProcedure Day of Procedure 09/02/24 07:20 Patient weight: normal Lungs: normal air movement Airway: Mallampati scale class II Neurological: alert and oriented Last oral intake: >/= 8 hours ASA classification: III Emergent: no Anesthetic plan: proceed Anesthesia type and monitoring: general GIVS and standard monitoring Results Review: All pre-operative results and documents have been reviewed as part of the pre- operative evaluation. Hyperlipidemia, crohn's, chr migranes, DM, CKD noted. Pt has port that will be accessed preop. Informed Consent: The patient's anesthetic plan and its attendant risks and benefits were discussed with the patient/family/POA. Questions were solicited and answers provided to the satisfaction of the patient/family/POA.
[2024-09-02] MEDS: ceFAZolin 2 GM in SODIUM CHLORIDE 0.9% IV 50 ML 100 ML IVPB (07:35)
[2024-09-02] MEDS: BUPivacaine HCL 0.5% 10 ML AMP 20 ML INFILTRATE (07:57)
[2024-09-02] MEDS: LIDO 1%/EPINEPHRINE 1:100,000 50 ML VIAL 20 ML INFILTRATE (07:58)
[2024-09-02 08:08] VITALS: BP 107/34; PULSE 90; RESP 16; O2SAT 100
[2024-09-02 08:30] VITALS: BP 100/43; PULSE 88; RESP 20; O2SAT 95
[2024-09-02 09:00] VITALS: BP 126/57; PULSE 93; RESP 20
[2024-09-02 09:30] VITALS: BP 127/53; PULSE 68; RESP 20
[2024-09-02] MEDS: HEPARIN SODIUM LOCK FLUSH 500 UNITS/5 ML SYRINGE IV PUSH (09:30)
== END 2024-09-02 09:40 | disposition home or self-care (01) ==
PROVIDERS: PCP Family Medicine; Visit Provider Plastic Surgery
PROC: 01N54ZZ Release Median Nerve, Percutaneous Endoscopic Approach (ICD-10-PCS; CPT 29848; principal; 2024-09-02 07:30)
DX: G56.02 Carpal tunnel syndrome, left upper limb (principal); G56.22 Lesion of ulnar nerve, left upper limb; Z79.84 Long term (current) use of oral hypoglycemic drugs
CPT/HCPCS: 29848; 64718; 82948; J0690; A9270; J2003; J2004; J2250; J2405; J2704; J3010; J7120

== ENCOUNTER 2024-09-10 10:40 | Outpatient (CLI) | payer BC, MEDICARE, SELFPAY ==
--- OUTSIDE RECORDS SUMMARY | 2024-09-10 10:44 | XMS_ITS | Clinical Summary ---
Author Organization [facility] 2 Address [address] [place] [address] Care Team Providers Care Marketing Automation Specialist Name Role Phone Gabbie Wilde MD Primary Care Provider + Sonny Galindo MD Unavailable [phone] James Sandoval MD PhD Unavailable [phone] Caroline Banerjee RN Unavailable Unavailable Wyatt Thayer [facility] Unavailable Unavaila ble Allergies Active Allergy Reactions [...] gauge miscIndications:D iabetes Mellitus 07/30/19 22 Active qcbjw-9-lfp-epa-d pa-fish oil 1,050-1,200 mg capsuleIndication s:hypertriglyceri demia [...] mL NS bag. 1 each 3 5 11:59 PM CDT 02/27/19 25 026 Active 0.9 % [...] 4 HOURS OF MIXING 1000 mL 5 11:59 PM CDT 02/27/19 25 026 Active acetaminophen (TYLENOL) [...] mL IV as needed for line care 53753 mL 02/27/19 25 026 Active eluxadoline (Viberzi) [...] (04/15/2018): Added automatically from request for surgery [id number] Abnormal mammogram 02/10/2018 Resolved Problems Problem Noted Date Diagnosed Date Resolved Date Trigeminal neuralgia 03/11/2024 025 Assessment & Plan (03/11/2024 3:13 PM RECORD CLERK): She complains of residual pain in the [...] (08/05/2022): Added automatically from request for surgery [id number] Encounters Date Type Department Care Team Description 09/08/2024 Plan of Care Documentation [facility] Home Infusion Therapy [address] [place] [address] 08/31/2024 Telephone [facility] Scheduling [address] [place] [address] James Sandoval MD PhD Prior Auth (Viberzi 100MG tablets) 08/29/2024 Results Follow-Up [facility] Gastroenterology [address] [facility] [address] [place] [address] James Sandoval MD PhD Comprehensive metabolic panel, without glucose (Outreach), Glucose, random (Outreach), CBC with auto differential, Additional followed-up results: 5 08/25/2024 11:40 AM CDT - 08/25/2024 11:59 PM CDT Hospital Encounter [facility] [address] [place] [address] Discharge Disposition: Discharge to home or self care 08/17/2024 Orders Only [facility] Gastroenterology [address] [facility] 12th [place] [address] [place] [address] Angelique Cabral, [facility] 08/17/2024 Orders Only [facility] Gastroenterology [address] [facility] 12[address] [place] [address] [place] [address] Michelle Gutierrez, MARIA A Crohn's disease of both small and large intestine without complication (HCC) (Primary Dx); High risk medications (not anticoagulants) long-term use; Routine health maintenance 08/12/2024 Home Infusion [facility] Home Infusion Therapy [address] [place] [address] Cadence Montenegro Crohn's disease of both small and large intestine without complication (HCC) (Primary Dx) 07/25/2024 Home Care Visit [facility] [place] [address] [address] [place] [address] Miladys Mcneil RN SN DISCIPLINE DISCHARGE 07/09/2024 Home Infusion [facility] Home Infusion Therapy [address] [place] [address] Miladys Londono RN 07/08/2024 11:20 AM CDT Office Visit [facility] Rheumatology [address] [facility] [address] 5th [place] [address] [place] [id number] Billie Noyola MD Crohn's disease of both small and large intestine without complication (HCC) (Primary Dx); Sicca, unspecified type 07/03/2024 [facility]phone [facility] [address] [facility] [address] [place] [address] Anne-Marie Richardson MA 07/02/2024 Telephone [facility] ENT [address] [facility] 11th [place] [address] [place] [address] Deepika Arthur CMA 07/01/2024 1:30 PM CDT Office Visit [facility] [address] [facility] [address] [place] [address] Radha Tompkins NP Atypical facial pain (Primary Dx); Intractable migraine without aura and without status migrainosus 06/30/2024 11:00 AM CDT Home Care Visit [facility] Home Health - [address] [place] [address] Caroline Banerjee RN SN INFUSION TREATMENT ROOM from Last 3 Months Immunizations Immunization Administration [...] Bladder Surgery - (Added by TW Conv) AL EXC CYST/ABERRANT BREAST TISSUE OPEN /> LESION Breast Surgery Lumpectomy - (Added by TW Conv) AL NEUROPLASTY &/TRANSPOS MEDIAN NRV CARPAL TUNNE Neuroplasty Decompression Median Nerve At Carpal Tunnel - (Added by TW Conv) ANAL FISSURECTOMY Anal Fissurectomy - (Added by TW Conv) KNEE SURGERY Knee Surgery - (Added by TW Conv) AL NEURP MAJOR PRPH NRV ARM/LEG OPN OTH/THN SPEC Neuroplasty Ulnar Nerve - (Added by TW Conv) CENTRAL VENOUS CATHETER INSERTION Central IV Line Type Port-A-Cath - (Added by TW Conv) SPINAL CORD STIMULATOR IMPLANT Spinal Surgery Neurostimulator Implants - (Added by TW Conv) AL TOTAL ABDOMINAL HYSTERECT W/WO RMVL TUBE OVARY [...] Plantar fasciitis Trigger finger Cataract 2017 Pneumonia 1994 Fatigue 2006 Allergic rhinitis Tinnitus HL (hearing [...] Freeman Page Alcohol abuse Father's Brother Ki Castillobulmaro Breast cancer Father's Sister 1 Jesica Slover Cancer Father's Sister 1 Jesica Slover Vision loss Father's Sister 1 Jesica Slover Vision loss Father's Sister 2 Bianka [place] COPD Maternal Grandfather Tato Helmich Alzheimer's disease Maternal Grandmother Durga Avina ch Memory loss Maternal Grandmother Durga Vieira Arthritis Mother Rahel Page Cancer Mother Dotgracy Page Hypertension Mother Rahel Page Alcohol abuse Mother's Brother Eduardo Helmich Lung cancer Mother's Brother Eduardo Helmich Alcohol abuse Paternal Grandfather Jaylan Page Mental illness Paternal Grandmother Jocy Page Relation Name Status Comments Brother Lev Page Alive Daughter Genesis Cruz Alive Father Freeman Page Father's Brother Ki [...] on file Legal Sex Female 11:00 AM RECORD CLERK Gender Identity Female 10/03/2020 3:00 PM [...] Completed 08/25/2024 Medical Devices Implanted Type Area Origination Specialist Device Identifier Shelf Expiration Date Model / Serial / Lot [employer] Xcela Power Port 8fr [id number] - [id number] Implanted:Qty: 1 on 03/05/2023 by Quang Cid MD at [facility] [employer] 10/22/2027 [id number] / / [id number] Procedures Procedure Name Priority Date/Time Associated Diagnosis Comments AUDBASE RESULTS 09/08/2024 3:50 PM CDT EGFR Routine 08/25/2024 11:40 AM CDT [...] Read Routine (OP Routine) 04/15/2024 12:09 PM RECORD CLERK Fibrocystic breast changes of both breasts HEMOGLOBIN A1C Routine 03/10/2024 10:10 AM RECORD CLERK ALBUMIN CREATININE RATIO, URINE Routine 03/10/2024 10:10 AM RECORD CLERK COLONOSCOPY 12/11/2022 12:11 PM CDT HEPATITIS C ANTIBODY Routine 11/28/2022 4:12 PM CDT BONE MINERAL DENSITY 06/20/2015 from Last 3 Months or Most Recently Relevant to Health Maintenance Results * AudBase Results (09/08/2024 3:50 PM CDT) Provider Scanning AUDIOLOGY SERVICES ORDERABLES Final Result * T-SPOT.TB Blood (08/25/2024 11:40 AM CDT) Pathologist [facility] T-SPOT.TB Negative SeeBelow Comment: Normal Value: Negative [...] test. T-SPOT.TB Panel A Spot Count 1 [facility] T-SPOT.TB Panel B Spot Count 0 [facility] T-SPOT.TB Negative Control Passed [facility] T-SPOT.TB Positive Control Passed [facility] Comment: Test Performed at: [facility], [facility] [place] [address] MIRA RUIZ,PHD Blood 08/25/2024 11:4 0 AM CDT 08/25/2024 5:29 PM CDT James Sandoval MD PhD LAB MICROBIOLOGY - GENERA L ORDERABLES Final Result [facility] [place] [address] * Glucose, random (Outreach) (08/25/2024 11:40 AM [...] LAB BLOOD ORDERABLES Sylvia l Result [facility] [place] [address] * (ABNORMAL) eGFR (08/25/2024 11:40 AM CDT) [...] PhD LAB BLOOD ORDERABLES Sylvia l Result [facility] [place] [address] * Differential, auto (08/25/2024 11:40 AM CDT) Pathologist [facility] Neutrophil abs 5.29 1.50 - 6.50 K/cumm Imm gran abs 0.02 0.00 - 0.10 K/cumm [facility] Lymphocyte abs 1.26 0.80 - 3.30 K/cumm [facility] Monocyte abs 0.35 0.20 - 0.80 K/cumm [facility] Eosinophil abs 0.11 0.00 - 0.50 K/cumm [facility] Basophil abs 0.03 0.00 - 0.10 K/cumm [facility] Neutrophil pct 74.9 % [facility] Comment: Interpretive Data Percent cell count reference ranges are not reported, since discordance with absolute values may lead to misinterpretation of CBC data. Current Interpretive Data was last revised on 2017. Imm gran pct 0.3 % [facility] Comment: Interpretive Data Percent cell count reference ranges are not reported, since discordance with absolute values may lead to misinterpretation of CBC data. Current Interpretive Data was last revised on 2017. Lymphocyte pct 17.8 % [facility] Comment: Interpretive Data Percent cell count reference ranges are not reported, since discordance with absolute values may lead to misinterpretation of CBC data. Current Interpretive Data was last revised on 2017. Monocyte pct 5.0 % [facility] Comment: Interpretive Data Percent cell count reference ranges are not reported, since discordance with absolute values may lead to misinterpretation of CBC data. Current Interpretive Data was last revised on 2017. Eosinophil pct 1.6 % [facility] Comment: Interpretive Data Percent cell count reference ranges are not reported, since discordance with absolute values may lead to misinterpretation of CBC data. Current Interpretive Data was last revised on 2017. Basophil pct 0.4 % [facility] Comment: Interpretive Data Percent cell count reference ranges are not reported, since discordance with absolute values may lead to misinterpretation of CBC data. Current Interpretive Data was last revised on 2017. Blood 08/25/2024 11:4 0 AM CDT 08/25/2024 2:52 PM CDT us James Sandoval MD PhD LAB BLOOD ORDERABLES Sylvia brown Result [facility] [place] [address] * (ABNORMAL) Comprehensive metabolic panel, without glucose (Outreach) (08/25/2024 11:40 AM CDT) Pathologist [facility] Sodium 140 135 - 145 mmol/L Potassium, pl 4.0 3.3 - 4.9 mmol/L [facility] Chloride 101 97 - 110 mmol/L [facility] CO2 29 22 - 32 mmol/L [facility] Anion gap 10 2 - 15 mmol/L [facility] BUN 22 6 - 25 mg/dL [facility] Creatinine 1.47(H) 0.60 - 1.10 mg/dL [facility] Calcium 9.1 8.5 - 10.3 mg/dL [facility] Protein, pl 7.6 6.5 - 8.5 g/dL [facility] Albumin 4.1 3.5 - 5.0 g/dL [facility] Bilirubin, total 0.2 0.1 - 1.2 mg/dL [facility] Alk phos 68 40 - 130 Units/L [facility] AST 19 10 - 45 Units/L [facility] ALT 10 7 - 45 Units/L [facility] Blood 08/25/2024 11:4 0 AM CDT 08/25/2024 2:52 PM CDT James Sandoval MD PhD LAB BLOOD ORDERABLES Sylvia l Result Performing Organization Address [facility] Co de Phone Number [facility] Department [place] [address] * (ABNORMAL) CBC with auto differential (08/25/2024 11:40 AM CDT) Pathologist [facility] WBC 7.06 3.80 - 9.90 K/cumm Hgb 12.3 11.9 - 15.5 g/dL [facility] Hct 38.8 35.6 - 45.5 % [facility] Plt 225 150 - 400 K/cumm [facility] MPV 11.7 9.1 - 12.3 fL [facility] RBC 4.50 3.90 - 5.20 M/cumm [facility] MCV 86.2 81.3 - 96.4 fL [facility] MCH 27.3 27.1 - 33.3 pg [facility] MCHC 31.7(L) 32.3 - 35.7 g/dL [facility] RDW CV 14.6 11.1 - 14.9 % [facility] RDW SD 45.6 35.7 - 48.1 fL [facility] NRBC abs 0.00 0.00 - 0.01 K/cumm [facility] Blood 08/25/2024 11:4 0 AM CDT 08/25/2024 2:52 PM CDT James Sandoval MD PhD LAB BLOOD ORDERABLES Sylvia l Result [facility] Department [place] [address] * Hepatitis B Surface Antigen Blood (08/25/2024 11:40 AM CDT) Pathologist [facility] HepBsAg Nonreactive Nonreactive Blood 08/25/2024 11:4 0 AM CDT 08/25/2024 2:52 PM CDT James Sandoval MD PhD LAB MICROBIOLOGY - GENERA L ORDERABLES Final Result [facility] [place] [address] * CRP (acute phase) (08/25/2024 11:40 AM CDT) CRP 8.8 <=10.0 mg/L Blood 08/25/2024 11:4 0 AM CDT 08/25/2024 2:52 PM CDT James Sandoval MD PhD LAB BLOOD ORDERABLES Sylvia l Result Performing Organization Address [facility] Co de Phone Number [facility] [place] [address] * SCAN - LABS (08/12/2024 12:00 AM CDT) us Provider Scanning Edited Result - Final * Screening Mammogram Bilateral W Shahzad (04/15/2024 12:09 PM RECORD CLERK) Anatomical Region Laterality Modality Breast Bilateral Mammography Narrative 04/16/2024 10:39 AM RECORD CLERK Mammogram Technique: Bilateral Digital Breast Tomosynthesis, Bilateral C-view 2D Screening mammogram. Views obtained: bilateral craniocaudal and bilateral mediolateral oblique. Computer Aided Detection was performed. Mammogram Findings: The present examination has been compared to prior imaging studies performed at [facility] on 03/22/2021, 03/27/2022 and 04/09/2023. The breasts [...] compared to prior imaging studies performed at [facility] on 03/22/2021, 03/27/2022 and 04/09/2023. The breasts [...] Albumin Creatinine Ratio, Urine (03/10/2024 10:10 AM RECORD CLERK) Pathologist [facility] Albumin Ur 17.5 mg/L Comment: Interpretive Data No reference range established. Current interpretive data was last revised 2018. Creatinine Ur 51.5 mg/dL [facility] Comment: Interpretive Data No reference range established. Current interpretive data was last revised 2018. Albumin Creatinine Ratio, Ur 35(H) 1 - 29 mg/g [facility] Urine 03/10/2024 10:1 0 AM RECORD CLERK 03/10/2024 3:25 PM RECORD CLERK Sonny Galindo MD LAB URINE ORDERABLES Final R esult [facility] Department [place] [address] * Hemoglobin A1c (03/10/2024 10:10 AM RECORD CLERK) Pathologist [facility] Hgb A1C 5.3 4.0 - 5.6 % Estimated Average Glucose 105 mg/dL [facility] Comment: The ADA recommends reporting an estimated Average Glucose (eAG) with all Hemoglobin A1c results using the equation derived from a study of 507 normal and diabetic adults. Minority populations were underrepresented and children were not included. (Diabetes Care 2020; 43(S1): S66-S76). The eAG is not equivalent to a fasting glucose. Blood 03/10/2024 10:1 0 AM RECORD CLERK 03/10/2024 2:39 PM RECORD CLERK Sonny Galindo MD LAB BLOOD ORDERABLES Final R esult [facility] Department [place] [address] * COLONOSCOPY (12/11/2022 12:11 PM CDT) Anatomical Region Laterality Modality Other Narrative Procedure Note James Sandoval MD PhD - 12/11/2022 12:11 PM CDT ENDOSCOPY LAB Patient Name: Carmen Rosado Procedure Date: 12/11/2022 12:11PM Date of : 1960 Admit Type: Outpatient Age: 62 Gender: Female Attending MD: James Sandoval MD,PHD Room: [facility] ENDOSCOPY ROOM 05 Note Status: Finalized [...] The scope was passed under direct vision.The [id number] was introduced through the anusand advanced to [...] - GENERAL ORDER REJI Final Result [facility] [address] [place] [address] * BONE MINERAL DENSITY (06/20/2015) Anatomical Region Laterality Modality Radiographic Suzette ging Narrative 06/20/2015 Ordered by an unspecified provider. us Chrissy Provider MD JOY DXA PROCEDURES Final Result from Last 3 Months or Most Recently Relevant to Health Maintenance Insurance [facility] MEDICARE [facility] FEDERAL Member Subscriber Plan / Payer (Ef fective 2019-Present) Name:Carmen Mortensen Relation to Subscriber:Spouse Name:ESVIN ROSADO Date of :1960 (Home) Address: [address] [place] [address] [place] [address] Payer ID:[id number] (NAIC) Group ID:[id number] Type:[facility] Address: [address] MEDICAL MEDICARE Advance Directives For more information, please contact: [phone] * Full Code (Latest Code Status on [...] 9:50 AM 05/27/2018 4:39 PM Care Teams Marketing Automation Specialist Relationship Specialty Start Date End Date Gabbie Wilde MD PCP - General Family Medicine 03/27/22 James Sandoval MD PhD [address] [facility], [address] [address] PCP - Home Infusion Attending Gastroenterology 07/12/24 Sonny Galindo MD Nephrology 05/21/22 Caroline Banerjee, MARIA A Home Infusion Nursing 07/21/24 Wyatt Thayer, [facility] Pharmacist Pharmacy 08/02/24
--- OUTSIDE RECORDS SUMMARY | 2024-09-10 10:44 | XMS_ITS | Clinical Summary ---
Author Organization [facility] Address [address] [place] [address] Phone Care Team Providers Care Brick Picker Name Role Phone Toney Benítez Primary Care Provider [phone] Allergies Active Allergy Reactions Criticality Noted Date [...] pills spread through the day 2 Active [place]-3 Fatty Acids (Fish Oil) 1200 MG capsule [...] (09/24/2018): Added automatically from request for surgery [id number] Stage 3b chronic kidney disease 08/15/2011 Hypertensive [...] on file Legal Sex Female 8:54 AM [facility] Gender Identity Not on file Sexual [...] , 11/19/2019, 10/20/2018, Additional history exists Insurance [facility] Care Teams Brick Picker Relationship Specialty Start Date End Date Toney Benítez [address] [place] [address] PCP - General 09/20/21
--- OUTSIDE RECORDS SUMMARY | 2024-09-10 10:44 | XMS_ITS | Patient Health Record ---
Author Organization [facility] Address [address] [facility] [address] [place] [address] Care Team Providers Care Coil Machine Operator Name Role Phone hCelsi Cervantes Unavailable [phone] Reason For Referral No Information Medications Medication SIG (Take, Route, Frequency, Duration) Notes Start Date End Date Status Entyvio 300 mg infuse 300 mg over 30 minute(s) by intravenous route every 8 weeks Intravenous [id number]- 02 Active Multi-Vitamin take 1 tablet by [...] tablet in the morning - *Reorder from [employer] for eRx and Interaction Alerts* Active Cetirizine HCl 10 MG take 1 tablet (10 mg) by oral route once daily Oral 1 Active Peppermint Oil 50 mg take 1 capsule by oral route once ORAL 1 *Pick strength-form from [employer] for eRX* Active Farxiga 5 MG [...] times a week - *Pick strength-form from [employer] for eRX* Active Losartan Potassium 25 MG take 1 tablet (25 mg) by oral route once daily Oral 1 Active Rybelsus 7 mg take 1 tablet (7 mg) by oral route once daily in the morning 30 min before any food, drink or medication with no more than 4 oz plain water oral 1 Active Cholecalciferol 1.25 MG (91447 UT) take 1 tablet by oral route once Oral 1 Active traZODone HCl 50 MG take 1 tablet (50 mg) by oral route once daily at bedtime Oral 1 Active Biotin 1,000 mcg chew 1 tablet by oral route once Oral 1 *Pick strength-form from [employer] for eRX* Active Fenofibrate 134 mg take 1 tablet in the evening oral *Pick strength-form from [employer] for eRX* Active Fish Oil Burp-Less 1200 MG take 1 capsule by oral route twice Oral 2 Active Plan Of Treatment No Information Insurance Providers Payer Name Payer Address Payer Phone Subscriber Number Group Number Insured Name Patient Relationship to Insured Coverage Start Date Coverage End Date [employer] [address] [place] [address] [id number] Carmen Mortensen Self - patient is the insured Medical (General) History Surgical History Surgery Date(Month/Year) Hysterectomy; 2022-11-22 Arthroplasty of carpometacarpal (CMC) maryellen int of hand; 2022-11-28 sympathectomy; 2022-11-28
--- OUTSIDE RECORDS SUMMARY | 2024-09-10 10:44 | XMS_ITS ---
Author Organization [facility] Medical [facility] 2 Address [address] [place] [address] Care Team Providers Care Oracle Drm Consultant Name Role Phone Gabbie Wilde MD Primary Care Provider + Sonny Galindo MD Unavailable [phone] James Sandoval MD PhD Unavailable [phone] Caroline Banerjee RN Unavailable Unavailable Wyatt Thayer [facility] Unavailable Unavaila ble [facility] Specialty Therapies - ENTYVIO 300 mg IV EVERY 8 WEEKS Status:Enrolled (Active) Start date:06/26/2024 Enrollment date:06/26/2024 Linked medications:vedolizumab (Active) Related program episode:Home Infusion (Active) Overview Cutover complete Case Team Name Relationship Phone Caroline Banerjee RN Home Infusion Nursing Wyatt Thayer [facility](Responsible Staff) Pharma cist Continued Care and Services Coordination This section includes services coordinated for [facility] Specialty Therapies - ENTYVIO 300 mg IV EVERY 8WEEKS. Home Medical Care Name Services Phone [facility] Home Infusion Therapy Home Infusion and Inje ction
--- OUTSIDE RECORDS SUMMARY | 2024-09-10 10:44 | XMS_ITS | Patient Health Record ---
Author Organization [facility] Address [address] [place], [place] [id number] Support Name Relationship Address Phone CHRISTOPHER KNIGHT Guarantor Unknown [phone] REASON FOR REFERRAL No Information MEDICATIONS Medication SIG (Take, Route, Fr equency, Duration) Notes Start Date End Date Status azaTHIOprine 50 mg 1 tab(s) orally TWIC E DAILY once a day 12/23/2006 Active PLAN OF TREATMENT No Information Insurance Providers Payer Name Payer Address Payer Phone Subscriber Number Group Number Insured Name Patient Relationship to Insured Coverage Start Date Coverage End Date [facility] PPO - NR [address] [address] [place] [address] [id number] CHRISTOPHER JASON Self - patient is the insured 6
--- OUTSIDE RECORDS SUMMARY | 2024-09-10 10:44 | XMS_ITS | Encounter Summary ---
Author Organization [facility] Address [address] [place] [address] Phone Care Team Providers Care President And Chief Operating Officer Name Role Phone Gabbie Wilde MD Primary Care Provider + Sonny Galindo MD Unavailable [phone] James Sandoval MD PhD Unavailable [phone] Caroline Banerjee RN Unavailable Unavailable Wyatt Thayer [facility] Unavailable Unavaila ble Encounter Details Date Type Department Care Team (Latest Contact Info) Description 08/29/2024 Results Follow-Up [facility] Gastroenterology [address] [facility] Medical Office Building [address] [place] [address] James Sandoval MD PhD [address] [place], [place] [id number] Comprehensive metabolic panel, without glucose (Outreach), Glucose, [...] on file Legal Sex Female 11:00 AM PROPAGATION MANAGER Gender Identity Female 10/03/2020 3:00 PM CDT Sexual Orientation Not on file documented as of this encounter Plan of Treatment Not on file documented as of this encounter Visit Diagnoses Not on filedocumented in this encounter Care Teams President And Chief Operating Officer Relationship Specialty Start Date End Date Gabbie Wilde MD PCP - General Family Medicine 03/27/22 James Sandoval MD PhD [address] [facility] GASTROENTEROLOGY[address] [address] PCP - Home Infusion Attending Gastroenterology 07/12/24 Sonny Galindo MD Nephrology 05/21/22 Caroline Banerjee, MARIA A Home Infusion Nursing 07/21/24 Wyatt Thayer, [facility] Pharmacist Pharmacy 08/02/24 documented as of this encounter
--- OUTSIDE RECORDS SUMMARY | 2024-09-10 10:44 | XMS_ITS | Encounter Summary ---
Author Organization [facility] Address [address] [place] [address] Phone Care Team Providers Care Customer Agent Name Role Phone Toney Benítez Primary Care Provider [phone] Encounter Details Date Type Department Care Team (Late st Contact Info) Description 09/30/2018 [facility] Nephrology and Hypertension [address] [facility], [address] [address] Sonny Galindo MD [address] [facility], [address] [place] [address] Social History Tobacco Use Types Packs/Day Years [...] on filedocumented in this encounter Care Teams Customer Agent Relationship Specialty Start Date End Date Toney Benítez [address] [place] [id number] PCP - General 09/20/21 documented as of this encounter
--- OUTSIDE RECORDS SUMMARY | 2024-09-10 10:44 | XMS_ITS | Encounter Summary ---
Author Organization [facility] Address [address] [place] [address] Phone Care Team Providers Care Manufacturer Agent Name Role Phone Gabbie Wilde MD Primary Care Provider + Sonny Galindo MD Unavailable James Sandoval MD PhD Unavailable [phone] Caroline Banerjee RN Unavailable Unavailable Wyatt Thayer [facility] Unavailable Unavaila ble Encounter Details [...] on file Legal Sex Female 11:00 AM COMMERCIAL LENDING RELATIONSHIP MANAGER Gender Identity Female 10/03/2020 3:00 PM [...] 01/01/22 is neg. 04/14/2015 04/14/2015 8:58 AM COMMERCIAL LENDING RELATIONSHIP MANAGER documented as of this encounter Care Teams Manufacturer Agent Relationship Specialty Start Date End Date Gabbie Wilde MD PCP - General Family Medicine 03/27/22 James Sandoval MD PhD [address] [facility] GASTROENTEROLOGY, [address] [address] PCP - Home Infusion Attending Gastroenterology 07/12/24 Sonny Galindo MD Nephrology 05/21/22 Caroline Banerjee, MARIA A Home Infusion Nursing 07/21/24 Wyatt Thayer, [facility] Pharmacist Pharmacy 08/02/24 documented as of this encounter
--- OUTSIDE RECORDS SUMMARY | 2024-09-10 10:44 | XMS_ITS | Encounter Summary ---
Author Organization 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 TRUCK BRACER Gender Identity Female 10/03/2020 3:00 PM CDT Sexual Orientation Not on file documented as of this encounter Plan of Treatment Not on file documented as of this encounter Procedures Procedure Name Priority Date/Time Associated Diagnosis Comments GI - RESULT 01/10/2024 3:47 PM TRUCK BRACER documented in this encounter Results * GI - RESULT (01/10/2024 3:47 PM TRUCK BRACER) Anatomical Region Laterality Modality Other us Provider Scanning Final Result documented in this encounter Visit Diagnoses Not on filedocumented in this encounter Additional Health Concerns Infection Onset Date Last Indicated Resolved Time C. difficile Comment:Chronic diarrhea from IBS. Last CDI test 01/01/22 is neg. 04/14/2015 04/14/2015 8:58 AM TRUCK BRACER documented as of this encounter Care Teams Foot Drill Operator Relationship Specialty Start Date End Date Gabbie Wilde MD PCP - General Family Medicine 03/27/22 James Sandoval MD PhD [address] [facility] GASTROENTEROLOGY, [address] [address] PCP - Home Infusion Attending Gastroenterology 07/12/24 Sonny Galindo MD Nephrology 05/21/22 Caroline Banerjee, MARIA A Home Infusion Nursing 07/21/24 Wyatt Thayer, [facility] Pharmacist Pharmacy 08/02/24 documented as of this encounter
--- OUTSIDE RECORDS SUMMARY | 2024-09-10 10:44 | XMS_ITS | Patient Health Record ---
Author Organization [facility] Address [address] [place], [place] [address] Care Team Providers Care Construction Code Administrator Name Role Phone LOC CREWS MD Primary [...] Code Notes Problem Osteoarthrosis (715.09) Active confirmed Problem Crohn's disease (555.9) Active confirmed Crohn's disease (19438023) PLAN OF TREATMENT No Information Insurance Providers Payer Name Payer Address Payer Phone Subscriber Number Group Number Insured Name Patient Relationship to Insured Coverage Start Date Coverage End Date [facility] PPO - NR [address] [address] [place] [address] [id number] ESVIN LYLE Spouse - patient is the spouse of the insured 8 MEDICAL (GENERAL) HISTORY Medical History History ICD Code Bruises easily Changes in moles Migraine and tension headaches Blurred vision Ringing in ears Sinus problems Dizziness Anemia HBP Mitral valve prolapse IBS, bowel changes
--- OUTSIDE RECORDS SUMMARY | 2024-09-10 10:44 | XMS_ITS | Encounter Summary ---
Author Organization [facility] Address [address] [place] [address] Care Team Providers Care Compliance Advisor Name Role Phone Lois Amato MD Primary Care Provider [phone] Toney Benítez Primary Care Provider + Gabbie Wilde MD Primary Care Provider + Sonny Galindo MD Unavailable James Sandoval MD PhD Unavailable [phone] Caroline Banerjee RN Unavailable Unavailable Wyatt Thayer [facility] Unavailable Unavaila ble Encounter Details Date Type Department Care Team (Late st Contact Info) Description 09/02/2019 Telephone [facility] [address] [place] [address] Valeri Farnsworth MD [address] [facility] [address] [place] [address] Social History Tobacco Use Types Packs/Day Years Used Date Smoking Tobacco: Never Smokeless Tobacco: Never Alcohol Use Standard Drinks/Week Comments Yes 0 (1 standard drink = 0.6 oz pure alcohol) 1 glass wine maybe once a month Comments No Sex and Gender Information Value Date Recorded Sex Assigned at Not on file Legal Sex Female 11:00 AM OPTIC FIBRE DRAWER Gender Identity Female 10/03/2020 3:00 PM CDT Sexual Orientation Not on file documented as of this encounter Plan of Treatment Not on file documented as of this encounter Visit Diagnoses Not on filedocumented in this encounter Additional Health Concerns Infection Onset Date Last Indicated Resolved Time C. difficile Comment:Chronic diarrhea from IBS. Last CDI test 01/01/22 is neg. 04/14/2015 04/14/2015 4 8:58 AM OPTIC FIBRE DRAWER documented as of this encounter Care Teams Compliance Advisor Relationship Specialty Start Date End Date Lois Amato MD [address] [place] [address] PCP - General 03/12/12 09/28/21 Toney Benítez PA [address] [place] [address] PCP - General Physician Top Waddy 09/29/21 03/26/22 Gabbie Wilde MD [address] [place] [address] PCP - General Family Medicine 03/27/22 James Sandoval MD PhD [address] [facility] GASTROENTEROLOGY, [address] [address] PCP - Home Infusion Attending Gastroenterology 07/12/24 Sonny Galindo MD [address] [place] [address] Nephrology 05/21/22 Caroline Banerjee, MARIA A Home Infusion Nursing 07/21/24 Wyatt Thayer, [facility] Pharmacist Pharmacy 08/02/24 documented as of this encounter
--- OUTSIDE RECORDS SUMMARY | 2024-09-10 10:44 | XMS_ITS | Referral Summary ---
Author Organization [facility] Medical [facility] 2 Address [address] [place] [address] Care Team Providers Care Carpenter Helper Name Role Phone Gabbie Wilde MD Primary Care Provider + Sonny Galindo MD Unavailable James Sandoval MD PhD Unavailable [phone] Caroline Banerjee RN Unavailable Unavailable [facility] located within [facility] Unavailable Unavaila ble Encounters Date Type Department Care Team Description 08/31/2024 Telephone [facility] Scheduling [address] [place] [address] James Sandoval MD PhD Prior Auth (Viberzi 100MG tablets) 08/29/2024 Results Follow-Up [facility] Gastroenterology [address] [facility] Medical Office Building [address] [place] [address] James Sandoval MD PhD Comprehensive metabolic panel, without glucose (Outreach), Glucose, random (Outreach), CBC with auto differential, Additional followed-up results: 5 08/25/2024 11:40 AM CDT - 08/25/2024 11:59 PM CDT Hospital Encounter [address] [address] Discharge Disposition: Discharge to home or self care 08/17/2024 Orders Only [facility] Gastroenterology [address] [facility] 12th [place] [address] [place] [address] Angelique Cabral, [facility] 08/17/2024 Orders Only [facility] Gastroenterology [address] [facility] 12th [place] [address] [place] [address] Michelle Gutierrez, MARIA A Crohn's disease of both small and large intestine without complication (HCC) (Primary Dx); High risk medications (not anticoagulants) long-term use; Routine health maintenance 08/12/2024 Home Infusion [facility] Home Infusion Therapy [address] [place] [address] Cadence Montenegro Crohn's disease of both small and large intestine without complication (HCC) (Primary Dx) 09/08/2024 Plan of Care Documentation [facility] Home Infusion Therapy [address] [place] [address] 07/25/2024 Home Care Visit [facility] [place] [address] [address] [place] [id number] Miladys Mcneil RN SN DISCIPLINE DISCHARGE 07/09/2024 Home Infusion [facility] Home Infusion Therapy [address] [place] [address] Miladys Londono RN 07/08/2024 11:20 AM CDT Office Visit [facility] Rheumatology [address] [facility] 5th [place] [address] [place] [address] Billie Noyola MD Crohn's disease of both small and large intestine without complication (HCC) (Primary Dx); Sicca, unspecified type 07/03/2024 Telephone [facility] [address] [facility] [address] [place] [address] Anne-Marie Richardson MA 07/02/2024 Telephone [facility] - [facility] [address] [facility] [address]th [place] [address] [place] [address] Deepika Arthur CMA 07/01/2024 1:30 PM CDT Office Visit [facility] [address] [facility] [address] [place] [address] Radha Tompkins NP Atypical facial pain (Primary Dx); Intractable migraine without aura and without status migrainosus 06/30/2024 11:00 AM CDT Home Care Visit [facility] - [address] [place] [address] Caroline Banerjee RN SN INFUSION TREATMENT ROOM from Last 3 Months Allergies Active Allergy [...] gauge miscIndications:D iabetes Mellitus 07/30/19 22 Active tcqsr-6-slt-epa-d pa-fish oil 1,050-1,200 mg capsuleIndication s:hypertriglyceri demia 1 capsule Active oxybutynin XL (DITROPAN-XL) 10 mg 24 hr tabletIndications :Bladder Hyperactivity Take 3 tablets (30 mg total) by mouth daily Changed to 30mg q day 03/15/19 23 Active semaglutide (Rybelsus) 7 mg tabletIndications :type 2 diabetes mellitus Take 1 tablet (7 mg total) by mouth daily Active heparin sod,porcine/0.9 % NaCl (HEPARIN FLUSH IV)Indications:[facility] Infuse 5 mL into a venous [...] mL IV as needed for line care [id number] mL 02/27/19 25 026 Active eluxadoline (Viberzi) [...] (04/15/2018): Added automatically from request for surgery [id number] Abnormal mammogram 02/10/2018 Resolved Problems Problem Noted Date Diagnosed Date Resolved Date Trigeminal neuralgia 03/11/202407/01/ 025 Assessment & Plan (03/11/2024 3:13 PM TOBACCO SHAKER): She complains of residual pain in the [...] (08/05/2022): Added automatically from request for surgery [id number] Immunizations Immunization Administration Dates Next Due Influenza [...] on file Legal Sex Female 11:00 AM TOBACCO SHAKER Gender Identity Female 10/03/2020 3:00 PM CDT [...] on file Medical Devices Implanted Type Area Bottom Finisher Device Identifier Shelf Expiration Date Model / Serial / Lot [employer] Xcela Power Port 8fr [id number] - [id number] Implanted:Qty: 1 on 03/05/2023 by Quang Cid MD at [facility] [employer] 10/22/2027 [id number] / / [id number] Procedures Procedure Name Priority Date/Time Associated Diagnosis [...] Read Routine (OP Routine) 04/15/2024 12:09 PM TOBACCO SHAKER Fibrocystic breast changes of both breasts HEMOGLOBIN A1C Routine 03/10/2024 10:10 AM TOBACCO SHAKER ALBUMIN CREATININE RATIO, URINE Routine 03/10/2024 10:10 AM TOBACCO SHAKER COLONOSCOPY 12/11/2022 12:11 PM CDT HEPATITIS C [...] T-SPOT.TB Panel A Spot Count 1 [facility] T-SPOT.TB Panel B Spot Count 0 [facility] T-SPOT.TB Negative Control Passed [facility] T-SPOT.TB Positive Control Passed [facility] Comment: Test Performed at: [employer] [facility] [address] [place] [id number] MIRA RUIZ,PHD Blood 08/25/2024 11:4 0 AM CDT 08/25/2024 5:29 PM CDT James Sandoval MD PhD LAB MICROBIOLOGY - GENERA L ORDERABLES Final Result [facility] Department [place] [address] * Glucose, random (Outreach) (08/25/2024 11:40 AM [...] PhD LAB BLOOD ORDERABLES Sylvia l Result [facility] Department [place] [address] * (ABNORMAL) eGFR (08/25/2024 11:40 AM CDT) [...] LAB BLOOD ORDERABLES Sylvia brown Result [facility] Department [place] [address] * Differential, auto (08/25/2024 11:40 AM CDT) Neutrophil abs 5.29 1.50 - 6.50 K/cumm Imm gran abs 0.02 0.00 - 0.10 K/cumm [facility] Lymphocyte abs 1.26 0.80 - 3.30 K/cumm [facility] Monocyte abs 0.35 0.20 - 0.80 K/cumm [facility] Eosinophil abs 0.11 0.00 - 0.50 K/cumm [facility] Basophil abs 0.03 0.00 - 0.10 K/cumm [facility] Neutrophil pct 74.9 % [facility] Comment: Interpretive Data Percent cell count reference ranges are not reported, since discordance with absolute values may lead to misinterpretation of CBC data. Current Interpretive Data was last revised on 2017. Imm gran pct 0.3 % [facility] Comment: Interpretive Data Percent cell count reference ranges are not reported, since discordance with absolute values may lead to misinterpretation of CBC data. Current Interpretive Data was last revised on 2017. Lymphocyte pct 17.8 % [facility] Comment: Interpretive Data Percent cell count reference ranges are not reported, since discordance with absolute values may lead to misinterpretation of CBC data. Current Interpretive Data was last revised on 2017. Monocyte pct 5.0 % [facility] Comment: Interpretive Data Percent cell count reference ranges are not reported, since discordance with absolute values may lead to misinterpretation of CBC data. Current Interpretive Data was last revised on 2017. Eosinophil pct 1.6 % [facility] Comment: Interpretive Data Percent cell count reference ranges are not reported, since discordance with absolute values may lead to misinterpretation of CBC data. Current Interpretive Data was last revised on 2017. Basophil pct 0.4 % [facility] Comment: Interpretive Data Percent cell count reference ranges are not reported, since discordance with absolute values may lead to misinterpretation of CBC data. Current Interpretive Data was last revised on 2017. Blood 08/25/2024 11:4 0 AM CDT 08/25/2024 2:52 PM CDT James Sandoval MD PhD LAB BLOOD ORDERABLES Sylvia l Result Performing Organization Address [facility] Co de Phone Number [facility] Department [place] [address] * (ABNORMAL) Comprehensive metabolic panel, without glucose (Outreach) (08/25/2024 11:40 AM CDT) Sodium 140 135 - 145 mmol/L Potassium, pl 4.0 3.3 - 4.9 mmol/L [facility] Chloride 101 97 - 110 mmol/L [facility] CO2 29 22 - 32 mmol/L [facility] Anion gap 10 2 - 15 mmol/L [facility] BUN 22 6 - 25 mg/dL [facility] Creatinine 1.47(H) 0.60 - 1.10 mg/dL [facility] Calcium 9.1 8.5 - 10.3 mg/dL [facility] Protein, pl 7.6 6.5 - 8.5 g/dL [facility] Albumin 4.1 3.5 - 5.0 g/dL [facility] Bilirubin, total 0.2 0.1 - 1.2 mg/dL [facility] Alk phos 68 40 - 130 Units/L [facility] AST 19 10 - 45 Units/L [facility] ALT 10 7 - 45 Units/L [facility] Blood 08/25/2024 11:4 0 AM CDT 08/25/2024 2:52 PM CDT James Sandoval MD PhD LAB BLOOD ORDERABLES Sylvia l Result Performing Organization Address [facility]/ZIP Co de Phone Number [facility] Department [place] [address] * (ABNORMAL) CBC with auto differential (08/25/2024 11:40 AM CDT) [facility] WBC 7.06 3.80 - 9.90 K/cumm Hgb 12.3 11.9 - 15.5 g/dL [facility] Hct 38.8 35.6 - 45.5 % [facility] Plt 225 150 - 400 K/cumm [facility] MPV 11.7 9.1 - 12.3 fL [facility] RBC 4.50 3.90 - 5.20 M/cumm [facility] MCV 86.2 81.3 - 96.4 fL [facility] MCH 27.3 27.1 - 33.3 pg [facility] MCHC 31.7(L) 32.3 - 35.7 g/dL [facility] RDW CV 14.6 11.1 - 14.9 % [facility] RDW SD 45.6 35.7 - 48.1 fL [facility] NRBC abs 0.00 0.00 - 0.01 K/cumm [facility] Blood 08/25/2024 11:4 0 AM CDT 08/25/2024 2:52 PM CDT James Sandoval MD PhD LAB BLOOD ORDERABLES Sylvia l Result Performing Organization Address City/[facility]/ZIP Co de Phone Number [facility] [place] [address] * Hepatitis B Surface Antigen Blood (08/25/2024 11:40 AM CDT) [facility] HepBsAg Nonreactive Nonreactive Blood 08/25/2024 11:4 0 AM CDT 08/25/2024 2:52 PM CDT James Sandoval MD PhD LAB MICROBIOLOGY - GENERA L ORDERABLES Final Result [facility] [place] [address] * CRP (acute phase) (08/25/2024 11:40 AM CDT) CRP 8.8 <=10.0 mg/L Blood 08/25/2024 11:4 0 AM CDT 08/25/2024 2:52 PM CDT James Sandoval MD PhD LAB BLOOD ORDERABLES Sylvia brown Result [facility] Department [place] [address] * SCAN - LABS (08/12/2024 12:00 AM CDT) us Provider Scanning Edited Result - Final * Screening Mammogram Bilateral W Shahzad (04/15/2024 12:09 PM TOBACCO SHAKER) Anatomical Region Laterality Modality Breast Bilateral Mammography Narrative 04/16/2024 10:39 AM TOBACCO SHAKER Mammogram Technique: Bilateral Digital Breast Tomosynthesis, Bilateral C-view 2D Screening mammogram. Views obtained: bilateral craniocaudal and bilateral mediolateral oblique. Computer Aided Detection was performed. Mammogram Findings: The present examination has been compared to prior imaging studies performed at [facility] on 03/22/2021, 03/27/2022 and 04/09/2023. The [...] to prior imaging studies performed at [facility] on 03/22/2021, 03/27/2022 and 04/09/2023. The [...] Albumin Creatinine Ratio, Urine (03/10/2024 10:10 AM TOBACCO SHAKER) Pathologist [facility] Albumin Ur 17.5 mg/L Comment: Interpretive Data No reference range established. Current interpretive data was last revised 2018. Creatinine Ur 51.5 mg/dL [facility] Comment: Interpretive Data No reference range established. Current interpretive data was last revised 2018. Albumin Creatinine Ratio, Ur 35(H) 1 - 29 mg/g [facility] Urine 03/10/2024 10:1 0 AM TOBACCO SHAKER 03/10/2024 3:25 PM TOBACCO SHAKER Sonny Galindo MD LAB URINE ORDERABLES Final R esult [facility] One [facility] Department [place] [address] * Hemoglobin A1c (03/10/2024 10:10 AM TOBACCO SHAKER) Pathologist [facility] Hgb A1C 5.3 4.0 - 5.6 % Estimated Average Glucose 105 mg/dL [facility] Comment: The ADA recommends reporting an estimated Average Glucose (eAG) with all Hemoglobin A1c results using the equation derived from a study of 507 normal and diabetic adults. Minority populations were underrepresented and children were not included. (Diabetes Care 2020; 43(S1): S66-S76). The eAG is not equivalent to a fasting glucose. Blood 03/10/2024 10:1 0 AM TOBACCO SHAKER 03/10/2024 2:39 PM TOBACCO SHAKER us Sonny Galindo MD LAB BLOOD ORDERABLES Final R esult [facility] Department [place] [address] * COLONOSCOPY (12/11/2022 12:11 PM CDT) Anatomical Region Laterality Modality Other Narrative Procedure Note James Sandoval MD PhD - 12/11/2022 12:11 PM CDT ENDOSCOPY LAB Patient Name: Carmen Page Karinaleona Procedure Date: 12/11/2022 12:11PM Date of : 1960 Admit Type: Outpatient Age: 62 Gender: Female Attending MD: James Sandoval MD,PHD Room: [facility] ENDOSCOPY ROOM 05 Note Status: [...] The scope was passed under direct vision.The [id number] was introduced through the anusand advanced to [...] - GENERAL ORDER REJI Final Result [facility] [address] Department [place] [address] * BONE MINERAL DENSITY (06/20/2015) Anatomical Region Laterality Modality Radiographic Suzette ging Narrative 06/20/2015 Ordered by an unspecified provider. Historical Provider IMG DXA PROCEDURES Final Result from Last 3 Months or Most Recently Relevant to [place] [address] [facility] FEDERAL MEDICARE FORMERLY [facility] [place] [address] [facility] [employer] MEDICAL [employer]IC[employer] Advance Directives For more information, please contact: [phone] * Full Code (Latest Code Status on [...] 9:50 AM 05/27/2018 4:39 PM Care Teams Carpenter Helper Relationship Specialty Start Date End Date Gabbie Wilde MD PCP - General Family Medicine 03/27/22 James Sandoval MD PhD [address] [facility] GA[facility], [address] [address] PCP - Home Infusion Attending Gastroenterology 07/12/24 Sonny Galindo MD Nephrology 05/21/22 Caroline Banerjee, RN Home Infusion Nursing 07/21/24 [facility]att [facility], [facility] located within [facility] Pharmacist Pharmacy 08/02/24
--- OUTSIDE RECORDS SUMMARY | 2024-09-10 10:44 | XMS_ITS | Encounter Summary ---
Author Organization [facility] Address [address] [place] [address] Phone Care Team Providers Care Paper Cone Machine Operator Name Role Phone Gabbie Wilde MD Primary Care Provider + Sonny Galindo MD Unavailable [phone] aJmes Sandoval MD PhD Unavailable [phone] Caroline Banerjee RN Unavailable Unavailable Wy[facility] Th[facility] Unavailable Unavaila ble Encounter Details [...] on file Legal Sex Female 11:00 AM MANAGED SERVICES SALES CONSULTANT Gender Identity Female 10/03/2020 3:00 PM [...] 01/01/22 is neg. 04/14/2015 04/14/2015 8:58 AM MANAGED SERVICES SALES CONSULTANT documented as of this encounter Care Teams Paper Cone Machine Operator Relationship Specialty Start Date End Date Gabbie Wilde MD PCP - General Family Medicine 03/27/22 James Sandoval MD PhD [address] [facility] GA[facility], [address] [address] PCP - Home Infusion Attending Gastroenterology 07/12/24 Sonny Galindo MD Nephrology 05/21/22 Caroline Banerjee, MARIA A Home Infusion Nursing 07/21/24 Wyatt Thayer, [facility] Pharmacist Pharmacy 08/02/24 documented as of this encounter
--- OUTSIDE RECORDS SUMMARY | 2024-09-10 10:44 | XMS_ITS ---
Author Organization [facility] Medical [facility] 2 Address [address] [facility] [address] Care Team Providers Care Kinesiotherapist Name Role Phone Gabbie Wilde MD Primary Care Provider + Sonny Galindo MD Unavailable [phone] James Sandoval MD PhD Unavailable [phone] Caroline Banerjee RN Unavailable Unavailable [facility] Unavailable Unavaila ble Home Infusion Status:Enrolled (Active) Start date:06/26/2024 Enrollment date:06/26/2024 Related service episodes:[facility] - ENTYVIO 300 mg IV EVERY 8 WEEKS (Active) Overview Cutover complete. Alicia Torres, MARIA A 07/12/2024 1:09 PM Case Team Name Relationship Phone Caroline Banerjee RN(Responsible Staff) Home Infu fabricio Nursing Continued Care and Services Coordination
[2024-09-10 11:47] LABS: Albumin Level 4.0 g/dL (3.5-5.1); Anion Gap 7 mmol/L (4-12); Blood Urea Nitrogen 22 mg/dL (7-17); Calcium 9.2 mg/dL (8.4-10.2); Carbon Dioxide 30 mmol/L (22-30); Chloride 101 mmol/L (98-107); Estimated Glomerular Filt Rate 40; Glucose 115 mg/dL (65-110); Potassium 4.3 mmol/L (3.4-5.0); Sodium 138 mmol/L (137-145)
[2024-09-10 11:50] LABS: Total Protein Urine Random 22 mg/dL; Ur Ttl Prot Creatinine Ratio 0.46 mg/mg (0-0.20)
[2024-09-10 11:59] LABS: Parathyroid Intact 68.7 pg/mL (14.5-75.2)
== END 2024-09-10 10:41 | disposition home or self-care (01) ==
PROVIDERS: PCP Family Medicine; Visit Provider Internal Medicine Nephrology
DX: N18.32 Chronic kidney disease, stage 3b (principal)
CPT/HCPCS: 36415; 36591; 80069; 82570; 83970; 84156

== ENCOUNTER 2024-10-08 02:00 | Emergency (ER) | payer BC, MEDICARE, SELFPAY ==
[2024-10-08] VITALS (9 sets, daily range): BP systolic 101–111; BP diastolic 49–69; PULSE 85–106; RESP 18; TEMP 36.5; O2SAT 97–100
--- NOTE | 2024-10-08 02:12 | ECG_ITS ---
Test Date: 2024-10-08 03:47:08 Measurements Intervals Hall Rate: 86 P: 52 SC: 108 QRS: 67 QRSD: 88 T: 62 QT: 391 QTc: 469 Interpretive Statements SINUS RHYTHM WITH SHORT SC INTERVAL NONSPECIFIC T-WAVE ABNORMALITY- ANT/HIGH LAT LEADS BASELINE ARTIFACT- I, II BORDERLINE ECG No previous ECG available for comparison Electronically Signed On 10-08-2024 05:41:06 CDT by Jose Real D.O.
--- NOTE | 2024-10-08 02:44 | ED.DIZZY ---
HPI - Dizziness General Chief Complaint: Syncope Stated Complaint: syncope Time Seen by Provider: 10/08/24 02:03 History of Present Illness HPI Narrative: Patient is a 64-year-old female who presents to the emergency department this evening complaining of nausea, vomiting, diarrhea and near syncopal episode at home. States that the diarrhea started on Saturday of this week. States that the lightheaded/near syncopal episodes occur every time she gets up from a seated position. Patient is also complaining of intermittent dysuria and is concerned of a UTI. Denies any abdominal pain. No additional symptoms or concerns at this time. Related Data Home Medications ?Medication ?Instructions ?Recorded ?Confirmed ?Last Taken ?Type cetirizine 10 mg capsule (All Day 10 mg PO DAILY 03/10/19 09/21/24 09/01/24 History Allergy (cetirizine)) cholecalciferol (vitamin D3) 125 5,000 unit PO DAILY 03/10/19 09/21/24 08/30/24 History mcg (5,000 unit) tablet (Vitamin D3) eluxadoline 100 mg tablet (Viberzi) 100 mg PO DAILY 03/10/19 09/21/24 09/01/24 History omega 3-qqf-ypn-fish oil 1,200 mg 1 cap PO BID 01/26/22 09/21/24 08/30/24 History (144 mg-216 mg) capsule (Fish Oil) vedolizumab 300 mg intravenous 300 mg IV .every 8 weeks 09/24/22 09/21/24 11/20/23 History solution (Entyvio) mmwpxotj-qkr-scohb acid 0.4 2 tablet PO DAILY 03/26/23 09/21/24 08/30/24 History mg-lycopene 300 mcg-lutein 250 mcg tablet (Centrum Silver) lidocaine-prilocaine 2.5 %-2.5 % 2.5 g topical .other 12/04/23 09/21/24 Unknown History topical cream ondansetron 4 mg disintegrating 4 mg PO Q6H PRN nausea and vomiting 12/04/23 09/21/24 Unknown History tablet imipramine pamoate 100 mg capsule 100 mg PO HS 08/10/24 09/21/24 09/01/24 History mecobalamin (vitamin B12) 1,000 2,000 mcg PO 2XW 09/15/24 09/21/24 Unknown History mcg chewable tablet Allergies Allergy/AdvReac Type Severity Reaction Status Date / Time pregabalin Allergy Intermediate MEMORY GAPS Verified 09/21/24 10:30 cefuroxime (From Ceftin) Allergy Mild Diarrhea Verified 09/21/24 10:30 doxycycline Allergy Unknown Pt does Verified 09/21/24 10:30 not remember duloxetine Allergy Unknown catatonic Verified 09/21/24 10:30 lisinopril Allergy Unknown Diarrhea Verified 09/21/24 10:30 Penicillins Allergy Unknown Skin Verified 09/21/24 10:30 Reaction Sulfa (Sulfonamide Allergy Unknown Skin Verified 09/21/24 10:30 Antibiotics) Reaction suvorexant (Belsomra) Allergy Unknown intolerance Verified 09/21/24 10:30 vancomycin Allergy Unknown Facial Verified 09/21/24 10:30 swelling tizanidine Allergy Hallucinati Verified 09/21/24 10:30 ng losartan AdvReac Severe Hypotension Verified 09/21/24 10:30 prednisone AdvReac Severe Shakiness Verified 09/21/24 10:30 Review of Systems Review of Systems: All systems are reviewed and are negative unless stated otherwise in the HPI. [facility] Past Medical History Medical History Bilateral hearing loss Chronic headache Cough Nausea Trigger finger, acquired COVID-19 Cat bite History of hyperlipidemia Crohn's disease, unspecified, with other complication when pre infusion lab reviewed, infusion center needs to be called to give verbal order to proceed with infusion. Essential (primary) hypertension Surgical History Surgical History H/O cataract removal with insertion of prosthetic lens left eye 11/25/23 right eye 12/02/23 History of hysterectomy ~2013, OA -Dr. Yovani Kruger Family History Family History Father Family history of cardiac disorder Family history of arthritis Family history of Parkinson's disease Malignant neoplasm of prostate Family history of hypercholesterolemia Family history of cardiovascular disease Mother Family history of hypercholesterolemia Metastatic lung cancer (metastasis from lung to other site) Grandparent Family history of hypercholesterolemia Depression Family history of Alzheimer's disease Family history of emphysema Sibling Hypertension Social History Social History Social History: Caffeine- Jamin tea/sweet tea Smoking status: Never smoker Alcohol intake: current Alcohol use details: VERY RARE Substance use: never Substance use type: does not use Do You Feel Safe in your Home?: Yes Lack of Transportation: No Lack of Food: Never True Current Housing: I Have Housing Concerned About Future Housing: No Difficulty Paying Gas/Electric Bills: No Difficulty Paying for Meds: No Currently Unemployed: No Education: High School Diploma/GED Living arrangements: with family Gender identity (if verbalized by the patient): Female Spiritual care concerns: No Exam Narrative: General: Alert, awake, afebrile, in no acute distress. HEENT: PERRL, no rhinorrhea, no post nasal drip, oropharynx clear. Neck: Trachea midline, no JVD, no lymphadenopathy. Cardiovascular: Regular rate and rhythm, no murmurs, rubs or gallops, no peripheral edema. Respiratory: Clear to auscultation bilaterally, no tachypnea, no wheezing, no rhonchi, no rubs, no respiratory distress. Abdomen: Soft, nontender, nondistended, no rebound, no guarding, no peritoneal signs. Musculoskeletal: No joint swelling or deformity, normal muscle tone. Skin: No rashes or petechia, no signs of infection. Psychiatric: Alert and oriented, normal behavior and judgment for situation. Neurological: Alert and oriented to person, place, and time. Follows all commands. No focal deficits, speech is clear and fluent. Course Vital Signs Vital signs: Vital Signs Temperature 97.7 F 10/08/24 01:59 Pulse Rate 106 H 10/08/24 01:59 Respiratory Rate 18 10/08/24 01:59 Blood Pressure 104/69 10/08/24 01:59 Pulse Oximetry 100 10/08/24 01:59 Oxygen Delivery Room Air 10/08/24 01:59 Temperature 97.7 F 10/08/24 01:59 Pulse Rate 106 H 10/08/24 01:59 Respiratory Rate 18 10/08/24 01:59 Blood Pressure 104/69 10/08/24 01:59 Pulse Oximetry 100 10/08/24 01:59 Oxygen Delivery Room Air 10/08/24 01:59 MDM - Dizziness MDM Narrative Medical decision making narrative: The patient was evaluated by myself in the emergency department. History is obtained from patient who is an independent historian and physical exam was performed. External medical records were reviewed at this time. IV was established and pertinent tests were ordered. Patient was administered 2 L IV fluid bolus with normal saline. EKG was obtained which revealed sinus rhythm rate of 86 beats per minute. No ST changes, T wave inversions or evidence of acute ischemia. EKG was independently interpreted by me and is currently pending official cardiology read. Laboratory results obtained revealing hypo magnesemia of 1.5 and hypokalemia of 3.2 otherwise unremarkable. Patient was administered 1 g of IV magnesium and formal goals of oral potassium at this time. She was also administered 4 mg of IV Zofran for nausea. Urinalysis revealed urinary tract infection with 4+ bacteria, 51-100 RBCs and greater than 100 white blood cells. Differential diagnosis considerations include dehydration, electrolyte derangements, gastroenteritis, orthostatic hypertension, vasovagal syncope. Comorbidities impacting this visit include recent diarrheal illness. I have evaluated and discussed social determinants of health with the patient that could potentially impact subsequent diagnosis and treatment plans. On repeat assessment of the patient, reevaluation revealed that the patient is doing well and is in no acute distress. Patient symptoms have improved since she arrived to our emergency department. Repeat vital signs were all reviewed and noted to be stable. Differential diagnosis and treatment plan were discussed with the patient at bedside. Patient agrees with discussion and after shared medical decision making agrees with discharge. All questions were answered to the patient's satisfaction. Patient will follow up with her PCP in 3-5 days. Script for Zofran and nitrofurantoin was sent to patient's pharmacy to take as prescribed. Patient was provided with strict return precautions and instructed to return to the emergency department if any new or worsening symptoms develop. The patient was discharged in stable condition. Lab Data 10/08/24 03:15 10/08/24 03:15 Labs: Lab Results 10/08/24 10/08/24 Range/Units 03:15 05:17 WBC 12.0 H (4.5-10.0) K/mm3 RBC 5.08 (4.2-5.4) M/mm3 Hgb 13.8 (12.0-15.0) g/dL Hct 42.6 (37.0-47.0) % MCV 83.9 (80-100) fl MCH 27.2 (26-34) pg MCHC 32.4 (32-36) g/dl RDW 13.9 (11.5-14.5) % Plt Count 271 (150-375) k/mm3 MPV 10.7 H (7.4-10.4) fl Immature Gran % (Auto) 0.3 (0-0.5) % Neut % (Auto) 86.4 H (45.5-73.1) % Lymph % (Auto) 5.3 L (18.3-44.2) % Wells % (Auto) 7.0 (2.6-8.5) % Eos % (Auto) 0.7 (0-4.4) % Baso % (Auto) 0.3 (0.2-1.2) % Lymph # (Auto) 0.63 L (0.9-3.2) K/mm3 Wells # (Auto) 0.8 H (0.1-0.6) K/mm3 Eos # (Auto) 0.1 (0-0.3) K/mm3 Baso # (Auto) 0.0 (0.0-0.1) K/mm3 Abs Immat Gran (auto) 0.03 (0.00-0.031) K/mm3 Absolute Neuts (auto) 10.4 H (1.3-6.7) K/mm3 Absolute Nucleated RBC 0.000 (0.0-0.012) K/mm3 Nucleated RBC % 0.0 (0.0-0.2) % Sodium 136 L (137-145) mmol/L Potassium 3.2 L (3.4-5.0) mmol/L Chloride 100 (98-107) mmol/L Carbon Dioxide 23 (22-30) mmol/L Anion Gap 13 H (4-12) mmol/L BUN 25 H (7-17) mg/dL Creatinine 1.31 H (0.7-1.0) mg/dL Estim Creat Clear Calc 33 ml/min Estimated GFR 41 L (59 - ) Glucose 150 H (65-110) mg/dL Calcium 8.9 (8.4-10.2) mg/dL Magnesium 1.5 L (1.6-2.3) mg/dL Total Bilirubin 0.7 (0.2-1.3) mg/dL AST 33 (14-36) U/L ALT 14 (6-35) U/L Alkaline Phosphatase 75 (38-126) U/L Total Protein 7.4 (6.3-8.2) g/dL Albumin 4.1 (3.5-5.1) g/dL Lipase 24 (23-300) U/L Urine Color Yellow (Yellow) Urine Appearance Turbid H (Clear) Urine pH 6.5 (5.0-9.0) Ur Specific [place] 1.026 (1.001-1.035) Urine Protein Trace (Negative) mg/dL Urine Glucose (UA) 3+ H (Negative) mg/dL Urine Ketones Trace H (Negative) mg/dL Ur Blood (Man) 2+ H (Negative) Urine Nitrate Negative (Negative) Urine Bilirubin Negative (Negative) Urine Urobilinogen 0.2 (<2.0) mg/dL Add Ur Microanalysis Reviewed Leukocyte Esterase Rfl 2+ H (Negative) SATHYA/UL Urine RBC 51-100 H (0-2) /hpf Urine WBC >100 H (0-3) /hpf Ur Squamous Epith Cells Many H (Few) /hpf Urine Bacteria 4+ H /hpf Urine Casts 0-2 Hyaline Casts Present (None) /lpf Urine Yeast (Budding) Present H (None) /hpf Discharge Plan Discharge Clinical Impression: Acute dehydration, Acute hypokalemia, Hypomagnesemia, Acute diarrhea, Acute UTI Patient Disposition: Home Condition: Improved Instructions: Antibiotic Form, Urinary Tract Infection in Women (DC), Acute Diarrhea (ED) Additional Instructions: Please follow-up with your family doctor within the next 3-5 days. Take the prescribed antibiotic as instructed for UTI. Maintain your oral hydration by drinking lots of fluids. Maintain a bland diet until you diarrhea resolves. Patient Language: Slovenian Prescriptions: New nitrofurantoin monohyd/m-cryst [Macrobid] 100 mg capsule 100 mg PO Q12H 5 Days Qty: 10 0RF Rx Instructions: must administer with a meal/food ondansetron 4 mg tablet,disintegrating 4 mg PO Q8H PRN (Reason: nausea and vomiting) Qty: 10 0RF No Action omega 8-elc-jyx-fish oil [Fish Oil] 1,200 (144-216) mg Capsule 1 cap PO BID Viberzi 100 mg tablet 100 mg PO DAILY Patient Comments: EVERY OTHER DAY Rx Instructions: must administer with a meal/food cholecalciferol (vitamin D3) [Vitamin D3] 125 mcg (5,000 unit) tablet 5,000 unit PO DAILY All Day Allergy (cetirizine) 10 mg capsule 10 mg PO DAILY Centrum Silver 0.4 mg-300 mcg- 250 mcg tablet 2 tablet PO DAILY Rx Instructions: take one tab. in the am and one in the pm mecobalamin (vitamin B12) 1,000 mcg tablet,chewable 2,000 mcg PO 2XW imipramine pamoate 100 mg capsule 100 mg PO HS Entyvio 300 mg recon soln 300 mg IV .every 8 weeks Rx Instructions: administer over 30 mins ondansetron 4 mg tablet,disintegrating 4 mg PO Q6H PRN (Reason: nausea and vomiting) lidocaine-prilocaine 2.5-2.5 % cream 2.5 g topical .other Patient Comments: Uses to access my port. (DME) blood-glucose meter [Blood Glucose Monitoring] Kit See Rx Instructions .Route Qty: 1 0RF Rx Instructions: As directed (DME) lancets [1st Tier Unilet ComforTouch] 28 gauge misc See Rx Instructions .Route Qty: 100 3RF Rx Instructions: once daily (DME) OneTouch Verio test strips Strip See Rx Instructions .ROUTE .COMPLEX Qty: 100 3RF Dose Instruction: TEST ONCE DAILY Rx Instructions: TEST ONCE DAILY (DME) lancets [OneTouch Delica Plus Lancet] 33 gauge misc See Rx Instructions .ROUTE .COMPLEX Qty: 100 0RF Dose Instruction: USE ONCE DAILY Rx Instructions: USE ONCE DAILY Rybelsus 7 mg tablet 7 mg PO DAILY Qty: 90 3RF trazodone 100 mg tablet 100 mg PO QHS Qty: 90 3RF fenofibrate micronized 134 mg capsule 134 mg PO DAILY Qty: 90 1RF estradiol 1 mg tablet See Rx Instructions .ROUTE .COMPLEX Qty: 90 1RF Dose Instruction: TAKE 1 TABLET BY MOUTH DAILY, OFF 1 WEEK, REPEAT CYCLE Rx Instructions: TAKE 1 TABLET BY MOUTH DAILY, oxybutynin chloride 10 mg tablet extended release 24hr See Rx Instructions .ROUTE .COMPLEX Qty: 270 0RF Dose Instruction: TAKE 2 TABLETS BY MOUTH DAILY Rx Instructions: TAKE 3 TABLETS BY MOUTH DAILY Farxiga 5 mg tablet 5 mg PO DAILY Qty: 30 11RF Kerendia 10 mg tablet See Rx Instructions .ROUTE .COMPLEX Qty: 30 3RF Dose Instruction: TAKE 1 TABLET BY MOUTH DAILY Rx Instructions: TAKE 1 TABLET BY MOUTH DAILY simvastatin 10 mg tablet See Rx Instructions .ROUTE .COMPLEX Qty: 100 3RF Dose Instruction: TAKE 1 TABLET BY MOUTH DAILY Rx Instructions: TAKE 1 TABLET BY MOUTH DAILY Follow-up/Referrals: Gabbie Wilde MD [Primary Care Provider, Family Practice] - 3 Days Time of Disposition: 05:49
[2024-10-08 03:20] LABS: Hematocrit 42.6 % (37.0-47.0); Hemoglobin 13.8 g/dL (12.0-15.0); Immature Granulocyte Percent A 0.3 % (0-0.5); Lymphocytes Absolute Auto 0.63 K/mm3 (0.9-3.2); Mean Corpuscular HGB Conc 32.4 g/dl (32-36); Mean Corpuscular Hemoglobin 27.2 pg (26-34); Mean Corpuscular Volume 83.9 fl (80-100); Nucleated Red Blood Cells Absolute Auto 0.000 K/mm3 (0.0-0.012); Nucleated Red Blood Cells Perc 0.0 % (0.0-0.2); Platelet Count Result 271 k/mm3 (150-375); Red Blood Count 5.08 M/mm3 (4.2-5.4); White Blood Count 12.0 K/mm3 (4.5-10.0)
[2024-10-08] MEDS: SODIUM CHLORIDE 0.9% IV 1,000 ML 999 ML IV CONT ×2 (03:31→04:20)
[2024-10-08 03:39] LABS: Alanine Aminotransferase 14 U/L (6-35); Albumin Level 4.1 g/dL (3.5-5.1); Alkaline Phosphatase 75 U/L (38-126); Anion Gap 13 mmol/L (4-12); Aspartate Amino Transferase 33 U/L (14-36); Bilirubin,Total 0.7 mg/dL (0.2-1.3); Blood Urea Nitrogen 25 mg/dL (7-17); Calcium 8.9 mg/dL (8.4-10.2); Carbon Dioxide 23 mmol/L (22-30); Chloride 100 mmol/L (98-107); Estimated CRCL calculation 33 ml/min; Estimated Glomerular Filt Rate 41; Glucose 150 mg/dL (65-110); Lipase 24 U/L (23-300); Magnesium 1.5 mg/dL (1.6-2.3); Potassium 3.2 mmol/L (3.4-5.0); Sodium 136 mmol/L (137-145); Total Protein 7.4 g/dL (6.3-8.2)
[2024-10-08] MEDS: POTASSIUM CHLORIDE 20 MEQ ER TABLET 40 MEQ PO (04:15)
[2024-10-08] MEDS: ONDANSETRON INJ 4 MG/2 ML VIAL IV PUSH (04:19)
[2024-10-08] MEDS: MAGNESIUM SULF 1 GM/D5W 100 ML 1 GM/100 ML BAG IVPB (04:22)
[2024-10-08 05:37] LABS: Add Urine Microscopic? YES; Appearance Urine Turbid (Clear); Budding Yeast Urine Present /hpf; Glucose Urine UA 3+ mg/dL (Negative); Leukocyte Esterase Ur 2+ LEU/UL (Negative); Need Manual Microscopic Reviewed; Nitrate Urine Negative (Negative); Non Pathogenic Casts 0-2; Specific Grav Ur 1.026 (1.001-1.035)
[2024-10-08] MEDS: HEPARIN SODIUM LOCK FLUSH 500 UNITS/5 ML VIAL IV PUSH (06:21)
== END 2024-10-08 06:36 | disposition home or self-care (01) ==
PROVIDERS: Emergency Provider Emergency Medicine; PCP Family Medicine
DX: N39.0 Urinary tract infection, site not specified (principal); E86.0 Dehydration; E83.42 Hypomagnesemia; E87.6 Hypokalemia; R19.7 Diarrhea, unspecified; I10 Essential (primary) hypertension; K50.919 Crohn's disease, unspecified, with unspecified complications; Z86.16 Personal history of COVID-19; Z90.710 Acquired absence of both cervix and uterus; Z96.1 Presence of intraocular lens; Z98.42 Cataract extraction status, left eye; Z98.41 Cataract extraction status, right eye; Z79.899 Other long term (current) drug therapy; Z79.620 Long term (current) use of immunosuppressive biologic; R94.31 Abnormal electrocardiogram [ECG] [EKG]
CPT/HCPCS: 36415; 80053; 81001; 83690; 83735; 85025; 93005; 96361; 96365; 96375; 99284; A9270; J1642; J2405; J3475; J7030

== ENCOUNTER 2024-10-28 13:52 | Outpatient (CLI) | payer BC, MEDICARE, SELFPAY ==
--- OUTSIDE RECORDS SUMMARY | 2024-10-28 14:31 | XMS_ITS | Encounter Summary ---
Author Organization [facility] Healthcare Address [address] [place] [address] Care Team Providers Care De Icer Element Winder Name Role Phone Lois Amato MD Primary Care Provider [phone] Toney Benítez Primary Care Provider + Gabbie Wilde MD Primary Care Provider + Sonny Galindo MD Unavailable [phone] James Sandoval MD PhD Unavailable [phone] Caroline Banerjee RN Unavailable Unavailable Wyatt Thayer [facility] Unavailable Unavaila ble Encounter Details Date Type Department Care Team (Late st Contact Info) Description 09/02/2019 Telephone [facility] [address] [place] [address] Valeri Farnsworth MD [address] [facility] [address] [place] [address] Social History Tobacco Use Types Packs/Day Years Used Date Smoking Tobacco: Never Smokeless Tobacco: Never Alcohol Use Standard Drinks/Week Comments Yes 0 (1 standard drink = 0.6 oz pure alcohol) 1 glass wine maybe once a month Comments No Sex and Gender Information Value Date Recorded Sex Assigned at Not on file 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 difficile Comment:Chronic diarrhea from IBS. Last CDI test 01/01/22 is neg. 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 [employer] documented as of this encounter Care Teams De Icer Element Winder Relationship Specialty Start Date End Date Lois Amato MD [address] [place] [address] PCP - General 03/12/12 09/28/21 Toney Benítez PA [address] [place] [address] PCP - General Physician Sand Tester 09/29/21 03/26/22 Gabbie Wilde MD [address] [place] [address] PCP - General Family Medicine 03/27/22 James Sandoval MD PhD [address] [facility], [address] [address] PCP - Home Infusion Attending Gastroenterology 07/12/24 Sonny Galindo MD [address] [place] [address] Nephrology 05/21/22 Caroline Banerjee, MARIA A Home Infusion Nursing 07/21/24 Wyatt Thayer, [facility] Pharmacist Pharmacy 08/02/24 documented as of this encounter
--- OUTSIDE RECORDS SUMMARY | 2024-10-28 14:31 | XMS_ITS | Encounter Summary ---
Author Organization [facility] Address [address] [place] [address] Phone Care Team Providers Care Cardiac Tech Name Role Phone Toney Benítez Primary Care Provider [phone] Encounter Details Date Type Department Care Team (Late st Contact Info) Description 09/30/2018 [facility] [address] [facility], [address] [address] Sonny Galindo MD [address] [facility], [address] [place] [address] Social History Tobacco Use Types Packs/Day Years [...] on filedocumented in this encounter Care Teams Cardiac Tech Relationship Specialty Start Date End Date Toney Benítez [address] [place] [address] PCP - General 09/20/21 documented as of this encounter
--- OUTSIDE RECORDS SUMMARY | 2024-10-28 14:31 | XMS_ITS | Clinical Summary ---
Author Organization [facility] Address [address] [place] [address] Phone Care Team Providers Care Rotoformer Backtender Name Role Phone Toney Benítez Primary Care Provider [phone] Allergies Active Allergy Reactions Criticality Noted Date [...] pills spread through the day 2 Active Ewing-3 Fatty Acids (Fish Oil) 1200 MG capsule [...] (09/24/2018): Added automatically from request for surgery [id number] Stage 3b chronic kidney disease 08/15/2011 Hypertensive [...] on file Legal Sex Female 8:54 AM [facility] Gender Identity Not on file Sexual Orientation [...] PCV21) 11/18/2017 11/18/2016 COVID-19 Vaccine (4 - 2024-2 6 season) 2024 11/25/2020, 05/08/2020, 04/17/2020 Influenza Vaccine (#1) 2024 , 11/19/2019, 10/20/2018, Additional history exists Insurance [facility] Care Teams Rotoformer Backtender Relationship Specialty Start Date End Date Toney Benítez [address] [address] PCP - General 09/20/21
--- OUTSIDE RECORDS SUMMARY | 2024-10-28 14:31 | XMS_ITS ---
Author Organization [facility] Medical [facility] 2 Address [address] [facility] [place] [address] Care Team Providers Care Repairer Helper Name Role Phone Gabbie Wilde MD Primary Care Provider + Sonny Galindo MD Unavailable [phone] James Sandoval MD PhD Unavailable [phone] Caroline Banerjee RN Unavailable Unavailable Wyatt Thayer [facility] Unavailable Unavaila ble Home Infusion Status:Enrolled (Active) Start date:06/26/2024 Enrollment date:06/26/2024 Related service episodes:[facility] Specialty Therapies - ENTYVIO 300 mg IV EVERY 8 WEEKS (Active) Overview Cutover complete. Alicia Torres, MARIA A 07/12/2024 1:09 PM Case Team Name Relationship Phone Caroline Banerjee RN(Responsible Staff) Home Infu fabricio Nursing Continued Care and Services Coordination
--- OUTSIDE RECORDS SUMMARY | 2024-10-28 14:31 | XMS_ITS ---
Author Organization [facility] Medical [facility] 2 Address [address] [place] [address] Care Team Providers Care Snaker Tractor Driver Name Role Phone Gabbie Wilde MD Primary Care Provider + Sonny Galindo MD Unavailable [phone] James Sandoval MD PhD Unavailable [phone] Caroline Banerjee RN Unavailable Unavailable Wyatt Thayer [facility] Unavailable Unavaila ble [facility] Specialty Therapies - ENTYVIO 300 mg IV EVERY 8 WEEKS Status:Enrolled (Active) Start date:06/26/2024 Enrollment date:06/26/2024 Linked medications:vedolizumab (Active) Related program episode:Home Infusion (Active) Overview Cutover complete Case Team Name Relationship Phone Caroline Banerjee RN Home Infusion Nursing Wyatt Thayer [facility](Responsible Staff) Pharma cist Continued Care and Services Coordination This section includes services coordinated for [facility] Specialty Therapies - ENTYVIO 300 mg IV EVERY 8WEEKS. Home Medical Care Name Services Phone [facility] Home Infusion Therapy Home Infusion and Inje ction
--- OUTSIDE RECORDS SUMMARY | 2024-10-28 14:31 | XMS_ITS | Patient Health Record ---
Author Organization [facility] Address [address] [facility] [address] [place] [address] Care Team Providers Care Refrigerator Room Clerk Name Role Phone Chelsi Cervantes Unavailable [phone] Reason For Referral No Information Medications Medication SIG (Take, Route, Frequency, Duration) Notes Start Date End Date Status Entyvio 300 mg infuse 300 mg over 30 minute(s) by intravenous route every 8 weeks Intravenous [id number] Active Multi-Vitamin take 1 tablet by [...] tablet in the morning - *Reorder from LiveQoS for eRx and Interaction Alerts* Active Cetirizine HCl 10 MG take 1 tablet (10 mg) by oral route once daily Oral 1 Active Peppermint Oil 50 mg take 1 capsule by oral route once ORAL 1 *Pick strength-form from LiveQoS for eRX* Active Farxiga 5 MG take [...] times a week - *Pick strength-form from LiveQoS for eRX* Active Losartan Potassium 25 MG take 1 tablet (25 mg) by oral route once daily Oral 1 Active Rybelsus 7 mg take 1 tablet (7 mg) by oral route once daily in the morning 30 min before any food, drink or medication with no more than 4 oz plain water oral 1 Active Cholecalciferol 1.25 MG (83569 UT) take 1 tablet by oral route once Oral 1 Active traZODone HCl 50 MG take 1 tablet (50 mg) by oral route once daily at bedtime Oral 1 Active Biotin 1,000 mcg chew 1 tablet by oral route once Oral 1 *Pick strength-form from A[employer]an for eRX* Active Fenofibrate 134 mg take 1 tablet in the evening oral *Pick strength-form from [employer] for eRX* Active Fish Oil Burp-Less 1200 MG take 1 capsule by oral route twice Oral 2 Active Plan Of Treatment No Information Insurance Providers Payer Name Payer Address Payer Phone Subscriber Number Group Number Insured Name Patient Relationship to Insured Coverage Start Date Coverage End Date [place] [address] [place] [address] [id number] Carmen Mortensen Self - patient is the insured Medical (General) History Surgical History Surgery Date(Month/Year) Hysterectomy; 2022-11-22 Arthroplasty of carpometacarpal (CMC) maryellen int of hand; 2022-11-28 sympathectomy; 2022-11-28
--- OUTSIDE RECORDS SUMMARY | 2024-10-28 14:31 | XMS_ITS | Encounter Summary ---
Author Organization [facility] Address [address] [place] [address] Phone Care Team Providers Care Dishroom Attendant Name Role Phone Gabbie Wilde MD Primary Care Provider + Sonny Galindo MD Unavailable [phone] James Sandoval MD PhD Unavailable [phone] Caroline Banerjee RN Unavailable Unavailable Wyatt Thayer [facility] Unavailable Unavaila ble Encounter Details Date Type Department Care Team (Latest Contact Info) Description 08/29/2024 Results Follow-Up [facility] Medicine Gastroenterology [address] [facility] Medical Office Building [address] [place] [address] James Sandoval MD PhD [address] [place] [address] Comprehensive metabolic panel, without glucose (Outreach), Glucose, [...] on file Legal Sex Female 11:00 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 Gender Identity Female 10/03/2020 3:00 PM CDT Sexual Orientation Not on file documented as of this encounter Plan of Treatment Not on file documented as of this encounter Visit Diagnoses Not on filedocumented in this encounter Care Teams Dishroom Attendant Relationship Specialty Start Date End Date Gabbie Wilde MD PCP - General Family Medicine 03/27/22 James Sandoval MD PhD [address] [facility] [address] PCP - Home Infusion Attending Gastroenterology 07/12/24 Sonny Galindo MD Nephrology 05/21/22 Caroline Banerjee, MARIA A Home Infusion Nursing 07/21/24 Wyatt Thayer, [facility] Pharmacist Pharmacy 08/02/24 documented as of this encounter
--- OUTSIDE RECORDS SUMMARY | 2024-10-28 14:31 | XMS_ITS | Encounter Summary ---
Author Organization [facility] Address [address] [place] [address] Phone Care Team Providers Care Rooming House Keeper Name Role Phone Gabbie Wilde MD Primary Care Provider + Sonny Galindo MD Unavailable [phone] James Sandoval MD PhD Unavailable [phone] Caroline Banerjee RN Unavailable Unavailable Wyatt Thayer [facility] Unavailable Unavaila ble Encounter Details Date Type [...] on file Legal Sex Female 11:00 AM INFORMATION TECHNOLOGY DIRECTOR Gender Identity Female 10/03/2020 3:00 PM CDT [...] 01/01/22 is neg. 04/14/2015 04/14/2015 8:58 AM INFORMATION TECHNOLOGY DIRECTOR documented as of this encounter Care Teams Rooming House Keeper Relationship Specialty Start Date End Date Gabbie Wilde MD PCP - General Family Medicine 03/27/22 James Sandoval MD PhD [address] [facility], [address] [address] PCP - Home Infusion Attending Gastroenterology 07/12/24 Sonny Galindo MD Nephrology 05/21/22 Caroline Banerjee, MARIA A Home Infusion Nursing 07/21/24 Wyatt Thayer, [facility] Pharmacist Pharmacy 08/02/24 documented as of this encounter
--- OUTSIDE RECORDS SUMMARY | 2024-10-28 14:31 | XMS_ITS | Patient Health Record ---
Author Organization [facility] [employer] [facility] [employer] Address [address] [place], [place] [id number] Care Team Providers Care Uranium Processing Supervisor Name Role Phone MARS LEGGETT, LOC Primary [...] Notes Problem Osteoarthrosis (715.09) Active confirmed Osteoarthrosis (638001990) Problem Crohn's disease (555.9) Active confirmed Crohn's disease (62531738) PLAN OF TREATMENT No Information Insurance Providers Payer Name Payer Address Payer Phone Subscriber Number Group Number Insured Name Patient Relationship to Insured Coverage Start Date Coverage End Date [facility] PPO - NR [address] [address] [place] [address] [id number] ESVIN LYLE Spouse - patient is the spouse of the insured 8 MEDICAL (GENERAL) HISTORY Medical History History ICD Code Bruises easily Changes in moles Migraine and tension headaches Blurred vision Ringing in ears Sinus problems Dizziness Anemia HBP Mitral valve prolapse IBS, bowel changes
--- OUTSIDE RECORDS SUMMARY | 2024-10-28 14:31 | XMS_ITS | Encounter Summary ---
Author Organization [facility] Address [address] [place] [address] Phone Care Team Providers Care Last Putter Away Name Role Phone Gabbie Wilde MD Primary Care Provider + Sonny Galindo MD Unavailable [phone] James Sandoval MD PhD Unavailable [phone] Caroline Banerjee RN Unavailable Unavailable Wyatt Thayer [facility] Unavailable Unavaila ble Encounter Details Date Type [...] on file Legal Sex Female 11:00 AM RIB KNITTER Gender Identity Female 10/03/2020 3:00 PM CDT [...] 01/01/22 is neg. 04/14/2015 04/14/2015 8:58 AM RIB KNITTER documented as of this encounter Care Teams Last Putter Away Relationship Specialty Start Date End Date Gabbie Wilde MD PCP - General Family Medicine 03/27/22 James Sandoval MD PhD [address] [facility], [address] [address] PCP - Home Infusion Attending Gastroenterology 07/12/24 Sonny Galindo MD Nephrology 05/21/22 Caroline Banerjee, MARIA A Home Infusion Nursing 07/21/24 Wyatt Thayer, [facility] Pharmacist Pharmacy 08/02/24 documented as of this encounter
--- OUTSIDE RECORDS SUMMARY | 2024-10-28 14:31 | XMS_ITS | Clinical Summary ---
Author Organization [facility] Address [address] [facility] [place] [address] Care Team Providers Care Manager Family Name Role Phone Gabbie Wilde MD Primary Care Provider + Sonny Galindo MD Unavailable [phone] James Sandoval MD PhD Unavailable [phone] Caroline Banerjee RN Unavailable Unavailable Wyatt Thayer [facility] Unavailable Unavaila ble Allergies Active Allergy [...] Active multivitamin tabletIndications :Vitamin Deficiency Prevention daily. 010 Active simvastatin (ZOCOR) 10 mg tabletIndications :hyperlipidemia daily Acti ve cholecalciferol (VITAMIN D-3) 5,000 unit capsuleIndication s:Vitamin D Deficiency Take by mouth 017 Active estradioL (ESTRACE) 1 mg tabletIndications :hormone replacement daily 020 Active blood pressure test kit-large kitIndications:hy pertension 021 Active OneTouch Verio test strips stripIndications: Diabetes Mellitus 022 Active cyanocobalamin (Vitamin B-12) 2,000 mcg tabletIndications :Prevention of Vitamin B12 Deficiency 1 tablet (2,000 mcg total) as directed Takes 4 times weekly Active OneTouch Delica Plus Lancet 33 gauge miscIndications:D iabetes Mellitus 022 Active jjpqs-4-ano-epa-d pa-fish oil 1,050-1,200 mg capsuleIndication s:hypertriglyceri demia 1 capsule Active oxybutynin XL (DITROPAN-XL) 10 mg 24 hr tabletIndications :Bladder Hyperactivity Take 3 tablets (30 mg total) by mouth daily Changed to 30mg q day 023 Active semaglutide (Rybelsus) 7 mg tabletIndications :type [...] labs draws as directed. 30 g 3 04/19/2 024 Active ondansetron ODT (ZOFRAN-ODT) 4 mg disintegrating tabletIndications :Nausea Take 1 tablet (4 mg total) by mouth every 6 (six) hours as needed for nausea or vomiting 20 tablet 5 024 Active dapagliflozin propanediol (FARXIGA) 5 mg tabletIndications :Chronic Kidney Disease Take 1 tablet (5 mg total) by mouth daily Active PreviDent 5000 Dry Mouth 1.1 % paste 024 Active rimegepant (Nurtec ODT) tablet,disintegra ting Take 1 tablet (75 mg total) by mouth once as needed (Take 1 tablet once with onset of acute headache pain. No more than 1 dose in 24 hours. No more than 18 per month.) 8 tablet 3 025 2025 Active traZODone (DESYREL) 100 mg tablet Take 1 tablet (100 mg total) by mouth nightly Active vedolizumab (ENTYVIO) 300 mg recon solnIndications:C [...] 250 mL NS bag. 1 each 3 10/17/19 11:59 PM CDT 025 2025 Active 0.9 % sodium chloride (sodium chloride 0.9%) 0.9% infusionIndicatio ns:Crohn's disease of both small and large intestine without complication (HCC) Infuse 250 mL IV as directed Add Vedolizumab 5mL (300mg) to 250mL NS bag. Infuse with non-filtered tubing via pole mounted pump over at least 30 minutes at up to 500mL/hr. START INFUSION WITHIN 4 HOURS OF MIXING 1000 mL 10/17/19 11:59 PM CDT 025 2025 Active acetaminophen (TYLENOL) 325 mg tabletIndications :Crohn's disease of both small and large intestine without complication (HCC) Take 2 tablets (650 mg total) by mouth every 8 (eight) weeks Pre-medication for vedolizumab (Entyvio) 8 tablet 025 2025 Active diphenhydrAMINE (BENADRYL) 25 mg capsuleIndication s:Crohn's disease of both small and large intestine without complication (HCC) Take 1 tablet/capsule (25 mg total) by mouth every 8 (eight) weeks Pre-medication for vedolizumab (Entyvio) 6 tablet/cap karlee 025 2025 Active sodium chloride 0.9% flush syringeIndication s:Crohn's disease of both small and large intestine without complication (HCC) Infuse 10 mL IV as needed for line care 77458 mL 025 2025 Active eluxadoline (Viberzi) 100 mg tabletIndications :Diarrhea Predominant Irritable Bowel Syndrome Take 1 tablet (100 mg total) by mouth daily 90 tablet 1 025 Active imipramine (TOFRANIL-PM) 100 mg capsuleIndication s:Trigeminal neuralgia TAKE 1 CAPSULE(100 MG) BY MOUTH EVERY NIGHT 30 capsule 2 025 Active imipramine (TOFRANIL-PM) 100 mg capsuleIndication s:Trigeminal neuralgia TAKE 1 CAPSULE(100 MG) BY MOUTH EVERY NIGHT 30 capsule 2 025 2024 Discontinued Active Problems Problem Noted Date Diagnosed [...] (04/15/2018): Added automatically from request for surgery [id number] Abnormal mammogram 02/10/2018 Resolved Problems Problem Noted Date Diagnosed Date Resolved Date Trigeminal neuralgia 03/11/2024 025 Assessment & Plan (03/11/2024 3:13 PM CLEAR COAT SPRAYER): She complains of residual pain in the [...] (08/05/2022): Added automatically from request for surgery [id number] Encounters Date Type Department Care Team Description 10/20/2024 10:00 AM CDT Home Care Visit [facility] Home Infusion Therapy [address] [place] [address] Caroline Banerjee, MARIA A [place] [facility] [address] ROUTINE 10/20/2024 [facility] [address] [facility] [address] [place] [address] Lore Arriaga MA 10/01/2024 Plan of Care Documentation [facility] Home Infusion Therapy [address] [place] [address] 10/01/2024 Home Infusion [facility] Home Infusion Therapy [address] [place] [address] Wyatt Thayer, [facility] 09/08/2024 4:00 PM CDT Procedure visit [facility] Medicine Otolaryngology [address] [facility] [address] [place] [address] [place] [address] Dalia Munroe Au.D. Sensorineural hearing loss, bilateral (Primary Dx) 08/31/2024 Telephone [facility] Medicine Scheduling [address] [place] [address] James Sandoval MD PhD Prior Auth (Viberzi 100MG tablets) 08/29/2024 Results Follow-Up [facility] Medicine Gastroenterology [address] [facility] [address] [place] [address] James Sandoval MD PhD Comprehensive metabolic panel, without glucose (Outreach), Glucose, random (Outreach), CBC with auto differential, Additional followed-up results: 5 08/25/2024 11:40 AM CDT - 08/25/2024 11:59 PM CDT Hospital Encounter [facility] [address] [place] [address] Discharge Disposition: Discharge to home or self care 08/17/2024 Orders Only [facility] Medicine Gastroenterology [address] [facility] 12[address] [place] [address] [place] [address] Angelique Cabral, value advisor 08/17/2024 Orders Only [facility] Medicine Gastroenterology [address] [facility] [address] [place] [address] [place] [address] Michelle Gutierrez, MARIA A Crohn's disease of both small and large intestine without complication (HCC) (Primary Dx); High risk medications (not anticoagulants) long-term use; Routine health maintenance 08/12/2024 Home Infusion [facility] Home Infusion Therapy [address] [place] [address] Cadence Montenegro Crohn's disease of both small and large intestine without complication (HCC) (Primary Dx) from Last 3 Months Immunizations Immunization Administration [...] Bladder Surgery - (Added by TW Conv) NJ EXC CYST/ABERRANT BREAST TISSUE OPEN / LESION Breast Surgery Lumpectomy - (Added by TW Conv) [place] NEUROPLASTY &/TRANSPOS MEDIAN NRV CARPAL TUNNE Neuroplasty Decompression Median Nerve At Carpal Tunnel - (Added by TW Conv) ANAL FISSURECTOMY Anal Fissurectomy - (Added by TW Conv) KNEE SURGERY Knee Surgery - (Added by TW Conv) [place] NEURP MAJOR PRPH NRV ARM/LEG OPN OTH/THN SPEC Neuroplasty Ulnar Nerve - (Added by TW Conv) CENTRAL VENOUS CATHETER INSERTION Central IV Line Type Port-A-Cath - (Added by TW Conv) SPINAL CORD STIMULATOR IMPLANT Spinal Surgery Neurostimulator Implants - (Added by TW Conv) NJ TOTAL ABDOMINAL HYSTERECT W/WO RMVL TUBE OVARY [...] Crohn's disease (HCC) Type 2 diabetes mellitus Cancer (HCC) Dysphagia Depression Port-A-Cath in place Osteoarthritis Sinusitis 2022 Plantar fasciitis Trigger finger Cataract 2017 Pneumonia 1995 Fatigue 2006 Allergic rhinitis Tinnitus HL (hearing loss) Recurrent upper respiratory infection (URI) Menstrual problem 1970 Low back pain 2009 Frozen shoulder Anxiety Autoimmune disease Crohns and [...] 2 Bianka Rojas COPD Maternal Grandfather Tato Vieira Alzheimer's disease Maternal Grandmother Durga Avina ch Memory loss Maternal Grandmother Durga Vieira Arthritis Mother Rahel Page Cancer Mother Rahel [...] on file Legal Sex Female 11:00 AM CLEAR COAT SPRAYER Gender Identity Female 10/03/2020 3:00 PM CDT Sexual Orientation Not on file Obstetrics History Last Filed Vital Signs Vital Sign Reading Time Taken Comments Blood Pressure 100/63 10/20/2024 11:35 AM CDT Pulse 70 10/20/2024 11:35 AM CDT Temperature 36.2 C (97.1 F) 10/20/2024 11:35 AM CDT Respiratory Rate 16 10/20/2024 11:35 AM CDT Oxygen Saturation 100% 10/20/2024 11:35 AM CDT Inhaled Oxygen Concentration - - Weight 56.2 kg (124 lb) 10/20/2024 10:08 AM CDT Height 162.6 cm (5' 4) 10/20/2024 10:08 AM CDT Body Mass Index 21.28 10/20/2024 10:08 AM CDT Plan of Treatment Health Maintenance Due Date Last Done Comments Depression Screening 1960 Dilated Eye Exam 1960 Foot Exam 1960 Lipid Panel 1960 Hepatitis B Screening 08/17/1977 Pneumococcal vaccine 65+ (2 of 2 - PPSV23, PCV20, or PCV21) 01/13/2017 11/18/2016, 08/19/2015 Osteoporosis Screening-Bone Density Scan 06/19/2017 06/20/2015 Well Visit 65+ 08/17/2024 Hemoglobin A1C 09/07/2024 03/10/2024, 11/20, 08/15/2021 Covid-19 Vaccine (2024-2 6 season) 2024 11/25/2020, 05/08/2020, 04/17/2020 Influenza Vaccine (#1) 2024 , 11/19/2019, 10/29/2018, [...] history exists Medical Devices Implanted Type Area Decorator Inspector Device Identifier Shelf Expiration Date Model / Serial / Lot [employer] Xcela Power Port 8fr [id number] - [id number] Implanted:Qty: 1 on 03/05/2023 by Quang Cid MD at [facility] [employer] 10/22/2027 [id number] / / [id number] Procedures Procedure Name Priority Date/Time Associated Diagnosis [...] Read Routine (OP Routine) 04/15/2024 12:09 PM CLEAR COAT SPRAYER Fibrocystic breast changes of both breasts HEMOGLOBIN A1C Routine 03/10/2024 10:10 AM CLEAR COAT SPRAYER ALBUMIN CREATININE RATIO, URINE Routine 03/10/2024 10:10 AM CLEAR COAT SPRAYER COLONOSCOPY 12/11/2022 12:11 PM CDT HEPATITIS C [...] test. T-SPOT.TB Panel A Spot Count 1 [facility] T-SPOT.TB Panel B Spot Count 0 [facility] T-SPOT.TB Negative Control Passed [facility] T-SPOT.TB Positive Control Passed [facility] Comment: Test Performed at: [facility], [address] [address] MIRA RUIZ,PHD Blood 08/25/2024 11:4 0 AM CDT 08/25/2024 5:29 PM CDT James Sandoval MD PhD LAB MICROBIOLOGY - GENERA L ORDERABLES Final Result Performing Organization Address [facility] Co de Phone Number [facility] [place] [address] * Glucose, random (Outreach) (08/25/2024 11:40 AM [...] ORDERABLES Sylvia l Result Performing Organization Address City/[facility] Co de Phone Number [facility] Department [place] [address] * (ABNORMAL) eGFR (08/25/2024 11:40 AM CDT) [...] PhD LAB BLOOD ORDERABLES Sylvia brown Result [facility] Department [place] [address] * Differential, auto (08/25/2024 11:40 AM CDT) Pathologist [facility] Neutrophil abs 5.29 1.50 - 6.50 K/cumm Imm gran abs 0.02 0.00 - 0.10 K/cumm [facility] Lymphocyte abs 1.26 0.80 - 3.30 K/cumm [facility] Monocyte abs 0.35 0.20 - 0.80 K/cumm [facility] Eosinophil abs 0.11 0.00 - 0.50 K/cumm [facility] Basophil abs 0.03 0.00 - 0.10 K/cumm [facility] Neutrophil pct 74.9 % [facility] Comment: Interpretive Data Percent cell count reference ranges are not reported, since discordance with absolute values may lead to misinterpretation of CBC data. Current Interpretive Data was last revised on 2017. Imm gran pct 0.3 % [facility] Comment: Interpretive Data Percent cell count reference ranges are not reported, since discordance with absolute values may lead to misinterpretation of CBC data. Current Interpretive Data was last revised on 2017. Lymphocyte pct 17.8 % [facility] Comment: Interpretive Data Percent cell count reference ranges are not reported, since discordance with absolute values may lead to misinterpretation of CBC data. Current Interpretive Data was last revised on 2017. Monocyte pct 5.0 % [facility] Comment: Interpretive Data Percent cell count reference ranges are not reported, since discordance with absolute values may lead to misinterpretation of CBC data. Current Interpretive Data was last revised on 2017. Eosinophil pct 1.6 % [facility] Comment: Interpretive Data Percent cell count reference ranges are not reported, since discordance with absolute values may lead to misinterpretation of CBC data. Current Interpretive Data was last revised on 2017. Basophil pct 0.4 % [facility] Comment: Interpretive Data Percent cell count reference ranges are not reported, since discordance with absolute values may lead to misinterpretation of CBC data. Current Interpretive Data was last revised on 2017. Blood 08/25/2024 11:4 0 AM CDT 08/25/2024 2:52 PM CDT us James Sandoval MD PhD LAB BLOOD ORDERABLES Sylvia brown Result [facility] Department [place] [address] * (ABNORMAL) Comprehensive metabolic panel, without glucose (Outreach) (08/25/2024 11:40 AM CDT) Sodium 140 135 - 145 mmol/L Potassium, pl 4.0 3.3 - 4.9 mmol/L [facility] Chloride 101 97 - 110 mmol/L [facility] CO2 29 22 - 32 mmol/L [facility] Anion gap 10 2 - 15 mmol/L [facility] BUN 22 6 - 25 mg/dL [facility] Creatinine 1.47(H) 0.60 - 1.10 mg/dL [facility] Calcium 9.1 8.5 - 10.3 mg/dL [facility] Protein, pl 7.6 6.5 - 8.5 g/dL [facility] Albumin 4.1 3.5 - 5.0 g/dL [facility] Bilirubin, total 0.2 0.1 - 1.2 mg/dL [facility] Alk phos 68 40 - 130 Units/L [facility] AST 19 10 - 45 Units/L [facility] ALT 10 7 - 45 Units/L [facility] Blood 08/25/2024 11:4 0 AM CDT 08/25/2024 2:52 PM CDT us James Sandoval MD PhD LAB BLOOD ORDERABLES Sylvia l Result [facility] Department [place] [address] * (ABNORMAL) CBC with auto differential (08/25/2024 11:40 AM CDT) [facility] Signature WBC 7.06 3.80 - 9.90 K/cumm Hgb 12.3 11.9 - 15.5 g/dL [facility] Hct 38.8 35.6 - 45.5 % [facility] Plt 225 150 - 400 K/cumm [facility] MPV 11.7 9.1 - 12.3 fL [facility] RBC 4.50 3.90 - 5.20 M/cumm [facility] MCV 86.2 81.3 - 96.4 fL [facility] MCH 27.3 27.1 - 33.3 pg [facility] MCHC 31.7(L) 32.3 - 35.7 g/dL [facility] RDW CV 14.6 11.1 - 14.9 % [facility] RDW SD 45.6 35.7 - 48.1 fL [facility] NRBC abs 0.00 0.00 - 0.01 K/cumm [facility] Blood 08/25/2024 11:4 0 AM CDT 08/25/2024 2:52 PM CDT James Sandoval MD PhD LAB BLOOD ORDERABLES Sylvia l Result Performing Organization Address [facility] de Phone Number [facility] [place] [address] * Hepatitis B Surface Antigen Blood (08/25/2024 11:40 AM CDT) HepBsAg Nonreactive Nonreactive Blood 08/25/2024 11:4 0 AM CDT 08/25/2024 2:52 PM CDT James Sandoval MD PhD LAB MICROBIOLOGY - GENERA L ORDERABLES Final Result Performing Organization Address [facility] Phone Number [facility] [place] [address] * CRP (acute phase) (08/25/2024 11:40 AM CDT) CRP 8.8 <=10.0 mg/L Blood 08/25/2024 11:4 0 AM CDT 08/25/2024 2:52 PM CDT James Sandoval MD PhD LAB BLOOD ORDERABLES Sylvia l Result Performing Organization Address [facility] de Phone Number [facility] [place] [address] * SCAN - LABS (08/12/2024 12:00 AM CDT) Provider Scanning Edited Result - Final * Screening Mammogram Bilateral W Shahzad (04/15/2024 12:09 PM CLEAR COAT SPRAYER) Anatomical Region Laterality Modality Breast Bilateral Mammography Narrative 04/16/2024 10:39 AM CLEAR COAT SPRAYER Mammogram Technique: Bilateral Digital Breast Tomosynthesis, Bilateral C-view 2D Screening mammogram. Views obtained: bilateral craniocaudal and bilateral mediolateral oblique. Computer Aided Detection was performed. Mammogram Findings: The present examination has been compared to prior imaging studies performed at [facility] on 03/22/2021, 03/27/2022 and 04/09/2023. The breasts [...] compared to prior imaging studies performed at [facility] on 03/22/2021, 03/27/2022 and 04/09/2023. The breasts [...] Albumin Creatinine Ratio, Urine (03/10/2024 10:10 AM CLEAR COAT SPRAYER) Albumin Ur 17.5 mg/L Comment: Interpretive Data No reference range established. Current interpretive data was last revised 2018. Creatinine Ur 51.5 mg/dL [facility] Comment: Interpretive Data No reference range established. Current interpretive data was last revised 2018. Albumin Creatinine Ratio, Ur 35(H) 1 - 29 mg/g [facility] Urine 03/10/2024 10:1 0 AM CLEAR COAT SPRAYER 03/10/2024 3:25 PM CLEAR COAT SPRAYER Sonny Galindo MD LAB URINE ORDERABLES Final R esult Performing Organization Address [facility] de Phone Number [facility] [place] [address] * Hemoglobin A1c (03/10/2024 10:10 AM CLEAR COAT SPRAYER) Hgb A1C 5.3 4.0 - 5.6 % Estimated Average Glucose 105 mg/dL [facility] Comment: The ADA recommends reporting an estimated Average Glucose (eAG) with all Hemoglobin A1c results using the equation derived from a study of 507 normal and diabetic adults. Minority populations were underrepresented and children were not included. (Diabetes Care 2020; 43(S1): S66-S76). The eAG is not equivalent to a fasting glucose. Blood 03/10/2024 10:1 0 AM CLEAR COAT SPRAYER 03/10/2024 2:39 PM CLEAR COAT SPRAYER Sonny Galindo MD LAB BLOOD ORDERABLES Final R esult Performing Organization Address [facility] de Phone Number [facility] [place] [address] * COLONOSCOPY (12/11/2022 12:11 PM CDT) Anatomical Region Laterality Modality Other Narrative Procedure Note James Sandoval MD PhD - 12/11/2022 12:11 PM CDT ENDOSCOPY LAB Patient Name: Carmen Page Ashlee Procedure Date: 12/11/2022 12:11PM Date of : 1960 Admit Type: Outpatient Age: 62 Gender: Female Attending MD: James Sandoval MD,PHD Room: [facility] ENDOSCOPY ROOM 05 Note Status: [...] The scope was passed under direct vision.The [id number] was introduced through the anusand advanced to [...] - GENERAL ORDER REJI Final Result [facility] [address] Department [place] [address] * BONE MINERAL DENSITY (06/20/2015) Anatomical Region Laterality Modality Radiographic Suzette ging Narrative 06/20/2015 Ordered by an unspecified provider. us Historical Provider MD JOY DXA PROCEDURES Final Result from Last 3 Months or Most Recently Relevant to Health Maintenance Insurance [facility] Address: [address] [place] [address] [place] [address] [facility] MEDICARE [facility] Address: [address] [address] [place] [address] Advance Directives For more information, please contact: [phone] * Full Code (Latest Code Status on [...] 9:50 AM 05/27/2018 4:39 PM Care Teams Manager Family Relationship Specialty Start Date End Date Gabbie Wilde MD PCP - General Family Medicine 03/27/22 James Sandoval MD PhD [address] [facility], [address] [address] PCP - Home Infusion Attending Gastroenterology 07/12/24 Sonny Galindo MD Nephrology 05/21/22 Caroline Banerjee, MARIA A Home Infusion Nursing 07/21/24 Wyatt Thayer, [facility] Pharmacist Pharmacy 08/02/24
--- OUTSIDE RECORDS SUMMARY | 2024-10-28 14:31 | XMS_ITS | Patient Health Record ---
Author Organization [employer] Address [address] [place], [place] [address] Support Name Relationship Address Phone CHRISTOPHER KNIGHT [...] Insured Coverage Start Date Coverage End Date [facility] PPO - NR [address] [address] [place] [id number] CHRISTOPHER JASON Self - patient is the insured 6
--- OUTSIDE RECORDS SUMMARY | 2024-10-28 14:31 | XMS_ITS | Encounter Summary ---
Author Organization [facility] Address [address] [place] [address] Phone Care Team Providers Care Community Arts Worker Name Role Phone Gabbie Wilde MD Primary Care Provider + Sonny Galindo MD Unavailable [phone] James Sandoval MD PhD Unavailable [phone] Caroline Banerjee RN Unavailable Unavailable Wyatt Thayer [facility] Unavailable Unavaila ble Encounter Details Date [...] on file Legal Sex Female 11:00 AM HVAC/R INSTRUCTOR Gender Identity Female 10/03/2020 3:00 PM CDT Sexual Orientation Not on file documented as of this encounter Plan of Treatment Not on file documented as of this encounter Procedures Procedure Name Priority Date/Time Associated Diagnosis Comments GI - RESULT 01/10/2024 3:47 PM HVAC/R INSTRUCTOR documented in this encounter Results * GI - RESULT (01/10/2024 3:47 PM HVAC/R INSTRUCTOR) Anatomical Region Laterality Modality Other us Provider Scanning Final Result documented in this encounter Visit Diagnoses Not on filedocumented in this encounter Additional Health Concerns Infection Onset Date Last Indicated Resolved Time C. difficile Comment:Chronic diarrhea from IBS. Last CDI test 01/01/22 is neg. 04/14/2015 04/14/2015 8:58 AM HVAC/R INSTRUCTOR documented as of this encounter Care Teams Community Arts Worker Relationship Specialty Start Date End Date Gabbie Wilde MD PCP - General Family Medicine 03/27/22 James Sandoval MD PhD [address] [facility], [address] [address] PCP - Home Infusion Attending Gastroenterology 07/12/24 Sonny Galindo MD Nephrology 05/21/22 Caroline Banerjee, MARIA A Home Infusion Nursing 07/21/24 Wyatt Thayer, [facility] Pharmacist Pharmacy 08/02/24 documented as of this encounter
== END 2024-10-28 13:53 | disposition home or self-care (01) ==
PROVIDERS: PCP Family Medicine; Visit Provider Family Medicine
DX: R39.9 Unspecified symptoms and signs involving the genitourinary system (principal)
CPT/HCPCS: 87086; 87147; 87186

== ENCOUNTER 2024-11-23 12:24 | Outpatient (CLI) | payer BC, MEDICARE, SELFPAY ==
--- OUTSIDE RECORDS SUMMARY | 2024-11-23 13:24 | XMS_ITS ---
Author Organization [facility] Medical [facility] 2 Address [address] [place] [address] Care Team Providers Care Ferry Boat Captain Name Role Phone Gabbie Wilde MD Primary Care Provider + Sonny Galindo MD Unavailable [phone] James Sandoval MD PhD Unavailable [phone] Caroline Banerjee RN Unavailable Unavailable Wyatt Thayer [facility] Unavailable Unavaila ble [facility]rap[facility] - ENTYVIO 300 mg IV EVERY 8 WEEKS Status:Enrolled (Active) Start date:06/26/2024 Enrollment date:06/26/2024 Linked medications:vedolizumab (Active) Related program episode:Home Infusion (Active) Overview Cutover complete Case Team Name Relationship Phone Caroline Banerjee RN Home Infusion Nursing Wyatt Thayer [facility](Responsible Staff) Pharma cist Continued Care and Services Coordination This section includes services coordinated for [facility] Special[facility] Therapies - ENTYVIO 300 mg IV EVERY 8WEEKS. Home Medical Care Name Services Phone [facility] Home Infusion Therapy Home Infusion and Inje ction
--- OUTSIDE RECORDS SUMMARY | 2024-11-23 13:24 | XMS_ITS | Patient Health Record ---
Author Organization [facility] Address [address] [place], [place] [id number] Support Name Relationship Address Phone CHRISTOPHER KNIGHT Guarantor Unknown [phone] REASON FOR REFERRAL No Information MEDICATIONS Medication SIG (Take, Route, Fr equency, Duration) Notes Start Date End Date Status azaTHIOprine 50 mg 1 tab(s) orally TWIC E DAILY once a day 12/23/2006 Active PLAN OF TREATMENT No Information Insurance Providers Payer Name Payer Address Payer Phone Subscriber Number Group Number Insured Name Patient Relationship to Insured Coverage Start Date Coverage End Date [facility] P[facility] - NR [address] [address] [place] [address] [id number] CHRISTOPHER JASON Self - patient is the insured 6
--- OUTSIDE RECORDS SUMMARY | 2024-11-23 13:24 | XMS_ITS | Patient Health Record ---
Author Organization [facility] Address [address] [place], [place] [address] Care Team Providers Care Pre Press Manager Name Role Phone MARS LEGGETT, LOC Primary [...] Notes Problem Osteoarthrosis (715.09) Active confirmed Osteoarthrosis (444943664) Problem Crohn's disease (555.9) Active confirmed Crohn's disease (09723199) PLAN OF TREATMENT No Information Insurance Providers Payer Name Payer Address Payer Phone Subscriber Number Group Number Insured Name Patient Relationship to Insured Coverage Start Date Coverage End Date [facility] PPO - NR [address] [address] [place] [address] [id number] ESVIN LYLE Spouse - patient is the spouse of the insured 8 MEDICAL (GENERAL) HISTORY Medical History History ICD Code Bruises easily Changes in moles Migraine and tension headaches Blurred vision Ringing in ears Sinus problems Dizziness Anemia HBP Mitral valve prolapse IBS, bowel changes
--- OUTSIDE RECORDS SUMMARY | 2024-11-23 13:24 | XMS_ITS | Encounter Summary ---
Author Organization [facility] Address [address] [place] [address] Phone Care Team Providers Care Customer Service Representative Name Role Phone Gabbie Wilde MD Primary Care Provider + Sonny Galindo MD Unavailable [phone] James Sandoval MD PhD Unavailable [phone] Caroline Banerjee RN Unavailable Unavailable Wyatt Thayer [facility] Unavailable Unavaila ble Encounter Details [...] on file Legal Sex Female 11:00 AM MANAGER INTEL Gender Identity Female 10/03/2020 3:00 PM CDT [...] 01/01/22 is neg. 04/14/2015 04/14/2015 8:58 AM MANAGER INTEL documented as of this encounter Care Teams Customer Service Representative Relationship Specialty Start Date End Date Gabbie Wilde MD PCP - General Family Medicine 03/27/22 James Sandoval MD PhD [address] [facility], [address] [address] PCP - Home Infusion Attending Gastroenterology 07/12/24 Sonny Galindo MD Nephrology 05/21/22 Caroline Banerjee, MARIA A Home Infusion Nursing 07/21/24 Wyatt Thayer, [facility] Pharmacist Pharmacy 08/02/24 documented as of this encounter
--- OUTSIDE RECORDS SUMMARY | 2024-11-23 13:24 | XMS_ITS | Clinical Summary ---
Author Organization [facility] Address [address] [place] [address] Phone Care Team Providers Care Loft Worker Name Role Phone Toney Benítez Primary Care Provider [phone] Allergies Active Allergy Reactions Criticality Noted Date [...] pills spread through the day 2 Active [place]-3 Fatty Acids (Fish Oil) 1200 MG capsule [...] (09/24/2018): Added automatically from request for surgery [id number] Stage 3b chronic kidney disease 08/15/2011 Hypertensive [...] file Legal Sex Female 8:54 AM [facility] Gender Identity Not on file Sexual [...] , 11/19/2019, 10/20/2018, Additional history exists Insurance [facility] Care Teams Loft Worker Relationship Specialty Start Date End Date Toney Benítez [address] [place] [address] PCP - General 09/20/21
--- OUTSIDE RECORDS SUMMARY | 2024-11-23 13:24 | XMS_ITS ---
Author Organization [facility] Medical [facility] 2 Address [address] [facility] [place] [address] Care Team Providers Care Sail Maker Name Role Phone Gabbie Wilde MD Primary Care Provider + Sonny Galindo MD Unavailable [phone] James Sandoval MD PhD Unavailable [phone] Caroline Banerjee RN Unavailable Unavailable Wyatt Thayer [facility] Unavailable Unavaila ble Home Infusion Status:Enrolled (Active) Start date:06/26/2024 Enrollment date:06/26/2024 Related service episodes:[facility] Specialty Therapies - ENTYVIO 300 mg IV EVERY 8 WEEKS (Active) Overview Cutover complete. Alicia Torres, MARIA A 07/12/2024 1:09 PM Case Team Name Relationship Phone Caroline Banerjee RN(Responsible Staff) Home Infu fabricio Nursing Continued Care and Services Coordination
--- OUTSIDE RECORDS SUMMARY | 2024-11-23 13:24 | XMS_ITS | Clinical Summary ---
Author Organization [facility] Address [address] [facility] [place] [address] Care Team Providers Care Trailer Truck Driver Name Role Phone Gabbie Wilde MD Primary Care Provider + Sonny Galindo MD Unavailable [phone] James Sandoval MD PhD Unavailable [phone] Caroline Banerjee RN Unavailable Unavailable Wyatt Thayer [facility] Unavailable Unavaila ble Allergies Active [...] Medium 12/07/2008 Medications cetirizine (ZyrTEC) 10 mg tabletIndications: Allergic Rhinitis daily Ac tive fenofibrate micronized (LOFIBRA) 134 mg capsuleIndications :hypercholesterole melida daily before breakfast Active multivitamin tabletIndications: Vitamin Deficiency Prevention daily. 12/13/19 10 Active simvastatin (ZOCOR) 10 mg tabletIndications: hyperlipidemia daily Activ e cholecalciferol (VITAMIN D-3) 5,000 unit capsuleIndications :Vitamin D Deficiency Take by mouth 10/11/19 17 Active estradioL (ESTRACE) 1 mg tabletIndications: hormone replacement daily 12/17/19 20 Active blood pressure test kit-large kitIndications:hyp ertension 02/25/19 21 Active OneTouch Verio test strips stripIndications:D iabetes Mellitus 07/30/19 22 Active cyanocobalamin (Vitamin B-12) 2,000 mcg tabletIndications: Prevention of Vitamin B12 Deficiency 1 tablet (2,000 mcg total) as directed Takes 4 times weekly Active OneTouch Delica Plus Lancet 33 gauge miscIndications:Di abetes Mellitus 07/30/19 22 Active hxuqj-6-txd-epa-dp a-fish oil 1,050-1,200 mg capsuleIndications :hypertriglyceride melida 1 capsule Active oxybutynin XL (DITROPAN-XL) 10 mg 24 hr tabletIndications: Bladder Hyperactivity Take 3 tablets (30 mg total) by mouth daily Changed to 30mg q day 03/15/19 23 Active semaglutide (Rybelsus) 7 mg tabletIndications: type 2 diabetes mellitus Take 1 tablet (7 mg total) by mouth daily Active heparin sod,porcine/0.9 % NaCl (HEPARIN FLUSH IV)Indications:saba e care Infuse 5 mL into a venous catheter as needed (line care ). Indications: line care Active finerenone (Kerendia) 10 mg tabletIndications: chronic kidney disease associated with type 2 diabetes Take 10 mg by mouth daily Active lidocaine-prilocai ne (EMLA) creamIndications:A dministration of Local Anesthesia Apply a quarter size amount of cream to the port area 45-60 minutes before infusions and labs draws as directed. 30 g 3 06/07/19 24 Active ondansetron ODT (ZOFRAN-ODT) 4 mg disintegrating tabletIndications: Nausea Take 1 tablet (4 mg total) by mouth every 6 (six) hours as needed for nausea or vomiting 20 tablet 5 08/15/19 24 Active dapagliflozin propanediol (FARXIGA) 5 mg tabletIndications: Chronic Kidney Disease Take 1 tablet (5 mg total) by mouth daily Active PreviDent 5000 Dry Mouth 1.1 % paste 11/02/19 24 Active rimegepant (Nurtec ODT) tablet,disintegrat ing Take 1 tablet (75 mg total) by mouth once as needed (Take 1 tablet once with onset of acute headache pain. No more than 1 dose in 24 hours. No more than 18 per month.) 8 tablet 3 07/03/19 25 026 Active traZODone (DESYREL) 100 mg tablet Take 1 tablet (100 mg total) by mouth nightly Active vedolizumab (ENTYVIO) 300 mg recon solnIndications:Cr ohn's disease of both small and large intestine [...] % sodium chloride (sodium chloride 0.9%) 0.9% infusionIndication s:Crohn's disease of both small and large intestine without complication (HCC) Infuse 250 mL IV as directed Add Vedolizumab 5mL (300mg) to 250mL NS bag. Infuse with non-filtered tubing via pole mounted pump over at least 30 minutes at up to 500mL/hr. START INFUSION WITHIN 4 HOURS OF MIXING 1000 mL 5 11:59 PM CDT 02/27/19 25 026 Active acetaminophen (TYLENOL) 325 mg tabletIndications: Crohn's disease of both small and large intestine without complication (HCC) Take 2 tablets (650 mg total) by mouth every 8 (eight) weeks Pre-medication for vedolizumab (Entyvio) 8 tablet 02/27/19 25 026 Active diphenhydrAMINE (BENADRYL) 25 mg capsuleIndications :Crohn's disease of both small and large intestine without complication (HCC) Take 1 tablet/capsule (25 mg total) by mouth every 8 (eight) weeks Pre-medication for vedolizumab (Entyvio) 6 tablet/caps ule 02/27/19 25 026 Active sodium chloride 0.9% flush syringeIndications :Crohn's disease of both small and large intestine without complication (HCC) Infuse 10 mL IV as needed for line care 22945 mL 02/27/19 25 026 Active eluxadoline (Viberzi) 100 mg tabletIndications: Diarrhea Predominant Irritable Bowel Syndrome Take 1 tablet (100 mg total) by mouth daily 90 tablet 1 08/18/19 25 Active imipramine (TOFRANIL-PM) 100 mg capsuleIndications :Trigeminal neuralgia TAKE 1 CAPSULE(100 MG) BY MOUTH EVERY NIGHT 30 capsule 2 10/21/19 25 Active Active Problems Problem Noted Date Diagnosed [...] (04/15/2018): Added automatically from request for surgery [id number] Abnormal mammogram 02/10/2018 Resolved Problems Problem Noted Date Diagnosed Date Resolved Date Trigeminal neuralgia 03/11/2024 025 Assessment & Plan (03/11/2024 3:13 PM [employer] FLATBED DRIVER): She complains of residual pain in the [...] (08/05/2022): Added automatically from request for surgery [id number] Encounters Date Type Department Care Team Description 10/20/2024 10:00 AM CDT Home Care Visit [facility] Home Infusion Therapy [address] [place] [address] Caroline Banerjee, MARIA A [facility]F [address] ROUTINE 10/20/2024 [facility]phone [facility] [address] [facility] [address] [place] [address] Lore Arriaga MA 10/01/2024 Plan of Care Documentation [facility] Home Infusion Therapy [address] [place] [address] 10/01/2024 Home Infusion [facility] Home Infusion Therapy [address] [place] [address] Wyatt Thayer [facility] 09/08/2024 4:00 PM CDT Procedure visit [facility] Medicine Otolaryngology [address] [facility] 11th [place] [address] [place] [id number] Dalia Munroe Au.D. Sensorineural hearing loss, bilateral (Primary Dx) 08/31/2024 Telephone [facility] Medicine Scheduling [address] [place] [address] James Sandoval MD PhD Prior Auth (Viberzi 100MG tablets) 08/29/2024 Results Follow-Up [facility] Medicine Gastroenterology [address] [facility] [address] [place] [phone] James Sandoval MD PhD Comprehensive metabolic panel, without glucose (Outreach), Glucose, random (Outreach), CBC with auto differential, Additional followed-up results: 5 08/25/2024 11:40 AM CDT - 08/25/2024 11:59 PM CDT Hospital Encounter [address] [address] Discharge Disposition: Discharge to home or self care from Last 3 Months Immunizations Immunization Administration Dates Next Due Influenza LAIV (Nasal) 10/29/2018 Influenza, Quadrivalent, Rec ombinant, Egg Free, Preservative Free, Intramuscular 10/29/2018 Influenza, Quadrivalent, Spl it, Preservative Free, Intramuscular 11/27/2017 Influenza, Trivalent, IM (MDV) 11/18/2020,2019,10/20/2018 [facility] SARS-CoV-2 Monovalent Vaccination (12+ Yrs) PURPLE 11/25/2020,05/08/2020,04/17/2020 [...] Bladder Surgery - (Added by TW Conv) NM EXC CYST/ABERRANT BREAST TISSUE OPEN 1/> LESION Breast Surgery Lumpectomy - (Added by TW Conv) NM NEUROPLASTY &/TRANSPOS MEDIAN NRV CARPAL TUNNE Neuroplasty Decompression Median Nerve At Carpal Tunnel - (Added by TW Conv) ANAL FISSURECTOMY Anal Fissurectomy - (Added by TW Conv) KNEE SURGERY Knee Surgery - (Added by TW Conv) NM NEURP MAJOR PRPH NRV ARM/LEG OPN OTH/THN SPEC Neuroplasty Ulnar Nerve - (Added by TW Conv) CENTRAL VENOUS CATHETER INSERTION Central IV Line Type Port-A-Cath - (Added by TW Conv) SPINAL CORD STIMULATOR IMPLANT Spinal Surgery Neurostimulator Implants - (Added by TW Conv) NM TOTAL ABDOMINAL HYSTERECT W/WO RMVL TUBE OVARY [...] Vertigo due to BP issues Diabetes mellitus pre diabetic PONV (postoperative nausea a nd vomiting) Chronic [...] Slover Vision loss Father's Sister 2 Bianka Sabine COPD Maternal Grandfather Tato Helmich Alzheimer's disease Maternal Grandmother Durga Burtonmi ch Memory loss Maternal Grandmother Durga Figueroaandrew Arthritis Mother Rahel Page Cancer Mother Rahel Page Hypertension Mother Rahel Page Alcohol abuse Mother's Brother Eduardo Helmich Lung cancer Mother's Brother Eduardo Helmich Alcohol abuse Paternal Grandfather Jaylan Castillobulmaro Mental illness Paternal Grandmother Jocy Castillobulmaro Relation Name Status Comments Brothkavya Page Alive Daughter Genesis Arroyo Alive Father Freeman Page Father's Brother Ki Page Alive Father's Sister 1 Jesica Slover Father's Sister 2 Bianka Bob Alive Maternal Grandfather Tato Helmich Alive Maternal Grandmother Durga Helmich Alive Mother Rahel Page Mother's Brother Eduardo Helmich Paternal Grandfather Jaylan Page Alive Paternal Grandmother Jocy Castillobulmaro Alive Social History Tobacco Use Types Packs/Day [...] on file Legal Sex Female 11:00 AM [employer] Gender Identity Female 10/03/2020 3:00 PM CDT [...] A1C 09/07/2024 03/10/2024, 11/20, 08/15/2021 Covid-19 Vaccine ( - 2024-2 6 season) 2024 11/25/2020, 05/08/2020, [...] Completed 08/25/2024 Medical Devices Implanted Type Area Cable Tester Device Identifier Shelf Expiration Date Model / Serial / Lot [employer] Xcela Power Port 8fr [id number] - [id number] Implanted:Qty: 1 on 03/05/2023 by Quang Cid MD at [facility] [employer] 10/22/2027 [id number] / / [id number] Procedures Procedure Name Priority Date/Time Associated Diagnosis [...] Read Routine (OP Routine) 04/15/2024 12:09 PM [employer] Fibrocystic breast changes of both breasts HEMOGLOBIN A1C Routine 03/10/2024 10:10 AM [employer] FLATBED DRIVER ALBUMIN CREATININE RATIO, URINE Routine 03/10/2024 10:10 AM [employer]AT[employer]IVER COLONOSCOPY 12/11/2022 12:11 PM CDT HEPATITIS C [...] T-SPOT.TB Panel A Spot Count 1 [facility] T-SPOT.TB Panel B Spot Count 0 [facility] T-SPOT.TB Negative Control Passed [facility] T-SPOT.TB Positive Control Passed [facility] Comment: Test Performed at: [facility] [address] [place] [id number] MIRA RUIZ,PHD Blood 08/25/2024 11:4 0 AM CDT 08/25/2024 5:29 PM CDT James Sandoval MD PhD LAB MICROBIOLOGY - GENERA L ORDERABLES Final Result [facility] [place] [address] * Glucose, random (Outreach) (08/25/2024 11:40 AM CDT) Pathologist [facility] Glucose 112 70 - 199 mg/dL Comment: [...] ORDERABLES Sylvia l Result Performing Organization Address City/State/[facility] Co ar Phone Number [facility] DAVIL[facility] [place] [address] * (ABNORMAL) eGFR (08/25/2024 11:40 AM CDT) [...] ORDERABLES Sylvia l Result Performing Organization Address City/[facility]/ZIP Co de Phone Number [facility] [place] [address] * Differential, auto (08/25/2024 11:40 AM CDT) Neutrophil abs 5.29 1.50 - 6.50 K/cumm Imm gran abs 0.02 0.00 - 0.10 K/cumm [facility] Lymphocyte abs 1.26 0.80 - 3.30 K/cumm [facility] Monocyte abs 0.35 0.20 - 0.80 K/cumm [facility] Eosinophil abs 0.11 0.00 - 0.50 K/cumm [facility] Basophil abs 0.03 0.00 - 0.10 K/cumm [facility] Neutrophil pct 74.9 % [facility] Comment: Interpretive Data Percent cell count reference ranges are not reported, since discordance with absolute values may lead to misinterpretation of CBC data. Current Interpretive Data was last revised on 2017. Imm gran pct 0.3 % [facility] Comment: Interpretive Data Percent cell count reference ranges are not reported, since discordance with absolute values may lead to misinterpretation of CBC data. Current Interpretive Data was last revised on 2017. Lymphocyte pct 17.8 % [facility] Comment: Interpretive Data Percent cell count reference ranges are not reported, since discordance with absolute values may lead to misinterpretation of CBC data. Current Interpretive Data was last revised on 2017. Monocyte pct 5.0 % [facility] Comment: Interpretive Data Percent cell count reference ranges are not reported, since discordance with absolute values may lead to misinterpretation of CBC data. Current Interpretive Data was last revised on 2017. Eosinophil pct 1.6 % [facility] Comment: Interpretive Data Percent cell count reference ranges are not reported, since discordance with absolute values may lead to misinterpretation of CBC data. Current Interpretive Data was last revised on 2017. Basophil pct 0.4 % [facility] Comment: Interpretive Data Percent cell count reference ranges are not reported, since discordance with absolute values may lead to misinterpretation of CBC data. Current Interpretive Data was last revised on 2017. Blood 08/25/2024 11:4 0 AM CDT 08/25/2024 2:52 PM CDT James Sandovla MD PhD LAB BLOOD ORDERABLES Sylvia l Result Performing Organization Address [facility] Co de Phone Number [facility] [place] [address] * (ABNORMAL) Comprehensive metabolic panel, without glucose (Outreach) (08/25/2024 11:40 AM CDT) [facility] Sodium 140 135 - 145 mmol/L Potassium, pl 4.0 3.3 - 4.9 mmol/L [facility] Chloride 101 97 - 110 mmol/L [facility] CO2 29 22 - 32 mmol/L [facility] Anion gap 10 2 - 15 mmol/L [facility] BUN 22 6 - 25 mg/dL [facility] Creatinine 1.47(H) 0.60 - 1.10 mg/dL [facility] Calcium 9.1 8.5 - 10.3 mg/dL [facility] Protein, pl 7.6 6.5 - 8.5 g/dL [facility] Albumin 4.1 3.5 - 5.0 g/dL [facility] Bilirubin, total 0.2 0.1 - 1.2 mg/dL [facility] Alk phos 68 40 - 130 Units/L [facility] AST 19 10 - 45 Units/L [facility] ALT 10 7 - 45 Units/L [facility] Blood 08/25/2024 11:4 0 AM CDT 08/25/2024 2:52 PM CDT James Sandoval MD PhD LAB BLOOD ORDERABLES Sylvia l Result Performing Organization Address [facility]/ZIP Co de Phone Number [facility] [place] [address] * (ABNORMAL) CBC with auto differential (08/25/2024 11:40 AM CDT) [facility] WBC 7.06 3.80 - 9.90 K/cumm Hgb 12.3 11.9 - 15.5 g/dL [facility] Hct 38.8 35.6 - 45.5 % [facility] Plt 225 150 - 400 K/cumm [facility] MPV 11.7 9.1 - 12.3 fL [facility] RBC 4.50 3.90 - 5.20 M/cumm [facility] MCV 86.2 81.3 - 96.4 fL [facility] MCH 27.3 27.1 - 33.3 pg [facility] MCHC 31.7(L) 32.3 - 35.7 g/dL [facility] RDW CV 14.6 11.1 - 14.9 % [facility] RDW SD 45.6 35.7 - 48.1 fL [facility] NRBC abs 0.00 0.00 - 0.01 K/cumm [facility] Blood 08/25/2024 11:4 0 AM CDT 08/25/2024 2:52 PM CDT James Sandoval MD PhD LAB BLOOD ORDERABLES Sylvia l Result Performing Organization Address City/[facility]/ZIP Co de Phone Number [facility] Department [place] [employer] [place] [address] * Hepatitis B Surface Antigen Blood (08/25/2024 11:40 AM CDT) [facility] HepBsAg Nonreactive Nonreactive Blood 08/25/2024 11:4 0 AM CDT 08/25/2024 2:52 PM CDT James Sandoval MD PhD LAB MICROBIOLOGY - GENERA L ORDERABLES Final Result Performing Organization Address [facility]/ZIP Co de Phone Number [facility] [place] [address] * CRP (acute phase) (08/25/2024 11:40 AM CDT) CRP 8.8 <=10.0 mg/L Blood 08/25/2024 11:4 0 AM CDT 08/25/2024 2:52 PM CDT us James Sandoval MD PhD LAB BLOOD ORDERABLES Sylvia brown Result [facility] [place] [address] * Screening Mammogram Bilateral W Shahzad (04/15/2024 12:09 PM [employer]AT[employer]) Anatomical Region Laterality Modality Breast Bilateral Mammography Narrative 04/16/2024 10:39 AM [employer]AT[employer] DRIVER Mammogram Technique: Bilateral Digital Breast Tomosynthesis, Bilateral C-view 2D Screening mammogram. Views obtained: bilateral craniocaudal and bilateral mediolateral oblique. Computer Aided Detection was performed. Mammogram Findings: The present examination has been compared to prior imaging studies performed at [facility] on 03/22/2021, 03/27/2022 and 04/09/2023. [...] to prior imaging studies performed at [facility] on 03/22/2021, 03/27/2022 and 04/09/2023. [...] Albumin Creatinine Ratio, Urine (03/10/2024 10:10 AM [employer]ATB[employer] DRIVER) Albumin Ur 17.5 mg/L Comment: Interpretive Data No reference range established. Current interpretive data was last revised 2018. Creatinine Ur 51.5 mg/dL [facility] Comment: Interpretive Data No reference range established. Current interpretive data was last revised 2018. Albumin Creatinine Ratio, Ur 35(H) 1 - 29 mg/g [facility] Urine 03/10/2024 10:1 0 AM [employer]ATBED DRIVER 03/10/2024 3:25 PM [employer] FLATBED DRIVER Result [facility] Sonny Galindo MD LAB URINE ORDERABLES Final R esult Performing Organization Address [facility] de Phone Number [facility] [place] [employer] [place] [address] * Hemoglobin A1c (03/10/2024 10:10 AM [employer] FLATBED DRIVER) Hgb A1C 5.3 4.0 - 5.6 % Estimated Average Glucose 105 mg/dL [facility] Comment: The ADA recommends reporting an estimated Average Glucose (eAG) with all Hemoglobin A1c results using the equation derived from a study of 507 normal and diabetic adults. Minority populations were underrepresented and children were not included. (Diabetes Care 2020; 43(S1): S66-S76). The eAG is not equivalent to a fasting glucose. Blood 03/10/2024 10:1 0 AM [employer]ATBED [employer]IVER 03/10/2024 2:39 PM [employer] FLATBED DRIVER Result [facility] Sonny Galindo MD LAB BLOOD ORDERABLES Final R esult Performing Organization Address City/[facility] Co de Phone Number [facility] [place] [address] * COLONOSCOPY (12/11/2022 12:11 PM CDT) Anatomical Region Laterality Modality Other Narrative Procedure Note James Sandoval MD PhD - 12/11/2022 12:11 PM CDT ENDOSCOPY LAB Patient Name: Carmen Rosado Procedure Date: 12/11/2022 12:11PM Date of : 1960 Admit Type: Outpatient Age: 62 Gender: Female Attending MD: James Sandoval MD,PHD Room: [facility] ENDOSCOPY ROOM 05 Note Status: Finalized [...] The scope was passed under direct vision.The [id number] was introduced through the anusand advanced to [...] - GENERAL ORDER REJI Final Result [facility] [address] [place] [address] * BONE MINERAL DENSITY (06/20/2015) Anatomical Region Laterality Modality Radiographic Suzette ging Narrative 06/20/2015 Ordered by an unspecified provider. Historical Provider MD JOY DXA PROCEDURES Final Result from Last 3 Months or Most Recently Relevant to Health Maintenance Insurance [facility] [employer] [facility] Member Subscriber Plan / Payer (Ef fective 2019-Present) Name:Carmen Mortensen Relation to Subscriber:Spouse Name:ESVIN ROSADO Date of :1960 (Home) Address: [address] [place] [address] [place] [address] Payer ID:[id number] (NAIC) Group ID:[id number] Type:BC ALLIANCE Address: [address] [place] [id number] MEDICARE Advance Directives For more information, please contact: [phone] * Full Code (Latest Code Status on [...] 9:50 AM 05/27/2018 4:39 PM Care Teams Trailer Truck Driver Relationship Specialty Start Date End Date Gabbie Wilde MD PCP - General Family Medicine 03/27/22 James Sandoval MD PhD [address] [facility], [address] [address] PCP - Home Infusion Attending Gastroenterology 07/12/24 Sonny Galindo MD Nephrology 05/21/22 Caroline Banerjee, MARIA A Home Infusion Nursing 07/21/24 Wyatt Thayer, [facility] Pharmacist Pharmacy 08/02/24
--- OUTSIDE RECORDS SUMMARY | 2024-11-23 13:24 | XMS_ITS | Encounter Summary ---
Author Organization [facility] Healthcare Address [address] [place] [address] Care Team Providers Care Amusement Machine Mechanic Name Role Phone Lois Amato MD Primary Care Provider [phone] Toney Benítez Primary Care Provider + Gabbie Wilde MD Primary Care Provider + Sonny Galindo MD Unavailable [phone] James Sandoval MD PhD Unavailable [phone] Caroline Banerjee RN Unavailable Unavailable Wyatt Thayer [facility] Unavailable Unavaila ble Encounter Details Date Type Department Care Team (Late st Contact Info) Description 09/02/2019 Telephone [facility] [address] [place] [address] Valeri Farnsworth MD [address] [facility] [address] [place] [address] Social History Tobacco Use Types Packs/Day Years Used Date Smoking Tobacco: Never Smokeless Tobacco: Never Alcohol Use Standard Drinks/Week Comments Yes 0 (1 standard drink = 0.6 oz pure alcohol) 1 glass wine maybe once a month Comments No Sex and Gender Information Value Date Recorded Sex Assigned at Not on file Legal Sex Female 11:00 AM BED WORKER Gender Identity Female 10/03/2020 3:00 PM [...] is neg. 04/14/2015 04/14/2015 4 8:58 AM BED WORKER documented as of this encounter Care Teams Amusement Machine Mechanic Relationship Specialty Start Date End Date Lois Amato MD [address] [place] [address] PCP - General 03/12/12 09/28/21 Toney Benítez PA [address] [place] [address] PCP - General Physician Marine Steam Fitter 09/29/21 03/26/22 Gabbie Wilde MD [address] [place] [address] PCP - General Family Medicine 03/27/22 James Sandoval MD PhD [address] [facility]OLOGY, [address] [address] PCP - Home Infusion Attending Gastroenterology 07/12/24 Sonny Galindo MD [address] [place] [address] Nephrology 05/21/22 Caroline Banerjee, MARIA A Home Infusion Nursing 07/21/24 Wyatt Thayer, [facility] Pharmacist Pharmacy 08/02/24 documented as of this encounter
--- OUTSIDE RECORDS SUMMARY | 2024-11-23 13:24 | XMS_ITS | Encounter Summary ---
Author Organization [facility] Address [address] [place] [address] Phone Care Team Providers Care Electric Welder Name Role Phone Gabbie Wilde MD Primary Care Provider + Sonny Galindo MD Unavailable [phone] James Sandoval MD PhD Unavailable [phone] Caroline Banerjee RN Unavailable Unavailable Wyatt Thayer [...] on file Legal Sex Female 11:00 AM VEHICLE DETAILER Gender Identity Female 10/03/2020 3:00 PM CDT Sexual Orientation Not on file documented as of this encounter Plan of Treatment Not on file documented as of this encounter Procedures Procedure Name Priority Date/Time Associated Diagnosis Comments GI - RESULT 01/10/2024 3:47 PM VEHICLE DETAILER documented in this encounter Results * GI - RESULT (01/10/2024 3:47 PM VEHICLE DETAILER) Anatomical Region Laterality Modality Other us Provider Scanning Final Result documented in this encounter Visit Diagnoses Not on filedocumented in this encounter Additional Health Concerns Infection Onset Date Last Indicated Resolved Time C. difficile Comment:Chronic diarrhea from IBS. Last CDI test 01/01/22 is neg. 04/14/2015 04/14/2015 8:58 AM VEHICLE DETAILER documented as of this encounter Care Teams Electric Welder Relationship Specialty Start Date End Date Gabbie Wilde MD PCP - General Family Medicine 03/27/22 James Sandoval MD PhD [address] [facility] GASTROENTEROLOGY, [address] [address] PCP - Home Infusion Attending Gastroenterology 07/12/24 Sonny Galindo MD Nephrology 05/21/22 Caroline Banerjee, [facility]fusion Nursing 07/21/24 Wyatt Thayer, [facility] Pharmacist Pharmacy 08/02/24 documented as of this encounter
--- OUTSIDE RECORDS SUMMARY | 2024-11-23 13:24 | XMS_ITS | Patient Health Record ---
Author Organization [facility] Address [address] [facility] [address] [place] [address] Care Team Providers Care Clinical Informatics Specialist Name Role Phone Chelsi Cervantes Unavailable [phone] Reason For Referral No Information Medications Medication SIG (Take, Route, Frequency, Duration) Notes Start Date End Date Status Entyvio 300 mg infuse 300 mg over 30 minute(s) by intravenous route every 8 weeks Intravenous [id number]- 02 Active Multi-Vitamin take 1 tablet by [...] tablet in the morning - *Reorder from SellStage for eRx and Interaction Alerts* Active Cetirizine HCl 10 MG take 1 tablet (10 mg) by oral route once daily Oral 1 Active Peppermint Oil 50 mg take 1 capsule by oral route once ORAL 1 *Pick strength-form from SellStage for eRX* Active Farxiga 5 MG take [...] times a week - *Pick strength-form from SellStage for eRX* Active Losartan Potassium 25 MG take 1 tablet (25 mg) by oral route once daily Oral 1 Active Rybelsus 7 mg take 1 tablet (7 mg) by oral route once daily in the morning 30 min before any food, drink or medication with no more than 4 oz plain water oral 1 Active Cholecalciferol 1.25 MG (19952 UT) take 1 tablet by oral route once Oral 1 Active traZODone HCl 50 MG take 1 tablet (50 mg) by oral route once daily at bedtime Oral 1 Active Biotin 1,000 mcg chew 1 tablet by oral route once Oral 1 *Pick strength-form from SuperData Researchan for eRX* Active Fenofibrate 134 mg take 1 tablet in the evening oral *Pick strength-form from Unfoldspan for eRX* Active Fish Oil Burp-Less 1200 MG take 1 capsule by oral route twice Oral 2 Active Plan Of Treatment No Information Insurance Providers Payer Name Payer Address Payer Phone Subscriber Number Group Number Insured Name Patient Relationship to Insured Coverage Start Date Coverage End Date [place] [address] [place] [address] [id number] Carmen Mortensen Self - patient is the insured Medical (General) History Surgical History Surgery Date(Month/Year) Hysterectomy; 2022-11-22 Arthroplasty of carpometacarpal (CMC) maryellen int of hand; 2022-11-28 sympathectomy; 2022-11-28
--- OUTSIDE RECORDS SUMMARY | 2024-11-23 13:24 | XMS_ITS | Encounter Summary ---
Author Organization [facility] Address [address] [place] [address] Phone Care Team Providers Care Pediatric Clinical Nurse Specialist Name Role Phone Toney Benítez Primary Care Provider [phone] Encounter Details Date Type Department Care Team (Late st Contact Info) Description 09/30/2018 [facility] Nephrology and Hypertension [address] [facility], [address] [address] Sonny aGlindo MD [address] [facility], [address] [place] [address] Social History Tobacco Use Types Packs/Day Years Used Date Smoking Tobacco: Never Smokeless Tobacco: Never Alcohol Use Standard Drinks/Week Comments Yes 0 (1 standard drink = 0.6 oz pur e alcohol) rare Comments Unknown Sex and Gender Information Value Date Recorded Sex Assigned at Not on file Legal Sex Female 8:54 AM [facility] Gender Identity Not on file Sexual Orientation Not on file documented as of this encounter Plan of Treatment Not on file documented as of this encounter Visit Diagnoses Not on filedocumented in this encounter Care Teams Pediatric Clinical Nurse Specialist Relationship Specialty Start Date End Date Toney Benítez [address] [place] [address] PCP - General 09/20/21 documented as of this encounter
--- OUTSIDE RECORDS SUMMARY | 2024-11-23 13:24 | XMS_ITS | Encounter Summary ---
Author Organization [facility] Address [address] [place] [address] Phone Care Team Providers Care Executive Cyber Leader Name Role Phone Gabbie Wilde MD Primary Care Provider + Sonny Galindo MD Unavailable James Sandoval MD PhD Unavailable [phone] Caroline Banerjee RN Unavailable Unavailable Wyatt Thayer [...] on file Legal Sex Female 11:00 AM MARINE FIREMAN Gender Identity Female 10/03/2020 3:00 PM CDT [...] 01/01/22 is neg. 04/14/2015 04/14/2015 8:58 AM MARINE FIREMAN documented as of this encounter Care Teams Executive Cyber Leader Relationship Specialty Start Date End Date Gabbie Wilde MD PCP - General Family Medicine 03/27/22 James Sandoval MD PhD [address] [facility] GASTROENTEROLOGY, [address] [address] PCP - Home Infusion Attending Gastroenterology 07/12/24 Sonny Galindo MD Nephrology 05/21/22 Caroline Banerjee, [facility] Home Infusion Nursing 07/21/24 Wyatt Thayer, [facility] Pharmacist Pharmacy 08/02/24 documented as of this encounter
[2024-11-23 13:38] LABS: Add Urine Microscopic? YES; Appearance Urine Turbid (Clear); Glucose Urine UA 3+ mg/dL (Negative); Leukocyte Esterase Ur 3+ LEU/UL (Negative); Need Manual Microscopic Reviewed; Nitrate Urine Negative (Negative); Specific Grav Ur 1.018 (1.001-1.035)
== END 2024-11-23 12:25 | disposition home or self-care (01) ==
PROVIDERS: PCP Family Medicine; Visit Provider Family Medicine
DX: N39.0 Urinary tract infection, site not specified (principal); A49.9 Bacterial infection, unspecified
CPT/HCPCS: 81001

== ENCOUNTER 2025-01-06 11:18 | Outpatient (CLI) | payer MEDICARE, BC, SELFPAY ==
[2025-01-06 12:23] LABS: Alanine Aminotransferase 14 U/L (6-35); Albumin Level 4.0 g/dL (3.5-5.1); Alkaline Phosphatase 75 U/L (38-126); Anion Gap 8 mmol/L (4-12); Aspartate Amino Transferase 30 U/L (14-36); Bilirubin,Total 0.3 mg/dL (0.2-1.3); Blood Urea Nitrogen 21 mg/dL (7-17); Calcium 8.6 mg/dL (8.4-10.2); Carbon Dioxide 27 mmol/L (22-30); Chloride 102 mmol/L (98-107); Cholesterol 148 mg/dL (0-200); Estimated Glomerular Filt Rate 39; Glucose 97 mg/dL (65-110); HDL Direct 68 mg/dL; Potassium 3.8 mmol/L (3.4-5.0); Sodium 137 mmol/L (137-145); Total Protein 7.2 g/dL (6.3-8.2); Triglycerides 99 mg/dL (<150)
[2025-01-06 12:43] LABS: MALB Creatinine Ratio 11.7 mg/g (0-30)
[2025-01-06 19:25] LABS: Hemoglobin A1C 5.5 % (<5.7)
== END 2025-01-06 11:19 | disposition home or self-care (01) ==
LOC: ANHLAB 11:22
PROVIDERS: PCP Family Medicine; Visit Provider Family Medicine
DX: E11.22 Type 2 diabetes mellitus with diabetic chronic kidney disease (principal); N18.32 Chronic kidney disease, stage 3b
CPT/HCPCS: 36415; 36591; 80053; 80061; 82043; 83036

== ENCOUNTER 2025-01-14 14:39 | Emergency (ER) | payer MEDICARE, BC, SELFPAY ==
--- NOTE | ~2025-01-14 | CT_ITS ---
EXAMINATION: CT brain wo miles, 01/14/2025 15:00 SCORER SINGLE HISTORY: fall with +LOC, unsure where/if she hit her head COMPARISON: No comparisons available. Technique: Axial images obtained of the brain without contrast. One or more of the following dose reduction techniques were used: automated exposure control, adjustment of the mA and/or kV according to patient size, use of iterative reconstruction technique. Findings: No acute infarct or parenchymal hemorrhage. No abnormal mass or mass effect. No midline shift. No extra-axial fluid collections. No hydrocephalus. Mastoid air cells unremarkable. Sinuses and orbits unremarkable. No acute fracture. No significant facial or scalp soft tissue swelling evident. No radiopaque foreign body is seen. Impression: 1.No acute intracranial abnormality. Reviewed, dictated and finalized at location P. ER SINGLE Impression: 1.No acute intracranial abnormality.
--- NOTE | ~2025-01-14 | CT_ITS ---
EXAMINATION: CT cervical spine wo con COMPARISON: None HISTORY: fall with +LOC, unsure where/if she hit her head TECHNIQUE: Axial images were obtained through the spine without IV contrast. Coronal, sagittal reconstruction images were obtained from the axial views. CT scan performed using dose optimization techniques including the following automated exposure control; adjustment of mA and/or kV; use of iterative reconstruction technique. Automatic exposure control was used to reduce radiation dose. Permanent radiation dose record is archived to PACS. FINDINGS: The vertebral heights are intact. No fracture or subluxation. There is severe loss of disc height at C3-4, C4-5 C5-6 and C6-7 with moderate to severe canal and foraminal stenosis. Soft tissues demonstrate nonspecific patulous appearance of the esophagus, the lung apices appear unremarkable. Impression: No acute abnormality. Reviewed, dictated and finalized at location P. NESS PROGRAM MANAGER Impression: No acute abnormality.
[2025-01-14 14:41] VITALS: BP 161/66; PULSE 76; RESP 18; TEMP 36.6; O2SAT 100
--- OUTSIDE RECORDS SUMMARY | 2025-01-14 15:14 | XMS_ITS | Clinical Summary ---
Author Organization [facility] Address [address] [facility] [place] [address] Care Team Providers Care Metal Leaf Layer Name Role Phone Gabbie Wilde MD Primary Care Provider + Sonny Galindo MD Unavailable [phone] James Sandoval MD PhD Unavailable [phone] Caroline Banerjee RN Unavailable Unavailable Wyatt Thayer [facility] Unavailable Unavaila ble Allergies Active Allergy Reactions [...] 33 gauge miscIndications:D iabetes Mellitus 022 Active xxzmg-4-otj-epa-d pa-fish oil 1,050-1,200 mg capsuleIndication s:hypertriglyceri demia [...] 250 mL NS bag. 1 each 3 12/12/19 11:59 PM CDT 2025 Active 0.9 % sodium chloride (sodium chloride 0.9%) 0.9% infusionIndicatio ns:Crohn's disease of both small and large intestine without complication (HCC) Infuse 250 mL IV as directed Add Vedolizumab 5mL (300mg) to 250mL NS bag. Infuse with non-filtered tubing via pole mounted pump over at least 30 minutes at up to 500mL/hr. START INFUSION WITHIN 4 HOURS OF MIXING 1000 mL 12/12/19 11:59 PM CDT 2025 Active acetaminophen (TYLENOL) 325 mg tabletIndications [...] mL IV as needed for line care 94766 mL 025 2025 Active eluxadoline (Viberzi) 100 mg tabletIndications :Diarrhea Predominant Irritable Bowel Syndrome Take 1 tablet (100 mg total) by mouth daily 90 tablet 1 Active magnesium gluconate 200 mg tabletIndications :hypomagnesemia 1 tablet (200 mg total) Active cyclobenzaprine (FLEXERIL) 10 mg tablet Take 0.5 tablets (5 mg total) by mouth 2 (two) times a day as needed for muscle spasms 60 tablet 2 025 2025 Active ubrogepant (Ubrelvy) 100 mg tablet Take 1 tablet (100 mg total) by mouth once as needed for migraine May repeat dose once in 2 hours if no relief. Do not exceed 2 doses in 24 hours. 16 tablet 3 025 2025 Active imipramine (TOFRANIL-PM) 100 mg capsuleIndication s:Trigeminal neuralgia Take 1 capsule (100 mg total) by mouth nightly 30 capsule 2 Active imipramine (TOFRANIL-PM) 100 mg capsuleIndication s:Trigeminal neuralgia TAKE 1 CAPSULE(100 MG) BY MOUTH EVERY NIGHT 30 capsule 2 025 2024 Discontinued imipramine (TOFRANIL-PM) 100 mg capsuleIndication s:Trigeminal neuralgia TAKE 1 CAPSULE(100 MG) BY MOUTH EVERY NIGHT 30 capsule 2 025 2024 Discontinued(R eoarvin) Active Problems Problem Noted Date Diagnosed Date [...] (04/15/2018): Added automatically from request for surgery [id number] Abnormal mammogram 02/10/2018 Resolved Problems Problem Noted Date Diagnosed Date Resolved Date Trigeminal neuralgia 03/11/2024 025 Assessment & Plan (03/11/2024 3:13 PM BICYCLE TECHNICIAN): She complains of residual pain in the [...] (08/05/2022): Added automatically from request for surgery [id number] Encounters Date Type Department Care Team Description 12/29/2024 [facility] [address] [phone] Kristine Noble MA 12/15/2024 10:00 AM CDT Home Care Visit [facility] Home Infusion Therapy [address] [place] [address] Caroline Banerjee RN [place] INF [address] ROUTINE 12/15/2024 Home Infusion [facility] Home Infusion Therapy [address] [place] [address] Abi Eddy 12/03/2024 Home Infusion [facility] Home Infusion Therapy [address] [place] [address] Cadence Montenegro 11/30/2024 11:00 AM CDT Office Visit [facility] [address] [address] Radha Tompkins NP Neck pain (Primary Dx) 11/27/2024 Orders Only [facility] [address] [place], [place] [id number] Tigre Torres MD Atypical face pain (Primary Dx); Trigeminal neuralgia 10/20/2024 10:00 AM CDT Home Care Visit [facility] Home Infusion Therapy [address] [place] [address] Caroline Banerjee RN [place] INF [address] ROUTINE 10/20/2024 [facility]phone [facility] [address] [address] Lore Arriaga MA from Last 3 Months Immunizations Immunization Administration [...] Bladder Surgery - (Added by TW Conv) MS EXC CYST/ABERRANT BREAST TISSUE OPEN /> LESION Breast Surgery Lumpectomy - (Added by TW Conv) MS NEUROPLASTY &/TRANSPOS MEDIAN NRV CARPAL TUNNE Neuroplasty Decompression Median Nerve At Carpal Tunnel - (Added by TW Conv) ANAL FISSURECTOMY Anal Fissurectomy - (Added by TW Conv) KNEE SURGERY Knee Surgery - (Added by TW Conv) MS NEURP MAJOR PRPH NRV ARM/LEG OPN OTH/THN SPEC Neuroplasty Ulnar Nerve - (Added by TW Conv) CENTRAL VENOUS CATHETER INSERTION Central IV Line Type Port-A-Cath - (Added by TW Conv) SPINAL CORD STIMULATOR IMPLANT Spinal Surgery Neurostimulator Implants - (Added by TW Conv) MS TOTAL ABDOMINAL HYSTERECT W/WO RMVL TUBE OVARY [...] Plantar fasciitis Trigger finger Cataract 2018 Pneumonia 1994 Fatigue 2006 Allergic rhinitis Tinnitus [...] Slover Vision loss Father's Sister 2 Bianka [place] COPD Maternal Grandfather Tatolandy [place] Alzheimer's disease Maternal Grandmother Durga Avina ch Memory loss Maternal Grandmother Durga Burtonm[place] Arthritis Mother Rahel Page Cancer Mother Rahel [...] on file Legal Sex Female 11:00 AM BICYCLE TECHNICIAN Gender Identity Female 10/03/2020 3:00 PM CDT Sexual Orientation Not on file Last Filed Vital Signs Vital Sign Reading Time Taken Comments Blood Pressure 121/51 12/15/2024 12:45 PM CDT Pulse 70 12/15/2024 12:45 PM CDT Temperature 36.4 C (97.5 F) 12/15/2024 12:45 PM CDT Respiratory Rate 16 12/15/2024 12:45 PM CDT Oxygen Saturation 100% 12/15/2024 12:45 PM CDT Inhaled Oxygen Concentration - - Weight 56.7 kg (125 lb) 12/15/2024 11:34 AM CDT Height 162.6 cm (5' 4) 12/15/2024 11:34 AM CDT Body Mass Index 21.46 12/15/2024 11:34 AM CDT Plan of Treatment Health Maintenance [...] 03/27/2022, Additional history exists eGFR 08/25/2025 08/25/2024, 0309/2024, 03/10/2024, Additional history exists DTaP/Tdap/Td Vaccine (2 [...] Completed 08/25/2024 Medical Devices Implanted Type Area Tumbler Machine Operator Device Identifier Shelf Expiration Date Model / Serial / Lot [employer] Xcela Power Port 8fr [id number] - [id number] Implanted:Qty: 1 on 03/05/2023 by Quang Cid MD at [facility] [employer] 10/22/2027 [id number] / / [id number] Procedures Procedure Name Priority Date/Time Associated Diagnosis Comments EGFR Routine 08/25/2024 11:40 AM CDT SCREENING MAMMOGRAM BILATERAL W SHAHZAD Schedule Routine, Read Routine (OP Routine) 04/15/2024 12:09 PM BICYCLE TECHNICIAN Fibrocystic breast changes of both breasts HEMOGLOBIN A1C Routine 03/10/2024 10:10 AM BICYCLE TECHNICIAN ALBUMIN CREATININE RATIO, URINE Routine 03/10/2024 10:10 AM BICYCLE TECHNICIAN COLONOSCOPY 12/11/2022 12:11 PM CDT HEPATITIS C ANTIBODY Routine 11/28/2022 4:12 PM CDT BONE MINERAL DENSITY 06/20/2015 from Last 3 Months or Most Recently Relevant to Health Maintenance Results * (ABNORMAL) eGFR (08/25/2024 11:40 AM [...] James Sandoval MD PhD LAB BLOOD ORDERABLES [facility] Result Performing Organization Address City/State/[facility] Co de Phone Number [facility] [address] [facility] Department [place] [address] * Screening Mammogram Bilateral W Shahzad (04/15/2024 12:09 PM BICYCLE TECHNICIAN) Anatomical Region Laterality Modality Breast Bilateral Mammography Narrative 04/16/2024 10:39 AM BICYCLE TECHNICIAN Mammogram Technique: Bilateral Digital Breast Tomosynthesis, Bilateral C-view 2D Screening mammogram. Views obtained: bilateral craniocaudal and bilateral mediolateral oblique. Computer Aided Detection was performed. Mammogram Findings: The present examination has been compared to prior imaging studies performed at [facility] on 03/22/2021, 03/27/2022 and 04/09/2023. The [...] compared to prior imaging studies performed at [facility] on 03/22/2021, 03/27/2022 and 04/09/2023. The [...] Albumin Creatinine Ratio, Urine (03/10/2024 10:10 AM BICYCLE TECHNICIAN) Pathologist [facility] Albumin Ur 17.5 mg/L Comment: Interpretive Data No reference range established. Current interpretive data was last revised 2018. Creatinine Ur 51.5 mg/dL [facility] Comment: Interpretive Data No reference range established. Current interpretive data was last revised 2018. Albumin Creatinine Ratio, Ur 35(H) 1 - 29 mg/g [facility] Urine 03/10/2024 10:1 0 AM BICYCLE TECHNICIAN 03/10/2024 3:25 PM BICYCLE TECHNICIAN Sonny Galindo MD LAB URINE ORDERABLES Final R esult [facility] [address] [facility] Department [place] [address] * Hemoglobin A1c (03/10/2024 10:10 AM BICYCLE TECHNICIAN) Pathologist [facility] Hgb A1C 5.3 4.0 - 5.6 % Estimated Average Glucose 105 mg/dL [facility] Comment: The ADA recommends reporting an estimated Average Glucose (eAG) with all Hemoglobin A1c results using the equation derived from a study of 507 normal and diabetic adults. Minority populations were underrepresented and children were not included. (Diabetes Care 2020; 43(S1): S66-S76). The eAG is not equivalent to a fasting glucose. Blood 03/10/2024 10:1 0 AM BICYCLE TECHNICIAN 03/10/2024 2:39 PM BICYCLE TECHNICIAN us Sonny Galindo MD LAB BLOOD ORDERABLES Final R esult Performing Organization Address City/State/[facility] Co n[place] Phone Number [facility] [address] [facility] Department [place] [address] * COLONOSCOPY (12/11/2022 12:11 PM CDT) Anatomical Region Laterality Modality Other Narrative Procedure Note James Sandoval MD PhD - 12/11/2022 12:11 PM CDT ENDOSCOPY LAB Patient Name: Carmen Rosado Procedure Date: 12/11/2022 12:11PM Date of : 1960 Admit Type: Outpatient Age: 62 Gender: Female Attending MD: James Sandoval MD,PHD Room: [facility] ENDOSCOPY ROOM 05 Note Status: Finalized [...] The scope was passed under direct vision.The [id number] was introduced through the anusand advanced to [...] - GENERAL ORDER REJI Final Result [facility] [address] Department [place] [address] * BONE MINERAL DENSITY (06/20/2015) Anatomical Region Laterality Modality Radiographic Suzette ging Narrative 06/20/2015 Ordered by an unspecified provider. Chrissy Provider IMG DXA PROCEDURES Final Result from Last 3 Months or Most Recently Relevant to [place] [address] BCBS FEDERAL MEDICARE [facility] [place] [address] [facility] FEDERAL MEDICARE Advance Directives For more information, please contact: [phone] * Full Code (Latest Code Status on [...] 9:50 AM 05/27/2018 4:39 PM Care Teams Metal Leaf Layer Relationship Specialty Start Date End Date Gabbie Wilde MD PCP - General Family Medicine 03/27/22 James Sandoval MD PhD [address] [facility] GASTROENTEROLOGY, [address] [address] PCP - Home Infusion Attending Gastroenterology 07/12/24 Sonny Galindo MD Nephrology 05/21/22 Caroline Banerjee, [facility]fusion [facility] 07/21/24 Wyatt Thayer, [facility] Pharmacist Pharmacy 08/02/24
--- OUTSIDE RECORDS SUMMARY | 2025-01-14 15:14 | XMS_ITS | Encounter Summary ---
Author Organization [facility] Address [address] [place] [address] Phone Care Team Providers Care Packaging Technician Name Role Phone Gabbie Wilde MD Primary Care Provider + Sonny Galindo MD Unavailable [phone] James Sandoval MD PhD Unavailable [phone] Caroline Banerjee RN Unavailable Unavailable Wyatt Thayer [facility] Unavailable Unavaila ble Encounter Details [...] on file Legal Sex Female 11:00 AM CO FOUNDER AND CHIEF STRATEGY OFFICER Gender Identity Female 10/03/2020 3:00 PM CDT [...] 01/01/22 is neg. 04/14/2015 04/14/2015 8:58 AM CO FOUNDER AND CHIEF STRATEGY OFFICER documented as of this encounter Care Teams Packaging Technician Relationship Specialty Start Date End Date Gabbie Wilde MD PCP - General Family Medicine 03/27/22 James Sandoval MD PhD [address] [facility] GASTROENTEROLOGY, [address] [address] PCP - Home Infusion Attending Gastroenterology 07/12/24 Sonny Galindo MD Nephrology 05/21/22 Caroline Banerjee, [facility] Home Infusion Nursing 07/21/24 Wyatt Thayer, [facility] Pharmacist Pharmacy 08/02/24 documented as of this encounter
--- OUTSIDE RECORDS SUMMARY | 2025-01-14 15:14 | XMS_ITS | Encounter Summary ---
Author Organization [facility] Address [address] [place] [address] Care Team Providers Care Caustic Loader Name Role Phone Lois Amato MD Primary Care Provider [phone] Toney Benítez Primary Care Provider + Gabbie Wilde MD Primary Care Provider + Sonny Galindo MD Unavailable [phone] James Sandoval MD PhD Unavailable [phone] Caroline Banerjee RN Unavailable Unavailable Wyatt Thayer [facility] Unavailable Unavaila ble Encounter Details Date Type Department Care Team (Late st Contact Info) Description 09/02/2019 Telephone [facility] [address] [place] [address] Valeri Farnsworth MD [address] [facility] [address] [place] [address] Social History Tobacco Use Types Packs/Day Years Used Date Smoking Tobacco: Never Smokeless Tobacco: Never Alcohol Use Standard Drinks/Week Comments Yes 0 (1 standard drink = 0.6 oz pure alcohol) 1 glass wine maybe once a month Comments No Sex and Gender Information Value Date Recorded Sex Assigned at Not on file Legal Sex Female 11:00 AM MANAGER USER EXPERIENCE Gender Identity Female 10/03/2020 3:00 PM CDT Sexual Orientation Not on file documented as of this encounter Plan of Treatment Not on file documented as of this encounter Visit Diagnoses Not on filedocumented in this encounter Additional Health Concerns Infection Onset Date Last Indicated Resolved Time C. difficile Comment:Chronic diarrhea from IBS. Last CDI test 01/01/22 is neg. 04/14/2015 04/14/2015 4 8:58 AM MANAGER USER EXPERIENCE documented as of this encounter Care Teams Caustic Loader Relationship Specialty Start Date End Date Lois Amato MD [address] [place] [address] PCP - General 03/12/12 09/28/21 Toney Benítez PA [address] [place] [address] PCP - General Physician Feather Separator 09/29/21 03/26/22 Gabbie Wilde MD [address] [place] [address] PCP - General Family Medicine 03/27/22 James Sandoval MD PhD [address] [facility] GASTROENTEROLOGY, [address] [address] PCP - Home Infusion Attending Gastroenterology 07/12/24 Sonny Galindo MD [address] [place] [address] Nephrology 05/21/22 Caroline Banerjee, MARIA A Home [facility]fusion Nursing 07/21/24 Wyatt Thayer, [facility] Pharmacist Pharmacy 08/02/24 documented as of this encounter
--- OUTSIDE RECORDS SUMMARY | 2025-01-14 15:14 | XMS_ITS | Encounter Summary ---
Author Organization [facility] Address [address] [place] [address] Phone Care Team Providers Care Tuberculosis Specialist Name Role Phone Gabbie Wilde MD Primary Care Provider + Sonny Galindo MD Unavailable [phone] James Sandoval MD PhD Unavailable [phone] Caroline Banerjee RN Unavailable Unavailable Wyatt Thayer [facility] Unavailable Unavaila ble Encounter Details Date Type [...] on file Legal Sex Female 11:00 AM SOAP DRIER OPERATOR Gender Identity Female 10/03/2020 3:00 PM CDT Sexual Orientation Not on file documented as of this encounter Plan of Treatment Not on file documented as of this encounter Procedures Procedure Name Priority Date/Time Associated Diagnosis Comments GI - RESULT 01/10/2024 3:47 PM SOAP DRIER OPERATOR documented in this encounter Results * GI - RESULT (01/10/2024 3:47 PM SOAP DRIER OPERATOR) Anatomical Region Laterality Modality Other us Provider Scanning Final Result documented in this encounter Visit Diagnoses Not on filedocumented in this encounter Additional Health Concerns Infection Onset Date Last Indicated Resolved Time C. difficile Comment:Chronic diarrhea from IBS. Last CDI test 01/01/22 is neg. 04/14/2015 04/14/2015 8:58 AM SOAP DRIER OPERATOR documented as of this encounter Care Teams Tuberculosis Specialist Relationship Specialty Start Date End Date Gabbie Wilde MD PCP - General Family Medicine 03/27/22 James Sandoval MD PhD [address] [facility] GASTROENTEROLOGY, [address] [address] PCP - Home Infusion Attending Gastroenterology 07/12/24 Sonny Galindo MD Nephrology 05/21/22 Caroline Banerjee, [facility]fusion [facility] 07/21/24 Wyatt Thayer, [facility] Pharmacist Pharmacy 08/02/24 documented as of this encounter
--- OUTSIDE RECORDS SUMMARY | 2025-01-14 15:14 | XMS_ITS | Clinical Summary ---
Author Organization [facility] Address [address] [place] [address] Phone Care Team Providers Care Restaurant Cook Name Role Phone Toney Benítez Primary Care Provider [phone] Allergies Active Allergy Reactions Criticality Noted Date [...] pills spread through the day 2 Active Melbourne-3 Fatty Acids (Fish Oil) 1200 MG capsule [...] (09/24/2018): Added automatically from request for surgery [id number] Stage 3b chronic kidney disease 08/15/2011 Hypertensive [...] , 11/19/2019, 10/20/2018, Additional history exists Insurance [facility] Care Teams Restaurant Cook Relationship Specialty Start Date End Date Toney Benítez [address] [place] [address] PCP - General 09/20/21
--- OUTSIDE RECORDS SUMMARY | 2025-01-14 15:14 | XMS_ITS | Patient Health Record ---
Author Organization [employer] Address [address] [place], [place] [address] Care Team Providers Care Hydroelectric Plant Maintainer Name Role Phone LOC CREWS MD Primary Care Provider Aydin Gallegos, Enrique Unavailable [phone] REASON FOR REFERRAL No Information MEDICATIONS Medication [...] Notes Problem Osteoarthrosis (715.09) Active confirmed Osteoarthrosis (867996122) Problem Crohn's disease (555.9) Active confirmed Crohn's disease (65095856) PLAN OF TREATMENT No Information Insurance Providers Payer Name Payer Address Payer Phone Subscriber Number Group Number Insured Name Patient Relationship to Insured Coverage Start Date Coverage End Date [facility] PPO - NR [address] [address] [place] [address] [id number] ESVIN LYLE Spouse - patient is the spouse of the insured 8 MEDICAL (GENERAL) HISTORY Medical History History ICD Code Bruises easily Changes in moles Migraine and tension headaches Blurred vision Ringing in ears Sinus problems Dizziness Anemia HBP Mitral valve prolapse IBS, bowel changes
--- OUTSIDE RECORDS SUMMARY | 2025-01-14 15:14 | XMS_ITS | Encounter Summary ---
Author Organization [facility] Address [address] [place] [address] Phone Care Team Providers Care Field Laboratory Operator Name Role Phone Toney Benítez Primary Care Provider [phone] Encounter Details Date Type Department Care Team (Late st Contact Info) Description 09/30/2018 [facility] Nephrology and Hypertension [address] [facility], [address] [address] Sonny Galindo MD [address] [facility], [address] [place] [address] Social History Tobacco Use Types Packs/Day Years Used Date Smoking Tobacco: Never Smokeless Tobacco: Never Alcohol Use Standard Drinks/Week Comments Yes 0 (1 standard drink = 0.6 oz pur e alcohol) rare Comments Unknown Sex and Gender Information Value Date Recorded Sex Assigned at Not on file Legal Sex Female 8:54 AM [facility] Gender Identity Not on file Sexual Orientation Not on file documented as of this encounter Plan of Treatment Not on file documented as of this encounter Visit Diagnoses Not on filedocumented in this encounter Care Teams Field Laboratory Operator Relationship Specialty Start Date End Date Toney Benítez [address] [place] [address] PCP - General 09/20/21 documented as of this encounter
--- OUTSIDE RECORDS SUMMARY | 2025-01-14 15:15 | XMS_ITS ---
Author Organization [facility] Medical [facility] 2 Address [address] [facility] [place] [address] Care Team Providers Care Senior Corporate Recruiter Name Role Phone Gabbie Wilde MD Primary Care Provider + Sonny Galindo MD Unavailable [phone] James Sandoval MD PhD Unavailable [phone] Caroline Banerjee RN Unavailable Unavailable Wyatt Thayer [facility] Unavailable Unavaila ble [facility]rap[facility] - ENTYVIO 300 mg IV EVERY 8 WEEKS Status:Enrolled (Active) Start date:06/26/2024 Enrollment date:06/26/2024 Primary medications:vedolizumab (Active) Related program episode:Home Infusion (Active) Overview Cutover complete Case Team Name Relationship Phone Caroline Banerjee RN Home Infusion Nursing Wyatt Thayer [facility](Responsible Staff) Pharma cist Continued Care and Services Coordination This section includes services coordinated for [facility] Specialty Therapies - ENTYVIO 300 mg IV EVERY 8WEEKS. Home Medical Care Name Services Phone [facility] Home Infusion Therapy Home Infusion and Inje ction
--- OUTSIDE RECORDS SUMMARY | 2025-01-14 15:15 | XMS_ITS | Encounter Summary ---
Author Organization [facility] Address [address] [place] [address] Phone Care Team Providers Care Dirt Bike Racer Name Role Phone Gabbie Wilde MD Primary Care Provider + Sonny Galindo MD Unavailable [phone] James Sandoval MD PhD Unavailable [phone] Caroline Banerjee RN Unavailable Unavailable Wyatt Thayer [facility] Unavailable Unavaila ble Encounter Details [...] on file Legal Sex Female 11:00 AM FIELD INSURANCE SALES MANAGER Gender Identity Female 10/03/2020 3:00 PM [...] 01/01/22 is neg. 04/14/2015 04/14/2015 8:58 AM FIELD INSURANCE SALES MANAGER documented as of this encounter Care Teams Dirt Bike Racer Relationship Specialty Start Date End Date Gabbie Wilde MD PCP - General Family Medicine 03/27/22 James Sandoval MD PhD [id number] [facility], [address] [address] PCP - Home Infusion Attending Gastroenterology 07/12/24 Sonny Galindo MD Nephrology 05/21/22 Caroline Banerjee, MARIA A Home Infusion Nursing 07/21/24 Wyatt Thayer, [facility] Pharmacist Pharmacy 08/02/24 documented as of this encounter
--- OUTSIDE RECORDS SUMMARY | 2025-01-14 15:15 | XMS_ITS ---
Author Organization [facility] 2 Address [address] [place] [address] Care Team Providers Care Group Teacher Name Role Phone Gabbie Wilde MD Primary Care Provider + Sonny Galindo MD Unavailable [phone] James Sandoval MD PhD Unavailable [phone] Caroline Banerjee RN Unavailable Unavailable Wyatt Thayer [facility] Unavailable Unavaila ble Home Infusion Status:Enrolled (Active) Start date:06/26/2024 Enrollment date:06/26/2024 Related service episodes:[facility] Specialty Therapies - ENTYVIO 300 mg IV EVERY 8 WEEKS (Active) Overview Cutover complete. Alicia Torres, MARIA A 07/12/2024 1:09 PM Case Team Name Relationship Phone Caroline Banerjee RN(Responsible Staff) Home Infu fabricio Nursing Continued Care and Services Coordination
--- OUTSIDE RECORDS SUMMARY | 2025-01-14 15:15 | XMS_ITS | Patient Health Record ---
Author Organization [facility] Address [address] [place] [address] Care Team Providers Care Statistical Analyst Name Role Phone Chelsi Cervantes Unavailable [phone] Reason For Referral No Information Medications Medication SIG (Take, Route, Frequency, Duration) Notes Start Date End Date Status Entyvio 300 mg infuse 300 mg over 30 minute(s) by intravenous route every 8 weeks Intravenous [id number] 02 Active Multi-Vitamin take 1 tablet by [...] tablet in the morning - *Reorder from [employer] for eRx and Interaction Alerts* Active Cetirizine HCl 10 MG take 1 tablet (10 mg) by oral route once daily Oral 1 Active Peppermint Oil 50 mg take 1 capsule by oral route once ORAL 1 *Pick strength-form from [employer] for eRX* Active Farxiga 5 MG take [...] times a week - *Pick strength-form from [employer] for eRX* Active Losartan Potassium 25 MG take 1 tablet (25 mg) by oral route once daily Oral 1 Active Rybelsus 7 mg take 1 tablet (7 mg) by oral route once daily in the morning 30 min before any food, drink or medication with no more than 4 oz plain water oral 1 Active Cholecalciferol 1.25 MG (06159 UT) take 1 tablet by oral route once Oral 1 Active traZODone HCl 50 MG take 1 tablet (50 mg) by oral route once daily at bedtime Oral 1 Active Biotin 1,000 mcg chew 1 tablet by oral route once Oral 1 *Pick strength-form from [employer]lee[employer] for eRX* Active Fenofibrate 134 mg take 1 tablet in the evening oral *Pick strength-form from Voxxterspan for eRX* Active Fish Oil Burp-Less 1200 MG take 1 capsule by oral route twice Oral 2 Active Plan Of Treatment No Information Insurance Providers Payer Name Payer Address Payer Phone Subscriber Number Group Number Insured Name Patient Relationship to Insured Coverage Start Date Coverage End Date [employer] [address] [place] [address] [id number] Carmen Mortensen Self - patient is the insured Medical (General) History Surgical History Surgery Date(Month/Year) Hysterectomy; 2022-11-22 Arthroplasty of carpometacarpal (CMC) maryellen int of hand; 2022-11-28 sympathectomy; 2022-11-28
[2025-01-14 16:19] VITALS: BP 129/60; PULSE 76; RESP 21; O2SAT 98
[2025-01-14] MEDS: LIDOCAINE 5% PATCH 1 PATCH TRANSDERM (16:20)
[2025-01-14] MEDS: HYDROmorphone HCL INJ (*CRX) 1 MG/ML SYR 0.5 MG IM (16:21)
--- NOTE | 2025-01-14 17:33 | ED.FALL ---
HPI - Fall General Chief Complaint: Fall Stated Complaint: fall Time Seen by Provider: 01/14/25 14:52 History of Present Illness HPI Narrative: Patient presenting here after she missed some steps and fell, falling and hitting her head and injuring her neck. She does have loss of consciousness, and currently has some pain to the back of her neck and head Related Data Home Medications ?Medication ?Instructions ?Recorded ?Confirmed ?Last Taken ?Type cetirizine 10 mg capsule (All Day 10 mg PO DAILY 03/10/19 09/21/24 09/01/24 History Allergy (cetirizine)) cholecalciferol (vitamin D3) 125 5,000 unit PO DAILY 03/10/19 09/21/24 08/30/24 History mcg (5,000 unit) tablet (Vitamin D3) eluxadoline 100 mg tablet (Viberzi) 100 mg PO DAILY 03/10/19 09/21/24 09/01/24 History omega 7-oez-ado-fish oil 1,200 mg 1 cap PO BID 01/26/22 09/21/24 08/30/24 History (144 mg-216 mg) capsule (Fish Oil) vedolizumab 300 mg intravenous 300 mg IV .every 8 weeks 09/24/22 09/21/24 11/20/23 History solution (Entyvio) mfzlvjxv-nnc-hxeen acid 0.4 2 tablet PO DAILY 03/26/23 09/21/24 08/30/24 History mg-lycopene 300 mcg-lutein 250 mcg tablet (Centrum Silver) lidocaine-prilocaine 2.5 %-2.5 % 2.5 g topical .other 12/04/23 09/21/24 Unknown History topical cream imipramine pamoate 100 mg capsule 100 mg PO HS 08/10/24 09/21/24 09/01/24 History mecobalamin (vitamin B12) 1,000 2,000 mcg PO 2XW 09/15/24 09/21/24 Unknown History mcg chewable tablet cyclobenzaprine 10 mg tablet 10 mg PO 12/10/24 Unknown History Allergies Allergy/AdvReac Type Severity Reaction Status Date / Time pregabalin Allergy Intermediate MEMORY GAPS Verified 12/10/24 13:05 cefuroxime (From Ceftin) Allergy Mild Diarrhea Verified 12/10/24 13:05 doxycycline Allergy Unknown Pt does Verified 12/10/24 13:05 not remember duloxetine Allergy Unknown catatonic Verified 12/10/24 13:05 lisinopril Allergy Unknown Diarrhea Verified 12/10/24 13:05 Penicillins Allergy Unknown Skin Verified 12/10/24 13:05 Reaction Sulfa (Sulfonamide Allergy Unknown Skin Verified 12/10/24 13:05 Antibiotics) Reaction suvorexant (Belsomra) Allergy Unknown intolerance Verified 12/10/24 13:05 vancomycin Allergy Unknown Facial Verified 12/10/24 13:05 swelling tizanidine Allergy Hallucinati Verified 12/10/24 13:05 ng losartan AdvReac Severe Hypotension Verified 12/10/24 13:05 prednisone AdvReac Severe Shakiness Verified 12/10/24 13:05 Review of Systems Review of Systems: All systems reviewed & are unremarkable except as noted in HPI and below PMFSH Past Medical History Medical History Bilateral hearing loss Chronic headache Cough Nausea Trigger finger, acquired COVID-19 Cat bite History of hyperlipidemia Crohn's disease, unspecified, with other complication when pre infusion lab reviewed, infusion center needs to be called to give verbal order to proceed with infusion. Essential (primary) hypertension Surgical History Surgical History H/O cataract removal with insertion of prosthetic lens left eye 11/25/23 right eye 12/02/23 History of hysterectomy ~2013, OA -Dr. Yovani Kruger Family History Family History Father Family history of cardiac disorder Family history of arthritis Family history of Parkinson's disease Malignant neoplasm of prostate Family history of hypercholesterolemia Family history of cardiovascular disease Mother Family history of hypercholesterolemia Metastatic lung cancer (metastasis from lung to other site) Grandparent Family history of hypercholesterolemia Depression Family history of Alzheimer's disease Family history of emphysema Sibling Hypertension Social History Social History Social History: Caffeine- Jamin tea/sweet tea Smoking status: Never smoker Alcohol intake: current Alcohol use details: VERY RARE Substance use: never Substance use type: does not use Lack of Transportation: No Lack of Food: Never True Current Housing: I Have Housing Concerned About Future Housing: No Difficulty Paying Gas/Electric Bills: No Difficulty Paying for Meds: No Currently Unemployed: No Education: High School Diploma/GED Living arrangements: with family Gender identity (if verbalized by the patient): Female Spiritual care concerns: No Exam Narrative: EXAMINATION OF ORGAN SYSTEMS/BODY AREAS: Constitutional: Vital signs per nursing GENERAL: Appears uncomfortable HEAD: Normal with no signs of head trauma. EYES: EOMI, conjunctiva normal ENT: Hearing grossly intact NECK: Some bony tenderness to C spine LUNGS: Nonlabored breathing. HEART: [Regular rate and rhythm] ABD: [Soft], [nontender to palpation] EXT: Normal range of motion with some bruising to the left hand SKIN: [No rashes or lesions.] NEURO: [Alert and oriented x 3. No gross focal sensory or strength deficits.] PSYCH: Normal affect Course Vital Signs Vital signs: Vital Signs Temperature 97.9 F 01/14/25 14:41 Pulse Rate 76 01/14/25 14:41 Respiratory Rate 18 01/14/25 14:41 Blood Pressure 161/66 H 01/14/25 14:41 Pulse Oximetry 100 01/14/25 14:41 Oxygen Delivery Room Air 01/14/25 14:41 Temperature 97.9 F 01/14/25 14:41 Pulse Rate 76 01/14/25 16:19 Respiratory Rate 21 H 01/14/25 16:19 Blood Pressure 129/60 01/14/25 16:19 Pulse Oximetry 98 01/14/25 16:19 Oxygen Delivery Room Air 01/14/25 14:41 MDM - Fall MDM Narrative Medical decision making narrative: Patient presenting here after she missed some steps and fell, falling and hitting her head and injuring her neck. She does have loss of consciousness, and currently has some pain to the back of her neck and head On exam she does appear to be uncomfortable, some tenderness to the cervical spine, she has strong bite both sides and no malocclusion. Small bruising to left hand with normal range of motion. Normal neurologic exam, no focal numbness or weakness or tingling. CT head and C-spine negative for acute abnormality, however since she does still have some tenderness to the neck I will give her a soft collar for comfort. Pain medication given here and follow-up to Neurosurgery, patient agreeable to plan with return precautions. Discharge Plan Discharge Clinical Impression: Fall, Head injury, Injury of neck Patient Disposition: Home Condition: Stable Instructions: Head Injury (ED), Soft Cervical Collar (ED) Additional Instructions: Your CT thankfully did not show anything broken, out of place, there are no signs of bleeding in the brain. You can wear the soft collar for comfort, continue taking your pain medications at home, and if you continue to have any pain, please follow-up with the spine surgeon. If you start developing any new focal numbness weakness or tingling, please return to the emergency room. Patient Language: Icelandic Prescriptions: New acetaminophen [Tylenol Extra Strength] 500 mg tablet 1,000 mg PO Q6H PRN (Reason: pain) Qty: 50 0RF lidocaine 5 % adhesive patch,medicated 1 patch topical DAILY Qty: 15 0RF Rx Instructions: leave on most painful area for up to 12 hrs No Action omega 7-hmd-ylr-fish oil [Fish Oil] 1,200 (144-216) mg Capsule 1 cap PO BID Viberzi 100 mg tablet 100 mg PO DAILY Patient Comments: EVERY OTHER DAY Rx Instructions: must administer with a meal/food cholecalciferol (vitamin D3) [Vitamin D3] 125 mcg (5,000 unit) tablet 5,000 unit PO DAILY All Day Allergy (cetirizine) 10 mg capsule 10 mg PO DAILY Centrum Silver 0.4 mg-300 mcg- 250 mcg tablet 2 tablet PO DAILY Rx Instructions: take one tab. in the am and one in the pm mecobalamin (vitamin B12) 1,000 mcg tablet,chewable 2,000 mcg PO 2XW imipramine pamoate 100 mg capsule 100 mg PO HS Entyvio 300 mg recon soln 300 mg IV .every 8 weeks Rx Instructions: administer over 30 mins lidocaine-prilocaine 2.5-2.5 % cream 2.5 g topical .other Patient Comments: Uses to access my port. cyclobenzaprine 10 mg tablet 10 mg PO ondansetron 4 mg tablet,disintegrating 4 mg PO Q8H PRN (Reason: nausea and vomiting) Qty: 10 0RF (DME) blood-glucose meter [Blood Glucose Monitoring] Kit See Rx Instructions .Route Qty: 1 0RF Rx Instructions: As directed (DME) lancets [1st Tier Unilet ComforTouch] 28 gauge misc See Rx Instructions .Route Qty: 100 3RF Rx Instructions: once daily (DME) OneTouch Verio test strips Strip See Rx Instructions .ROUTE .COMPLEX Qty: 100 3RF Dose Instruction: TEST ONCE DAILY Rx Instructions: TEST ONCE DAILY (DME) lancets [OneTouch Delica Plus Lancet] 33 gauge misc See Rx Instructions .ROUTE .COMPLEX Qty: 100 0RF Dose Instruction: USE ONCE DAILY Rx Instructions: USE ONCE DAILY trazodone 100 mg tablet 100 mg PO QHS Qty: 90 3RF Farxiga 5 mg tablet 5 mg PO DAILY Qty: 30 11RF simvastatin 10 mg tablet See Rx Instructions .ROUTE .COMPLEX Qty: 100 3RF Dose Instruction: TAKE 1 TABLET BY MOUTH DAILY Rx Instructions: TAKE 1 TABLET BY MOUTH DAILY Kerendia 10 mg tablet See Rx Instructions .ROUTE .COMPLEX Qty: 30 12RF Dose Instruction: TAKE 1 TABLET BY MOUTH DAILY Rx Instructions: TAKE 1 TABLET BY MOUTH DAILY oxybutynin chloride 10 mg tablet extended release 24hr See Rx Instructions .ROUTE .COMPLEX Qty: 270 1RF Dose Instruction: TAKE 2 TABLETS BY MOUTH DAILY Rx Instructions: TAKE 3 TABLETS BY MOUTH DAILY fenofibrate micronized 134 mg capsule 134 mg PO DAILY Qty: 90 1RF Rybelsus 7 mg tablet 7 mg PO DAILY Qty: 90 1RF estradiol 1 mg tablet See Rx Instructions .ROUTE .COMPLEX Qty: 90 1RF Dose Instruction: TAKE 1 TABLET BY MOUTH DAILY, OFF 1 WEEK, REPEAT CYCLE Rx Instructions: TAKE 1 TABLET BY MOUTH DAILY, Follow-up/Referrals: Ricky Foster MD [Physician, Neurosurgery] - 2 Days Gabbie Wilde MD [Primary Care Provider, Family Practice]
== END 2025-01-14 16:50 | disposition home or self-care (01) ==
PROVIDERS: Emergency Provider Emergency Medicine; PCP Family Medicine
DX: S06.9X9A Unspecified intracranial injury with loss of consciousness of unspecified duration, initial encounter (principal); S19.9XXA Unspecified injury of neck, initial encounter; I10 Essential (primary) hypertension; E78.5 Hyperlipidemia, unspecified; K50.90 Crohn's disease, unspecified, without complications; Z86.16 Personal history of COVID-19; Z96.1 Presence of intraocular lens; Z98.42 Cataract extraction status, left eye; Z90.710 Acquired absence of both cervix and uterus; Z79.899 Other long term (current) drug therapy; Z79.84 Long term (current) use of oral hypoglycemic drugs; W10.9XXA Fall (on) (from) unspecified stairs and steps, initial encounter
CPT/HCPCS: 70450; 72125; 96372; 99284; A4565; A9270; J1171

== ENCOUNTER 2025-01-29 09:47 | Outpatient (CLI) | payer MEDICARE, BC, SELFPAY ==
--- NOTE | 2025-02-20 15:17 | P.PCNHOL_ITS ---
Holter/Event Monitor Holter/Event Monitor Date of procedure: 01/29/25 Holter/Event Procedure: 3-7 Day Holter Monitor Indications: Syncope Conclusion: 1. 7 days holter monitor on 01/29/25. 2. Predominant rhythm is sinus rhythm. HR range 62-169 bpm; average 78 bpm. 3. There are rare premature supraventricular complexes, rare supraventricular couplets, and rare supraventricular triplets. There are 4 episodes of supr aventricular tachycardia with fastest at 169 bpm and longest lasting 8 beats. 4. There are rare premature ventricular complexes, rare ventricular couplets, longest ventricular trigeminy was 20 minutes and 8 seconds. No ventricular tachycardia. 5. No significant pauses greater than 3 seconds. 6. No symptoms available for correlation.
== END 2025-01-29 09:48 | disposition home or self-care (01) ==
LOC: ANHCARD 09:51
PROVIDERS: PCP Family Medicine; Visit Provider Family Medicine
DX: I49.1 Atrial premature depolarization (principal); I47.19 Other supraventricular tachycardia; I49.3 Ventricular premature depolarization; R55 Syncope and collapse
CPT/HCPCS: 93242